=== PATIENT | female | born 1960 | race Two or more races ===

== ENCOUNTER 2018-12-24 22:36 | Inpatient (IN) | payer MEDICAID ==
[~2018-12-24] VITALS: Ht 167.6 cm; Wt 88.9 kg
[~2018-12-24 22:36] MED LIST: ALBU18HF2 INH; BISA10SU8 RC; BUDE10.2 INH; DILT240C96 PO; FURO-150 PO; LISI-604 PO; METO25TA6 PO; NITR0.4T51 SL; PANT-47 PO; POTA10TA15 PO; RIVA20TA PO
[2018-12-24 23:27] LABS: BASOPHILS # (AUTO) 0.1 X10'3 (0-0.2); BASOPHILS % (AUTO) 0.6 % (0-1); EOSINOPHILS # (AUTO) 1.4 X10'3 (0-0.9); EOSINOPHILS % (AUTO) 7.9 % (0-6); HEMATOCRIT 41.4 % (35.0-45.0); HEMOGLOBIN 13.2 g/dl (12.0-16.0); LYMPHOCYTES # (AUTO) 1.4 X10'3 (1.1-4.8); MEAN CORPUSCULAR HEMOGLOBIN 26.6 PG (27.0-31.0); MEAN CORPUSCULAR HGB CONC 31.9 g/dL (33.0-36.5); MEAN CORPUSCULAR VOLUME 83.5 FL (78-98); MEAN PLATELET VOLUME 8.4 FL (7.4-10.4); MONOCYTES # (AUTO) 1.5 X10'3 (0-0.9); MONOCYTES % (AUTO) 8.8 % (2-12); NEUTROPHILS % (AUTO) 74.7 % (42-75); PLATELET COUNT 460 X10'3 (140-440); RED BLOOD COUNT 4.96 X10'6 (4.20-5.60); WHITE BLOOD COUNT 17.5 X10'3 (4.5-11.0)
[2018-12-24] MEDS ORDERED: CefTRIAXone 2gm/D5W 50ml 50 ML IV ONE (23:30)
[2018-12-24] MEDS ORDERED: normal saline 1000ML IV soln IV ONE (23:30)
[2018-12-24] MEDS ORDERED: iohexol 350 MG/ML 50ML vial IV ONE (23:35)
[2018-12-24] MEDS ORDERED: iohexol 350MG/ML 100ml bottle IV ONE (23:35)
[2018-12-24 23:37] LABS: ALANINE AMINOTRANSFERASE 40 U/L (12-78); ALBUMIN 3.3 G/DL (3.4-5.0); ALBUMIN/GLOBULIN RATIO 0.8 (1.1-1.5); ALKALINE PHOSPHATASE 207 IU/L (46-116); ANION GAP 12 (8-16); ASPARTATE AMINO TRANSFERASE 27 U/L (10-37); BILIRUBIN,TOTAL 0.9 MG/DL (0.1-1.0); BLOOD UREA NITROGEN 31 MG/DL (7-18); BUN/CREATININE RATIO 23.3 (6.6-38.0); CALCIUM 9.9 MG/DL (8.5-10.1); CHLORIDE 106 MMOL/L (99-107); CREATININE 1.33 MG/DL (0.40-0.90); GLUCOSE 100 MG/DL (70-104); POTASSIUM 4.7 MMOL/L (3.5-5.1); SODIUM 140 MMOL/L (135-145); TOTAL CARBON DIOXIDE 22.2 MMOL/L (24-32); TOTAL PROTEIN 7.3 G/DL (6.4-8.2); eGFR 41 ML/MIN
[2018-12-24 23:43] LABS: INR 1.2 INR; PARTIAL THROMBOPLASTIN TIME 28 SECONDS (22-32)
[2018-12-24 23:46] LABS: TOTAL CELLS COUNTED 100
[2018-12-24 23:49] LABS: ANISOCYTOSIS 2+; BURR CELLS 1+; ELLIPTOCYTES 1+; PLATELET ESTIMATE INCREASED; POLYCHROMASIA FEW; SCHISTOCYTES FEW; TARGET CELLS FEW
[2018-12-24 23:50] LABS: LARGE PLATELETS MODERATE
[2018-12-25] VITALS (10 sets, daily range): BP systolic 102–136; BP diastolic 70–92
[2018-12-25] MEDS ORDERED: morphine 4 MG/ML inj SYRINge IV ONE ×2 (00:55→02:45)
[2018-12-25] MEDS ORDERED: diltiazem 5mg/ml 5ml inj. IV ONE ×2 (03:15→04:55)
--- NOTE | 2018-12-25 03:35 | NUR ---
Attempted to complete med rec, patient named medications currently taking but did not know dosages.
[2018-12-25] MEDS ORDERED: magnesium 4gm in 100ml NS 100 ML IV PRN (03:50)
[2018-12-25] MEDS ORDERED: potassium Cl 40MEQ/NS 500ml 500 ML IV PRN ×4 (03:50→13:50)
[2018-12-25] MEDS ORDERED: magnesium hydroxide 30ml (MOM) UD suspension PO PRN (03:50)
[2018-12-25] MEDS ORDERED: acetaminophen 325mg tablet PO PRN ×4 (03:50→13:50)
[2018-12-25] MEDS ORDERED: mag hydrox/Alum hydrox/simeth 30ml oral suspension PO PRN (03:50)
[2018-12-25] MEDS ORDERED: magnesium 2GM in 50ml NS 50 ML IV PRN (03:50)
[2018-12-25] MEDS ORDERED: magnesium Cl slow-release 64mg tablet PO PRN (03:50)
[2018-12-25] MEDS ORDERED: potassium Cl 20 mEq SR tablet PO PRN ×4 (03:50→13:50)
[2018-12-25] MEDS ORDERED: ondansetron/PF 4mg/2ml inj IV PRN ×2 (03:50→13:50)
[2018-12-25] MEDS ORDERED: fentaNYL/PF 50MCG/1 ML 2ML syringe IV ONE (04:10)
[2018-12-25] MEDS ORDERED: LORazepam 2 mg/ml vial IV ONE ×2 (04:30→04:55)
[2018-12-25] MEDS: diltiazem-D5W 125mg/125ml 125 ML IV SCH ×2 (04:39→11:35)
[2018-12-25 05:20] LABS: ABG BASE EXCESS -7.7 mmol/L (-2.0-3.0); ABG HCO3 19.5 mmol/L (22.0-26.0); ABG OXYGEN SATURATION 92.8 % (95-98); ABG PCO2 (T) 45.9 mmHg (32.0-45.0); ABG PH (T) 7.245 (7.350-7.450); ABG PO2 (T) 77.9 mmHg (83-108); ALLEN'S TEST Positive; FCOHb 0.9 % (0.5-1.5); FLOW 5 L/min; FMetHb 0.2 % (0.3-1.12); FO2Hb 91.8 % (94-100); RESPIRATORY RATE (OBSERVED) 18 b/min; TOTAL HEMOGLOBIN 13.8 G/dl (12.0-16.0)
--- NOTE | 2018-12-25 05:31 | NUR ---
Cardizem increased to 10/hr
--- NOTE | 2018-12-25 05:43 | NUR ---
Cardizem increased to 15ml/hr
[2018-12-25] MEDS ORDERED: midazolam 100mg in NS 100ml 100 ML IV PRN ×2 (05:50→13:47)
[2018-12-25] MEDS ORDERED: MIDAZolam 5mg/ml 2ml vial IV ONE (05:50)
[2018-12-25 05:56] LABS: CLARITY,URINE CLOUDY (Clear); COLOR,URINE YELLOW (Yellow); GLUCOSE, URINE NEGATIVE (Neg); KETONES,URINE NEGATIVE (Neg); LEUKOCYTE ESTERASE ,URINE NEGATIVE (Neg); NITRITES, URINE NEGATIVE (Neg); OCCULT BLOOD,URINE TRACE-INTACT (Neg); PH,URINE 5.5 (4.8-8.0); PROTEIN,URINE 30 mg/dl (Neg)
[2018-12-25 05:57] LABS: UA COLLECTION TYPE FOLEY CATH
[2018-12-25 06:02] LABS: BACTERIA,URINE FEW /HPF (Neg); MUCUS STRANDS FEW /LPF (Neg); RBC,URINE 0-2 /HPF (0-2); SQUAMOUS EPITHELIAL CELL,UR FEW /LPF (FEW); WBC,URINE 0-4 /HPF (0-4)
[2018-12-25 06:06] LABS: AMORPHOUS URATES 2+
[2018-12-25 06:10] LABS: ABG BASE EXCESS -8.9 mmol/L (-2.0-3.0); ABG HCO3 18.1 mmol/L (22.0-26.0); ABG OXYGEN SATURATION 89.4 % (95-98); ABG PCO2 (T) 42.4 mmHg (32.0-45.0); ABG PH (T) 7.247 (7.350-7.450); ABG PO2 (T) 67.5 mmHg (83-108); ALLEN'S TEST Positive; FCOHb 0.9 % (0.5-1.5); FMetHb 0.2 % (0.3-1.12); FO2Hb 88.4 % (94-100); MINUTE VOLUME 7 L/min; PATIENT TEMPERATURE 36.8; PEEP 5 cm H2O; RESPIRATORY RATE 18 b/min; RESPIRATORY RATE (OBSERVED) 18 b/min; TIDAL VOLUME 400 mL; TOTAL HEMOGLOBIN 13.4 G/dl (12.0-16.0)
[2018-12-25] MEDS ORDERED: ipratropium/albuterol 3ml nebule NEB PRN ×2 (06:20→13:50)
--- NOTE | 2018-12-25 06:23 | NUR ---
Patient is properly sedated on 2mg of versed. No signs of distress. Pupils non reactive pinpoint. bilateral lung sounds, course. Vent settings FIO2 60%, [id number], R 18, PEEP 5. Heart sounds irregular rhythm. s1,s2. Dunbar in place. OG attached to LIS.
[2018-12-25 06:25] LABS: URINE AMPHETAMINE SCREEN POSITIVE (Neg); URINE BARBITUATE SCREEN NEGATIVE (Neg); URINE BENZODIAZEPINES SCREEN NEGATIVE (Neg); URINE CANNABINOID SCREEN NEGATIVE (Neg); URINE COCAINE SCREEN NEGATIVE (Neg); URINE METHADONE SCREEN NEGATIVE (Neg); URINE OPIATE SCREEN POSITIVE (Neg); URINE PHENCYCLIDINE SCREEN NEGATIVE (Neg)
[2018-12-25] MEDS: lactobacillus rhamnosus 10,000 MMU CELLS/CAPSULE PO SCH ×2 (08:00→20:05)
[2018-12-25] MEDS: piperacillin/tazo 3.375gm/50ml 50 ML IV SCH ×3 (08:31→20:04)
[2018-12-25] MEDS: K and/or MAG REPLACEMENT MC SCH (08:39)
[2018-12-25] MEDS ORDERED: 0.9 % SODIUM CHLORIDE 10 ML VIAL ONE (09:00)
[2018-12-25] MEDS ORDERED: rocuronium 10mg/ml inj IV ONE (09:00)
[2018-12-25] MEDS ORDERED: etomidate 2mg/ml inj. ONE ×3 (09:00→13:00)
--- NOTE | 2018-12-25 09:10 | NUR ---
Report received from SHANIQUE Overton in ER.
--- NOTE | 2018-12-25 10:00 | NUR ---
Pt arrived to CICU 2009. 2 RN skin check performed. Pt agitated and difficult to move safely while protecting tubes/lines - given 2mg bolus of versed. Peripheral pulses verified with doppler, drip compatibility checked.
--- NOTE | 2018-12-25 10:45 | NUR ---
Critical care rounds: gave MD report that I received from ER. Discussed all systems. See new orders. Also states okay to cancel the rest of the troponins if the 6hr one at 1130 comes back normal.
[2018-12-25] MEDS: FENTANYL-0.9 % NACL/PF 100 ML IV PRN (11:10)
[2018-12-25] MEDS ORDERED: amiodarone 150mg/dext, iso-os 100 ML IV ONE (12:00)
[2018-12-25] MEDS ORDERED: sod chloride 0.9% 10ml flush syringe IV ONE ×2 (12:00→13:00)
--- NOTE | 2018-12-25 12:05 | NUR ---
Dr Salinas notified that Vtach seen during critical care rounds by entire team has repeated in 2 more episodes. He states to change cardizem drip to amiodarone drip including starting bolus.
[2018-12-25] MEDS: nystatin 15 GM powder TP SCH ×2 (12:54→21:41)
[2018-12-25] MEDS: amiodarone/D5 360MG/200ML BAG 200 ML IV SCH ×2 (12:59→18:36)
[2018-12-25] MEDS: vancomycin inj 1,250 MG in NS 250ml IV soln IV SCH (13:13)
[2018-12-25] MEDS ORDERED: FENTANYL-0.9 % NACL/PF 100 ML IV PRN (13:47)
[2018-12-25] MEDS ORDERED: midazolam 2 mg/2 ml injection IV ONE (13:50)
[2018-12-25] MEDS ORDERED: potassium Cl 40MEQ/250ML bag 250 ML IV PRN (13:50)
[2018-12-25] MEDS ORDERED: fentaNYL/PF 50MCG/1 ML 2ML syringe IV PRN (13:50)
[2018-12-25] MEDS ORDERED: potassium Cl 40MEQ/250ML bag 250 ML IV SCH (13:50)
--- NOTE | 2018-12-25 14:10 | NUR ---
Extended PIV inserted to the right upper arm basilic vein x 1 attempt using ultrasound. García well Addendum: 12/25/18 at 1411 by Erika Hernandez RN Amended: Links added.
[2018-12-25] MEDS: lisinopril 5mg tablet PO SCH (14:15)
[2018-12-25] MEDS: normal saline 1000ml 1,000 ML IV SCH (14:17)
[2018-12-25] MEDS: ipratropium/albuterol 3ml nebule NEB SCH (15:00)
--- NOTE | 2018-12-25 15:48 | NUR ---
Patient is intubated to protect airway. Presented to ED with blackened toes and pain. Not receiving nutrition support at this time. Recommend: 1. If prolonged intubation consider nutrition support with tube feeding using Vital High protein at 70 ml/hr 2. When extubated, recommend to advance diet as medically indicated to heart healthy 3. Wt per rx Addendum: 12/25/18 at [address] Amended: Links added.
[2018-12-25 16:00] LABS: CLARITY,URINE CLOUDY (Clear); COLOR,URINE YELLOW (Yellow); GLUCOSE, URINE NEGATIVE (Neg); KETONES,URINE TRACE mg/dl (Neg); LEUKOCYTE ESTERASE ,URINE NEGATIVE (Neg); NITRITES, URINE NEGATIVE (Neg); OCCULT BLOOD,URINE MODERATE (Neg); PH,URINE 5.5 (4.8-8.0); PROTEIN,URINE TRACE mg/dl (Neg)
[2018-12-25 16:10] LABS: UA COLLECTION TYPE NON-SPECIFIED
[2018-12-25 16:36] LABS: URIC ACID CRYSTALS 4+ /HPF (NEGATIVE)
[2018-12-25 16:43] LABS: FINE GRANULAR CAST 0-3 /LPF (NEGATIVE); HYALINE CASTS 0-3 /LPF (NEGATIVE)
[2018-12-25 16:46] LABS: BACTERIA,URINE 1+ /HPF (Neg); SQUAMOUS EPITHELIAL CELL,UR FEW /LPF (FEW); WBC,URINE 0-4 /HPF (0-4)
[2018-12-25 16:47] LABS: TRANSITIONAL EPI CELLS,URINE FEW /HPF
[2018-12-25 17:15] LABS: UA EOSINOPHILS NO EOS /HPF
--- NOTE | 2018-12-25 18:00 | NUR ---
When IV spreadsheet filled out at end of shift after clearing pumps I noticed bag not initially scanned by the ER nurse that began. Note written to spreadsheet at 1015 stating bag not scanned by ER but I will document total input for volume intake at end of shift. Charge nurse and pharmacist made aware.
--- NOTE | 2018-12-25 18:15 | NUR ---
Dr Salinas at bedside and was informed that hands are appearing more dusky and purple than when first admitted, cool to the touch also. Cap refill present but very slow. Radial pulses present bilaterally. He states to keep checking pulses and attempt to get O2 sat probe to read on finger if possible but otherwise not much more we can do at this time. We also discussed the ET tube being too far down right at the steve, he instructs night nurse to pull back ET tube.
--- NOTE | 2018-12-25 18:26 | NUR ---
Patient in room CICU 2009. I have received report from Nubia Gracia and had the opportunity to ask questions and assume patient care.
--- NOTE | 2018-12-25 18:28 | NUR ---
Problems reprioritized. Patient report given, questions answered & plan of care reviewed with SHANIQUE Ulloa.
[2018-12-25] MEDS ORDERED: docusate sod 100mg capsule PO SCH (20:00)
[2018-12-25] MEDS: heparin, porcine 5000 units/ml vial SQ SCH (20:05)
[2018-12-25] MEDS: famotidine/PF 10 mg/ml inj IV SCH (20:05)
[2018-12-25] MEDS: docusate sodium 100mg/10ml UD cup PO SCH (20:17)
[2018-12-25] MEDS: midazolam 100mg in NS 100ml 100 ML IV PRN (21:42)
[2018-12-25] MEDS ORDERED: CefTRIAXone 2gm/D5W 50ml 50 ML IV SCH (22:00)
--- NOTE | 2018-12-25 22:25 | NUR ---
Patient resting comfortably vital signs stable. Becomes easily agitated with turning and oral care, will continue to monitor
[2018-12-26] VITALS (24 sets, daily range): BP systolic 85–130; BP diastolic 46–88
[2018-12-26] MEDS: amiodarone/D5 360MG/200ML BAG 200 ML IV SCH ×4 (00:08→18:38)
[2018-12-26] MEDS: vancomycin inj 1,250 MG in NS 250ml IV soln IV SCH (01:44)
[2018-12-26] MEDS: piperacillin/tazo 3.375gm/50ml 50 ML IV SCH ×4 (01:45→21:07)
[2018-12-26] MEDS ORDERED: dextrose 50%-water 50ml dispensing syringe IV ONE (03:06)
[2018-12-26] MEDS: normal saline 1000ml 1,000 ML IV SCH ×3 (03:07→22:29)
--- NOTE | 2018-12-26 03:20 | NUR ---
patient resting comfortably, vital signs stable will continue to monitor
[2018-12-26 03:50] LABS: ABG BASE EXCESS -4.5 mmol/L (-2.0-3.0); ABG HCO3 20.4 mmol/L (22.0-26.0); ABG OXYGEN SATURATION 91.8 % (95-98); ABG PCO2 (T) 35.4 mmHg (32.0-45.0); ABG PH (T) 7.375 (7.350-7.450); ABG PO2 (T) 58.1 mmHg (83-108); ALLEN'S TEST Positive; FCOHb 0.3 % (0.5-1.5); FMetHb 0.1 % (0.3-1.12); FO2Hb 91.4 % (94-100); MINUTE VOLUME 7 L/min; PATIENT TEMPERATURE 35.9; PEEP 5 cm H2O; RESPIRATORY RATE 20 b/min; RESPIRATORY RATE (OBSERVED) 20 b/min; TIDAL VOLUME 350 mL; TOTAL HEMOGLOBIN 12.7 G/dl (12.0-16.0)
[2018-12-26 04:36] LABS: BASOPHILS # (AUTO) 0.1 X10'3 (0-0.2); BASOPHILS % (AUTO) 0.6 % (0-1); EOSINOPHILS # (AUTO) 2.1 X10'3 (0-0.9); HEMATOCRIT 37.2 % (35.0-45.0); HEMOGLOBIN 11.7 g/dl (12.0-16.0); LYMPHOCYTES # (AUTO) 1.1 X10'3 (1.1-4.8); LYMPHOCYTES % (AUTO) 9.4 % (21-51); MEAN CORPUSCULAR HEMOGLOBIN 26.8 PG (27.0-31.0); MEAN CORPUSCULAR HGB CONC 31.6 g/dL (33.0-36.5); MEAN CORPUSCULAR VOLUME 84.9 FL (78-98); MEAN PLATELET VOLUME 8.3 FL (7.4-10.4); MONOCYTES # (AUTO) 1.2 X10'3 (0-0.9); MONOCYTES % (AUTO) 10.1 % (2-12); NEUTROPHILS # (AUTO) 7.4 X10'3 (1.8-7.7); NEUTROPHILS % (AUTO) 61.9 % (42-75); PLATELET COUNT 334 X10'3 (140-440); RED BLOOD COUNT 4.38 X10'6 (4.20-5.60); RED CELL DISTRIBUTION WIDTH 19.3 % (11.5-14.5)
[2018-12-26 04:48] LABS: ALANINE AMINOTRANSFERASE 31 U/L (12-78); ALBUMIN 2.2 G/DL (3.4-5.0); ALBUMIN/GLOBULIN RATIO 0.7 (1.1-1.5); ALKALINE PHOSPHATASE 154 IU/L (46-116); ANION GAP 10 (8-16); ASPARTATE AMINO TRANSFERASE 26 U/L (10-37); BILIRUBIN,TOTAL 0.7 MG/DL (0.1-1.0); BLOOD UREA NITROGEN 24 MG/DL (7-18); CALCIUM 8.3 MG/DL (8.5-10.1); CHLORIDE 112 MMOL/L (99-107); CREATININE 1.26 MG/DL (0.40-0.90); GLUCOSE 73 MG/DL (70-104); MAGNESIUM 1.7 MG/DL (1.5-2.4); POTASSIUM 3.8 MMOL/L (3.5-5.1); SODIUM 145 MMOL/L (135-145); TOTAL CARBON DIOXIDE 23.3 MMOL/L (24-32); TOTAL PROTEIN 5.3 G/DL (6.4-8.2); eGFR 43 ML/MIN
[2018-12-26 05:32] LABS: ANISOCYTOSIS 2+; PLATELET ESTIMATE NORMAL
[2018-12-26 05:36] LABS: ELLIPTOCYTES FEW
[2018-12-26 05:54] LABS: BURR CELLS 1+
--- NOTE | 2018-12-26 06:22 | NUR ---
Patient in room CICU 2009. I have received report from SHANIQUE Ulloa and had the opportunity to ask questions and assume patient care.
--- NOTE | 2018-12-26 06:43 | NUR ---
Problems reprioritized. Patient report given, questions answered & plan of care reviewed with Nubia Gracia.
[2018-12-26] MEDS: docusate sodium 100mg/10ml UD cup PO SCH ×2 (08:00→22:29)
[2018-12-26] MEDS: K and/or MAG REPLACEMENT MC SCH (08:00)
[2018-12-26] MEDS: lactobacillus rhamnosus 10,000 MMU CELLS/CAPSULE PO SCH ×2 (08:00→21:08)
[2018-12-26] MEDS: heparin, porcine 5000 units/ml vial SQ SCH (08:00)
[2018-12-26] MEDS: lisinopril 5mg tablet PO SCH (08:00)
[2018-12-26] MEDS: famotidine/PF 10 mg/ml inj IV SCH ×2 (08:00→22:28)
[2018-12-26] MEDS: nystatin 15 GM powder TP SCH ×3 (10:07→21:08)
[2018-12-26] MEDS: mineral oil/petrolatum ophthal oint EACHEYE SCH ×3 (10:10→21:08)
[2018-12-26] MEDS: dexmedetomidine inj. 400 MCG in normal saline 100ml IV soln 100 ML IV PRN ×2 (10:11→18:38)
--- NOTE | 2018-12-26 10:40 | NUR ---
Critical care rounds: discussed patient status, reviewed changes made earlier this morning ordered by Dr Salinas including the change of FiO2 down to 40% despite low pO2, the addition of precedex, rate still in afib around 100-120. Will start tube feeding, bump up K to cardiac protocol of 4.5, IVF increased to 125 instead of 75 to try and improve the urine output which we discussed being low. Also discussed better placement of ET tube now 21 at the teeth.
[2018-12-26] MEDS ORDERED: DILT120C51 PO (10:54)
[2018-12-26] MEDS ORDERED: potassium Cl oral solution 20 MEQ/15 ML PO PRN ×2 (12:45)
[2018-12-26] MEDS: midazolam 100mg in NS 100ml 100 ML IV PRN (13:00)
[2018-12-26] MEDS ORDERED: VANCOMYCIN LEVEL IV ONE (13:30)
--- NOTE | 2018-12-26 13:56 | NUR ---
Tube feeding consult, patient is intubated to protect airway and is sedated. Has OG tube. Presented to ED with blackened toes and pain. Will continue to follow and monitor tube feeding tolerance. Recommend: 1. Continuous tube feeding per OG tube using Vital High protein at 60 ml/hr. Will provide 1440 ml total volume, 1440 cals, 126 g protein, 1204 ml water. 2. Water flush 200 ml Q4H 3. Prealbumin q /, daily wts 4. When extubated, recommend to advance diet as medically indicated to heart healthy Addendum: 12/26/18 at [address] Amended: Links added.
[2018-12-26] MEDS ORDERED: mineral oil/petrolatum ophthal oint EACHEYE SCH (14:00)
[2018-12-26] MEDS: ipratropium/albuterol 3ml nebule NEB SCH ×3 (15:25→22:54)
[2018-12-26] MEDS: FENTANYL-0.9 % NACL/PF 100 ML IV PRN (15:45)
[2018-12-26] MEDS: rivaroxaban 20mg tablet PO SCH (16:30)
[2018-12-26] MEDS ORDERED: non-formulary drug (Albuterol Sulfate (Ventolin Hfa) 2 PUFFS) INH PRN (16:30)
--- NOTE | 2018-12-26 16:44 | NUR ---
called daughter Laila, left message asking to return call back to me or primary RN. I left questions with RN to followup
--- NOTE | 2018-12-26 17:30 | NUR ---
Spoke with Dr Salinas again and told him that urine output still low at around 20-40 an hour, and he states not to give lasix yet, continue IVF at 75/hr
--- NOTE | 2018-12-26 18:32 | NUR ---
Problems reprioritized. Patient report given, questions answered & plan of care reviewed with SHANQIUE corrales.
[2018-12-27] VITALS (26 sets, daily range): BP systolic 68–118; BP diastolic 40–90
[2018-12-27] MEDS: amiodarone/D5 360MG/200ML BAG 200 ML IV SCH ×6 (00:24→20:21)
[2018-12-27] MEDS: vancomycin/NS 1 GM ADD-VANTAGE 250 ML IV SCH ×2 (01:14→13:41)
[2018-12-27] MEDS: dexmedetomidine inj. 400 MCG in normal saline 100ml IV soln 100 ML IV PRN (01:21)
[2018-12-27] MEDS: mineral oil/petrolatum ophthal oint EACHEYE SCH ×4 (01:22→20:12)
--- NOTE | 2018-12-27 02:21 | NUR ---
1999..Assessment as noted, pt agitated and restless, fentanyl bolus given with good effect.
--- NOTE | 2018-12-27 02:21 | NUR ---
1830..Patient in room CICU 2009. I have received report from Mauricio BAY and had the opportunity to ask questions and assume patient care.
--- NOTE | 2018-12-27 02:23 | NUR ---
0000..Resting quietly, Precedex decreased, no other changes noted.
[2018-12-27] MEDS: ipratropium/albuterol 3ml nebule NEB SCH ×6 (02:55→23:28)
[2018-12-27] MEDS: piperacillin/tazo 3.375gm/50ml 50 ML IV SCH ×2 (03:13→16:36)
[2018-12-27 04:15] LABS: ABG BASE EXCESS -5.6 mmol/L (-2.0-3.0); ABG HCO3 19.6 mmol/L (22.0-26.0); ABG OXYGEN SATURATION 88.5 % (95-98); ABG PCO2 (T) 36.5 mmHg (32.0-45.0); ABG PH (T) 7.346 (7.350-7.450); ABG PO2 (T) 55.3 mmHg (83-108); ALLEN'S TEST Positive; FMetHb 0.1 % (0.3-1.12); FO2Hb 88.4 % (94-100); MINUTE VOLUME 8 L/min; PATIENT TEMPERATURE 36.6; PEEP 5 cm H2O; RESPIRATORY RATE 20 b/min; RESPIRATORY RATE (OBSERVED) 20 b/min; TIDAL VOLUME 350 mL; TOTAL HEMOGLOBIN 12.8 G/dl (12.0-16.0)
--- NOTE | 2018-12-27 04:49 | NUR ---
0400..No changes noted.
[2018-12-27 05:23] LABS: BASOPHILS # (AUTO) 0.1 X10'3 (0-0.2); BASOPHILS % (AUTO) 1.1 % (0-1); EOSINOPHILS # (AUTO) 2.1 X10'3 (0-0.9); EOSINOPHILS % (AUTO) 15.9 % (0-6); HEMOGLOBIN 12.5 g/dl (12.0-16.0); LYMPHOCYTES # (AUTO) 0.9 X10'3 (1.1-4.8); MEAN CORPUSCULAR HEMOGLOBIN 26.6 PG (27.0-31.0); MEAN CORPUSCULAR HGB CONC 31.3 g/dL (33.0-36.5); MEAN CORPUSCULAR VOLUME 85.1 FL (78-98); MONOCYTES # (AUTO) 1.1 X10'3 (0-0.9); MONOCYTES % (AUTO) 7.8 % (2-12); NEUTROPHILS # (AUTO) 9.2 X10'3 (1.8-7.7); NEUTROPHILS % (AUTO) 68.2 % (42-75); PLATELET COUNT 346 X10'3 (140-440); RED BLOOD COUNT 4.71 X10'6 (4.20-5.60); RED CELL DISTRIBUTION WIDTH 19.9 % (11.5-14.5); WHITE BLOOD COUNT 13.5 X10'3 (4.5-11.0)
[2018-12-27] MEDS: normal saline 1000ml 1,000 ML IV SCH (05:31)
[2018-12-27] MEDS ORDERED: NORepinephrine 8mg/ 250ml NS 250 ML IV PRN (05:52)
[2018-12-27] MEDS ORDERED: NORepinephrine 8mg/ 250ml NS 250 ML IV ONE (05:54)
[2018-12-27 05:58] LABS: ALANINE AMINOTRANSFERASE 33 U/L (12-78); ALBUMIN/GLOBULIN RATIO 0.6 (1.1-1.5); ALKALINE PHOSPHATASE 149 IU/L (46-116); ANION GAP 9 (8-16); ASPARTATE AMINO TRANSFERASE 20 U/L (10-37); BILIRUBIN,TOTAL 0.4 MG/DL (0.1-1.0); BLOOD UREA NITROGEN 21 MG/DL (7-18); BUN/CREATININE RATIO 14.2 (6.6-38.0); CALCIUM 8.2 MG/DL (8.5-10.1); CHLORIDE 112 MMOL/L (99-107); CREATININE 1.48 MG/DL (0.40-0.90); GLUCOSE 117 MG/DL (70-104); MAGNESIUM 1.8 MG/DL (1.5-2.4); PHOSPHORUS 3.7 MG/DL (2.3-4.5); POTASSIUM 4.2 MMOL/L (3.5-5.1); SODIUM 144 MMOL/L (135-145); TOTAL CARBON DIOXIDE 23.3 MMOL/L (24-32); TOTAL PROTEIN 5.3 G/DL (6.4-8.2); eGFR 36 ML/MIN
--- NOTE | 2018-12-27 06:30 | NUR ---
Dr. Spears at bedside to assess pt after NOC SURGICAL MANAGER called concerning pt's xray and BP. Femoral CVC quad lumen put in with charge entry at the bedside. Pt then placed on R side and xray to be taken in approximately [address] Spears. Will follow up with Dr. Morillo after she receives sign out. Pt's SBP remains labile at this moment on sedation and pain meds. Will continue to monitor.
--- NOTE | 2018-12-27 06:38 | NUR ---
[id number]..Pt hypotensive, sedation off, Kalina OCCASIONAL CAREGIVER notified, orders received and levophed started, pt wakes wild, and is difficult to calm.
--- NOTE | 2018-12-27 06:46 | NUR ---
0630..Problems reprioritized. Patient report given, questions answered & plan of care reviewed with Adelina BAY.
[2018-12-27] MEDS: midazolam 100mg in NS 100ml 100 ML IV PRN ×2 (07:07→23:06)
[2018-12-27] MEDS: lisinopril 5mg tablet PO SCH (08:00)
[2018-12-27] MEDS: K and/or MAG REPLACEMENT MC SCH (08:00)
--- NOTE | 2018-12-27 08:15 | NUR ---
Pt bronched by Dr. Morillo this AM, sputum samples sent but no mucus plug found. Pt sedated for procedure and chest xray obtained afterwards. Will get Echo and renal US to determine if pt needs lasix or other cause for decompensation. RN will readdress giving lasix after tests are completed.
[2018-12-27] MEDS ORDERED: amiodarone 150mg/dext, iso-os 100 ML IV ONE (08:20)
[2018-12-27] MEDS: docusate sodium 100mg/10ml UD cup PO SCH ×2 (09:02→20:12)
[2018-12-27] MEDS: rivaroxaban 20mg tablet PO SCH (09:02)
[2018-12-27] MEDS: nystatin 15 GM powder TP SCH ×3 (09:02→20:12)
[2018-12-27] MEDS: lactobacillus rhamnosus 10,000 MMU CELLS/CAPSULE PO SCH ×2 (09:02→20:13)
[2018-12-27] MEDS: famotidine/PF 10 mg/ml inj IV SCH ×2 (09:02→20:13)
[2018-12-27] MEDS ORDERED: furosemide 40mg/4ml inj IV ONE (10:00)
--- NOTE | 2018-12-27 10:11 | NUR ---
DM consult: Pt with T2DM current A1c 7.0; pt will need DM education s/p extubation once pt is alert and oriented. Will continue to follow. Addendum: 12/27/18 at [address] Amended: Links added.
[2018-12-27] MEDS: FENTANYL-0.9 % NACL/PF 100 ML IV PRN (16:36)
[2018-12-28] VITALS (25 sets, daily range): BP systolic 89–120; BP diastolic 60–87
[2018-12-28] MEDS: FENTANYL-0.9 % NACL/PF 100 ML IV PRN ×2 (00:26→17:44)
[2018-12-28 01:10] LABS: BASOPHILS # (AUTO) 0.1 X10'3 (0-0.2); BASOPHILS % (AUTO) 0.9 % (0-1); EOSINOPHILS % (AUTO) 22.8 % (0-6); HEMATOCRIT 39.7 % (35.0-45.0); HEMOGLOBIN 12.4 g/dl (12.0-16.0); LYMPHOCYTES # (AUTO) 0.9 X10'3 (1.1-4.8); LYMPHOCYTES % (AUTO) 6.6 % (21-51); MEAN CORPUSCULAR HEMOGLOBIN 26.5 PG (27.0-31.0); MEAN CORPUSCULAR HGB CONC 31.2 g/dL (33.0-36.5); MEAN CORPUSCULAR VOLUME 85.1 FL (78-98); MEAN PLATELET VOLUME 7.9 FL (7.4-10.4); MONOCYTES # (AUTO) 1.2 X10'3 (0-0.9); MONOCYTES % (AUTO) 9.2 % (2-12); NEUTROPHILS % (AUTO) 60.5 % (42-75); PLATELET COUNT 392 X10'3 (140-440); RED BLOOD COUNT 4.66 X10'6 (4.20-5.60); RED CELL DISTRIBUTION WIDTH 19.8 % (11.5-14.5); WHITE BLOOD COUNT 13.3 X10'3 (4.5-11.0)
[2018-12-28 01:21] LABS: ALANINE AMINOTRANSFERASE 26 U/L (12-78); ALBUMIN/GLOBULIN RATIO 0.5 (1.1-1.5); ALKALINE PHOSPHATASE 155 IU/L (46-116); ANION GAP 10 (8-16); ASPARTATE AMINO TRANSFERASE 23 U/L (10-37); BILIRUBIN,TOTAL 0.5 MG/DL (0.1-1.0); BLOOD UREA NITROGEN 22 MG/DL (7-18); BUN/CREATININE RATIO 15.2 (6.6-38.0); CALCIUM 8.3 MG/DL (8.5-10.1); CHLORIDE 109 MMOL/L (99-107); CREATININE 1.45 MG/DL (0.40-0.90); GLUCOSE 136 MG/DL (70-104); MAGNESIUM 1.8 MG/DL (1.5-2.4); PHOSPHORUS 3.7 MG/DL (2.3-4.5); POTASSIUM 4.3 MMOL/L (3.5-5.1); SODIUM 142 MMOL/L (135-145); TOTAL CARBON DIOXIDE 23.2 MMOL/L (24-32); TOTAL PROTEIN 5.7 G/DL (6.4-8.2); eGFR 37 ML/MIN
[2018-12-28] MEDS: mineral oil/petrolatum ophthal oint EACHEYE SCH ×4 (01:55→19:25)
[2018-12-28] MEDS: piperacillin/tazo 3.375gm/50ml 50 ML IV SCH ×3 (01:55→16:30)
[2018-12-28] MEDS: vancomycin/NS 1 GM ADD-VANTAGE 250 ML IV SCH ×2 (01:55→14:34)
[2018-12-28] MEDS: amiodarone/D5 360MG/200ML BAG 200 ML IV SCH ×4 (02:42→20:37)
[2018-12-28] MEDS: ipratropium/albuterol 3ml nebule NEB SCH ×6 (03:27→23:44)
[2018-12-28 04:40] LABS: ABG BASE EXCESS -6.1 mmol/L (-2.0-3.0); ABG HCO3 18.9 mmol/L (22.0-26.0); ABG OXYGEN SATURATION 95.2 % (95-98); ABG PCO2 (T) 36.3 mmHg (32.0-45.0); ABG PH (T) 7.336 (7.350-7.450); ABG PO2 (T) 80.8 mmHg (83-108); ALLEN'S TEST Positive; FCOHb 0.3 % (0.5-1.5); FMetHb 0.2 % (0.3-1.12); FO2Hb 94.7 % (94-100); MINUTE VOLUME 8 L/min; PATIENT TEMPERATURE 37.3; PEEP 10 cm H2O; RESPIRATORY RATE 20 b/min; RESPIRATORY RATE (OBSERVED) 20 b/min; TIDAL VOLUME 350 mL
--- NOTE | 2018-12-28 05:15 | NUR ---
1830..Patient in room CICU 2009. I have received report from Day shift RN and had the opportunity to ask questions and assume patient care.
--- NOTE | 2018-12-28 05:17 | NUR ---
1999..Assessment noted. Fentanyl & versed drips for sedation & discomfort. On amiodarone & levophed. BP stable, remains in afib. Knees with mottling noted. Feet dusky pedal/posterior tibial pulses with doppler.
--- NOTE | 2018-12-28 05:27 | NUR ---
0000...Mottling increased, critical care GUEST LAUNDRY ATTENDANT notified. Orders received.
--- NOTE | 2018-12-28 05:38 | NUR ---
0400... No changes noted.
--- NOTE | 2018-12-28 06:28 | NUR ---
9162...Problems reprioritized. Patient report given, questions answered & plan of care reviewed with Mee BAY.
[2018-12-28] MEDS: K and/or MAG REPLACEMENT MC SCH ×2 (08:00→19:00)
[2018-12-28] MEDS: lisinopril 5mg tablet PO SCH (08:00)
[2018-12-28] MEDS ORDERED: furosemide 40mg/4ml inj IV ONE (09:10)
[2018-12-28] MEDS: famotidine/PF 10 mg/ml inj IV SCH ×2 (09:11→19:25)
[2018-12-28] MEDS: docusate sodium 100mg/10ml UD cup PO SCH ×2 (09:11→19:25)
[2018-12-28] MEDS: rivaroxaban 20mg tablet PO SCH (09:11)
[2018-12-28] MEDS: lactobacillus rhamnosus 10,000 MMU CELLS/CAPSULE PO SCH ×2 (09:11→19:25)
[2018-12-28] MEDS: nystatin 15 GM powder TP SCH ×3 (09:13→19:25)
[2018-12-28] MEDS ORDERED: VANCOMYCIN LEVEL IV ONE (13:30)
[2018-12-28] MEDS: acyclovir 5% 15GM ointment TP SCH ×2 (14:00→19:25)
[2018-12-28 15:55] LABS: POTASSIUM 4.3 MMOL/L (3.5-5.1)
[2018-12-28 15:58] LABS: VANCOMYCIN,TROUGH 31.8 UG/ML (6.0-14.0)
--- NOTE | 2018-12-28 18:38 | NUR ---
Patient in room CICU 2009. I have received report from Mee and had the opportunity to ask questions and assume patient care.
[2018-12-28] MEDS ORDERED: potassium Cl 40MEQ/250ML bag 250 ML IV PRN (18:55)
[2018-12-28] MEDS: potassium Cl 40MEQ/250ML bag 250 ML IV PRN (19:56)
[2018-12-28] MEDS: midazolam 100mg in NS 100ml 100 ML IV PRN (20:38)
[2018-12-29] VITALS (24 sets, daily range): BP systolic 66–115; BP diastolic 39–94
--- NOTE | 2018-12-29 00:19 | NUR ---
Patient in room CICU 2009. I have received report from Baljit BAY and had the opportunity to ask questions and assume patient care.
--- NOTE | 2018-12-29 00:24 | NUR ---
Problems reprioritized. Patient report given, questions answered & plan of care reviewed with
[2018-12-29] MEDS: VANCOMYCIN 750MG IV in NS 250 ML IV SCH ×3 (00:31→23:17)
--- NOTE | 2018-12-29 01:25 | NUR ---
Patient in room CICU 2009. I have received report from Meagan BAY and had the opportunity to ask questions and assume patient care. Pt i on vent with fio2 at 35% spo2 at 96%, fentanyl gtt, versed gtt for sedation will titrate per protocol, amiodarone gtt, all medications infusing via central line, see IV flowsheet for more information. See interventions for further information. All monitoring alarms audible. Will continue to monitor.
--- NOTE | 2018-12-29 01:25 | NUR ---
Problems reprioritized. Patient report given, questions answered & plan of care reviewed with aKe BAY.
[2018-12-29] MEDS: mineral oil/petrolatum ophthal oint EACHEYE SCH ×4 (02:42→20:32)
[2018-12-29] MEDS: piperacillin/tazo 3.375gm/50ml 50 ML IV SCH ×2 (02:42→08:54)
[2018-12-29] MEDS: acyclovir 5% 15GM ointment TP SCH ×4 (02:43→20:31)
[2018-12-29] MEDS: amiodarone/D5 360MG/200ML BAG 200 ML IV SCH ×4 (02:58→21:19)
[2018-12-29 03:26] LABS: BASOPHILS # (AUTO) 0.1 X10'3 (0-0.2); EOSINOPHILS # (AUTO) 2.9 X10'3 (0-0.9); EOSINOPHILS % (AUTO) 24.4 % (0-6); HEMATOCRIT 36.3 % (35.0-45.0); HEMOGLOBIN 11.4 g/dl (12.0-16.0); MEAN CORPUSCULAR HEMOGLOBIN 26.6 PG (27.0-31.0); MEAN CORPUSCULAR HGB CONC 31.4 g/dL (33.0-36.5); MEAN CORPUSCULAR VOLUME 84.8 FL (78-98); MONOCYTES # (AUTO) 1.2 X10'3 (0-0.9); MONOCYTES % (AUTO) 9.9 % (2-12); NEUTROPHILS # (AUTO) 6.8 X10'3 (1.8-7.7); NEUTROPHILS % (AUTO) 56.7 % (42-75); PLATELET COUNT 309 X10'3 (140-440); RED BLOOD COUNT 4.28 X10'6 (4.20-5.60); RED CELL DISTRIBUTION WIDTH 19.9 % (11.5-14.5)
[2018-12-29] MEDS: ipratropium/albuterol 3ml nebule NEB SCH ×6 (03:35→23:10)
[2018-12-29 03:43] LABS: ALANINE AMINOTRANSFERASE 26 U/L (12-78); ALBUMIN 1.9 G/DL (3.4-5.0); ALBUMIN/GLOBULIN RATIO 0.6 (1.1-1.5); ALKALINE PHOSPHATASE 143 IU/L (46-116); ANION GAP 7 (8-16); ASPARTATE AMINO TRANSFERASE 23 U/L (10-37); BILIRUBIN,TOTAL 0.4 MG/DL (0.1-1.0); BLOOD UREA NITROGEN 23 MG/DL (7-18); CALCIUM 8.4 MG/DL (8.5-10.1); CHLORIDE 108 MMOL/L (99-107); CREATININE 1.28 MG/DL (0.40-0.90); GLUCOSE 105 MG/DL (70-104); MAGNESIUM 1.6 MG/DL (1.5-2.4); PHOSPHORUS 2.8 MG/DL (2.3-4.5); POTASSIUM 4.2 MMOL/L (3.5-5.1); PREALBUMIN 10.6 MG/DL (19-36); SODIUM 140 MMOL/L (135-145); TOTAL CARBON DIOXIDE 25.5 MMOL/L (24-32); TOTAL PROTEIN 5.3 G/DL (6.4-8.2); eGFR 43 ML/MIN
[2018-12-29 04:30] LABS: ABG BASE EXCESS -3.5 mmol/L (-2.0-3.0); ABG HCO3 21.6 mmol/L (22.0-26.0); ABG OXYGEN SATURATION 94.6 % (95-98); ABG PCO2 (T) 39.7 mmHg (32.0-45.0); ABG PH (T) 7.354 (7.350-7.450); ABG PO2 (T) 75.1 mmHg (83-108); ALLEN'S TEST Positive; FCOHb 0.3 % (0.5-1.5); FMetHb 0.3 % (0.3-1.12); MINUTE VOLUME 8 L/min; PATIENT TEMPERATURE 37.2; PEEP 10 cm H2O; RESPIRATORY RATE 20 b/min; RESPIRATORY RATE (OBSERVED) 20 b/min; TIDAL VOLUME 350 mL; TOTAL HEMOGLOBIN 12.2 G/dl (12.0-16.0)
[2018-12-29] MEDS: FENTANYL-0.9 % NACL/PF 100 ML IV PRN ×2 (05:05→20:51)
--- NOTE | 2018-12-29 06:00 | NUR ---
No change in condition.
--- NOTE | 2018-12-29 06:24 | NUR ---
Problems reprioritized. Patient report given, questions answered & plan of care reviewed with Mee BAY.
[2018-12-29] MEDS: potassium Cl 40MEQ/250ML bag 250 ML IV PRN (07:55)
[2018-12-29] MEDS: lisinopril 5mg tablet PO SCH (08:00)
[2018-12-29] MEDS: K and/or MAG REPLACEMENT MC SCH (08:00)
[2018-12-29] MEDS: lactobacillus rhamnosus 10,000 MMU CELLS/CAPSULE PO SCH ×2 (08:54→20:31)
[2018-12-29] MEDS: docusate sodium 100mg/10ml UD cup PO SCH ×2 (08:54→20:31)
[2018-12-29] MEDS: rivaroxaban 20mg tablet PO SCH (08:54)
[2018-12-29] MEDS: famotidine/PF 10 mg/ml inj IV SCH ×2 (08:54→20:31)
[2018-12-29] MEDS: nystatin 15 GM powder TP SCH ×3 (08:55→20:30)
[2018-12-29] MEDS: furosemide 40mg/4ml inj IV SCH ×2 (14:09→20:32)
[2018-12-29] MEDS ORDERED: furosemide 40mg/4ml inj IV SCH (20:00)
[2018-12-29] MEDS: midazolam 100mg in NS 100ml 100 ML IV PRN (20:50)
[2018-12-30] VITALS (23 sets, daily range): BP systolic 76–104; BP diastolic 49–80
[2018-12-30] MEDS: mineral oil/petrolatum ophthal oint EACHEYE SCH ×4 (02:15→20:25)
[2018-12-30] MEDS: acyclovir 5% 15GM ointment TP SCH ×4 (02:15→20:26)
[2018-12-30 03:06] LABS: BASOPHILS # (AUTO) 0.1 X10'3 (0-0.2); BASOPHILS % (AUTO) 0.7 % (0-1); EOSINOPHILS # (AUTO) 3.6 X10'3 (0-0.9); EOSINOPHILS % (AUTO) 31.1 % (0-6); HEMATOCRIT 35.8 % (35.0-45.0); HEMOGLOBIN 11.5 g/dl (12.0-16.0); LYMPHOCYTES # (AUTO) 0.9 X10'3 (1.1-4.8); LYMPHOCYTES % (AUTO) 7.8 % (21-51); MEAN CORPUSCULAR HEMOGLOBIN 27.1 PG (27.0-31.0); MEAN CORPUSCULAR HGB CONC 32.3 g/dL (33.0-36.5); MEAN CORPUSCULAR VOLUME 83.9 FL (78-98); MEAN PLATELET VOLUME 8.2 FL (7.4-10.4); MONOCYTES # (AUTO) 1.2 X10'3 (0-0.9); MONOCYTES % (AUTO) 10.6 % (2-12); NEUTROPHILS # (AUTO) 5.8 X10'3 (1.8-7.7); NEUTROPHILS % (AUTO) 49.8 % (42-75); PLATELET COUNT 311 X10'3 (140-440); RED BLOOD COUNT 4.27 X10'6 (4.20-5.60); WHITE BLOOD COUNT 11.7 X10'3 (4.5-11.0)
[2018-12-30] MEDS: amiodarone/D5 360MG/200ML BAG 200 ML IV SCH ×4 (03:14→21:57)
[2018-12-30 03:18] LABS: ANION GAP 5 (8-16); BLOOD UREA NITROGEN 25 MG/DL (7-18); BUN/CREATININE RATIO 21.4 (6.6-38.0); CHLORIDE 105 MMOL/L (99-107); CREATININE 1.17 MG/DL (0.40-0.90); GLUCOSE 113 MG/DL (70-104); POTASSIUM 3.9 MMOL/L (3.5-5.1); SODIUM 140 MMOL/L (135-145); TOTAL CARBON DIOXIDE 29.7 MMOL/L (24-32)
[2018-12-30 03:19] LABS: ALANINE AMINOTRANSFERASE 25 U/L (12-78); ALBUMIN/GLOBULIN RATIO 0.5 (1.1-1.5); ALKALINE PHOSPHATASE 152 IU/L (46-116); ASPARTATE AMINO TRANSFERASE 21 U/L (10-37); BILIRUBIN,TOTAL 0.5 MG/DL (0.1-1.0); CALCIUM 8.5 MG/DL (8.5-10.1); MAGNESIUM 1.4 MG/DL (1.5-2.4); PHOSPHORUS 3.4 MG/DL (2.3-4.5); TOTAL PROTEIN 5.8 G/DL (6.4-8.2); eGFR 47 ML/MIN
[2018-12-30] MEDS: ipratropium/albuterol 3ml nebule NEB SCH ×6 (03:32→23:18)
[2018-12-30 03:41] LABS: ACANTHOCYTES FEW; ANISOCYTOSIS 2+; PLATELET ESTIMATE NORMAL; TOTAL CELLS COUNTED 100
[2018-12-30 04:05] LABS: ABG HCO3 25.6 mmol/L (22.0-26.0); ABG OXYGEN SATURATION 94.7 % (95-98); ABG PCO2 (T) 39.9 mmHg (32.0-45.0); ABG PH (T) 7.423 (7.350-7.450); ABG PO2 (T) 69.9 mmHg (83-108); ALLEN'S TEST Positive; FCOHb 0.3 % (0.5-1.5); FMetHb 0.1 % (0.3-1.12); FO2Hb 94.3 % (94-100); MINUTE VOLUME 7 L/min; PATIENT TEMPERATURE 36.8; PEEP 10 cm H2O; RESPIRATORY RATE 20 b/min; RESPIRATORY RATE (OBSERVED) 20 b/min; TIDAL VOLUME 350 mL; TOTAL HEMOGLOBIN 12.6 G/dl (12.0-16.0)
[2018-12-30] MEDS: potassium Cl 40MEQ/250ML bag 250 ML IV PRN ×2 (04:11→17:07)
--- NOTE | 2018-12-30 04:21 | NUR ---
No change in pt condition. Potassium replacing per orders to keep K above 4.5, K 3.9 this AM. Will continue to monitor.
[2018-12-30] MEDS: FENTANYL-0.9 % NACL/PF 100 ML IV PRN ×2 (05:54→17:34)
--- NOTE | 2018-12-30 06:26 | NUR ---
Problems reprioritized. Patient report given, questions answered & plan of care reviewed with Dalila BAY. Addendum: 12/30/18 at 0638 by Kae Fowler RN Report given to Mee BAY
--- NOTE | 2018-12-30 06:30 | NUR ---
Patient in room CICU 2009. I have received report from operation shift supervisor rn and had the opportunity to ask questions and assume patient care.
[2018-12-30] MEDS: K and/or MAG REPLACEMENT MC SCH (08:00)
[2018-12-30] MEDS: lisinopril 5mg tablet PO SCH (08:00)
[2018-12-30] MEDS: famotidine/PF 10 mg/ml inj IV SCH ×2 (08:11→20:26)
[2018-12-30] MEDS: docusate sodium 100mg/10ml UD cup PO SCH ×2 (08:11→20:00)
[2018-12-30] MEDS: nystatin 15 GM powder TP SCH ×3 (08:11→20:25)
[2018-12-30] MEDS: furosemide 40mg/4ml inj IV SCH ×2 (08:11→20:26)
[2018-12-30] MEDS: rivaroxaban 20mg tablet PO SCH (08:11)
[2018-12-30] MEDS: lactobacillus rhamnosus 10,000 MMU CELLS/CAPSULE PO SCH ×2 (08:12→20:26)
[2018-12-30] MEDS ORDERED: VANCOMYCIN LEVEL IV ONE (10:30)
--- NOTE | 2018-12-30 11:17 | NUR ---
Reassessment: Patient continues on intubation with sedation, tube feedings at goal rate of 60 ml/hr with vital high protein and well tolerated. GRV are WNL. LBM six days ago on 12/24, pt is receiving colace BID. Will continue to follow. Recommend: 1. Continuous tube feeding per OG tube using Vital High protein at 60 ml/hr. Will provide 1440 ml total volume, 1440 cals, 126 g protein, 1204 ml water. 2. Water flush 200 ml Q4H 3. Prealbumin q /, daily wts 4. When extubated, recommend to advance diet as medically indicated to heart healthy CHO controlled 5. DM ed prior to d/c Addendum: 12/30/18 at [address] Amended: Links added.
[2018-12-30] MEDS: VANCOMYCIN 750MG IV in NS 250 ML IV SCH (11:20)
[2018-12-30] MEDS: midazolam 100mg in NS 100ml 100 ML IV PRN (11:20)
[2018-12-30] MEDS: dexmedetomidine inj. 400 MCG in normal saline 100ml IV soln 100 ML IV PRN (14:23)
--- NOTE | 2018-12-30 17:05 | NUR ---
sats to 90% on fio2 40, peep 5, suctioned for moderated amount, desat to 82 % lung ascultated and decreased air entry noted to left side appears to be same as this morning, 10 beat run of v tach noted, potassium replacement in place, magnesium replacement in place, ETT suctioned again for low sats, for scant to minimal returns, patient desats to 82 % post suctioning, ABG and CRX ordered, Dr Salinas at bedside at 1745, updated on abg results and CXR. Pt is currently on 100% fio2 with sats of 92-94%.
[2018-12-30] MEDS: magnesium Cl slow-release 64mg tablet PO SCH (17:07)
[2018-12-30 17:55] LABS: ABG BASE EXCESS 2.2 mmol/L (-2.0-3.0); ABG HCO3 26.9 mmol/L (22.0-26.0); ABG OXYGEN SATURATION 96.2 % (95-98); ABG PH (T) 7.423 (7.350-7.450); ABG PO2 (T) 84.7 mmHg (83-108); ALLEN'S TEST Positive; FCOHb 0.3 % (0.5-1.5); FMetHb 0.1 % (0.3-1.12); FO2Hb 95.8 % (94-100); PATIENT TEMPERATURE 36.9; TOTAL HEMOGLOBIN 12.6 G/dl (12.0-16.0)
--- NOTE | 2018-12-30 18:34 | NUR ---
Problems reprioritized. Patient report given, questions answered & plan of care reviewed with night rn[].
--- NOTE | 2018-12-30 18:35 | NUR ---
Patient in room CICU 2009. I have received report from Mee BAY and had the opportunity to ask questions and assume patient care. Patient laying in bed, intubated and sedated on .5ml/hr versed and 25mcg/hr fentanyl, 7.8ml/hr of precedex. Patient very easily arousable and agitated with tactile stimulus, not following commands. Oxygen saturating at 91% on 100% FIO2 and 10 PEEP. HR in low 70s in atrial flutter. Will continue to monitor patient.
--- NOTE | 2018-12-30 19:20 | NUR ---
Patient becoming extremely restless and agitated when her up, even with multiple versed boluses. Oxygen saturation reading in 70s when turned to side for linen change. Patient placed back on back to recover. RT placed own pleth on patient's finger, reading at 98% compared to monitor's reading 91%. Changed current pleth from ear to finger, saturation reading 99%. FIO2 turned down to 90%, saturation still reading 99%. Will continue to monitor patient and to wean FIO2 per MD orders.
[2018-12-31] VITALS (24 sets, daily range): BP systolic 81–130; BP diastolic 53–88
[2018-12-31] MEDS: dexmedetomidine inj. 400 MCG in normal saline 100ml IV soln 100 ML IV PRN ×2 (00:52→12:39)
[2018-12-31] MEDS: acyclovir 5% 15GM ointment TP SCH ×4 (02:14→19:39)
[2018-12-31] MEDS: mineral oil/petrolatum ophthal oint EACHEYE SCH ×4 (02:14→19:38)
[2018-12-31 03:04] LABS: BASOPHILS # (AUTO) 0.1 X10'3 (0-0.2); BASOPHILS % (AUTO) 0.5 % (0-1); EOSINOPHILS # (AUTO) 3.7 X10'3 (0-0.9); EOSINOPHILS % (AUTO) 25.6 % (0-6); HEMATOCRIT 37.6 % (35.0-45.0); HEMOGLOBIN 11.9 g/dl (12.0-16.0); LYMPHOCYTES % (AUTO) 7.2 % (21-51); MEAN CORPUSCULAR HEMOGLOBIN 26.8 PG (27.0-31.0); MEAN CORPUSCULAR HGB CONC 31.6 g/dL (33.0-36.5); MEAN CORPUSCULAR VOLUME 84.9 FL (78-98); MEAN PLATELET VOLUME 8.2 FL (7.4-10.4); MONOCYTES # (AUTO) 1.3 X10'3 (0-0.9); MONOCYTES % (AUTO) 9.4 % (2-12); NEUTROPHILS # (AUTO) 8.2 X10'3 (1.8-7.7); NEUTROPHILS % (AUTO) 57.3 % (42-75); PLATELET COUNT 315 X10'3 (140-440); RED BLOOD COUNT 4.43 X10'6 (4.20-5.60); RED CELL DISTRIBUTION WIDTH 20.1 % (11.5-14.5); WHITE BLOOD COUNT 14.3 X10'3 (4.5-11.0)
[2018-12-31] MEDS: ipratropium/albuterol 3ml nebule NEB SCH ×6 (03:06→23:37)
[2018-12-31 03:14] LABS: ALANINE AMINOTRANSFERASE 23 U/L (12-78); ALBUMIN 2.1 G/DL (3.4-5.0); ALBUMIN/GLOBULIN RATIO 0.5 (1.1-1.5); ALKALINE PHOSPHATASE 169 IU/L (46-116); ANION GAP 6 (8-16); ASPARTATE AMINO TRANSFERASE 21 U/L (10-37); BILIRUBIN,TOTAL 0.4 MG/DL (0.1-1.0); BLOOD UREA NITROGEN 32 MG/DL (7-18); BUN/CREATININE RATIO 26.2 (6.6-38.0); CALCIUM 9.2 MG/DL (8.5-10.1); CHLORIDE 104 MMOL/L (99-107); CREATININE 1.22 MG/DL (0.40-0.90); GLUCOSE 139 MG/DL (70-104); PHOSPHORUS 3.9 MG/DL (2.3-4.5); POTASSIUM 4.5 MMOL/L (3.5-5.1); SODIUM 140 MMOL/L (135-145); TOTAL CARBON DIOXIDE 30.4 MMOL/L (24-32); eGFR 45 ML/MIN
[2018-12-31] MEDS: amiodarone/D5 360MG/200ML BAG 200 ML IV SCH ×4 (03:30→17:32)
[2018-12-31 03:52] LABS: MAGNESIUM 1.5 MG/DL (1.5-2.4)
[2018-12-31 03:56] LABS: ABG BASE EXCESS 1.9 mmol/L (-2.0-3.0); ABG HCO3 24.9 mmol/L (22.0-26.0); ABG OXYGEN SATURATION 93.3 % (95-98); ABG PCO2 (T) 34.1 mmHg (32.0-45.0); ABG PH (T) 7.481 (7.350-7.450); ABG PO2 (T) 65.6 mmHg (83-108); ALLEN'S TEST Positive; FCOHb 0.3 % (0.5-1.5); FMetHb 0.3 % (0.3-1.12); FO2Hb 92.7 % (94-100); MINUTE VOLUME 7 L/min; PATIENT TEMPERATURE 37.3; PEEP 10 cm H2O; RESPIRATORY RATE 20 b/min; RESPIRATORY RATE (OBSERVED) 20 b/min; TIDAL VOLUME 350 mL; TOTAL HEMOGLOBIN 13.1 G/dl (12.0-16.0)
[2018-12-31 04:01] LABS: ANISOCYTOSIS 3+; PLATELET ESTIMATE NORMAL
[2018-12-31 04:02] LABS: ACANTHOCYTES FEW; ELLIPTOCYTES FEW; POLYCHROMASIA FEW
--- NOTE | 2018-12-31 05:54 | NUR ---
0000: patient continues to rest when left unstimulated, wakes up extremely anxious when turned or suctioned orally/ET suctioning. Versed increased, responds well to versed boluses. Will continue to monitor patient.
--- NOTE | 2018-12-31 06:28 | NUR ---
Problems reprioritized. Patient report given, questions answered & plan of care reviewed with Baljit BAY.
[2018-12-31] MEDS: docusate sodium 100mg/10ml UD cup PO SCH ×2 (08:00→20:00)
[2018-12-31] MEDS: lisinopril 5mg tablet PO SCH (08:00)
[2018-12-31] MEDS: K and/or MAG REPLACEMENT MC SCH (08:00)
[2018-12-31] MEDS: rivaroxaban 20mg tablet PO SCH (08:32)
[2018-12-31] MEDS: magnesium Cl slow-release 64mg tablet PO SCH ×2 (08:32→19:38)
[2018-12-31] MEDS: lactobacillus rhamnosus 10,000 MMU CELLS/CAPSULE PO SCH ×2 (08:32→19:37)
[2018-12-31] MEDS: furosemide 40mg/4ml inj IV SCH ×2 (08:32→19:37)
[2018-12-31] MEDS: famotidine/PF 10 mg/ml inj IV SCH ×2 (08:32→19:37)
[2018-12-31] MEDS: nystatin 15 GM powder TP SCH ×3 (08:38→19:39)
[2018-12-31] MEDS: vancomycin inj 500 MG in normal saline 100ml IV soln 100 ML IV SCH ×2 (10:54→22:41)
--- NOTE | 2018-12-31 11:17 | NUR ---
1000- Critical care rounds- If levophed no longer needed, dc right groin CVL. RT to attempt decreasing PEEP, decrease sedation and work for weaning parameters.
--- NOTE | 2018-12-31 12:56 | NUR ---
1215- pt highly agitated, trying to sit up in bed, peak pressuring on vent, fighting getting cleaned up (large loose stool x 2, liquid). 1300- Patient making eye contact with me, asked her if she can hear me, nodded appropriately yes. Explained she is in hospital and that she is safe, calmed down a little, will continue to monitor.
[2018-12-31] MEDS: midazolam 100mg in NS 100ml 100 ML IV PRN (16:34)
--- NOTE | 2018-12-31 17:16 | NUR ---
1600- failed weaning parameters, communicated to Dr Salinas, RT also attempted pt on spontaneous, patient respirations 40 with TV of 200, placed back on vc. Remains very agitated left versed at 1, increased precedex to 0.3.
--- NOTE | 2018-12-31 18:20 | NUR ---
Problems reprioritized. Patient report given, questions answered & plan of care reviewed with Hector.
--- NOTE | 2018-12-31 18:26 | NUR ---
Patient in room CICU 2009. I have received report from Baljit BAY and had the opportunity to ask questions and assume patient care. Patient in bed, intubated and sedated on 1ml/hr Versed, 25mcg/hr fentanyl, .3mcg/min precedex. BP 92/61 without pressor support, breathing at 12 breaths/min on A/C VC mode, saturating at 98% on 45% FIO2. Will continue to monitor patient.
[2019-01-01] VITALS (22 sets, daily range): BP systolic 74–105; BP diastolic 49–75
--- NOTE | 2019-01-01 | NUR ---
Patient becoming extremely agitated and restless during bed bath, trying to sit up and flailing legs around. Multiple versed and fentanyl boluses given, effective only for very short periods of time. Precedex off at this time due to low heart rate in 50s and occasional dips into 40s. Patient not following commands or opening eyes during period of agitation. Sedation increased until patient calms down. Will continue to standby and to monitor patient until calm again.
[2019-01-01] MEDS: FENTANYL-0.9 % NACL/PF 100 ML IV PRN ×2 (00:15→21:27)
[2019-01-01] MEDS: midazolam 100mg in NS 100ml 100 ML IV PRN ×3 (00:16→21:26)
--- NOTE | 2019-01-01 01:17 | NUR ---
Patient now calm again, sedation turned back down. Precedex still off at this time, HR in low 60s/upper 50s in atrial flutter. Will continue to monitor patient.
[2019-01-01] MEDS: acyclovir 5% 15GM ointment TP SCH ×4 (02:54→20:00)
[2019-01-01] MEDS: mineral oil/petrolatum ophthal oint EACHEYE SCH ×4 (02:54→21:24)
[2019-01-01 02:56] LABS: ABG BASE EXCESS 4.6 mmol/L (-2.0-3.0); ABG HCO3 29.8 mmol/L (22.0-26.0); ABG OXYGEN SATURATION 92.3 % (95-98); ABG PCO2 (T) 45.6 mmHg (32.0-45.0); ABG PH (T) 7.431 (7.350-7.450); ABG PO2 (T) 64.6 mmHg (83-108); ALLEN'S TEST Positive; FCOHb 0.3 % (0.5-1.5); MINUTE VOLUME 8 L/min; PATIENT TEMPERATURE 36.4; PEEP 5 cm H2O; RESPIRATORY RATE 16 b/min; RESPIRATORY RATE (OBSERVED) 20 b/min; TIDAL VOLUME 350 mL; TOTAL HEMOGLOBIN 12.7 G/dl (12.0-16.0)
[2019-01-01] MEDS: ipratropium/albuterol 3ml nebule NEB SCH ×6 (02:58→23:20)
--- NOTE | 2019-01-01 03:18 | NUR ---
Patient woke up restless with breathing treatment. Called patient's name and asked if she could hear me, patient opened eyes briefly and nodded head yes, followed instructions to calm down. Asked patient if she was in pain, nodded head no. Informed patient that she needs to stay calm like she is now and needs to be able to follow commands to obtain good weaning parameters. Patient nodded head in understanding, went back to sleep. Patient currently on 1ml/hr versed and 40mcg/hr fentanyl, precedex off. Will continue to monitor patient.
[2019-01-01] MEDS: amiodarone/D5 360MG/200ML BAG 200 ML IV SCH ×4 (03:46→21:58)
[2019-01-01 06:03] LABS: BASOPHILS # (AUTO) 0.1 X10'3 (0-0.2); BASOPHILS % (AUTO) 0.7 % (0-1); EOSINOPHILS # (AUTO) 3.2 X10'3 (0-0.9); EOSINOPHILS % (AUTO) 27.6 % (0-6); HEMATOCRIT 36.1 % (35.0-45.0); HEMOGLOBIN 11.5 g/dl (12.0-16.0); LYMPHOCYTES # (AUTO) 1.4 X10'3 (1.1-4.8); LYMPHOCYTES % (AUTO) 11.9 % (21-51); MEAN CORPUSCULAR HEMOGLOBIN 26.8 PG (27.0-31.0); MEAN CORPUSCULAR HGB CONC 31.9 g/dL (33.0-36.5); MEAN CORPUSCULAR VOLUME 83.9 FL (78-98); MEAN PLATELET VOLUME 8.1 FL (7.4-10.4); MONOCYTES # (AUTO) 1.3 X10'3 (0-0.9); NEUTROPHILS # (AUTO) 5.7 X10'3 (1.8-7.7); NEUTROPHILS % (AUTO) 48.8 % (42-75); PLATELET COUNT 288 X10'3 (140-440); RED CELL DISTRIBUTION WIDTH 19.8 % (11.5-14.5); WHITE BLOOD COUNT 11.6 X10'3 (4.5-11.0)
--- NOTE | 2019-01-01 06:15 | NUR ---
Patient in room CICU 2009. I have received report from tracer clerk and had the opportunity to ask questions and assume patient care.
--- NOTE | 2019-01-01 06:27 | NUR ---
Problems reprioritized. Patient report given, questions answered & plan of care reviewed with Alesha BAY.
[2019-01-01 06:29] LABS: ALANINE AMINOTRANSFERASE 24 U/L (12-78); ALBUMIN 1.9 G/DL (3.4-5.0); ALBUMIN/GLOBULIN RATIO 0.5 (1.1-1.5); ALKALINE PHOSPHATASE 162 IU/L (46-116); ANION GAP 6 (8-16); ASPARTATE AMINO TRANSFERASE 18 U/L (10-37); BILIRUBIN,TOTAL 0.3 MG/DL (0.1-1.0); BLOOD UREA NITROGEN 36 MG/DL (7-18); BUN/CREATININE RATIO 34.3 (6.6-38.0); CALCIUM 8.8 MG/DL (8.5-10.1); CHLORIDE 104 MMOL/L (99-107); CREATININE 1.05 MG/DL (0.40-0.90); GLUCOSE 117 MG/DL (70-104); PHOSPHORUS 4.5 MG/DL (2.3-4.5); POTASSIUM 4.1 MMOL/L (3.5-5.1); SODIUM 140 MMOL/L (135-145); TOTAL CARBON DIOXIDE 29.8 MMOL/L (24-32); TOTAL PROTEIN 5.8 G/DL (6.4-8.2); eGFR 54 ML/MIN
[2019-01-01] MEDS: lactobacillus rhamnosus 10,000 MMU CELLS/CAPSULE PO SCH ×2 (07:46→21:24)
[2019-01-01] MEDS: docusate sodium 100mg/10ml UD cup PO SCH ×2 (07:46→21:23)
[2019-01-01] MEDS: furosemide 40mg/4ml inj IV SCH ×3 (07:46→21:24)
[2019-01-01] MEDS: nystatin 15 GM powder TP SCH ×3 (07:47→21:25)
[2019-01-01] MEDS: rivaroxaban 20mg tablet PO SCH (07:47)
[2019-01-01] MEDS: magnesium Cl slow-release 64mg tablet PO SCH ×2 (07:53→20:00)
[2019-01-01] MEDS: lisinopril 5mg tablet PO SCH (07:54)
[2019-01-01] MEDS: famotidine/PF 10 mg/ml inj IV SCH ×2 (08:04→21:23)
[2019-01-01] MEDS: potassium Cl 40MEQ/250ML bag 250 ML IV PRN (10:57)
[2019-01-01] MEDS: dexmedetomidine inj. 400 MCG in normal saline 100ml IV soln 100 ML IV PRN (12:10)
[2019-01-01] MEDS: vancomycin inj 500 MG in normal saline 100ml IV soln 100 ML IV SCH ×2 (12:11→22:42)
--- NOTE | 2019-01-01 12:23 | NUR ---
Reassessment: Patient continues on intubation with sedation, tube feedings at goal rate of 60 ml/hr with vital high protein and well tolerated. GRV are WNL. LBM small liquid stool this morning, pt is receiving colace BID. Will continue to follow. Recommend: 1. Continuous tube feeding per OG tube using Vital High protein at 60 ml/hr. Will provide 1440 ml total volume, 1440 cals, 126 g protein, 1204 ml water. 2. Water flush 200 ml Q4H 3. Prealbumin q /, daily wts 4. When extubated, recommend to advance diet as medically indicated to heart healthy CHO controlled 5. DM ed prior to d/c Addendum: 01/01/19 at [address] Amended: Links added.
[2019-01-01] MEDS: normal saline 1000ml 1,000 ML IV SCH (17:30)
--- NOTE | 2019-01-01 18:06 | NUR ---
Problems reprioritized. Patient report given, questions answered & plan of care reviewed with oncoming shift.
--- NOTE | 2019-01-01 18:38 | NUR ---
1830..Patient in room CICU 2009. I have received report from Mayte BAY and had the opportunity to ask questions and assume patient care.
[2019-01-01] MEDS ORDERED: VANCOMYCIN LEVEL IV ONE (22:30)
[2019-01-02] VITALS (23 sets, daily range): BP systolic 78–103; BP diastolic 54–70
--- NOTE | 2019-01-02 00:44 | NUR ---
1999..Assessment as noted, fentanyl and versed increased due to extreme agitation, with good effect.
--- NOTE | 2019-01-02 00:47 | NUR ---
0000..No changes noted, resting quietly.
[2019-01-02] MEDS: dexmedetomidine inj. 400 MCG in normal saline 100ml IV soln 100 ML IV PRN ×3 (01:19→21:27)
[2019-01-02] MEDS: mineral oil/petrolatum ophthal oint EACHEYE SCH ×4 (02:00→20:24)
[2019-01-02] MEDS: furosemide 40mg/4ml inj IV SCH ×4 (02:55→22:58)
[2019-01-02] MEDS: acyclovir 5% 15GM ointment TP SCH ×4 (02:56→20:26)
[2019-01-02 03:03] LABS: BASOPHILS # (AUTO) 0.1 X10'3 (0-0.2); BASOPHILS % (AUTO) 0.8 % (0-1); EOSINOPHILS % (AUTO) 23.3 % (0-6); HEMATOCRIT 37.1 % (35.0-45.0); LYMPHOCYTES # (AUTO) 1.7 X10'3 (1.1-4.8); LYMPHOCYTES % (AUTO) 13.3 % (21-51); MEAN CORPUSCULAR HEMOGLOBIN 26.9 PG (27.0-31.0); MEAN CORPUSCULAR HGB CONC 32.4 g/dL (33.0-36.5); MEAN CORPUSCULAR VOLUME 82.9 FL (78-98); MEAN PLATELET VOLUME 8.6 FL (7.4-10.4); MONOCYTES # (AUTO) 1.3 X10'3 (0-0.9); MONOCYTES % (AUTO) 10.2 % (2-12); NEUTROPHILS # (AUTO) 6.7 X10'3 (1.8-7.7); NEUTROPHILS % (AUTO) 52.4 % (42-75); PLATELET COUNT 314 X10'3 (140-440); RED BLOOD COUNT 4.47 X10'6 (4.20-5.60); RED CELL DISTRIBUTION WIDTH 19.7 % (11.5-14.5); WHITE BLOOD COUNT 12.7 X10'3 (4.5-11.0)
[2019-01-02 03:32] LABS: ANISOCYTOSIS 2+; PLATELET ESTIMATE NORMAL
[2019-01-02] MEDS: ipratropium/albuterol 3ml nebule NEB SCH ×6 (03:33→23:34)
--- NOTE | 2019-01-02 04:37 | NUR ---
0400..No changes noted.
[2019-01-02] MEDS: amiodarone/D5 360MG/200ML BAG 200 ML IV SCH ×4 (05:01→22:14)
[2019-01-02 05:02] LABS: ALANINE AMINOTRANSFERASE 27 U/L (12-78); ALBUMIN/GLOBULIN RATIO 0.5 (1.1-1.5); ALKALINE PHOSPHATASE 197 IU/L (46-116); ANION GAP 7 (8-16); ASPARTATE AMINO TRANSFERASE 20 U/L (10-37); BILIRUBIN,TOTAL 0.4 MG/DL (0.1-1.0); BLOOD UREA NITROGEN 45 MG/DL (7-18); BUN/CREATININE RATIO 37.2 (6.6-38.0); CALCIUM 8.8 MG/DL (8.5-10.1); CHLORIDE 102 MMOL/L (99-107); CREATININE 1.21 MG/DL (0.40-0.90); GLUCOSE 147 MG/DL (70-104); PHOSPHORUS 4.4 MG/DL (2.3-4.5); POTASSIUM 4.3 MMOL/L (3.5-5.1); SODIUM 138 MMOL/L (135-145); TOTAL CARBON DIOXIDE 29.4 MMOL/L (24-32); eGFR 46 ML/MIN
[2019-01-02 05:10] LABS: ABG BASE EXCESS 5.1 mmol/L (-2.0-3.0); ABG HCO3 29.9 mmol/L (22.0-26.0); ABG OXYGEN SATURATION 90.6 % (95-98); ABG PCO2 (T) 45.5 mmHg (32.0-45.0); ABG PH (T) 7.438 (7.350-7.450); ABG PO2 (T) 62.3 mmHg (83-108); ALLEN'S TEST Positive; FCOHb 0.3 % (0.5-1.5); FMetHb 0.1 % (0.3-1.12); FO2Hb 90.2 % (94-100); MINUTE VOLUME 8 L/min; PATIENT TEMPERATURE 37.3; PEEP 5 cm H2O; RESPIRATORY RATE 16 b/min; RESPIRATORY RATE (OBSERVED) 21 b/min; TIDAL VOLUME 350 mL; TOTAL HEMOGLOBIN 13.1 G/dl (12.0-16.0)
[2019-01-02] MEDS ORDERED: potassium Cl 40MEQ/NS 500ml 500 ML IV PRN (05:10)
--- NOTE | 2019-01-02 06:12 | NUR ---
0610..Problems reprioritized. Patient report given, questions answered & plan of care reviewed with Mayte BAY.
--- NOTE | 2019-01-02 06:15 | NUR ---
Patient in room CICU 2009. I have received report from operation shift supervisor and had the opportunity to ask questions and assume patient care.
[2019-01-02] MEDS: magnesium Cl slow-release 64mg tablet PO SCH ×2 (08:00→20:00)
[2019-01-02] MEDS: lisinopril 5mg tablet PO SCH (08:00)
[2019-01-02] MEDS: famotidine/PF 10 mg/ml inj IV SCH ×2 (08:00→20:24)
[2019-01-02] MEDS: docusate sodium 100mg/10ml UD cup PO SCH ×2 (09:10→20:23)
[2019-01-02] MEDS: lactobacillus rhamnosus 10,000 MMU CELLS/CAPSULE PO SCH ×2 (09:10→20:25)
[2019-01-02] MEDS: nystatin 15 GM powder TP SCH ×3 (09:10→20:24)
[2019-01-02] MEDS: rivaroxaban 20mg tablet PO SCH (09:10)
[2019-01-02] MEDS: potassium Cl 40MEQ/NS 500ml 500 ML IV PRN (11:51)
[2019-01-02] MEDS: vancomycin inj 500 MG in normal saline 100ml IV soln 100 ML IV SCH ×2 (11:58→23:31)
[2019-01-02] MEDS: FENTANYL-0.9 % NACL/PF 100 ML IV PRN (16:55)
--- NOTE | 2019-01-02 18:07 | NUR ---
Problems reprioritized. Patient report given, questions answered & plan of care reviewed with oncoming shift.
[2019-01-03] VITALS (24 sets, daily range): BP systolic 83–118; BP diastolic 38–80
[2019-01-03] MEDS: mineral oil/petrolatum ophthal oint EACHEYE SCH ×4 (02:04→20:17)
[2019-01-03] MEDS: acyclovir 5% 15GM ointment TP SCH ×4 (02:04→20:17)
[2019-01-03] MEDS: potassium Cl 40MEQ/NS 500ml 500 ML IV PRN ×2 (02:22→13:38)
[2019-01-03] MEDS: ipratropium/albuterol 3ml nebule NEB SCH ×6 (03:35→23:19)
[2019-01-03] MEDS: midazolam 100mg in NS 100ml 100 ML IV PRN ×2 (04:27→20:17)
[2019-01-03 04:36] LABS: ABG BASE EXCESS 4.2 mmol/L (-2.0-3.0); ABG HCO3 29.7 mmol/L (22.0-26.0); ABG OXYGEN SATURATION 91.1 % (95-98); ABG PCO2 (T) 48.4 mmHg (32.0-45.0); ABG PH (T) 7.406 (7.350-7.450); ABG PO2 (T) 63.8 mmHg (83-108); ALLEN'S TEST Positive; FCOHb 0.1 % (0.5-1.5); FMetHb 0.1 % (0.3-1.12); FO2Hb 90.9 % (94-100); MINUTE VOLUME 8 L/min; PATIENT TEMPERATURE 37.2; PEEP 5 cm H2O; RESPIRATORY RATE 16 b/min; RESPIRATORY RATE (OBSERVED) 21 b/min; TIDAL VOLUME 350 mL; TOTAL HEMOGLOBIN 13.4 G/dl (12.0-16.0)
[2019-01-03] MEDS: furosemide 40mg/4ml inj IV SCH ×4 (04:45→20:16)
--- NOTE | 2019-01-03 05:04 | NUR ---
Called to pt's bedside as two RN's were repositioning when the ET Tube started slipping out of the ramirez. It appears the cuff became deflated and the tube was slipping out of the ramirez. Pt's tube was originally 21 at the teeth/nares, but appeared to be at about 14cm. I deflated the cuff the rest of the way and readvanced to 21cm, reinflated the cuff, and resecured the tube in the ramirez. Pt with equal bilateral breath sounds, saturations are stable and she is getting good volumes on the ventilator. Waiting on CXR to reconfirm tube placement
--- NOTE | 2019-01-03 05:27 | NUR ---
1830...Patient in room CICU 2009. I have received report from Marcello Rodriguez RN and had the opportunity to ask questions and assume patient care.
--- NOTE | 2019-01-03 05:28 | NUR ---
1999...Assessment noted. Fentanyl/versed bolus's given as needed with good effect.
--- NOTE | 2019-01-03 05:29 | NUR ---
0000...No changes noted.
--- NOTE | 2019-01-03 05:30 | NUR ---
0400...No changes noted.
--- NOTE | 2019-01-03 06:15 | NUR ---
Problems reprioritized. Patient report given, questions answered & plan of care reviewed with Mayte BAY.
[2019-01-03] MEDS: docusate sodium 100mg/10ml UD cup PO SCH ×2 (07:44→20:00)
[2019-01-03] MEDS: lactobacillus rhamnosus 10,000 MMU CELLS/CAPSULE PO SCH ×2 (07:44→20:16)
[2019-01-03] MEDS: rivaroxaban 20mg tablet PO SCH (07:44)
[2019-01-03] MEDS: nystatin 15 GM powder TP SCH ×3 (07:45→20:17)
[2019-01-03] MEDS: lisinopril 5mg tablet PO SCH (07:46)
[2019-01-03] MEDS: magnesium Cl slow-release 64mg tablet PO SCH ×2 (07:46→20:16)
[2019-01-03 08:55] LABS: BASOPHILS # (AUTO) 0.1 X10'3 (0-0.2); BASOPHILS % (AUTO) 0.4 % (0-1); EOSINOPHILS # (AUTO) 2.4 X10'3 (0-0.9); EOSINOPHILS % (AUTO) 17.2 % (0-6); HEMATOCRIT 39.1 % (35.0-45.0); HEMOGLOBIN 12.5 g/dl (12.0-16.0); LYMPHOCYTES # (AUTO) 1.3 X10'3 (1.1-4.8); LYMPHOCYTES % (AUTO) 9.8 % (21-51); MEAN CORPUSCULAR HEMOGLOBIN 26.7 PG (27.0-31.0); MEAN CORPUSCULAR VOLUME 83.4 FL (78-98); MEAN PLATELET VOLUME 8.1 FL (7.4-10.4); MONOCYTES # (AUTO) 1.6 X10'3 (0-0.9); MONOCYTES % (AUTO) 11.8 % (2-12); NEUTROPHILS # (AUTO) 8.3 X10'3 (1.8-7.7); NEUTROPHILS % (AUTO) 60.8 % (42-75); PLATELET COUNT 310 X10'3 (140-440); RED BLOOD COUNT 4.68 X10'6 (4.20-5.60); RED CELL DISTRIBUTION WIDTH 19.3 % (11.5-14.5); WHITE BLOOD COUNT 13.7 X10'3 (4.5-11.0)
[2019-01-03 09:10] LABS: ALANINE AMINOTRANSFERASE 26 U/L (12-78); ALBUMIN 2.2 G/DL (3.4-5.0); ALBUMIN/GLOBULIN RATIO 0.5 (1.1-1.5); ALKALINE PHOSPHATASE 210 IU/L (46-116); ANION GAP 9 (8-16); ASPARTATE AMINO TRANSFERASE 17 U/L (10-37); BILIRUBIN,TOTAL 0.5 MG/DL (0.1-1.0); BLOOD UREA NITROGEN 55 MG/DL (7-18); BUN/CREATININE RATIO 46.2 (6.6-38.0); CALCIUM 8.9 MG/DL (8.5-10.1); CHLORIDE 101 MMOL/L (99-107); CREATININE 1.19 MG/DL (0.40-0.90); GLUCOSE 115 MG/DL (70-104); PHOSPHORUS 4.2 MG/DL (2.3-4.5); POTASSIUM 3.8 MMOL/L (3.5-5.1); SODIUM 141 MMOL/L (135-145); TOTAL CARBON DIOXIDE 30.9 MMOL/L (24-32); TOTAL PROTEIN 6.4 G/DL (6.4-8.2); eGFR 46 ML/MIN
[2019-01-03] MEDS: FENTANYL-0.9 % NACL/PF 100 ML IV PRN (09:56)
[2019-01-03] MEDS ORDERED: amiodarone 200mg tablet PO ONE (10:33)
[2019-01-03] MEDS: famotidine/PF 10 mg/ml inj IV SCH ×2 (10:59→20:16)
[2019-01-03] MEDS: spironolactone 50 MG tablet PO SCH ×2 (13:37→20:16)
[2019-01-03] MEDS: vancomycin inj 500 MG in normal saline 100ml IV soln 100 ML IV SCH ×2 (13:38→22:29)
[2019-01-03] MEDS: dexmedetomidine inj. 400 MCG in normal saline 100ml IV soln 100 ML IV PRN ×2 (13:45→22:29)
--- NOTE | 2019-01-03 15:00 | NUR ---
OG coughed out, replaced with 12F OG tube without complication.
[2019-01-03] MEDS: normal saline 1000ml 1,000 ML IV SCH (16:20)
[2019-01-03] MEDS ORDERED: amiodarone 150mg/dext, iso-os 100 ML IV ONE (17:27)
--- NOTE | 2019-01-03 18:07 | NUR ---
Problems reprioritized. Patient report given, questions answered & plan of care reviewed with oncoming shift.
[2019-01-03] MEDS: amiodarone 200mg tablet PO SCH (20:16)
[2019-01-04] VITALS (20 sets, daily range): BP systolic 82–131; BP diastolic 48–68
[2019-01-04] MEDS: acyclovir 5% 15GM ointment TP SCH ×4 (01:26→19:37)
[2019-01-04] MEDS: mineral oil/petrolatum ophthal oint EACHEYE SCH ×4 (01:26→19:38)
[2019-01-04] MEDS: furosemide 40mg/4ml inj IV SCH ×4 (02:00→19:35)
[2019-01-04 02:46] LABS: ABG BASE EXCESS 6.9 mmol/L (-2.0-3.0); ABG HCO3 31.2 mmol/L (22.0-26.0); ABG OXYGEN SATURATION 86.1 % (95-98); ABG PCO2 (T) 43.7 mmHg (32.0-45.0); ABG PH (T) 7.473 (7.350-7.450); ABG PO2 (T) 50.8 mmHg (83-108); ALLEN'S TEST Positive; FCOHb 0.3 % (0.5-1.5); FMetHb 0.2 % (0.3-1.12); FO2Hb 85.7 % (94-100); MINUTE VOLUME 8 L/min; PATIENT TEMPERATURE 37.4; PEEP 5 cm H2O; RESPIRATORY RATE (OBSERVED) 29 b/min; TOTAL HEMOGLOBIN 12.8 G/dl (12.0-16.0)
[2019-01-04] MEDS: ipratropium/albuterol 3ml nebule NEB SCH ×6 (03:04→23:00)
[2019-01-04 05:37] LABS: BASOPHILS # (AUTO) 0.1 X10'3 (0-0.2); BASOPHILS % (AUTO) 0.5 % (0-1); EOSINOPHILS # (AUTO) 1.9 X10'3 (0-0.9); EOSINOPHILS % (AUTO) 10.7 % (0-6); HEMATOCRIT 37.7 % (35.0-45.0); LYMPHOCYTES # (AUTO) 1.2 X10'3 (1.1-4.8); LYMPHOCYTES % (AUTO) 6.5 % (21-51); MEAN CORPUSCULAR HEMOGLOBIN 26.2 PG (27.0-31.0); MEAN CORPUSCULAR HGB CONC 31.9 g/dL (33.0-36.5); MEAN CORPUSCULAR VOLUME 82.3 FL (78-98); MEAN PLATELET VOLUME 8.6 FL (7.4-10.4); MONOCYTES # (AUTO) 2.2 X10'3 (0-0.9); MONOCYTES % (AUTO) 11.9 % (2-12); NEUTROPHILS # (AUTO) 12.8 X10'3 (1.8-7.7); NEUTROPHILS % (AUTO) 70.4 % (42-75); PLATELET COUNT 318 X10'3 (140-440); RED BLOOD COUNT 4.58 X10'6 (4.20-5.60); RED CELL DISTRIBUTION WIDTH 19.3 % (11.5-14.5); WHITE BLOOD COUNT 18.2 X10'3 (4.5-11.0)
[2019-01-04 05:42] LABS: ALANINE AMINOTRANSFERASE 25 U/L (12-78); ALBUMIN 2.2 G/DL (3.4-5.0); ALBUMIN/GLOBULIN RATIO 0.5 (1.1-1.5); ALKALINE PHOSPHATASE 199 IU/L (46-116); ANION GAP 7 (8-16); ASPARTATE AMINO TRANSFERASE 16 U/L (10-37); BILIRUBIN,TOTAL 0.7 MG/DL (0.1-1.0); BLOOD UREA NITROGEN 54 MG/DL (7-18); BUN/CREATININE RATIO 44.6 (6.6-38.0); CALCIUM 9.2 MG/DL (8.5-10.1); CHLORIDE 101 MMOL/L (99-107); CREATININE 1.21 MG/DL (0.40-0.90); GLUCOSE 121 MG/DL (70-104); PHOSPHORUS 3.3 MG/DL (2.3-4.5); SODIUM 142 MMOL/L (135-145); TOTAL PROTEIN 6.3 G/DL (6.4-8.2); eGFR 46 ML/MIN
[2019-01-04] MEDS: dexmedetomidine inj. 400 MCG in normal saline 100ml IV soln 100 ML IV PRN ×3 (06:54→23:31)
[2019-01-04 07:52] LABS: ANISOCYTOSIS 2+; ELLIPTOCYTES FEW; PLATELET ESTIMATE NORMAL
[2019-01-04 07:53] LABS: POLYCHROMASIA FEW; SCHISTOCYTES FEW
[2019-01-04] MEDS: docusate sodium 100mg/10ml UD cup PO SCH ×2 (08:00→19:35)
[2019-01-04 08:01] LABS: ABG BASE EXCESS 9.8 mmol/L (-2.0-3.0); ABG HCO3 34.7 mmol/L (22.0-26.0); ABG OXYGEN SATURATION 90.3 % (95-98); ABG PCO2 (T) 47.8 mmHg (32.0-45.0); ABG PH (T) 7.479 (7.350-7.450); ABG PO2 (T) 58.1 mmHg (83-108); ALLEN'S TEST Positive; FCOHb 0.1 % (0.5-1.5); FMetHb 0.2 % (0.3-1.12); PEEP 5 cm H2O; RESPIRATORY RATE 16 b/min; TIDAL VOLUME 500 mL; TOTAL HEMOGLOBIN 13.3 G/dl (12.0-16.0)
[2019-01-04] MEDS: spironolactone 50 MG tablet PO SCH ×3 (08:24→21:00)
[2019-01-04] MEDS: rivaroxaban 20mg tablet PO SCH (08:24)
[2019-01-04] MEDS: famotidine/PF 10 mg/ml inj IV SCH ×2 (08:24→19:35)
[2019-01-04] MEDS: lisinopril 5mg tablet PO SCH (08:24)
[2019-01-04] MEDS: lactobacillus rhamnosus 10,000 MMU CELLS/CAPSULE PO SCH ×2 (08:24→19:35)
[2019-01-04] MEDS: nystatin 15 GM powder TP SCH ×3 (08:25→19:36)
[2019-01-04] MEDS: amiodarone 200mg tablet PO SCH ×2 (08:57→19:36)
[2019-01-04 09:19] LABS: MAGNESIUM 1.7 MG/DL (1.5-2.4)
[2019-01-04] MEDS: FENTANYL-0.9 % NACL/PF 100 ML IV PRN ×2 (11:22→14:55)
--- NOTE | 2019-01-04 11:23 | NUR ---
reassessment: Pt tolerating TF at goal. Rectal tube in place per EMR w/ last stool output doc 200ml 01/01. Gastric Residuals 35ml WNL. Will continue to monitor. Recommend: 1. Continuous tube feeding per OG tube using Vital High protein at 60 ml/hr. Will provide 1440 ml total volume, 1440 cals, 126 g protein, 1204 ml water. 2. Water flush 200 ml Q4H 3. Prealbumin q /, daily wts 4. When extubated, recommend to advance diet as medically indicated to heart healthy, CHO controlled 5. DM ed prior to d/c Addendum: 01/04/19 at [address] Amended: Links added.
[2019-01-04] MEDS: vancomycin inj 500 MG in normal saline 100ml IV soln 100 ML IV SCH ×2 (11:37→23:31)
[2019-01-04] MEDS: midazolam 100mg in NS 100ml 100 ML IV PRN (14:55)
--- NOTE | 2019-01-04 18:30 | NUR ---
Patient in room CICU 2009. I have received report from SHANIQUE Conner and had the opportunity to ask questions and assume patient care. Patient is intubated/sedated, I will continue to monitor.
[2019-01-04] MEDS: magnesium oxide 400mg tablet PO SCH (19:36)
[2019-01-05] VITALS (24 sets, daily range): BP systolic 81–125; BP diastolic 49–78
[2019-01-05] MEDS: furosemide 40mg/4ml inj IV SCH ×4 (02:00→19:41)
[2019-01-05] MEDS: acyclovir 5% 15GM ointment TP SCH ×4 (02:14→19:42)
[2019-01-05] MEDS: dexmedetomidine inj. 400 MCG in normal saline 100ml IV soln 100 ML IV PRN ×4 (02:14→23:07)
[2019-01-05] MEDS: mineral oil/petrolatum ophthal oint EACHEYE SCH ×4 (02:14→19:42)
[2019-01-05 03:10] LABS: ABG BASE EXCESS 10.4 mmol/L (-2.0-3.0); ABG HCO3 32.8 mmol/L (22.0-26.0); ABG OXYGEN SATURATION 86.4 % (95-98); ABG PCO2 (T) 35.7 mmHg (32.0-45.0); ABG PH (T) 7.581 (7.350-7.450); ABG PO2 (T) 47.9 mmHg (83-108); ALLEN'S TEST Positive; FCOHb 0.3 % (0.5-1.5); FMetHb 0.1 % (0.3-1.12); FO2Hb 86.1 % (94-100); MINUTE VOLUME 9 L/min; PATIENT TEMPERATURE 36.8; PEEP 5 cm H2O; RESPIRATORY RATE 16 b/min; RESPIRATORY RATE (OBSERVED) 16 b/min; TIDAL VOLUME 500 mL
[2019-01-05] MEDS: ipratropium/albuterol 3ml nebule NEB SCH ×6 (03:26→23:02)
[2019-01-05 05:28] LABS: BASOPHILS # (AUTO) 0.1 X10'3 (0-0.2); BASOPHILS % (AUTO) 0.7 % (0-1); EOSINOPHILS # (AUTO) 1.9 X10'3 (0-0.9); HEMATOCRIT 39.1 % (35.0-45.0); HEMOGLOBIN 12.5 g/dl (12.0-16.0); LYMPHOCYTES # (AUTO) 1.6 X10'3 (1.1-4.8); LYMPHOCYTES % (AUTO) 9.9 % (21-51); MEAN CORPUSCULAR HEMOGLOBIN 26.8 PG (27.0-31.0); MEAN CORPUSCULAR HGB CONC 32.1 g/dL (33.0-36.5); MEAN CORPUSCULAR VOLUME 83.5 FL (78-98); MEAN PLATELET VOLUME 8.6 FL (7.4-10.4); MONOCYTES # (AUTO) 1.6 X10'3 (0-0.9); MONOCYTES % (AUTO) 9.7 % (2-12); NEUTROPHILS # (AUTO) 10.9 X10'3 (1.8-7.7); NEUTROPHILS % (AUTO) 67.7 % (42-75); PLATELET COUNT 369 X10'3 (140-440); RED BLOOD COUNT 4.68 X10'6 (4.20-5.60); RED CELL DISTRIBUTION WIDTH 18.9 % (11.5-14.5); WHITE BLOOD COUNT 16.1 X10'3 (4.5-11.0)
[2019-01-05 05:36] LABS: ALANINE AMINOTRANSFERASE 24 U/L (12-78); ALBUMIN 2.4 G/DL (3.4-5.0); ALBUMIN/GLOBULIN RATIO 0.6 (1.1-1.5); ALKALINE PHOSPHATASE 217 IU/L (46-116); ANION GAP 7 (8-16); ASPARTATE AMINO TRANSFERASE 16 U/L (10-37); BILIRUBIN,TOTAL 0.8 MG/DL (0.1-1.0); BLOOD UREA NITROGEN 46 MG/DL (7-18); BUN/CREATININE RATIO 35.1 (6.6-38.0); CALCIUM 9.4 MG/DL (8.5-10.1); CHLORIDE 100 MMOL/L (99-107); CREATININE 1.31 MG/DL (0.40-0.90); GLUCOSE 139 MG/DL (70-104); PHOSPHORUS 3.3 MG/DL (2.3-4.5); POTASSIUM 3.6 MMOL/L (3.5-5.1); SODIUM 142 MMOL/L (135-145); TOTAL CARBON DIOXIDE 34.9 MMOL/L (24-32); TOTAL PROTEIN 6.6 G/DL (6.4-8.2); eGFR 42 ML/MIN
[2019-01-05] MEDS: midazolam 100mg in NS 100ml 100 ML IV PRN ×2 (06:17→23:07)
--- NOTE | 2019-01-05 06:30 | NUR ---
Patient in room CICU 2009. I have received report from SHANIQUE Salamanca and had the opportunity to ask questions and assume patient care.
[2019-01-05] MEDS: docusate sodium 100mg/10ml UD cup PO SCH ×2 (06:52→20:00)
[2019-01-05 06:58] LABS: PLATELET ESTIMATE NORMAL
[2019-01-05 06:59] LABS: ANISOCYTOSIS 2+; HYPOCHROMASIA 1+; MICROCYTOSIS 1+
[2019-01-05] MEDS: spironolactone 50 MG tablet PO SCH ×3 (07:24→19:55)
[2019-01-05] MEDS: amiodarone 200mg tablet PO SCH ×2 (07:24→19:40)
[2019-01-05] MEDS: famotidine/PF 10 mg/ml inj IV SCH ×2 (07:24→19:41)
[2019-01-05] MEDS: magnesium oxide 400mg tablet PO SCH ×2 (07:25→19:41)
[2019-01-05] MEDS: lisinopril 5mg tablet PO SCH (07:25)
[2019-01-05] MEDS: lactobacillus rhamnosus 10,000 MMU CELLS/CAPSULE PO SCH ×2 (07:25→19:41)
[2019-01-05] MEDS: nystatin 15 GM powder TP SCH ×3 (07:25→19:55)
[2019-01-05] MEDS: rivaroxaban 20mg tablet PO SCH (07:44)
[2019-01-05] MEDS: FENTANYL-0.9 % NACL/PF 100 ML IV PRN (08:10)
--- NOTE | 2019-01-05 10:43 | NUR ---
md villa completed rounds he wants to attempt to extubate today
[2019-01-05] MEDS: vancomycin inj 500 MG in normal saline 100ml IV soln 100 ML IV SCH ×2 (11:25→23:11)
--- NOTE | 2019-01-05 13:34 | NUR ---
pt failed weaning patarameters started back on sedation
[2019-01-05] MEDS: normal saline 1000ml 1,000 ML IV SCH (17:30)
--- NOTE | 2019-01-05 18:06 | NUR ---
Problems reprioritized. Patient report given, questions answered & plan of care reviewed with SHANIQUE Young.
--- NOTE | 2019-01-05 18:15 | NUR ---
Patient in room CICU 2009. I have received report from Justice BAY and had the opportunity to ask questions and assume patient care. Patient intubated, extremely restless/agitated and trying to sit up in bed. Not following commands to stop. Versed bolus given, unable to keep giving boluses due to low BP with current MAP at 59. Will continue monitor patient closely.
--- NOTE | 2019-01-05 19:15 | NUR ---
Patient extremely restless/agitated during bed bath. Keeps scratching her legs, nods "yes" when asked if she is itchy. Notified Rod Peralta, new order for benadryl received PRN itching.
[2019-01-05] MEDS ORDERED: diphenhydrAMINE 50 mg/ml inj IV PRN (19:20)
[2019-01-06] VITALS (24 sets, daily range): BP systolic 82–114; BP diastolic 49–88
--- NOTE | 2019-01-06 | NUR ---
Patient has been resting comfortably in bed with no changes in condition noted. Will continue to monitor patient closely.
[2019-01-06] MEDS: acyclovir 5% 15GM ointment TP SCH ×4 (02:19→20:23)
[2019-01-06] MEDS: mineral oil/petrolatum ophthal oint EACHEYE SCH ×4 (02:19→20:16)
[2019-01-06] MEDS: furosemide 40mg/4ml inj IV SCH ×4 (02:19→20:17)
[2019-01-06 03:11] LABS: ABG BASE EXCESS 10.2 mmol/L (-2.0-3.0); ABG HCO3 34.9 mmol/L (22.0-26.0); ABG OXYGEN SATURATION 88.1 % (95-98); ABG PCO2 (T) 47.3 mmHg (32.0-45.0); ABG PH (T) 7.486 (7.350-7.450); ABG PO2 (T) 54.2 mmHg (83-108); ALLEN'S TEST Positive; FCOHb 0.4 % (0.5-1.5); FMetHb 0.1 % (0.3-1.12); FO2Hb 87.7 % (94-100); MINUTE VOLUME 7 L/min; PEEP 5 cm H2O; RESPIRATORY RATE 16 b/min; RESPIRATORY RATE (OBSERVED) 19 b/min; TIDAL VOLUME 350 mL; TOTAL HEMOGLOBIN 12.6 G/dl (12.0-16.0)
[2019-01-06 04:17] LABS: BASOPHILS # (AUTO) 0.1 X10'3 (0-0.2); BASOPHILS % (AUTO) 0.7 % (0-1); EOSINOPHILS # (AUTO) 2.9 X10'3 (0-0.9); EOSINOPHILS % (AUTO) 23.1 % (0-6); HEMATOCRIT 37.8 % (35.0-45.0); HEMOGLOBIN 12.2 g/dl (12.0-16.0); LYMPHOCYTES # (AUTO) 1.4 X10'3 (1.1-4.8); MEAN CORPUSCULAR HEMOGLOBIN 26.8 PG (27.0-31.0); MEAN CORPUSCULAR HGB CONC 32.2 g/dL (33.0-36.5); MEAN CORPUSCULAR VOLUME 83.2 FL (78-98); MEAN PLATELET VOLUME 8.2 FL (7.4-10.4); MONOCYTES # (AUTO) 1.7 X10'3 (0-0.9); MONOCYTES % (AUTO) 13.3 % (2-12); NEUTROPHILS # (AUTO) 6.6 X10'3 (1.8-7.7); NEUTROPHILS % (AUTO) 51.9 % (42-75); PLATELET COUNT 378 X10'3 (140-440); RED BLOOD COUNT 4.54 X10'6 (4.20-5.60); RED CELL DISTRIBUTION WIDTH 19.2 % (11.5-14.5); WHITE BLOOD COUNT 12.7 X10'3 (4.5-11.0)
[2019-01-06] MEDS: ipratropium/albuterol 3ml nebule NEB SCH ×6 (04:17→23:01)
[2019-01-06 04:26] LABS: ALANINE AMINOTRANSFERASE 19 U/L (12-78); ALBUMIN 2.2 G/DL (3.4-5.0); ALBUMIN/GLOBULIN RATIO 0.5 (1.1-1.5); ALKALINE PHOSPHATASE 200 IU/L (46-116); ANION GAP 4 (8-16); ASPARTATE AMINO TRANSFERASE 15 U/L (10-37); BILIRUBIN,TOTAL 0.6 MG/DL (0.1-1.0); BLOOD UREA NITROGEN 46 MG/DL (7-18); BUN/CREATININE RATIO 38.7 (6.6-38.0); CALCIUM 9.5 MG/DL (8.5-10.1); CHLORIDE 101 MMOL/L (99-107); CREATININE 1.19 MG/DL (0.40-0.90); GLUCOSE 137 MG/DL (70-104); PHOSPHORUS 4.2 MG/DL (2.3-4.5); POTASSIUM 3.7 MMOL/L (3.5-5.1); SODIUM 141 MMOL/L (135-145); TOTAL CARBON DIOXIDE 35.6 MMOL/L (24-32); TOTAL PROTEIN 6.4 G/DL (6.4-8.2); eGFR 46 ML/MIN
--- NOTE | 2019-01-06 04:33 | NUR ---
Patient woke up extremely restless and anxious, nodding head "yes" and "no" appropriately but not following commands to stop writhing and trying to sit up. Versed bolus given to calm patient. Will continue to monitor patient closely.
[2019-01-06 04:50] LABS: MAGNESIUM 1.9 MG/DL (1.5-2.4)
--- NOTE | 2019-01-06 06:30 | NUR ---
Patient in room CICU 2009. I have received report from SHANIQUE Young and had the opportunity to ask questions and assume patient care.
--- NOTE | 2019-01-06 06:30 | NUR ---
Problems reprioritized. Patient report given, questions answered & plan of care reviewed with Ilana BAY.
[2019-01-06 06:34] LABS: PLATELET ESTIMATE NORMAL
[2019-01-06 06:35] LABS: ANISOCYTOSIS 2+
[2019-01-06 06:36] LABS: LARGE PLATELETS FEW
[2019-01-06] MEDS: nystatin 15 GM powder TP SCH ×3 (07:54→20:16)
[2019-01-06] MEDS: rivaroxaban 20mg tablet PO SCH (07:55)
[2019-01-06] MEDS: dexmedetomidine inj. 400 MCG in normal saline 100ml IV soln 100 ML IV PRN ×3 (07:55→23:34)
[2019-01-06] MEDS: lactobacillus rhamnosus 10,000 MMU CELLS/CAPSULE PO SCH ×2 (07:55→20:18)
[2019-01-06] MEDS: docusate sodium 100mg/10ml UD cup PO SCH ×2 (07:56→20:17)
[2019-01-06] MEDS: magnesium oxide 400mg tablet PO SCH ×2 (07:56→20:18)
[2019-01-06] MEDS: amiodarone 200mg tablet PO SCH ×2 (07:56→20:18)
[2019-01-06] MEDS: famotidine/PF 10 mg/ml inj IV SCH ×2 (07:57→20:17)
[2019-01-06] MEDS: spironolactone 50 MG tablet PO SCH ×3 (08:00→20:18)
[2019-01-06] MEDS: lisinopril 5mg tablet PO SCH (08:00)
[2019-01-06] MEDS: midazolam 100mg in NS 100ml 100 ML IV PRN (11:46)
[2019-01-06] MEDS: vancomycin inj 500 MG in normal saline 100ml IV soln 100 ML IV SCH ×2 (12:04→23:33)
[2019-01-06] MEDS: FENTANYL-0.9 % NACL/PF 100 ML IV PRN (14:48)
--- NOTE | 2019-01-06 15:00 | NUR ---
Wound cleanse spray applied to Pts bilateral wounds on toes. [place] was then dried with clean 4x4's. Betadine was then applied to Pt's bilateral wounds on toes and left to dry to open air.
--- NOTE | 2019-01-06 18:30 | NUR ---
Problems reprioritized. Patient report given, questions answered & plan of care reviewed with SHANIQUE Caban.
[2019-01-07] VITALS (24 sets, daily range): BP systolic 85–113; BP diastolic 48–74
[2019-01-07] MEDS: furosemide 40mg/4ml inj IV SCH ×2 (02:33→08:00)
[2019-01-07] MEDS: acyclovir 5% 15GM ointment TP SCH ×2 (02:33→08:00)
[2019-01-07] MEDS: mineral oil/petrolatum ophthal oint EACHEYE SCH ×4 (02:33→20:14)
[2019-01-07] MEDS: ipratropium/albuterol 3ml nebule NEB SCH ×6 (03:29→23:12)
[2019-01-07] MEDS: midazolam 100mg in NS 100ml 100 ML IV PRN (03:38)
[2019-01-07 04:16] LABS: BASOPHILS # (AUTO) 0.1 X10'3 (0-0.2); BASOPHILS % (AUTO) 0.6 % (0-1); EOSINOPHILS # (AUTO) 2.5 X10'3 (0-0.9); EOSINOPHILS % (AUTO) 19.2 % (0-6); HEMATOCRIT 38.1 % (35.0-45.0); HEMOGLOBIN 12.3 g/dl (12.0-16.0); LYMPHOCYTES # (AUTO) 1.6 X10'3 (1.1-4.8); LYMPHOCYTES % (AUTO) 12.2 % (21-51); MEAN CORPUSCULAR HEMOGLOBIN 26.7 PG (27.0-31.0); MEAN CORPUSCULAR HGB CONC 32.4 g/dL (33.0-36.5); MEAN CORPUSCULAR VOLUME 82.5 FL (78-98); MEAN PLATELET VOLUME 8.1 FL (7.4-10.4); MONOCYTES % (AUTO) 15.3 % (2-12); NEUTROPHILS % (AUTO) 52.7 % (42-75); PLATELET COUNT 413 X10'3 (140-440); RED BLOOD COUNT 4.62 X10'6 (4.20-5.60); RED CELL DISTRIBUTION WIDTH 19.6 % (11.5-14.5); WHITE BLOOD COUNT 13.2 X10'3 (4.5-11.0)
[2019-01-07 04:24] LABS: ALANINE AMINOTRANSFERASE 21 U/L (12-78); ALBUMIN 2.3 G/DL (3.4-5.0); ALBUMIN/GLOBULIN RATIO 0.5 (1.1-1.5); ALKALINE PHOSPHATASE 209 IU/L (46-116); ANION GAP 6 (8-16); ASPARTATE AMINO TRANSFERASE 16 U/L (10-37); BILIRUBIN,TOTAL 0.7 MG/DL (0.1-1.0); BLOOD UREA NITROGEN 53 MG/DL (7-18); BUN/CREATININE RATIO 35.8 (6.6-38.0); CALCIUM 9.8 MG/DL (8.5-10.1); CHLORIDE 100 MMOL/L (99-107); CREATININE 1.48 MG/DL (0.40-0.90); GLUCOSE 115 MG/DL (70-104); POTASSIUM 4.1 MMOL/L (3.5-5.1); SODIUM 142 MMOL/L (135-145); TOTAL CARBON DIOXIDE 36.4 MMOL/L (24-32); TOTAL PROTEIN 6.8 G/DL (6.4-8.2); eGFR 36 ML/MIN
[2019-01-07 04:25] LABS: ABG BASE EXCESS 11.4 mmol/L (-2.0-3.0); ABG HCO3 34.9 mmol/L (22.0-26.0); ABG OXYGEN SATURATION 88.1 % (95-98); ABG PCO2 (T) 41.5 mmHg (32.0-45.0); ABG PH (T) 7.544 (7.350-7.450); ABG PO2 (T) 52.9 mmHg (83-108); ALLEN'S TEST Positive; FCOHb 0.5 % (0.5-1.5); FMetHb 0.3 % (0.3-1.12); FO2Hb 87.4 % (94-100); MINUTE VOLUME 6 L/min; PATIENT TEMPERATURE 37.2; PEEP 5 cm H2O; RESPIRATORY RATE 16 b/min; RESPIRATORY RATE (OBSERVED) 16 b/min; TIDAL VOLUME 350 mL
[2019-01-07] MEDS: FENTANYL-0.9 % NACL/PF 100 ML IV PRN (05:31)
[2019-01-07 06:18] LABS: ANISOCYTOSIS 2+; PLATELET ESTIMATE NORMAL
[2019-01-07] MEDS: lisinopril 5mg tablet PO SCH (08:00)
[2019-01-07] MEDS: docusate sodium 100mg/10ml UD cup PO SCH ×2 (08:00→20:00)
[2019-01-07] MEDS: spironolactone 50 MG tablet PO SCH ×3 (08:00→20:14)
[2019-01-07] MEDS: nystatin 15 GM powder TP SCH ×3 (09:02→20:05)
[2019-01-07] MEDS: rivaroxaban 20mg tablet PO SCH (09:06)
[2019-01-07] MEDS: amiodarone 200mg tablet PO SCH ×2 (09:06→20:05)
[2019-01-07] MEDS: magnesium oxide 400mg tablet PO SCH ×2 (09:06→20:05)
[2019-01-07] MEDS: lactobacillus rhamnosus 10,000 MMU CELLS/CAPSULE PO SCH ×2 (09:06→20:05)
[2019-01-07] MEDS: famotidine/PF 10 mg/ml inj IV SCH ×2 (09:06→20:05)
[2019-01-07] MEDS: dexmedetomidine inj. 400 MCG in normal saline 100ml IV soln 100 ML IV PRN ×3 (09:19→23:15)
--- NOTE | 2019-01-07 10:48 | NUR ---
Reassessment: Pt remains intubated and sedated, tolerating TF at goal rate with low gastric residuals of 12-40 mL. Noted that patient's weight is down 4.2 kg since admit, likely fluid related as pt with -8.8 L fluid balance from 01/04 to this morning (01/07) per I&O. Pt receiving Lasix however will be d/c'ed per family support specialist at critical care rounds. To check for C.diff if diarrhea continues per RN at rounds. Will continue to follow. Recommend: 1. Continuous tube feeding per OG tube using Vital High protein at 60 ml/hr. Will provide 1440 ml total volume, 1440 cals, 126 g protein, 1204 ml water. 2. Water flush 200 ml Q4H 3. Prealbumin q /, daily wts 4. When extubated, recommend to advance diet as medically indicated to heart healthy, CHO controlled 5. DM ed prior to d/c Addendum: 01/07/19 at [address] Amended: Links added.
[2019-01-07] MEDS: vancomycin inj 500 MG in normal saline 100ml IV soln 100 ML IV SCH (11:56)
[2019-01-07] MEDS ORDERED: DOCOSANOL 2 GM CREAM..G. TP SCH (13:18)
[2019-01-07] MEDS: normal saline 1000ml 1,000 ML IV SCH (17:30)
--- NOTE | 2019-01-07 18:05 | NUR ---
Unable to wean patient off of the ventilator this morning. Able to follow simple commands, but became agitated and restless requiring fent/versed to be restarted. Weaning parameters marginal and MD will reassess tomorrow. Patient's blood pressure labile this AM, but through the afternoon, became low but stable, Dr. Salinas aware. Lasix discontinued.
--- NOTE | 2019-01-07 18:29 | NUR ---
Patient in room CICU 2009. I have received report from Eliseo BAY, and had the opportunity to ask questions and assume patient care.
--- NOTE | 2019-01-07 18:54 | NUR ---
Problems reprioritized. Patient report given, questions answered & plan of care reviewed with Jose Martin BAY.
--- NOTE | 2019-01-07 19:30 | NUR ---
PT intubated and sedated, tolerating settings and sedation well, O2 sat > 94%. VSS. TF is running to OG. Dunbar draining to gravity. Bed is locked and low. Bilat soft wrist restraints in place and secure. Will continue to monitor.
--- NOTE | 2019-01-07 19:45 | NUR ---
Patient in room CICU 2009. I have received report from Eliseo BAY, and had the opportunity to ask questions and assume patient care.
[2019-01-07] MEDS ORDERED: VANCOMYCIN LEVEL IV ONE (22:30)
--- NOTE | 2019-01-07 23:55 | NUR ---
Pharmacist notified of critical Vanco Trough. Instructed to hold 2300 dose and they would evaluated the next dose.
[2019-01-08] VITALS (24 sets, daily range): BP systolic 82–115; BP diastolic 52–86
--- NOTE | 2019-01-08 01:00 | NUR ---
PT awake and agitated despite increasing sedation and giving bolus. Bilat soft wrist restraints in place and secure. Will continue to monitor.
[2019-01-08] MEDS: mineral oil/petrolatum ophthal oint EACHEYE SCH ×4 (02:00→19:58)
[2019-01-08] MEDS: ipratropium/albuterol 3ml nebule NEB SCH ×6 (03:11→23:06)
[2019-01-08 03:26] LABS: ABG BASE EXCESS 7.3 mmol/L (-2.0-3.0); ABG HCO3 31.8 mmol/L (22.0-26.0); ABG OXYGEN SATURATION 92.4 % (95-98); ABG PCO2 (T) 45.2 mmHg (32.0-45.0); ABG PH (T) 7.466 (7.350-7.450); ABG PO2 (T) 66.6 mmHg (83-108); ALLEN'S TEST Positive; FCOHb 0.5 % (0.5-1.5); FO2Hb 91.9 % (94-100); PATIENT TEMPERATURE 37.3; PEEP 5 cm H2O; RESPIRATORY RATE 16 b/min; RESPIRATORY RATE (OBSERVED) 22 b/min; TIDAL VOLUME 350 mL; TOTAL HEMOGLOBIN 12.7 G/dl (12.0-16.0)
--- NOTE | 2019-01-08 04:00 | NUR ---
PT resting with no s/s of distress noted at this time. VSS. Bed is locked and low. Bilat soft wrist restraints remain in place and secure. Will continue to monitor.
[2019-01-08 05:45] LABS: BASOPHILS # (AUTO) 0.1 X10'3 (0-0.2); BASOPHILS % (AUTO) 0.7 % (0-1); EOSINOPHILS # (AUTO) 2.6 X10'3 (0-0.9); EOSINOPHILS % (AUTO) 15.6 % (0-6); HEMATOCRIT 36.4 % (35.0-45.0); HEMOGLOBIN 11.9 g/dl (12.0-16.0); LYMPHOCYTES # (AUTO) 1.5 X10'3 (1.1-4.8); LYMPHOCYTES % (AUTO) 9.3 % (21-51); MEAN CORPUSCULAR HGB CONC 32.7 g/dL (33.0-36.5); MEAN CORPUSCULAR VOLUME 82.6 FL (78-98); MEAN PLATELET VOLUME 8.4 FL (7.4-10.4); MONOCYTES % (AUTO) 12.1 % (2-12); NEUTROPHILS # (AUTO) 10.3 X10'3 (1.8-7.7); NEUTROPHILS % (AUTO) 62.3 % (42-75); PLATELET COUNT 418 X10'3 (140-440); RED BLOOD COUNT 4.41 X10'6 (4.20-5.60); RED CELL DISTRIBUTION WIDTH 19.2 % (11.5-14.5); WHITE BLOOD COUNT 16.5 X10'3 (4.5-11.0)
[2019-01-08] MEDS: dexmedetomidine inj. 400 MCG in normal saline 100ml IV soln 100 ML IV PRN ×3 (05:46→19:57)
[2019-01-08 05:48] LABS: ALANINE AMINOTRANSFERASE 23 U/L (12-78); ALBUMIN 2.4 G/DL (3.4-5.0); ALBUMIN/GLOBULIN RATIO 0.5 (1.1-1.5); ALKALINE PHOSPHATASE 219 IU/L (46-116); ANION GAP 8 (8-16); ASPARTATE AMINO TRANSFERASE 17 U/L (10-37); BILIRUBIN,TOTAL 0.8 MG/DL (0.1-1.0); BLOOD UREA NITROGEN 51 MG/DL (7-18); BUN/CREATININE RATIO 34.5 (6.6-38.0); CALCIUM 9.5 MG/DL (8.5-10.1); CHLORIDE 101 MMOL/L (99-107); CREATININE 1.48 MG/DL (0.40-0.90); GLUCOSE 140 MG/DL (70-104); PHOSPHORUS 4.1 MG/DL (2.3-4.5); POTASSIUM 3.9 MMOL/L (3.5-5.1); SODIUM 143 MMOL/L (135-145); TOTAL CARBON DIOXIDE 33.7 MMOL/L (24-32); eGFR 36 ML/MIN
[2019-01-08] MEDS: midazolam 100mg in NS 100ml 100 ML IV PRN ×2 (06:09→22:44)
--- NOTE | 2019-01-08 06:40 | NUR ---
Problems reprioritized. Patient report given, questions answered & plan of care reviewed with Tamika BAY.
--- NOTE | 2019-01-08 06:45 | NUR ---
Patient in room CICU 2009. I have received report from SHANIQUE Philippe and had the opportunity to ask questions and assume patient care.
[2019-01-08 07:25] LABS: MAGNESIUM 2.3 MG/DL (1.5-2.4)
[2019-01-08] MEDS: docusate sodium 100mg/10ml UD cup PO SCH ×2 (07:52→19:57)
[2019-01-08] MEDS: lisinopril 5mg tablet PO SCH (07:53)
[2019-01-08] MEDS: DOCOSANOL 2 GM CREAM..G. TP SCH ×3 (08:00→19:58)
[2019-01-08] MEDS: rivaroxaban 20mg tablet PO SCH (08:28)
[2019-01-08] MEDS: nystatin 15 GM powder TP SCH ×3 (08:28→19:58)
[2019-01-08] MEDS: spironolactone 50 MG tablet PO SCH ×3 (08:28→21:00)
[2019-01-08] MEDS: magnesium oxide 400mg tablet PO SCH ×2 (08:28→19:59)
[2019-01-08] MEDS: famotidine/PF 10 mg/ml inj IV SCH ×2 (08:28→19:58)
[2019-01-08] MEDS: lactobacillus rhamnosus 10,000 MMU CELLS/CAPSULE PO SCH ×2 (08:29→19:58)
[2019-01-08] MEDS: amiodarone 200mg tablet PO SCH ×2 (08:29→19:58)
[2019-01-08] MEDS: FENTANYL-0.9 % NACL/PF 100 ML IV PRN ×2 (08:36→22:44)
[2019-01-08] MEDS: vancomycin inj 500 MG in normal saline 100ml IV soln 100 ML IV SCH (14:57)
--- NOTE | 2019-01-08 18:29 | NUR ---
Problems reprioritized. Patient report given, questions answered & plan of care reviewed with SHANIQUE Ulloa .
--- NOTE | 2019-01-08 18:54 | NUR ---
Patient in room CICU 2009. I have received report from Tamika BAY and had the opportunity to ask questions and assume patient care. patient resting in bed on ventilator, setting a/c vc, fio2 40% peep 5 sating 93%, precedex at .5, versed at 4 and fentanyl at 75 vital signs stable will continue to monitor
[2019-01-09] VITALS (23 sets, daily range): BP systolic 74–117; BP diastolic 44–86
[2019-01-09] MEDS: DOCOSANOL 2 GM CREAM..G. TP SCH ×4 (02:10→21:38)
[2019-01-09] MEDS: mineral oil/petrolatum ophthal oint EACHEYE SCH ×4 (02:10→21:39)
[2019-01-09] MEDS: ipratropium/albuterol 3ml nebule NEB SCH ×6 (03:54→22:58)
[2019-01-09] MEDS: dexmedetomidine inj. 400 MCG in normal saline 100ml IV soln 100 ML IV PRN (04:27)
[2019-01-09 04:41] LABS: ABG BASE EXCESS 5.9 mmol/L (-2.0-3.0); ABG OXYGEN SATURATION 88.3 % (95-98); ABG PH (T) 7.513 (7.350-7.450); ABG PO2 (T) 53.2 mmHg (83-108); ALLEN'S TEST Positive; FCOHb 0.2 % (0.5-1.5); FMetHb 0.3 % (0.3-1.12); FO2Hb 87.9 % (94-100); MINUTE VOLUME 11 L/min; PATIENT TEMPERATURE 37.2; PEEP 5 cm H2O; RESPIRATORY RATE 16 b/min; RESPIRATORY RATE (OBSERVED) 28 b/min; TIDAL VOLUME 350 mL; TOTAL HEMOGLOBIN 12.3 G/dl (12.0-16.0)
[2019-01-09 04:44] LABS: BASOPHILS # (AUTO) 0.1 X10'3 (0-0.2); BASOPHILS % (AUTO) 0.9 % (0-1); EOSINOPHILS # (AUTO) 2.5 X10'3 (0-0.9); EOSINOPHILS % (AUTO) 18.3 % (0-6); HEMATOCRIT 36.5 % (35.0-45.0); HEMOGLOBIN 11.6 g/dl (12.0-16.0); LYMPHOCYTES # (AUTO) 1.7 X10'3 (1.1-4.8); LYMPHOCYTES % (AUTO) 12.8 % (21-51); MEAN CORPUSCULAR HEMOGLOBIN 26.6 PG (27.0-31.0); MEAN CORPUSCULAR HGB CONC 31.9 g/dL (33.0-36.5); MEAN CORPUSCULAR VOLUME 83.4 FL (78-98); MEAN PLATELET VOLUME 8.4 FL (7.4-10.4); MONOCYTES # (AUTO) 1.8 X10'3 (0-0.9); MONOCYTES % (AUTO) 13.5 % (2-12); NEUTROPHILS # (AUTO) 7.4 X10'3 (1.8-7.7); NEUTROPHILS % (AUTO) 54.5 % (42-75); PLATELET COUNT 415 X10'3 (140-440); RED BLOOD COUNT 4.38 X10'6 (4.20-5.60); RED CELL DISTRIBUTION WIDTH 19.4 % (11.5-14.5); WHITE BLOOD COUNT 13.6 X10'3 (4.5-11.0)
[2019-01-09 06:12] LABS: ANISOCYTOSIS 2+; ELLIPTOCYTES FEW; PLATELET ESTIMATE NORMAL; POLYCHROMASIA FEW
--- NOTE | 2019-01-09 06:14 | NUR ---
Problems reprioritized. Patient report given, questions answered & plan of care reviewed with Natalie Rn.
[2019-01-09] MEDS: docusate sodium 100mg/10ml UD cup PO SCH ×2 (08:13→21:39)
[2019-01-09] MEDS: nystatin 15 GM powder TP SCH ×3 (08:13→21:40)
[2019-01-09] MEDS: magnesium oxide 400mg tablet PO SCH ×2 (08:13→21:39)
[2019-01-09] MEDS: rivaroxaban 20mg tablet PO SCH (08:14)
[2019-01-09] MEDS: lisinopril 5mg tablet PO SCH (08:14)
[2019-01-09] MEDS: famotidine/PF 10 mg/ml inj IV SCH ×2 (08:14→21:39)
[2019-01-09] MEDS: spironolactone 50 MG tablet PO SCH ×3 (08:14→21:39)
[2019-01-09] MEDS: amiodarone 200mg tablet PO SCH ×2 (08:14→21:39)
[2019-01-09] MEDS: lactobacillus rhamnosus 10,000 MMU CELLS/CAPSULE PO SCH ×2 (08:14→21:39)
[2019-01-09] MEDS ORDERED: racepinephrine 11.25mg/0.5ml nebule NEB PRN (09:55)
[2019-01-09] MEDS ORDERED: ipratropium/albuterol 3ml nebule NEB PRN (09:55)
[2019-01-09] MEDS ORDERED: propofol 1000mg/100ml bottle 100 ML IV ONE (10:27)
[2019-01-09] MEDS ORDERED: dexmedetomidine inj. 400 MCG in normal saline 100ml IV soln 100 ML IV PRN (10:30)
--- NOTE | 2019-01-09 10:55 | NUR ---
Pt was extubated but failed quickly. MD at bedside for reintubation.
[2019-01-09] MEDS: normal saline 1000ml 1,000 ML IV SCH (13:40)
[2019-01-09] MEDS: vancomycin inj 500 MG in normal saline 100ml IV soln 100 ML IV SCH (13:48)
[2019-01-09] MEDS ORDERED: ipratropium/albuterol 3ml nebule NEB SCH (15:00)
[2019-01-09] MEDS ORDERED: normal saline 1000ml 1,000 ML IV ONE ×2 (15:30→16:05)
[2019-01-09] MEDS: NORepinephrine 8mg/ 250ml NS 250 ML IV SCH (16:05)
--- NOTE | 2019-01-09 17:04 | NUR ---
Reassessment: Pt failed extubation this morning and required reintubation per MD notes. Septic shock resolved and pt off pressors per MD notes. Pt continues to tolerate TF at goal with low residuals of 5-45 mL. LBM 01/09. Will continue to follow. Recommend: 1. Continuous tube feeding per OG tube using Vital High protein at 60 ml/hr. Will provide 1440 ml total volume, 1440 cals, 126 g protein, 1204 ml water. 2. Water flush 200 ml Q4H 3. Prealbumin q /, daily wts 4. When extubated, recommend to advance diet as medically indicated to heart healthy, CHO controlled 5. DM ed prior to d/c Addendum: 01/09/19 at [address] Amended: Links added.
--- NOTE | 2019-01-09 18:30 | NUR ---
Patient in room CICU 2009. I have received report from Natalie BAY and had the opportunity to ask questions and assume patient care.
[2019-01-09] MEDS: FENTANYL-0.9 % NACL/PF 100 ML IV PRN ×2 (19:05→23:53)
--- NOTE | 2019-01-09 19:51 | NUR ---
patient sating at 87-88% and tachypneic, the RT turned the fio2 up to 60%, vital signs stable will continue to monitor
--- NOTE | 2019-01-09 20:45 | NUR ---
patient very restless pulling at restraints and shaking her head, will increase the propofol and bolus with fentanyl, vital signs stable will continue to monitor
[2019-01-09] MEDS: propofol 1000mg/100ml bottle 100 ML IV PRN (21:58)
--- NOTE | 2019-01-09 23:20 | NUR ---
patient is still very restless pulling at restraints and shaking her head, will increase the propofol and bolus with fentanyl, vital signs stable will continue to monitor
[2019-01-10] VITALS (25 sets, daily range): BP systolic 86–131; BP diastolic 48–79
--- NOTE | 2019-01-10 01:30 | NUR ---
call FIELD ARTILLERY TARGETING TECHNICIAN Gonzalo to discuss the inability to sedate the patient, she is at 35mcg/hr of propofol, with several fentanyl boluses, asked if we could re start the precdex, she agreed to re start the precedex and see if it will help with her sedation
--- NOTE | 2019-01-10 01:30 | NUR ---
applied leg braces as the patient is very restless pulling at restraints and kicking her legs over the side, vital signs stable will continue to monitor
[2019-01-10] MEDS: dexmedetomidine inj. 400 MCG in normal saline 100ml IV soln 100 ML IV PRN ×2 (01:48→15:12)
[2019-01-10] MEDS: DOCOSANOL 2 GM CREAM..G. TP SCH ×4 (01:48→20:07)
[2019-01-10] MEDS: mineral oil/petrolatum ophthal oint EACHEYE SCH ×4 (01:48→20:07)
[2019-01-10] MEDS: ipratropium/albuterol 3ml nebule NEB SCH ×6 (03:12→23:17)
[2019-01-10] MEDS: propofol 1000mg/100ml bottle 100 ML IV PRN ×3 (03:20→21:30)
[2019-01-10 04:16] LABS: BASOPHILS # (AUTO) 0.1 X10'3 (0-0.2); BASOPHILS % (AUTO) 0.9 % (0-1); EOSINOPHILS # (AUTO) 1.3 X10'3 (0-0.9); EOSINOPHILS % (AUTO) 9.3 % (0-6); HEMATOCRIT 33.6 % (35.0-45.0); HEMOGLOBIN 10.6 g/dl (12.0-16.0); LYMPHOCYTES # (AUTO) 1.9 X10'3 (1.1-4.8); LYMPHOCYTES % (AUTO) 13.9 % (21-51); MEAN CORPUSCULAR HEMOGLOBIN 26.1 PG (27.0-31.0); MEAN CORPUSCULAR HGB CONC 31.6 g/dL (33.0-36.5); MEAN CORPUSCULAR VOLUME 82.6 FL (78-98); MEAN PLATELET VOLUME 8.5 FL (7.4-10.4); MONOCYTES # (AUTO) 1.6 X10'3 (0-0.9); MONOCYTES % (AUTO) 12.1 % (2-12); NEUTROPHILS # (AUTO) 8.5 X10'3 (1.8-7.7); NEUTROPHILS % (AUTO) 63.8 % (42-75); PLATELET COUNT 453 X10'3 (140-440); RED BLOOD COUNT 4.07 X10'6 (4.20-5.60); RED CELL DISTRIBUTION WIDTH 18.8 % (11.5-14.5); WHITE BLOOD COUNT 13.4 X10'3 (4.5-11.0)
--- NOTE | 2019-01-10 05:00 | NUR ---
ABG showed po2 of 67.2, rt turned up fio2 vital signs stable
[2019-01-10 05:06] LABS: ABG BASE EXCESS 1.6 mmol/L (-2.0-3.0); ABG HCO3 23.4 mmol/L (22.0-26.0); ABG OXYGEN SATURATION 93.7 % (95-98); ABG PCO2 (T) 28.2 mmHg (32.0-45.0); ABG PH (T) 7.536 (7.350-7.450); ABG PO2 (T) 67.2 mmHg (83-108); ALLEN'S TEST Positive; FMetHb 0.3 % (0.3-1.12); FO2Hb 93.4 % (94-100); PATIENT TEMPERATURE 36.8; PEEP 5 cm H2O; RESPIRATORY RATE 12 b/min; TIDAL VOLUME 350 mL; TOTAL HEMOGLOBIN 12.2 G/dl (12.0-16.0)
[2019-01-10] MEDS: FENTANYL-0.9 % NACL/PF 100 ML IV PRN ×2 (05:24→09:55)
[2019-01-10 06:40] LABS: ALANINE AMINOTRANSFERASE 23 U/L (12-78); ALBUMIN 2.3 G/DL (3.4-5.0); ALBUMIN/GLOBULIN RATIO 0.5 (1.1-1.5); ALKALINE PHOSPHATASE 232 IU/L (46-116); ANION GAP 11 (8-16); ASPARTATE AMINO TRANSFERASE 19 U/L (10-37); BILIRUBIN,TOTAL 0.7 MG/DL (0.1-1.0); BLOOD UREA NITROGEN 48 MG/DL (7-18); BUN/CREATININE RATIO 35.6 (6.6-38.0); CALCIUM 9.5 MG/DL (8.5-10.1); CHLORIDE 106 MMOL/L (99-107); CREATININE 1.35 MG/DL (0.40-0.90); GLUCOSE 99 MG/DL (70-104); MAGNESIUM 2.2 MG/DL (1.5-2.4); SODIUM 142 MMOL/L (135-145); TOTAL CARBON DIOXIDE 25.4 MMOL/L (24-32); TOTAL PROTEIN 6.6 G/DL (6.4-8.2); eGFR 40 ML/MIN
[2019-01-10] MEDS: docusate sodium 100mg/10ml UD cup PO SCH ×2 (08:00→20:06)
[2019-01-10] MEDS: lisinopril 5mg tablet PO SCH (08:00)
[2019-01-10] MEDS: spironolactone 50 MG tablet PO SCH (08:04)
[2019-01-10] MEDS: magnesium oxide 400mg tablet PO SCH ×2 (08:04→20:07)
[2019-01-10] MEDS: rivaroxaban 20mg tablet PO SCH (08:04)
[2019-01-10] MEDS: famotidine/PF 10 mg/ml inj IV SCH ×2 (08:04→20:06)
[2019-01-10] MEDS: amiodarone 200mg tablet PO SCH ×2 (08:04→20:06)
[2019-01-10] MEDS: lactobacillus rhamnosus 10,000 MMU CELLS/CAPSULE PO SCH ×2 (08:04→20:06)
[2019-01-10] MEDS: nystatin 15 GM powder TP SCH ×3 (08:05→20:07)
--- NOTE | 2019-01-10 11:00 | NUR ---
Dr. Patel rounding on patient and changed PEEP from 5 to 8 with orders titrate FiO2 down as tolerated. Likely not going to extubate today. She was able to come off of sedation this AM and follow commands and comprehend; however, she became agitated/restless.
[2019-01-10] MEDS: vancomycin inj 500 MG in normal saline 100ml IV soln 100 ML IV SCH (11:28)
[2019-01-11] VITALS (23 sets, daily range): BP systolic 55–121; BP diastolic 47–86
[2019-01-11] MEDS: DOCOSANOL 2 GM CREAM..G. TP SCH ×4 (01:47→20:56)
[2019-01-11] MEDS: mineral oil/petrolatum ophthal oint EACHEYE SCH ×4 (01:47→20:54)
[2019-01-11] MEDS: ipratropium/albuterol 3ml nebule NEB SCH ×6 (02:38→23:06)
[2019-01-11] MEDS: dexmedetomidine inj. 400 MCG in normal saline 100ml IV soln 100 ML IV PRN (02:39)
[2019-01-11 03:33] LABS: BASOPHILS # (AUTO) 0.1 X10'3 (0-0.2); BASOPHILS % (AUTO) 0.9 % (0-1); EOSINOPHILS # (AUTO) 1.8 X10'3 (0-0.9); EOSINOPHILS % (AUTO) 14.5 % (0-6); HEMATOCRIT 35.3 % (35.0-45.0); HEMOGLOBIN 11.3 g/dl (12.0-16.0); LYMPHOCYTES # (AUTO) 1.2 X10'3 (1.1-4.8); MEAN CORPUSCULAR HEMOGLOBIN 26.4 PG (27.0-31.0); MEAN CORPUSCULAR HGB CONC 31.9 g/dL (33.0-36.5); MEAN CORPUSCULAR VOLUME 82.8 FL (78-98); MEAN PLATELET VOLUME 8.5 FL (7.4-10.4); MONOCYTES # (AUTO) 1.6 X10'3 (0-0.9); MONOCYTES % (AUTO) 13.2 % (2-12); NEUTROPHILS # (AUTO) 7.5 X10'3 (1.8-7.7); NEUTROPHILS % (AUTO) 61.4 % (42-75); PLATELET COUNT 465 X10'3 (140-440); RED BLOOD COUNT 4.27 X10'6 (4.20-5.60); WHITE BLOOD COUNT 12.2 X10'3 (4.5-11.0)
[2019-01-11 03:44] LABS: ALANINE AMINOTRANSFERASE 19 U/L (12-78); ALBUMIN 2.2 G/DL (3.4-5.0); ALBUMIN/GLOBULIN RATIO 0.5 (1.1-1.5); ALKALINE PHOSPHATASE 244 IU/L (46-116); ANION GAP 6 (8-16); ASPARTATE AMINO TRANSFERASE 13 U/L (10-37); BILIRUBIN,TOTAL 0.4 MG/DL (0.1-1.0); BLOOD UREA NITROGEN 43 MG/DL (7-18); BUN/CREATININE RATIO 36.8 (6.6-38.0); CALCIUM 9.5 MG/DL (8.5-10.1); CHLORIDE 108 MMOL/L (99-107); CREATININE 1.17 MG/DL (0.40-0.90); GLUCOSE 133 MG/DL (70-104); MAGNESIUM 2.3 MG/DL (1.5-2.4); PHOSPHORUS 4.4 MG/DL (2.3-4.5); POTASSIUM 4.4 MMOL/L (3.5-5.1); SODIUM 143 MMOL/L (135-145); TOTAL CARBON DIOXIDE 28.8 MMOL/L (24-32); TOTAL PROTEIN 6.5 G/DL (6.4-8.2); eGFR 47 ML/MIN
[2019-01-11] MEDS: propofol 1000mg/100ml bottle 100 ML IV PRN ×4 (03:45→20:53)
[2019-01-11 04:10] LABS: ABG BASE EXCESS 2.4 mmol/L (-2.0-3.0); ABG HCO3 27.7 mmol/L (22.0-26.0); ABG PCO2 (T) 44.9 mmHg (32.0-45.0); ABG PH (T) 7.407 (7.350-7.450); ABG PO2 (T) 65.5 mmHg (83-108); ALLEN'S TEST Positive; FMetHb 0.3 % (0.3-1.12); FO2Hb 91.7 % (94-100); PATIENT TEMPERATURE 36.6; PEEP 8 cm H2O; RESPIRATORY RATE 12 b/min; TIDAL VOLUME 350 mL; TOTAL HEMOGLOBIN 12.5 G/dl (12.0-16.0)
--- NOTE | 2019-01-11 04:30 | NUR ---
Patient's PO2 on AM ABG 65.5; increased FiO2 to 50% from 45%. Patient did well this evening on Sedation and Pain medications with less agitation. Some difficulty weaning the Levophed, able to decrease from 2mcg to 1mcg.
--- NOTE | 2019-01-11 06:23 | NUR ---
Problems reprioritized. Patient report given, questions answered & plan of care reviewed with Natalie RN.
[2019-01-11] MEDS: docusate sodium 100mg/10ml UD cup PO SCH ×2 (07:19→20:52)
[2019-01-11] MEDS: nystatin 15 GM powder TP SCH ×3 (07:20→20:54)
[2019-01-11] MEDS: magnesium oxide 400mg tablet PO SCH ×2 (08:00→20:52)
[2019-01-11] MEDS: famotidine/PF 10 mg/ml inj IV SCH ×2 (08:00→20:52)
[2019-01-11] MEDS: lisinopril 5mg tablet PO SCH (08:00)
[2019-01-11] MEDS: rivaroxaban 20mg tablet PO SCH (08:00)
[2019-01-11] MEDS: lactobacillus rhamnosus 10,000 MMU CELLS/CAPSULE PO SCH ×2 (08:00→20:53)
[2019-01-11] MEDS: amiodarone 200mg tablet PO SCH ×2 (08:00→20:53)
[2019-01-11] MEDS: FENTANYL-0.9 % NACL/PF 100 ML IV PRN ×2 (10:06→20:54)
[2019-01-11] MEDS ORDERED: VANCOMYCIN LEVEL IV ONE (10:30)
[2019-01-11] MEDS: vancomycin inj 500 MG in normal saline 100ml IV soln 100 ML IV SCH (11:09)
[2019-01-11] MEDS: normal saline 1000ml 1,000 ML IV SCH (18:45)
[2019-01-11] MEDS: NORepinephrine 8mg/ 250ml NS 250 ML IV SCH (18:45)
[2019-01-12] VITALS (23 sets, daily range): BP systolic 90–130; BP diastolic 50–81
--- NOTE | 2019-01-12 00:19 | NUR ---
Patient in room [facility] 2009. I have received report from SHANIQUE Estrada and had the opportunity to ask questions and assume patient care. Addendum: 01/12/19 at 0020 by Agnieszka Fulton RN Report was [facility] 01/11 330, not time noted above
[2019-01-12] MEDS: mineral oil/petrolatum ophthal oint EACHEYE SCH ×4 (01:29→20:00)
[2019-01-12] MEDS: propofol 1000mg/100ml bottle 100 ML IV PRN ×6 (01:29→20:22)
[2019-01-12] MEDS: DOCOSANOL 2 GM CREAM..G. TP SCH ×4 (01:30→20:28)
[2019-01-12 02:42] LABS: BASOPHILS # (AUTO) 0.1 X10'3 (0-0.2); BASOPHILS % (AUTO) 0.9 % (0-1); EOSINOPHILS # (AUTO) 1.7 X10'3 (0-0.9); EOSINOPHILS % (AUTO) 14.9 % (0-6); HEMATOCRIT 34.8 % (35.0-45.0); HEMOGLOBIN 10.9 g/dl (12.0-16.0); LYMPHOCYTES # (AUTO) 1.3 X10'3 (1.1-4.8); LYMPHOCYTES % (AUTO) 11.4 % (21-51); MEAN CORPUSCULAR HEMOGLOBIN 26.3 PG (27.0-31.0); MEAN CORPUSCULAR HGB CONC 31.3 g/dL (33.0-36.5); MEAN CORPUSCULAR VOLUME 84.1 FL (78-98); MEAN PLATELET VOLUME 8.5 FL (7.4-10.4); MONOCYTES # (AUTO) 1.4 X10'3 (0-0.9); MONOCYTES % (AUTO) 12.3 % (2-12); NEUTROPHILS # (AUTO) 7.1 X10'3 (1.8-7.7); NEUTROPHILS % (AUTO) 60.5 % (42-75); PLATELET COUNT 451 X10'3 (140-440); RED BLOOD COUNT 4.14 X10'6 (4.20-5.60); RED CELL DISTRIBUTION WIDTH 18.8 % (11.5-14.5); WHITE BLOOD COUNT 11.7 X10'3 (4.5-11.0)
[2019-01-12] MEDS: ipratropium/albuterol 3ml nebule NEB SCH ×6 (02:53→23:02)
[2019-01-12 02:59] LABS: ALANINE AMINOTRANSFERASE 21 U/L (12-78); ALBUMIN 2.2 G/DL (3.4-5.0); ALBUMIN/GLOBULIN RATIO 0.5 (1.1-1.5); ALKALINE PHOSPHATASE 247 IU/L (46-116); ANION GAP 7 (8-16); ASPARTATE AMINO TRANSFERASE 14 U/L (10-37); BILIRUBIN,TOTAL 0.4 MG/DL (0.1-1.0); BLOOD UREA NITROGEN 45 MG/DL (7-18); BUN/CREATININE RATIO 40.5 (6.6-38.0); CALCIUM 9.1 MG/DL (8.5-10.1); CHLORIDE 107 MMOL/L (99-107); CREATININE 1.11 MG/DL (0.40-0.90); GLUCOSE 109 MG/DL (70-104); MAGNESIUM 2.3 MG/DL (1.5-2.4); POTASSIUM 4.9 MMOL/L (3.5-5.1); SODIUM 142 MMOL/L (135-145); TOTAL CARBON DIOXIDE 28.4 MMOL/L (24-32); TOTAL PROTEIN 6.4 G/DL (6.4-8.2); eGFR 50 ML/MIN
[2019-01-12 04:11] LABS: ACANTHOCYTES FEW; ANISOCYTOSIS 2+; ELLIPTOCYTES FEW; PLATELET ESTIMATE NORMAL; POLYCHROMASIA FEW
[2019-01-12 04:31] LABS: ABG BASE EXCESS -0.6 mmol/L (-2.0-3.0); ABG HCO3 25.6 mmol/L (22.0-26.0); ABG OXYGEN SATURATION 93.8 % (95-98); ABG PCO2 (T) 47.2 mmHg (32.0-45.0); ABG PH (T) 7.348 (7.350-7.450); ABG PO2 (T) 69.6 mmHg (83-108); ALLEN'S TEST Positive; FCOHb 0.1 % (0.5-1.5); FMetHb 0.3 % (0.3-1.12); FO2Hb 93.4 % (94-100); PATIENT TEMPERATURE 36.2; PEEP 8 cm H2O; RESPIRATORY RATE 12 b/min; TIDAL VOLUME 350 mL; TOTAL HEMOGLOBIN 12.1 G/dl (12.0-16.0)
[2019-01-12] MEDS: FENTANYL-0.9 % NACL/PF 100 ML IV PRN ×2 (05:34→18:14)
--- NOTE | 2019-01-12 06:19 | NUR ---
Problems reprioritized. Patient report given, questions answered & plan of care reviewed with SHANIQUE Cerda.
--- NOTE | 2019-01-12 06:37 | NUR ---
Patient in room CICU 2009. I have received report from SHANIQUE Aaron and had the opportunity to ask questions and assume patient care.
[2019-01-12] MEDS: docusate sodium 100mg/10ml UD cup PO SCH ×2 (07:51→20:22)
[2019-01-12] MEDS: nystatin 15 GM powder TP SCH ×3 (07:51→20:29)
[2019-01-12] MEDS: famotidine/PF 10 mg/ml inj IV SCH ×2 (07:51→20:23)
[2019-01-12] MEDS: rivaroxaban 20mg tablet PO SCH (07:52)
[2019-01-12] MEDS: magnesium oxide 400mg tablet PO SCH ×2 (07:52→20:22)
[2019-01-12] MEDS: lactobacillus rhamnosus 10,000 MMU CELLS/CAPSULE PO SCH ×2 (07:52→20:22)
[2019-01-12] MEDS: amiodarone 200mg tablet PO SCH ×2 (07:52→20:23)
[2019-01-12] MEDS: lisinopril 5mg tablet PO SCH (07:52)
[2019-01-12] MEDS: VANCOMYCIN 750MG IV in NS 250 ML IV SCH (10:58)
--- NOTE | 2019-01-12 12:14 | NUR ---
Per Dr. Salinas, wean FiO2 to keep O2 sats 88-90%
--- NOTE | 2019-01-12 18:21 | NUR ---
Problems reprioritized. Patient report given, questions answered & plan of care reviewed with SHANIQUE Aaron.
--- NOTE | 2019-01-12 21:52 | NUR ---
Problems reprioritized. Patient report given, questions answered & plan of care reviewed with SHANIQUE Whitley.
[2019-01-12] MEDS: NORepinephrine 8mg/ 250ml NS 250 ML IV SCH (23:31)
[2019-01-13] VITALS (24 sets, daily range): BP systolic 87–142; BP diastolic 55–93
[2019-01-13] MEDS: propofol 1000mg/100ml bottle 100 ML IV PRN ×7 (00:02→22:24)
[2019-01-13] MEDS: mineral oil/petrolatum ophthal oint EACHEYE SCH ×4 (02:45→20:27)
[2019-01-13] MEDS: DOCOSANOL 2 GM CREAM..G. TP SCH ×4 (02:46→20:29)
[2019-01-13 02:54] LABS: BASOPHILS # (AUTO) 0.1 X10'3 (0-0.2); BASOPHILS % (AUTO) 0.9 % (0-1); EOSINOPHILS # (AUTO) 1.7 X10'3 (0-0.9); EOSINOPHILS % (AUTO) 13.5 % (0-6); HEMATOCRIT 33.6 % (35.0-45.0); HEMOGLOBIN 10.7 g/dl (12.0-16.0); LYMPHOCYTES # (AUTO) 1.2 X10'3 (1.1-4.8); LYMPHOCYTES % (AUTO) 9.5 % (21-51); MEAN CORPUSCULAR HEMOGLOBIN 26.5 PG (27.0-31.0); MEAN CORPUSCULAR HGB CONC 31.9 g/dL (33.0-36.5); MEAN CORPUSCULAR VOLUME 82.9 FL (78-98); MEAN PLATELET VOLUME 8.5 FL (7.4-10.4); MONOCYTES # (AUTO) 1.5 X10'3 (0-0.9); MONOCYTES % (AUTO) 12.1 % (2-12); PLATELET COUNT 452 X10'3 (140-440); RED BLOOD COUNT 4.05 X10'6 (4.20-5.60); RED CELL DISTRIBUTION WIDTH 18.7 % (11.5-14.5); WHITE BLOOD COUNT 12.6 X10'3 (4.5-11.0)
[2019-01-13 03:04] LABS: ALANINE AMINOTRANSFERASE 23 U/L (12-78); ALBUMIN 2.2 G/DL (3.4-5.0); ALBUMIN/GLOBULIN RATIO 0.5 (1.1-1.5); ALKALINE PHOSPHATASE 277 IU/L (46-116); ANION GAP 7 (8-16); ASPARTATE AMINO TRANSFERASE 12 U/L (10-37); BILIRUBIN,TOTAL 0.4 MG/DL (0.1-1.0); BLOOD UREA NITROGEN 48 MG/DL (7-18); CALCIUM 9.1 MG/DL (8.5-10.1); CHLORIDE 106 MMOL/L (99-107); CREATININE 1.17 MG/DL (0.40-0.90); GLUCOSE 108 MG/DL (70-104); MAGNESIUM 2.1 MG/DL (1.5-2.4); PHOSPHORUS 3.7 MG/DL (2.3-4.5); SODIUM 140 MMOL/L (135-145); TOTAL CARBON DIOXIDE 27.2 MMOL/L (24-32); TOTAL PROTEIN 6.5 G/DL (6.4-8.2); eGFR 47 ML/MIN
[2019-01-13 03:31] LABS: ABG BASE EXCESS -0.6 mmol/L (-2.0-3.0); ABG HCO3 25.1 mmol/L (22.0-26.0); ABG OXYGEN SATURATION 88.3 % (95-98); ABG PO2 (T) 54.2 mmHg (83-108); ALLEN'S TEST Positive; FCOHb 0.4 % (0.5-1.5); FMetHb 0.3 % (0.3-1.12); FO2Hb 87.7 % (94-100); MINUTE VOLUME 11 L/min; PATIENT TEMPERATURE 36.3; PEEP 5 cm H2O; RESPIRATORY RATE 12 b/min; RESPIRATORY RATE (OBSERVED) 29 b/min; TIDAL VOLUME 350 mL; TOTAL HEMOGLOBIN 12.2 G/dl (12.0-16.0)
[2019-01-13] MEDS: ipratropium/albuterol 3ml nebule NEB SCH ×6 (03:31→23:33)
[2019-01-13 03:37] LABS: ACANTHOCYTES FEW; ANISOCYTOSIS 2+; ELLIPTOCYTES FEW; PLATELET ESTIMATE INCREASED
[2019-01-13 03:38] LABS: POLYCHROMASIA FEW
[2019-01-13] MEDS: FENTANYL-0.9 % NACL/PF 100 ML IV PRN ×3 (05:35→22:25)
--- NOTE | 2019-01-13 06:51 | NUR ---
Patient in room CICU 2009. I have received report from SHANIQUE Whitley and had the opportunity to ask questions and assume patient care.
[2019-01-13] MEDS: lisinopril 5mg tablet PO SCH (08:00)
[2019-01-13] MEDS: docusate sodium 100mg/10ml UD cup PO SCH (08:29)
[2019-01-13] MEDS: rivaroxaban 20mg tablet PO SCH (08:29)
[2019-01-13] MEDS: famotidine/PF 10 mg/ml inj IV SCH ×2 (08:29→20:28)
[2019-01-13] MEDS: magnesium oxide 400mg tablet PO SCH (08:30)
[2019-01-13] MEDS: amiodarone 200mg tablet PO SCH (08:30)
[2019-01-13] MEDS: lactobacillus rhamnosus 10,000 MMU CELLS/CAPSULE PO SCH (08:30)
[2019-01-13] MEDS: nystatin 15 GM powder TP SCH ×3 (08:30→21:16)
[2019-01-13] MEDS: VANCOMYCIN 750MG IV in NS 250 ML IV SCH (11:20)
--- NOTE | 2019-01-13 12:21 | NUR ---
Reassessment: Pt remains intubated and sedated; family to discuss whether or not they would approve a tracheostomy and PEG if pt fails extubation per MD notes. Pt continues with TF at goal via OG tube and tolerating with low residuals of 10-50 mL. Pt receiving Propofol not providing a significant amount of calories at this time. Wt fluctuates but is stable with last RD assessment. LBM 01/13 with rectal tube however now documented stool output amount. Will continue to follow. Recommend: 1. Continuous tube feeding per OG tube using Vital High protein at 60 ml/hr. Will provide 1440 ml total volume, 1440 cals, 126 g protein, 1204 ml water. 2. Water flush 200 ml Q4H 3. Prealbumin q /, daily wts 4. When extubated, recommend to advance diet as medically indicated to heart healthy, CHO controlled 5. DM ed prior to d/c Addendum: 01/13/19 at [address] Amended: Links added.
[2019-01-13] MEDS: normal saline 1000ml 1,000 ML IV SCH (17:30)
[2019-01-13] MEDS ORDERED: acetaminophen 325mg/10.15ml oral unit dose solution OGT PRN ×2 (17:37)
[2019-01-13] MEDS ORDERED: potassium Cl oral solution 20 MEQ/15 ML OGT PRN ×2 (17:43)
--- NOTE | 2019-01-13 18:15 | NUR ---
Problems reprioritized. Patient report given, questions answered & plan of care reviewed with SHANIQUE Whitley.
[2019-01-13] MEDS: docusate sodium 100mg/10ml UD cup OGT SCH (20:00)
[2019-01-13] MEDS: magnesium oxide 400mg tablet OGT SCH (20:27)
[2019-01-13] MEDS: lactobacillus rhamnosus 10,000 MMU CELLS/CAPSULE OGT SCH (20:27)
[2019-01-13] MEDS: amiodarone 200mg tablet OGT SCH (20:28)
[2019-01-14] VITALS (24 sets, daily range): BP systolic 90–135; BP diastolic 49–93
[2019-01-14 02:43] LABS: BASOPHILS # (AUTO) 0.1 X10'3 (0-0.2); BASOPHILS % (AUTO) 1.1 % (0-1); EOSINOPHILS # (AUTO) 1.3 X10'3 (0-0.9); EOSINOPHILS % (AUTO) 12.3 % (0-6); HEMATOCRIT 32.9 % (35.0-45.0); HEMOGLOBIN 10.6 g/dl (12.0-16.0); LYMPHOCYTES % (AUTO) 9.6 % (21-51); MEAN CORPUSCULAR HEMOGLOBIN 26.5 PG (27.0-31.0); MEAN CORPUSCULAR HGB CONC 32.2 g/dL (33.0-36.5); MEAN CORPUSCULAR VOLUME 82.5 FL (78-98); MEAN PLATELET VOLUME 8.6 FL (7.4-10.4); MONOCYTES # (AUTO) 1.3 X10'3 (0-0.9); MONOCYTES % (AUTO) 12.9 % (2-12); NEUTROPHILS # (AUTO) 6.6 X10'3 (1.8-7.7); NEUTROPHILS % (AUTO) 64.1 % (42-75); PLATELET COUNT 433 X10'3 (140-440); RED BLOOD COUNT 3.98 X10'6 (4.20-5.60); RED CELL DISTRIBUTION WIDTH 18.7 % (11.5-14.5); WHITE BLOOD COUNT 10.3 X10'3 (4.5-11.0)
[2019-01-14] MEDS: DOCOSANOL 2 GM CREAM..G. TP SCH ×4 (02:46→20:31)
[2019-01-14] MEDS: mineral oil/petrolatum ophthal oint EACHEYE SCH ×4 (02:46→20:30)
[2019-01-14] MEDS: propofol 1000mg/100ml bottle 100 ML IV PRN ×5 (02:51→22:46)
[2019-01-14 03:05] LABS: ALANINE AMINOTRANSFERASE 21 U/L (12-78); ALBUMIN 2.2 G/DL (3.4-5.0); ALBUMIN/GLOBULIN RATIO 0.5 (1.1-1.5); ALKALINE PHOSPHATASE 277 IU/L (46-116); ANION GAP 6 (8-16); ASPARTATE AMINO TRANSFERASE 15 U/L (10-37); BILIRUBIN,TOTAL 0.3 MG/DL (0.1-1.0); BLOOD UREA NITROGEN 44 MG/DL (7-18); BUN/CREATININE RATIO 43.1 (6.6-38.0); CALCIUM 9.1 MG/DL (8.5-10.1); CHLORIDE 107 MMOL/L (99-107); CREATININE 1.02 MG/DL (0.40-0.90); GLUCOSE 85 MG/DL (70-104); POTASSIUM 4.7 MMOL/L (3.5-5.1); SODIUM 140 MMOL/L (135-145); TOTAL CARBON DIOXIDE 26.7 MMOL/L (24-32); TOTAL PROTEIN 6.4 G/DL (6.4-8.2); eGFR 55 ML/MIN
[2019-01-14 03:55] LABS: ABG BASE EXCESS -0.8 mmol/L (-2.0-3.0); ABG HCO3 23.8 mmol/L (22.0-26.0); ABG OXYGEN SATURATION 89.4 % (95-98); ABG PCO2 (T) 37.1 mmHg (32.0-45.0); ABG PH (T) 7.419 (7.350-7.450); ABG PO2 (T) 52.5 mmHg (83-108); ALLEN'S TEST Positive; FCOHb 0.2 % (0.5-1.5); FMetHb 0.3 % (0.3-1.12); MINUTE VOLUME 10 L/min; PATIENT TEMPERATURE 35.7; PEEP 5 cm H2O; RESPIRATORY RATE 12 b/min; RESPIRATORY RATE (OBSERVED) 26 b/min; TIDAL VOLUME 350 mL; TOTAL HEMOGLOBIN 11.6 G/dl (12.0-16.0)
[2019-01-14] MEDS: ipratropium/albuterol 3ml nebule NEB SCH ×6 (03:56→23:34)
[2019-01-14 04:09] LABS: PLATELET ESTIMATE NORMAL
[2019-01-14 04:10] LABS: ACANTHOCYTES FEW; ANISOCYTOSIS 2+; ELLIPTOCYTES FEW; POLYCHROMASIA FEW
--- NOTE | 2019-01-14 06:35 | NUR ---
Patient in room CICU 2009. I have received report from Gutierrez and had the opportunity to ask questions and assume patient care.
[2019-01-14] MEDS: FENTANYL-0.9 % NACL/PF 100 ML IV PRN ×3 (07:08→23:11)
[2019-01-14] MEDS: famotidine/PF 10 mg/ml inj IV SCH ×2 (07:08→20:30)
[2019-01-14] MEDS: rivaroxaban 20mg tablet OGT SCH (07:09)
[2019-01-14] MEDS: magnesium oxide 400mg tablet OGT SCH ×2 (07:09→20:29)
[2019-01-14] MEDS: amiodarone 200mg tablet OGT SCH ×2 (07:09→20:30)
[2019-01-14] MEDS: lisinopril 5mg tablet OGT SCH (07:09)
[2019-01-14] MEDS: lactobacillus rhamnosus 10,000 MMU CELLS/CAPSULE OGT SCH ×2 (07:09→20:30)
[2019-01-14] MEDS: nystatin 15 GM powder TP SCH ×3 (07:10→20:32)
[2019-01-14] MEDS: docusate sodium 100mg/10ml UD cup OGT SCH ×2 (08:00→20:00)
[2019-01-14] MEDS: VANCOMYCIN 750MG IV in NS 250 ML IV SCH (10:51)
--- NOTE | 2019-01-14 18:19 | NUR ---
Problems reprioritized. Patient report given, questions answered & plan of care reviewed with kev.
[2019-01-15] VITALS (24 sets, daily range): BP systolic 86–136; BP diastolic 45–96
[2019-01-15] MEDS: DOCOSANOL 2 GM CREAM..G. TP SCH ×4 (02:21→20:00)
[2019-01-15] MEDS: mineral oil/petrolatum ophthal oint EACHEYE SCH ×4 (02:21→21:06)
[2019-01-15] MEDS: propofol 1000mg/100ml bottle 100 ML IV PRN ×5 (03:00→23:45)
[2019-01-15] MEDS: ipratropium/albuterol 3ml nebule NEB SCH ×6 (03:36→23:10)
[2019-01-15 03:41] LABS: BASOPHILS # (AUTO) 0.1 X10'3 (0-0.2); BASOPHILS % (AUTO) 1.2 % (0-1); EOSINOPHILS # (AUTO) 1.3 X10'3 (0-0.9); HEMATOCRIT 32.1 % (35.0-45.0); HEMOGLOBIN 10.3 g/dl (12.0-16.0); LYMPHOCYTES % (AUTO) 9.3 % (21-51); MEAN CORPUSCULAR HEMOGLOBIN 26.5 PG (27.0-31.0); MEAN CORPUSCULAR HGB CONC 32.2 g/dL (33.0-36.5); MEAN CORPUSCULAR VOLUME 82.5 FL (78-98); MEAN PLATELET VOLUME 8.7 FL (7.4-10.4); MONOCYTES # (AUTO) 1.2 X10'3 (0-0.9); MONOCYTES % (AUTO) 11.4 % (2-12); NEUTROPHILS % (AUTO) 66.1 % (42-75); PLATELET COUNT 431 X10'3 (140-440); RED BLOOD COUNT 3.89 X10'6 (4.20-5.60); RED CELL DISTRIBUTION WIDTH 19.3 % (11.5-14.5); WHITE BLOOD COUNT 10.6 X10'3 (4.5-11.0)
[2019-01-15 03:49] LABS: ALANINE AMINOTRANSFERASE 23 U/L (12-78); ALBUMIN/GLOBULIN RATIO 0.5 (1.1-1.5); ALKALINE PHOSPHATASE 287 IU/L (46-116); ANION GAP 9 (8-16); ASPARTATE AMINO TRANSFERASE 18 U/L (10-37); BILIRUBIN,TOTAL 0.4 MG/DL (0.1-1.0); BLOOD UREA NITROGEN 41 MG/DL (7-18); BUN/CREATININE RATIO 41.8 (6.6-38.0); CALCIUM 9.2 MG/DL (8.5-10.1); CHLORIDE 107 MMOL/L (99-107); CREATININE 0.98 MG/DL (0.40-0.90); GLUCOSE 93 MG/DL (70-104); MAGNESIUM 1.9 MG/DL (1.5-2.4); PHOSPHORUS 3.4 MG/DL (2.3-4.5); POTASSIUM 4.4 MMOL/L (3.5-5.1); SODIUM 141 MMOL/L (135-145); TOTAL CARBON DIOXIDE 24.8 MMOL/L (24-32); TOTAL PROTEIN 6.2 G/DL (6.4-8.2); eGFR 58 ML/MIN
[2019-01-15 04:20] LABS: ABG BASE EXCESS -1.3 mmol/L (-2.0-3.0); ABG HCO3 21.5 mmol/L (22.0-26.0); ABG OXYGEN SATURATION 92.1 % (95-98); ABG PCO2 (T) 27.6 mmHg (32.0-45.0); ABG PH (T) 7.502 (7.350-7.450); ABG PO2 (T) 54.6 mmHg (83-108); ALLEN'S TEST Positive; FCOHb 0.1 % (0.5-1.5); FMetHb 0.3 % (0.3-1.12); FO2Hb 91.7 % (94-100); MINUTE VOLUME 12 L/min; PATIENT TEMPERATURE 35.1; PEEP 5 cm H2O; RESPIRATORY RATE 12 b/min; RESPIRATORY RATE (OBSERVED) 30 b/min; TIDAL VOLUME 350 mL; TOTAL HEMOGLOBIN 11.7 G/dl (12.0-16.0)
--- NOTE | 2019-01-15 06:15 | NUR ---
Patient in room CICU 2009. I have received report from RUG TOUCH UP PAINTER and had the opportunity to ask questions and assume patient care.
[2019-01-15] MEDS: lisinopril 5mg tablet OGT SCH (08:00)
[2019-01-15] MEDS: rivaroxaban 20mg tablet OGT SCH (08:14)
[2019-01-15] MEDS: docusate sodium 100mg/10ml UD cup OGT SCH ×2 (08:14→21:10)
[2019-01-15] MEDS: amiodarone 200mg tablet OGT SCH ×2 (08:14→21:10)
[2019-01-15] MEDS: nystatin 15 GM powder TP SCH ×3 (08:15→21:11)
[2019-01-15] MEDS: lactobacillus rhamnosus 10,000 MMU CELLS/CAPSULE OGT SCH ×2 (08:15→21:10)
[2019-01-15] MEDS: magnesium oxide 400mg tablet OGT SCH ×2 (08:15→21:10)
[2019-01-15] MEDS: famotidine/PF 10 mg/ml inj IV SCH ×2 (08:15→21:07)
[2019-01-15] MEDS: normal saline 1000ml 1,000 ML IV SCH (08:30)
[2019-01-15] MEDS: NORepinephrine 8mg/ 250ml NS 250 ML IV SCH (08:31)
[2019-01-15] MEDS ORDERED: furosemide 40mg/4ml inj IV ONE (10:28)
[2019-01-15] MEDS ORDERED: VANCOMYCIN LEVEL IV NR (10:30)
[2019-01-15] MEDS: vancomycin/NS 1 GM ADD-VANTAGE 250 ML IV SCH (12:36)
[2019-01-15] MEDS: piperacillin/tazo 3.375gm/50ml 50 ML IV SCH ×3 (14:33→23:45)
[2019-01-15] MEDS: FENTANYL-0.9 % NACL/PF 100 ML IV PRN (17:20)
--- NOTE | 2019-01-15 18:08 | NUR ---
Problems reprioritized. Patient report given, questions answered & plan of care reviewed with ONCOMING SHIFT.
--- NOTE | 2019-01-15 18:30 | NUR ---
Patient in room CICU 2009. I have received report from Marimar BAY and had the opportunity to ask questions and assume patient care.
[2019-01-15] MEDS: furosemide 40mg/4ml inj IV SCH (21:06)
[2019-01-16] VITALS (24 sets, daily range): BP systolic 94–134; BP diastolic 48–85
[2019-01-16] MEDS: mineral oil/petrolatum ophthal oint EACHEYE SCH ×4 (02:49→21:53)
[2019-01-16] MEDS: DOCOSANOL 2 GM CREAM..G. TP SCH ×4 (02:49→20:00)
[2019-01-16 02:51] LABS: ABG BASE EXCESS -0.2 mmol/L (-2.0-3.0); ABG HCO3 24.6 mmol/L (22.0-26.0); ABG OXYGEN SATURATION 91.5 % (95-98); ABG PCO2 (T) 40.3 mmHg (32.0-45.0); ABG PH (T) 7.402 (7.350-7.450); ABG PO2 (T) 64.7 mmHg (83-108); ALLEN'S TEST Positive; FCOHb 0.2 % (0.5-1.5); FMetHb 0.3 % (0.3-1.12); MINUTE VOLUME 7 L/min; PATIENT TEMPERATURE 36.8; PEEP 5 cm H2O; RESPIRATORY RATE 12 b/min; RESPIRATORY RATE (OBSERVED) 19 b/min; TIDAL VOLUME 350 mL; TOTAL HEMOGLOBIN 11.5 G/dl (12.0-16.0)
[2019-01-16] MEDS: ipratropium/albuterol 3ml nebule NEB SCH ×6 (02:58→23:54)
[2019-01-16 03:36] LABS: BASOPHILS # (AUTO) 0.1 X10'3 (0-0.2); BASOPHILS % (AUTO) 1.1 % (0-1); EOSINOPHILS # (AUTO) 1.6 X10'3 (0-0.9); HEMATOCRIT 32.1 % (35.0-45.0); HEMOGLOBIN 10.3 g/dl (12.0-16.0); LYMPHOCYTES # (AUTO) 0.8 X10'3 (1.1-4.8); LYMPHOCYTES % (AUTO) 5.9 % (21-51); MEAN CORPUSCULAR HEMOGLOBIN 26.4 PG (27.0-31.0); MEAN CORPUSCULAR HGB CONC 32.1 g/dL (33.0-36.5); MEAN PLATELET VOLUME 8.5 FL (7.4-10.4); MONOCYTES # (AUTO) 1.4 X10'3 (0-0.9); MONOCYTES % (AUTO) 10.7 % (2-12); NEUTROPHILS # (AUTO) 9.1 X10'3 (1.8-7.7); NEUTROPHILS % (AUTO) 70.3 % (42-75); PLATELET COUNT 446 X10'3 (140-440); RED BLOOD COUNT 3.92 X10'6 (4.20-5.60); RED CELL DISTRIBUTION WIDTH 18.5 % (11.5-14.5)
[2019-01-16 03:44] LABS: ALANINE AMINOTRANSFERASE 42 U/L (12-78); ALBUMIN 2.1 G/DL (3.4-5.0); ALBUMIN/GLOBULIN RATIO 0.5 (1.1-1.5); ALKALINE PHOSPHATASE 328 IU/L (46-116); ANION GAP 8 (8-16); ASPARTATE AMINO TRANSFERASE 32 U/L (10-37); BILIRUBIN,TOTAL 0.5 MG/DL (0.1-1.0); BLOOD UREA NITROGEN 42 MG/DL (7-18); BUN/CREATININE RATIO 36.2 (6.6-38.0); CHLORIDE 105 MMOL/L (99-107); CREATININE 1.16 MG/DL (0.40-0.90); GLUCOSE 109 MG/DL (70-104); MAGNESIUM 1.8 MG/DL (1.5-2.4); PHOSPHORUS 5.1 MG/DL (2.3-4.5); POTASSIUM 3.9 MMOL/L (3.5-5.1); SODIUM 141 MMOL/L (135-145); TOTAL CARBON DIOXIDE 28.1 MMOL/L (24-32); TOTAL PROTEIN 6.3 G/DL (6.4-8.2); eGFR 48 ML/MIN
[2019-01-16] MEDS: propofol 1000mg/100ml bottle 100 ML IV PRN ×4 (04:27→20:05)
--- NOTE | 2019-01-16 06:15 | NUR ---
Patient in room CICU 2009. I have received report from maintenance mechanic 2nd shift and had the opportunity to ask questions and assume patient care.
--- NOTE | 2019-01-16 06:28 | NUR ---
Problems reprioritized. Patient report given, questions answered & plan of care reviewed with Marimar BAY.
[2019-01-16] MEDS: furosemide 40mg/4ml inj IV SCH ×2 (07:47→21:53)
[2019-01-16] MEDS: famotidine/PF 10 mg/ml inj IV SCH ×2 (07:47→21:54)
[2019-01-16] MEDS: nystatin 15 GM powder TP SCH ×3 (07:47→21:55)
[2019-01-16] MEDS: magnesium oxide 400mg tablet OGT SCH ×2 (07:47→21:54)
[2019-01-16] MEDS: docusate sodium 100mg/10ml UD cup OGT SCH ×2 (07:47→20:00)
[2019-01-16] MEDS: lactobacillus rhamnosus 10,000 MMU CELLS/CAPSULE OGT SCH ×2 (07:48→21:54)
[2019-01-16] MEDS: rivaroxaban 20mg tablet OGT SCH (07:48)
[2019-01-16] MEDS: amiodarone 200mg tablet OGT SCH ×2 (07:48→21:54)
[2019-01-16] MEDS: piperacillin/tazo 3.375gm/50ml 50 ML IV SCH ×2 (07:48→15:55)
[2019-01-16] MEDS: lisinopril 5mg tablet OGT SCH (07:49)
[2019-01-16] MEDS: vancomycin/NS 1 GM ADD-VANTAGE 250 ML IV SCH (14:07)
--- NOTE | 2019-01-16 14:47 | NUR ---
Reassessment: Pt remains intubated and sedated; extubation difficulty d/t copious secretions per MD note and will not be extubated until secretions improve. Pt continues with TF at goal via OG tube and tolerating with low residuals of 10-50 mL. Pt receiving Propofol not providing a significant amount of calories at this time. Wt fluctuates but is stable with last RD assessment. LBM 01/15. Will continue to follow. Recommend: 1. Continuous tube feeding per OG tube using Vital High protein at 60 ml/hr. Will provide 1440 ml total volume, 1440 cals, 126 g protein, 1204 ml water. 2. Water flush 200 ml Q4H 3. Prealbumin q /, daily wts 4. When extubated, recommend to advance diet as medically indicated to heart healthy, CHO controlled 5. DM ed prior to d/c Addendum: 01/16/19 at [address] Amended: Links added.
[2019-01-16] MEDS: normal saline 1000ml 1,000 ML IV SCH (16:11)
[2019-01-16] MEDS: FENTANYL-0.9 % NACL/PF 100 ML IV PRN (17:50)
--- NOTE | 2019-01-16 18:05 | NUR ---
Problems reprioritized. Patient report given, questions answered & plan of care reviewed with oncoming shift.
--- NOTE | 2019-01-16 18:20 | NUR ---
Patient in room CICU 2009. I have received report and had the opportunity to ask questions and assume patient care.
--- NOTE | 2019-01-16 22:32 | NUR ---
pt having soft formed stool. rectal tube discontinued
[2019-01-17] VITALS (25 sets, daily range): BP systolic 96–127; BP diastolic 59–80
[2019-01-17] MEDS: piperacillin/tazo 3.375gm/50ml 50 ML IV SCH ×2 (00:46→08:15)
[2019-01-17] MEDS: mineral oil/petrolatum ophthal oint EACHEYE SCH ×4 (01:25→19:23)
[2019-01-17] MEDS: DOCOSANOL 2 GM CREAM..G. TP SCH ×4 (01:25→19:23)
[2019-01-17 02:18] LABS: BASOPHILS # (AUTO) 0.1 X10'3 (0-0.2); BASOPHILS % (AUTO) 0.6 % (0-1); EOSINOPHILS # (AUTO) 1.8 X10'3 (0-0.9); EOSINOPHILS % (AUTO) 11.9 % (0-6); HEMOGLOBIN 11.1 g/dl (12.0-16.0); LYMPHOCYTES # (AUTO) 0.7 X10'3 (1.1-4.8); LYMPHOCYTES % (AUTO) 4.7 % (21-51); MEAN CORPUSCULAR HEMOGLOBIN 26.6 PG (27.0-31.0); MEAN CORPUSCULAR HGB CONC 32.6 g/dL (33.0-36.5); MEAN CORPUSCULAR VOLUME 81.8 FL (78-98); MEAN PLATELET VOLUME 8.2 FL (7.4-10.4); MONOCYTES # (AUTO) 1.7 X10'3 (0-0.9); MONOCYTES % (AUTO) 10.8 % (2-12); NEUTROPHILS # (AUTO) 11.1 X10'3 (1.8-7.7); PLATELET COUNT 495 X10'3 (140-440); RED BLOOD COUNT 4.15 X10'6 (4.20-5.60); RED CELL DISTRIBUTION WIDTH 18.7 % (11.5-14.5); WHITE BLOOD COUNT 15.5 X10'3 (4.5-11.0)
--- NOTE | 2019-01-17 02:28 | NUR ---
neurology consult scheduled between 8-11 am
[2019-01-17 02:29] LABS: ALANINE AMINOTRANSFERASE 59 U/L (12-78); ALBUMIN 2.4 G/DL (3.4-5.0); ALBUMIN/GLOBULIN RATIO 0.5 (1.1-1.5); ALKALINE PHOSPHATASE 332 IU/L (46-116); ANION GAP 10 (8-16); ASPARTATE AMINO TRANSFERASE 49 U/L (10-37); BILIRUBIN,TOTAL 0.6 MG/DL (0.1-1.0); BLOOD UREA NITROGEN 39 MG/DL (7-18); BUN/CREATININE RATIO 35.5 (6.6-38.0); CALCIUM 9.3 MG/DL (8.5-10.1); CHLORIDE 103 MMOL/L (99-107); GLUCOSE 97 MG/DL (70-104); MAGNESIUM 1.8 MG/DL (1.5-2.4); PHOSPHORUS 4.9 MG/DL (2.3-4.5); POTASSIUM 3.8 MMOL/L (3.5-5.1); SODIUM 143 MMOL/L (135-145); TOTAL CARBON DIOXIDE 29.7 MMOL/L (24-32); TOTAL PROTEIN 7.1 G/DL (6.4-8.2); eGFR 51 ML/MIN
[2019-01-17] MEDS: ipratropium/albuterol 3ml nebule NEB SCH ×6 (03:33→22:59)
[2019-01-17 04:40] LABS: ABG BASE EXCESS 3.6 mmol/L (-2.0-3.0); ABG HCO3 28.8 mmol/L (22.0-26.0); ABG OXYGEN SATURATION 91.5 % (95-98); ABG PH (T) 7.414 (7.350-7.450); ABG PO2 (T) 61.2 mmHg (83-108); ALLEN'S TEST Positive; FCOHb 0.2 % (0.5-1.5); FMetHb 0.3 % (0.3-1.12); MINUTE VOLUME 7 L/min; PATIENT TEMPERATURE 36.9; PEEP 5 cm H2O; RESPIRATORY RATE 12 b/min; RESPIRATORY RATE (OBSERVED) 18 b/min; TIDAL VOLUME 350 mL; TOTAL HEMOGLOBIN 11.8 G/dl (12.0-16.0)
[2019-01-17] MEDS: propofol 1000mg/100ml bottle 100 ML IV PRN ×2 (06:00→16:33)
--- NOTE | 2019-01-17 06:15 | NUR ---
Patient in room CICU 2009. I have received report from welder 2nd shift and had the opportunity to ask questions and assume patient care.
[2019-01-17] MEDS: docusate sodium 100mg/10ml UD cup OGT SCH ×2 (08:00→19:23)
[2019-01-17] MEDS: lisinopril 5mg tablet OGT SCH (08:00)
[2019-01-17] MEDS: furosemide 40mg/4ml inj IV SCH ×2 (08:15→19:22)
[2019-01-17] MEDS: famotidine/PF 10 mg/ml inj IV SCH ×2 (08:15→19:23)
[2019-01-17] MEDS: amiodarone 200mg tablet OGT SCH ×2 (08:16→19:23)
[2019-01-17] MEDS: lactobacillus rhamnosus 10,000 MMU CELLS/CAPSULE OGT SCH ×2 (08:16→19:23)
[2019-01-17] MEDS: magnesium oxide 400mg tablet OGT SCH ×2 (08:16→19:23)
[2019-01-17] MEDS: rivaroxaban 20mg tablet OGT SCH (08:16)
[2019-01-17] MEDS: nystatin 15 GM powder TP SCH ×3 (08:23→19:33)
[2019-01-17] MEDS: cefepime 2g/NS 100ml ADVANTAGE 100 ML IV SCH ×2 (11:44→19:22)
[2019-01-17] MEDS: vancomycin/NS 1 GM ADD-VANTAGE 250 ML IV SCH (12:38)
[2019-01-17] MEDS: NORepinephrine 8mg/ 250ml NS 250 ML IV SCH (16:05)
[2019-01-17] MEDS: normal saline 1000ml 1,000 ML IV SCH (16:30)
--- NOTE | 2019-01-17 18:06 | NUR ---
Problems reprioritized. Patient report given, questions answered & plan of care reviewed with oncoming shift.
--- NOTE | 2019-01-17 18:15 | NUR ---
Patient in room CICU 2009. I have received report and had the opportunity to ask questions and assume patient care.
[2019-01-18] VITALS (23 sets, daily range): BP systolic 99–130; BP diastolic 51–81
[2019-01-18] MEDS: DOCOSANOL 2 GM CREAM..G. TP SCH ×4 (02:10→20:00)
[2019-01-18] MEDS: mineral oil/petrolatum ophthal oint EACHEYE SCH ×4 (02:10→20:58)
[2019-01-18] MEDS: FENTANYL-0.9 % NACL/PF 100 ML IV PRN ×2 (02:11→14:41)
[2019-01-18] MEDS: propofol 1000mg/100ml bottle 100 ML IV PRN ×4 (02:11→21:13)
[2019-01-18] MEDS: ipratropium/albuterol 3ml nebule NEB SCH ×6 (03:54→23:09)
[2019-01-18 03:56] LABS: ABG HCO3 29.3 mmol/L (22.0-26.0); ABG OXYGEN SATURATION 92.6 % (95-98); ABG PCO2 (T) 46.7 mmHg (32.0-45.0); ABG PH (T) 7.414 (7.350-7.450); ALLEN'S TEST Positive; FCOHb 0.5 % (0.5-1.5); FMetHb 0.3 % (0.3-1.12); FO2Hb 91.9 % (94-100); MINUTE VOLUME 6 L/min; PATIENT TEMPERATURE 36.7; PEEP 5 cm H2O; RESPIRATORY RATE 12 b/min; RESPIRATORY RATE (OBSERVED) 14 b/min; TIDAL VOLUME 350 mL; TOTAL HEMOGLOBIN 12.1 G/dl (12.0-16.0)
[2019-01-18 05:30] LABS: BASOPHILS # (AUTO) 0.1 X10'3 (0-0.2); BASOPHILS % (AUTO) 0.9 % (0-1); EOSINOPHILS # (AUTO) 2.1 X10'3 (0-0.9); EOSINOPHILS % (AUTO) 16.8 % (0-6); HEMATOCRIT 36.1 % (35.0-45.0); HEMOGLOBIN 11.4 g/dl (12.0-16.0); LYMPHOCYTES # (AUTO) 0.9 X10'3 (1.1-4.8); LYMPHOCYTES % (AUTO) 7.5 % (21-51); MEAN CORPUSCULAR HEMOGLOBIN 26.3 PG (27.0-31.0); MEAN CORPUSCULAR HGB CONC 31.6 g/dL (33.0-36.5); MEAN CORPUSCULAR VOLUME 83.2 FL (78-98); MEAN PLATELET VOLUME 8.2 FL (7.4-10.4); MONOCYTES # (AUTO) 2.5 X10'3 (0-0.9); MONOCYTES % (AUTO) 19.7 % (2-12); NEUTROPHILS # (AUTO) 6.9 X10'3 (1.8-7.7); NEUTROPHILS % (AUTO) 55.1 % (42-75); PLATELET COUNT 507 X10'3 (140-440); RED BLOOD COUNT 4.33 X10'6 (4.20-5.60); RED CELL DISTRIBUTION WIDTH 18.8 % (11.5-14.5); WHITE BLOOD COUNT 12.6 X10'3 (4.5-11.0)
[2019-01-18 05:31] LABS: ALANINE AMINOTRANSFERASE 69 U/L (12-78); ALBUMIN 2.4 G/DL (3.4-5.0); ALBUMIN/GLOBULIN RATIO 0.5 (1.1-1.5); ALKALINE PHOSPHATASE 314 IU/L (46-116); ANION GAP 5 (8-16); ASPARTATE AMINO TRANSFERASE 42 U/L (10-37); BILIRUBIN,TOTAL 0.4 MG/DL (0.1-1.0); BLOOD UREA NITROGEN 42 MG/DL (7-18); BUN/CREATININE RATIO 40.4 (6.6-38.0); CALCIUM 9.6 MG/DL (8.5-10.1); CHLORIDE 103 MMOL/L (99-107); CREATININE 1.04 MG/DL (0.40-0.90); GLUCOSE 108 MG/DL (70-104); POTASSIUM 3.7 MMOL/L (3.5-5.1); SODIUM 140 MMOL/L (135-145); TOTAL CARBON DIOXIDE 31.8 MMOL/L (24-32); TOTAL PROTEIN 7.2 G/DL (6.4-8.2); eGFR 54 ML/MIN
[2019-01-18 07:04] LABS: PLATELET ESTIMATE INCREASED
[2019-01-18 07:05] LABS: ANISOCYTOSIS 2+; ELLIPTOCYTES 1+; MICROCYTOSIS 1+; POIKILOCYTOSIS FEW
[2019-01-18 07:25] LABS: PHOSPHORUS 4.2 MG/DL (2.3-4.5)
[2019-01-18] MEDS: nystatin 15 GM powder TP SCH ×3 (07:30→21:02)
[2019-01-18] MEDS: lactobacillus rhamnosus 10,000 MMU CELLS/CAPSULE OGT SCH ×2 (07:31→20:59)
[2019-01-18] MEDS: rivaroxaban 20mg tablet OGT SCH (07:31)
[2019-01-18] MEDS: magnesium oxide 400mg tablet OGT SCH ×2 (07:31→20:59)
[2019-01-18] MEDS: famotidine/PF 10 mg/ml inj IV SCH ×2 (07:31→21:00)
[2019-01-18] MEDS: amiodarone 200mg tablet OGT SCH ×2 (07:31→20:59)
[2019-01-18] MEDS: furosemide 40mg/4ml inj IV SCH ×2 (07:31→21:00)
[2019-01-18] MEDS: lisinopril 5mg tablet OGT SCH ×3 (07:31→08:00)
[2019-01-18] MEDS: docusate sodium 100mg/10ml UD cup OGT SCH ×2 (07:33→21:00)
[2019-01-18] MEDS: cefepime 2g/NS 100ml ADVANTAGE 100 ML IV SCH ×2 (08:00→20:58)
[2019-01-18] MEDS ORDERED: VANCOMYCIN LEVEL IV ONE (11:30)
[2019-01-18] MEDS: vancomycin/NS 1 GM ADD-VANTAGE 250 ML IV SCH (14:41)
--- NOTE | 2019-01-18 15:40 | NUR ---
Patient in room CICU 2009. I have received report from SHANIQUE Hi and had the opportunity to ask questions and assume patient care.
--- NOTE | 2019-01-18 15:42 | NUR ---
pt is intubated and sedated, arousable to voice, restless. PICC line dressing changed under sterile technique, pt tolerated well with no discomfort. tubing changed per protocol. insertion site c/d/i. no redness noted.
--- NOTE | 2019-01-18 18:24 | NUR ---
Patient in room CICU 2009. I have received report from SHANIQUE Preciado and had the opportunity to ask questions and assume patient care. ETT in place, patient on the ventilator FiO2 35% PEEP 5. Patient is sedated with Propofol and had Fentanyl for pain. Patient is restless moving arms and legs, pulling on arm restraints. Patient does not follow commands or move her head in response to voice. Patient does spontaneously open her eyes. Patient with left upper arm PICC and Right upper arm extended IV. Dunbar catheter in place.
--- NOTE | 2019-01-18 18:24 | NUR ---
Problems reprioritized. Patient report given, questions answered & plan of care reviewed with SHANIQUE Waters.
--- NOTE | 2019-01-18 19:30 | NUR ---
Patient with multiple liquid stools. Rajendra Peralta NP gave verbal order to place Rectal tube.
[2019-01-19] VITALS (24 sets, daily range): BP systolic 84–126; BP diastolic 51–76
[2019-01-19] MEDS: mineral oil/petrolatum ophthal oint EACHEYE SCH ×4 (01:45→19:33)
[2019-01-19] MEDS: propofol 1000mg/100ml bottle 100 ML IV PRN ×5 (01:46→19:54)
[2019-01-19] MEDS: DOCOSANOL 2 GM CREAM..G. TP SCH ×4 (01:46→19:34)
[2019-01-19] MEDS: ipratropium/albuterol 3ml nebule NEB SCH ×6 (03:29→23:15)
[2019-01-19 03:30] LABS: ABG BASE EXCESS 5.1 mmol/L (-2.0-3.0); ABG HCO3 31.1 mmol/L (22.0-26.0); ABG OXYGEN SATURATION 94.4 % (95-98); ABG PH (T) 7.394 (7.350-7.450); ABG PO2 (T) 71.4 mmHg (83-108); ALLEN'S TEST Positive; FCOHb 0.4 % (0.5-1.5); FMetHb 0.3 % (0.3-1.12); FO2Hb 93.7 % (94-100); MINUTE VOLUME 7 L/min; PATIENT TEMPERATURE 36.8; PEEP 5 cm H2O; RESPIRATORY RATE 12 b/min; RESPIRATORY RATE (OBSERVED) 14 b/min; TIDAL VOLUME 400 mL
[2019-01-19 05:40] LABS: BASOPHILS # (AUTO) 0.1 X10'3 (0-0.2); EOSINOPHILS % (AUTO) 13.5 % (0-6); LYMPHOCYTES # (AUTO) 1.2 X10'3 (1.1-4.8); RED CELL DISTRIBUTION WIDTH 18.9 % (11.5-14.5)
[2019-01-19 05:42] LABS: EOSINOPHILS # (AUTO) 1.6 X10'3 (0-0.9); HEMATOCRIT 36.4 % (35.0-45.0); HEMOGLOBIN 11.8 g/dl (12.0-16.0); LYMPHOCYTES % (AUTO) 9.8 % (21-51); MEAN CORPUSCULAR HEMOGLOBIN 26.8 PG (27.0-31.0); MEAN CORPUSCULAR HGB CONC 32.4 g/dL (33.0-36.5); MEAN CORPUSCULAR VOLUME 82.8 FL (78-98); MEAN PLATELET VOLUME 8.3 FL (7.4-10.4); MONOCYTES # (AUTO) 3.1 X10'3 (0-0.9); MONOCYTES % (AUTO) 26.1 % (2-12); NEUTROPHILS # (AUTO) 5.9 X10'3 (1.8-7.7); NEUTROPHILS % (AUTO) 49.6 % (42-75); PLATELET COUNT 480 X10'3 (140-440); WHITE BLOOD COUNT 11.9 X10'3 (4.5-11.0)
[2019-01-19 05:56] LABS: ALANINE AMINOTRANSFERASE 67 U/L (12-78); ALBUMIN 2.3 G/DL (3.4-5.0); ALBUMIN/GLOBULIN RATIO 0.5 (1.1-1.5); ALKALINE PHOSPHATASE 290 IU/L (46-116); ANION GAP 7 (8-16); ASPARTATE AMINO TRANSFERASE 37 U/L (10-37); BILIRUBIN,TOTAL 0.3 MG/DL (0.1-1.0); BLOOD UREA NITROGEN 45 MG/DL (7-18); BUN/CREATININE RATIO 47.9 (6.6-38.0); CALCIUM 9.3 MG/DL (8.5-10.1); CHLORIDE 103 MMOL/L (99-107); CREATININE 0.94 MG/DL (0.40-0.90); GLUCOSE 100 MG/DL (70-104); PHOSPHORUS 3.6 MG/DL (2.3-4.5); POTASSIUM 3.7 MMOL/L (3.5-5.1); SODIUM 139 MMOL/L (135-145); TOTAL CARBON DIOXIDE 28.8 MMOL/L (24-32); eGFR 61 ML/MIN
--- NOTE | 2019-01-19 06:29 | NUR ---
Problems reprioritized. Patient report given, questions answered & plan of care reviewed with SHANIQUE Lundberg.
--- NOTE | 2019-01-19 06:42 | NUR ---
Patient in room CICU 2009. I have received report from SHANIQUE Waters and had the opportunity to ask questions and assume patient care.
[2019-01-19] MEDS: docusate sodium 100mg/10ml UD cup OGT SCH ×2 (06:46→19:33)
[2019-01-19] MEDS: lisinopril 5mg tablet OGT SCH (07:13)
[2019-01-19] MEDS: magnesium oxide 400mg tablet OGT SCH ×2 (07:13→19:34)
[2019-01-19] MEDS: nystatin 15 GM powder TP SCH ×3 (07:13→22:15)
[2019-01-19] MEDS: rivaroxaban 20mg tablet OGT SCH (07:13)
[2019-01-19] MEDS: lactobacillus rhamnosus 10,000 MMU CELLS/CAPSULE OGT SCH ×2 (07:14→19:34)
[2019-01-19] MEDS: amiodarone 200mg tablet OGT SCH ×2 (07:14→19:34)
[2019-01-19] MEDS: furosemide 40mg/4ml inj IV SCH ×2 (07:14→19:33)
[2019-01-19] MEDS: cefepime 2g/NS 100ml ADVANTAGE 100 ML IV SCH ×2 (07:14→19:32)
[2019-01-19] MEDS: famotidine/PF 10 mg/ml inj IV SCH ×2 (07:14→19:33)
[2019-01-19 07:24] LABS: TOTAL CELLS COUNTED 100
[2019-01-19 07:25] LABS: ANISOCYTOSIS 2+; PLATELET ESTIMATE INCREASED
--- NOTE | 2019-01-19 09:54 | NUR ---
Reassessment: Pt remains intubated and sedated; extubation difficulty d/t copious secretions per MD note and will not be extubated until secretions improve. Pt continues with TF at goal via OG tube and tolerating with low residuals of 10-60 mL. Pt receiving Propofol not providing a significant amount of calories at this time. Wt fluctuates on bedscale. LBM 01/19. Will continue to follow. Recommend: 1. Continuous tube feeding per OG tube using Vital High protein at 60 ml/hr. Will provide 1440 ml total volume, 1440 cals, 126 g protein, 1204 ml water. 2. Water flush 200 ml Q4H 3. Prealbumin q /, daily wts 4. When extubated, recommend to advance diet as medically indicated to heart healthy, CHO controlled 5. DM ed prior to d/c Addendum: 01/19/19 at [address] Amended: Links added.
[2019-01-19] MEDS: vancomycin/NS 1 GM ADD-VANTAGE 250 ML IV SCH (12:58)
[2019-01-19] MEDS: FENTANYL-0.9 % NACL/PF 100 ML IV PRN (13:14)
[2019-01-19] MEDS: normal saline 1000ml 1,000 ML IV SCH (16:33)
--- NOTE | 2019-01-19 18:13 | NUR ---
Problems reprioritized. Patient report given, questions answered & plan of care reviewed with SHANIQUE Waters.
--- NOTE | 2019-01-19 22:00 | NUR ---
Patient with increased anxiety with sedation vacation, increased respiratory rate, bucking the tube. Sedation restarted.
[2019-01-20] VITALS (24 sets, daily range): BP systolic 84–130; BP diastolic 46–77
[2019-01-20] MEDS: propofol 1000mg/100ml bottle 100 ML IV PRN ×6 (00:23→21:30)
[2019-01-20] MEDS: mineral oil/petrolatum ophthal oint EACHEYE SCH ×4 (02:26→20:37)
[2019-01-20] MEDS: DOCOSANOL 2 GM CREAM..G. TP SCH ×4 (02:26→20:38)
[2019-01-20 03:25] LABS: ABG BASE EXCESS 2.2 mmol/L (-2.0-3.0); ABG HCO3 27.5 mmol/L (22.0-26.0); ABG OXYGEN SATURATION 94.5 % (95-98); ABG PCO2 (T) 45.5 mmHg (32.0-45.0); ABG PH (T) 7.399 (7.350-7.450); ABG PO2 (T) 72.4 mmHg (83-108); ALLEN'S TEST Positive; FCOHb 0.2 % (0.5-1.5); FMetHb 0.3 % (0.3-1.12); MINUTE VOLUME 6 L/min; PATIENT TEMPERATURE 36.9; PEEP 5 cm H2O; RESPIRATORY RATE 12 b/min; RESPIRATORY RATE (OBSERVED) 16 b/min; TIDAL VOLUME 350 mL
[2019-01-20] MEDS: ipratropium/albuterol 3ml nebule NEB SCH ×6 (03:26→23:05)
--- NOTE | 2019-01-20 06:22 | NUR ---
Problems reprioritized. Patient report given, questions answered & plan of care reviewed with SHANIQUE Lundberg.
[2019-01-20 06:39] LABS: ALANINE AMINOTRANSFERASE 64 U/L (12-78); ALBUMIN 2.2 G/DL (3.4-5.0); ALBUMIN/GLOBULIN RATIO 0.5 (1.1-1.5); ALKALINE PHOSPHATASE 282 IU/L (46-116); ANION GAP 7 (8-16); ASPARTATE AMINO TRANSFERASE 43 U/L (10-37); BILIRUBIN,TOTAL 0.4 MG/DL (0.1-1.0); BLOOD UREA NITROGEN 47 MG/DL (7-18); BUN/CREATININE RATIO 48.5 (6.6-38.0); CALCIUM 9.1 MG/DL (8.5-10.1); CHLORIDE 102 MMOL/L (99-107); CREATININE 0.97 MG/DL (0.40-0.90); GLUCOSE 99 MG/DL (70-104); MAGNESIUM 2.1 MG/DL (1.5-2.4); PHOSPHORUS 4.1 MG/DL (2.3-4.5); POTASSIUM 4.3 MMOL/L (3.5-5.1); SODIUM 138 MMOL/L (135-145); TOTAL CARBON DIOXIDE 28.7 MMOL/L (24-32); TOTAL PROTEIN 6.8 G/DL (6.4-8.2); eGFR 59 ML/MIN
--- NOTE | 2019-01-20 06:56 | NUR ---
Patient in room CICU 2009. I have received report from SHANIQUE Waters and had the opportunity to ask questions and assume patient care.
[2019-01-20 07:29] LABS: BASOPHILS # (AUTO) 0.1 X10'3 (0-0.2); BASOPHILS % (AUTO) 1.1 % (0-1); EOSINOPHILS # (AUTO) 1.2 X10'3 (0-0.9); HEMATOCRIT 35.3 % (35.0-45.0); HEMOGLOBIN 11.2 g/dl (12.0-16.0); LYMPHOCYTES # (AUTO) 1.2 X10'3 (1.1-4.8); LYMPHOCYTES % (AUTO) 10.7 % (21-51); MEAN CORPUSCULAR HEMOGLOBIN 26.3 PG (27.0-31.0); MEAN CORPUSCULAR HGB CONC 31.8 g/dL (33.0-36.5); MEAN CORPUSCULAR VOLUME 82.5 FL (78-98); MONOCYTES # (AUTO) 2.1 X10'3 (0-0.9); MONOCYTES % (AUTO) 19.3 % (2-12); NEUTROPHILS # (AUTO) 6.4 X10'3 (1.8-7.7); NEUTROPHILS % (AUTO) 57.9 % (42-75); PLATELET COUNT 502 X10'3 (140-440); RED BLOOD COUNT 4.27 X10'6 (4.20-5.60); RED CELL DISTRIBUTION WIDTH 18.3 % (11.5-14.5); WHITE BLOOD COUNT 11.1 X10'3 (4.5-11.0)
[2019-01-20] MEDS: rivaroxaban 20mg tablet OGT SCH (07:47)
[2019-01-20] MEDS: amiodarone 200mg tablet OGT SCH ×2 (07:47→20:37)
[2019-01-20] MEDS: nystatin 15 GM powder TP SCH ×3 (07:47→20:38)
[2019-01-20] MEDS: famotidine/PF 10 mg/ml inj IV SCH ×2 (07:47→20:37)
[2019-01-20] MEDS: docusate sodium 100mg/10ml UD cup OGT SCH ×2 (07:47→20:00)
[2019-01-20] MEDS: magnesium oxide 400mg tablet OGT SCH ×2 (07:47→20:37)
[2019-01-20] MEDS: furosemide 40mg/4ml inj IV SCH ×2 (07:47→20:37)
[2019-01-20] MEDS: cefepime 2g/NS 100ml ADVANTAGE 100 ML IV SCH ×2 (07:47→20:36)
[2019-01-20] MEDS: lactobacillus rhamnosus 10,000 MMU CELLS/CAPSULE OGT SCH ×2 (07:48→20:38)
[2019-01-20] MEDS: lisinopril 5mg tablet OGT SCH (07:48)
[2019-01-20] MEDS: scopolamine 1.5mg patch.TD72 TD SCH (13:49)
[2019-01-20] MEDS: FENTANYL-0.9 % NACL/PF 100 ML IV PRN (13:51)
--- NOTE | 2019-01-20 18:30 | NUR ---
Patient in room CICU 2009. I have received report from SHANIQUE Lundberg and had the opportunity to ask questions and assume patient care. Patient is intubated and sedated, restless at times. Patient is on Spontaneous setting on the ventilator with FiO2 40 %. Patient has Fentanyl for pain control and Propofol for continued sedation infusing per MD order. Dunbar catheter in place. Soft upper limb restraints in place. Will continue to monitor.
--- NOTE | 2019-01-20 19:49 | NUR ---
Placement/ Position of PICC LINE The PICC line has moved per the x-ray report. Rod Peralta NP viewed x-ray and ordered the PICC line to be repositioned or replaced tomorrow. Per Rod Peralta NP the PICC line is okay to use tonight. All ports flush, no ports draw.
[2019-01-21] VITALS (23 sets, daily range): BP systolic 91–128; BP diastolic 49–95
[2019-01-21] MEDS: DOCOSANOL 2 GM CREAM..G. TP SCH ×4 (01:30→19:47)
[2019-01-21] MEDS: propofol 1000mg/100ml bottle 100 ML IV PRN ×5 (01:30→20:45)
[2019-01-21] MEDS: mineral oil/petrolatum ophthal oint EACHEYE SCH ×4 (01:30→19:45)
[2019-01-21 03:11] LABS: ABG BASE EXCESS 3.6 mmol/L (-2.0-3.0); ABG OXYGEN SATURATION 95.1 % (95-98); ABG PCO2 (T) 47.2 mmHg (32.0-45.0); ABG PH (T) 7.406 (7.350-7.450); ABG PO2 (T) 79.8 mmHg (83-108); ALLEN'S TEST Positive; FCOHb 0.2 % (0.5-1.5); FMetHb 0.3 % (0.3-1.12); FO2Hb 94.6 % (94-100); MINUTE VOLUME 6 L/min; PEEP 5 cm H2O; RESPIRATORY RATE (OBSERVED) 14 b/min; TOTAL HEMOGLOBIN 11.8 G/dl (12.0-16.0)
[2019-01-21] MEDS: ipratropium/albuterol 3ml nebule NEB SCH ×6 (03:24→22:59)
[2019-01-21 05:01] LABS: BASOPHILS # (AUTO) 0.1 X10'3 (0-0.2); BASOPHILS % (AUTO) 1.1 % (0-1); EOSINOPHILS # (AUTO) 0.9 X10'3 (0-0.9); EOSINOPHILS % (AUTO) 9.4 % (0-6); HEMATOCRIT 34.6 % (35.0-45.0); HEMOGLOBIN 11.5 g/dl (12.0-16.0); LYMPHOCYTES # (AUTO) 1.3 X10'3 (1.1-4.8); LYMPHOCYTES % (AUTO) 13.1 % (21-51); MEAN CORPUSCULAR HEMOGLOBIN 26.9 PG (27.0-31.0); MEAN CORPUSCULAR HGB CONC 33.2 g/dL (33.0-36.5); MEAN CORPUSCULAR VOLUME 81.1 FL (78-98); MEAN PLATELET VOLUME 7.9 FL (7.4-10.4); MONOCYTES # (AUTO) 1.5 X10'3 (0-0.9); MONOCYTES % (AUTO) 15.4 % (2-12); NEUTROPHILS # (AUTO) 6.1 X10'3 (1.8-7.7); PLATELET COUNT 495 X10'3 (140-440); RED BLOOD COUNT 4.27 X10'6 (4.20-5.60); RED CELL DISTRIBUTION WIDTH 18.3 % (11.5-14.5)
[2019-01-21 05:13] LABS: ALANINE AMINOTRANSFERASE 62 U/L (12-78); ALBUMIN 2.3 G/DL (3.4-5.0); ALBUMIN/GLOBULIN RATIO 0.5 (1.1-1.5); ALKALINE PHOSPHATASE 299 IU/L (46-116); ANION GAP 7 (8-16); ASPARTATE AMINO TRANSFERASE 35 U/L (10-37); BILIRUBIN,TOTAL 0.3 MG/DL (0.1-1.0); BLOOD UREA NITROGEN 50 MG/DL (7-18); BUN/CREATININE RATIO 55.6 (6.6-38.0); CALCIUM 9.3 MG/DL (8.5-10.1); CHLORIDE 101 MMOL/L (99-107); GLUCOSE 108 MG/DL (70-104); PHOSPHORUS 4.1 MG/DL (2.3-4.5); POTASSIUM 3.8 MMOL/L (3.5-5.1); SODIUM 138 MMOL/L (135-145); TOTAL CARBON DIOXIDE 30.4 MMOL/L (24-32); TOTAL PROTEIN 7.1 G/DL (6.4-8.2); eGFR 64 ML/MIN
[2019-01-21] MEDS: furosemide 40mg/4ml inj IV SCH ×2 (07:24→16:06)
[2019-01-21] MEDS: famotidine/PF 10 mg/ml inj IV SCH ×2 (07:24→19:46)
[2019-01-21] MEDS: cefepime 2g/NS 100ml ADVANTAGE 100 ML IV SCH ×2 (07:24→19:46)
[2019-01-21] MEDS: lactobacillus rhamnosus 10,000 MMU CELLS/CAPSULE OGT SCH ×2 (07:26→19:46)
[2019-01-21] MEDS: magnesium oxide 400mg tablet OGT SCH ×2 (07:26→19:46)
[2019-01-21] MEDS: amiodarone 200mg tablet OGT SCH ×2 (07:26→19:46)
[2019-01-21] MEDS: nystatin 15 GM powder TP SCH ×3 (07:27→20:37)
[2019-01-21] MEDS: rivaroxaban 20mg tablet OGT SCH (07:27)
[2019-01-21] MEDS: docusate sodium 100mg/10ml UD cup OGT SCH ×2 (07:47→19:47)
[2019-01-21] MEDS: lisinopril 5mg tablet OGT SCH (07:48)
--- NOTE | 2019-01-21 10:36 | NUR ---
Addressed positioning of PICC line with Dr. Marie during rounds. Per Dr. Marie, he's okay with the current position and would not like to risk pulling it back further. Will continue to monitor.
[2019-01-21] MEDS: normal saline 1000ml 1,000 ML IV SCH (17:30)
--- NOTE | 2019-01-21 18:37 | NUR ---
Patient in room CICU 2009. I have received report from Eliseo BAY, and had the opportunity to ask questions and assume patient care.
--- NOTE | 2019-01-21 18:41 | NUR ---
Problems reprioritized. Patient report given, questions answered & plan of care reviewed with Jose Martin BAY.
--- NOTE | 2019-01-21 19:45 | NUR ---
PT resting with non s/s of distress noted at this time. VSS. PT is intubated and mechanically vented. Tolerating settings well. Rectal tube in place. Dunbar in place and draining to gravity. TF is running at goal rate of 60ml/hr. Bed is locked and low. Bilat soft wrist restraints in place and secure. Will continue to monitor.
[2019-01-21] MEDS: FENTANYL-0.9 % NACL/PF 100 ML IV PRN (19:46)
[2019-01-22] VITALS (24 sets, daily range): BP systolic 91–145; BP diastolic 53–92
[2019-01-22] MEDS: propofol 1000mg/100ml bottle 100 ML IV PRN ×4 (00:28→23:11)
[2019-01-22] MEDS: furosemide 40mg/4ml inj IV SCH ×3 (00:29→16:28)
[2019-01-22] MEDS: mineral oil/petrolatum ophthal oint EACHEYE SCH ×4 (02:25→20:38)
[2019-01-22] MEDS: DOCOSANOL 2 GM CREAM..G. TP SCH ×4 (02:25→20:39)
[2019-01-22 02:56] LABS: ABG BASE EXCESS 4.4 mmol/L (-2.0-3.0); ABG HCO3 30.2 mmol/L (22.0-26.0); ABG OXYGEN SATURATION 93.7 % (95-98); ABG PCO2 (T) 49.9 mmHg (32.0-45.0); ABG PO2 (T) 69.6 mmHg (83-108); ALLEN'S TEST Positive; FCOHb 0.2 % (0.5-1.5); FO2Hb 93.5 % (94-100); MINUTE VOLUME 6 L/min; PATIENT TEMPERATURE 37.1; PEEP 5 cm H2O; RESPIRATORY RATE 12 b/min; RESPIRATORY RATE (OBSERVED) 16 b/min; TIDAL VOLUME 350 mL; TOTAL HEMOGLOBIN 12.5 G/dl (12.0-16.0)
[2019-01-22] MEDS: ipratropium/albuterol 3ml nebule NEB SCH ×6 (02:58→22:50)
[2019-01-22 04:32] LABS: BASOPHILS # (AUTO) 0.1 X10'3 (0-0.2); BASOPHILS % (AUTO) 1.2 % (0-1); EOSINOPHILS % (AUTO) 8.7 % (0-6); HEMATOCRIT 36.6 % (35.0-45.0); LYMPHOCYTES # (AUTO) 1.5 X10'3 (1.1-4.8); LYMPHOCYTES % (AUTO) 12.6 % (21-51); MEAN CORPUSCULAR HEMOGLOBIN 26.6 PG (27.0-31.0); MEAN CORPUSCULAR HGB CONC 32.9 g/dL (33.0-36.5); MONOCYTES # (AUTO) 1.7 X10'3 (0-0.9); MONOCYTES % (AUTO) 14.4 % (2-12); NEUTROPHILS # (AUTO) 7.3 X10'3 (1.8-7.7); NEUTROPHILS % (AUTO) 63.1 % (42-75); PLATELET COUNT 498 X10'3 (140-440); RED BLOOD COUNT 4.51 X10'6 (4.20-5.60); RED CELL DISTRIBUTION WIDTH 17.9 % (11.5-14.5); WHITE BLOOD COUNT 11.5 X10'3 (4.5-11.0)
[2019-01-22 04:51] LABS: ALANINE AMINOTRANSFERASE 63 U/L (12-78); ALBUMIN 2.5 G/DL (3.4-5.0); ALBUMIN/GLOBULIN RATIO 0.5 (1.1-1.5); ALKALINE PHOSPHATASE 327 IU/L (46-116); ANION GAP 8 (8-16); ASPARTATE AMINO TRANSFERASE 30 U/L (10-37); BILIRUBIN,TOTAL 0.4 MG/DL (0.1-1.0); BLOOD UREA NITROGEN 58 MG/DL (7-18); BUN/CREATININE RATIO 58.6 (6.6-38.0); CALCIUM 10.3 MG/DL (8.5-10.1); CHLORIDE 100 MMOL/L (99-107); CREATININE 0.99 MG/DL (0.40-0.90); GLUCOSE 104 MG/DL (70-104); SODIUM 138 MMOL/L (135-145); TOTAL CARBON DIOXIDE 29.9 MMOL/L (24-32); TOTAL PROTEIN 7.7 G/DL (6.4-8.2); eGFR 57 ML/MIN
--- NOTE | 2019-01-22 06:30 | NUR ---
Patient in room CICU 2009. I have received report from SHANIQUE Philippe and had the opportunity to ask questions and assume patient care.
--- NOTE | 2019-01-22 06:50 | NUR ---
Problems reprioritized. Patient report given, questions answered & plan of care reviewed with Nubia BAY.
[2019-01-22] MEDS: lisinopril 5mg tablet OGT SCH (08:00)
[2019-01-22] MEDS: docusate sodium 100mg/10ml UD cup OGT SCH ×2 (08:00→20:00)
[2019-01-22] MEDS: famotidine/PF 10 mg/ml inj IV SCH ×2 (08:01→20:38)
[2019-01-22] MEDS: lactobacillus rhamnosus 10,000 MMU CELLS/CAPSULE OGT SCH ×2 (08:01→20:38)
[2019-01-22] MEDS: magnesium oxide 400mg tablet OGT SCH ×2 (08:01→20:38)
[2019-01-22] MEDS: rivaroxaban 20mg tablet OGT SCH (08:01)
[2019-01-22] MEDS: amiodarone 200mg tablet OGT SCH ×2 (08:01→20:38)
[2019-01-22] MEDS: cefepime 2g/NS 100ml ADVANTAGE 100 ML IV SCH ×2 (08:01→20:41)
[2019-01-22] MEDS: nystatin 15 GM powder TP SCH ×3 (08:02→20:39)
--- NOTE | 2019-01-22 11:10 | NUR ---
Critical care rounds: pt update given to team and MD, discussed the issues with being on CPAP for many hours yesterday and last night resulting eventually in having to go back to a set rate on the ventilator due to decreasing tidal volumes and minute volumes. Also talked about pt not really following commands very well, very wiggly, moves around in bed very often. MD states not ready for extubation, and wants to have a family meeting tomorrow. No new orders at this time.
--- NOTE | 2019-01-22 12:16 | NUR ---
Reassessment: Pt remains intubated and sedated; extubation difficulty d/t copious secretions per MD note and will not be extubated until secretions improve. Current MD note states that weaning is in progress. Pt continues with TF at goal via OG tube and tolerating with low residuals of 10-70 mL. Pt receiving Propofol not providing a significant amount of calories at this time. Wt fluctuates on bedscale. Small liquid stools since 01/21, moderately sized prior. Pt has rectal tube. Liquid stools possibly r/t antibiotics. Patient's weight was up and down on bedscale with fluids however pt no longer edematous and bedscale reads a loss of 31 lbs, will increase tube feeding to provide additional calories to meet adjusted body weight, d/w MD and RN. Will continue to follow. Recommend: 1. Continuous tube feeding per OG tube using Vital High protein. Recommend increase rate, d/w MD and RN, to 85 ml/hr to provide 2040 ml total volume, 91587 cals, 179 g protein, 1705 ml water. 2. Water flush 200 ml Q4H 3. Prealbumin q /, daily wts 4. When extubated, recommend to advance diet as medically indicated to heart healthy, CHO controlled 5. DM ed prior to d/c Addendum: 01/22/19 at [address] Amended: Links added.
[2019-01-22 13:19] LABS: MAGNESIUM 2.1 MG/DL (1.5-2.4); PHOSPHORUS 4.4 MG/DL (2.3-4.5)
[2019-01-22] MEDS: FENTANYL-0.9 % NACL/PF 100 ML IV PRN (16:46)
--- NOTE | 2019-01-22 18:26 | NUR ---
Patient in room CICU 2009. I have received report from SHANIQUE Philippe and had the opportunity to ask questions and assume patient care.
--- NOTE | 2019-01-22 18:29 | NUR ---
Patient in room CICU 2009. I have received report from Nubia BAY, and had the opportunity to ask questions and assume patient care.
--- NOTE | 2019-01-22 19:45 | NUR ---
PT resting with non s/s of distress noted at this time. VSS. PT is intubated and mechanically vented. Tolerating settings well. Rectal tube in place. Dunbar in place and draining to gravity. TF is running at goal rate of 85ml/hr. Bed is locked and low. Bilat soft wrist restraints in place and secure. Will continue to monitor.
[2019-01-23] VITALS (22 sets, daily range): BP systolic 90–132; BP diastolic 53–82
[2019-01-23] MEDS: furosemide 40mg/4ml inj IV SCH ×3 (00:25→16:33)
[2019-01-23] MEDS: DOCOSANOL 2 GM CREAM..G. TP SCH ×4 (02:39→20:03)
[2019-01-23] MEDS: mineral oil/petrolatum ophthal oint EACHEYE SCH ×4 (02:39→20:02)
[2019-01-23] MEDS: propofol 1000mg/100ml bottle 100 ML IV PRN ×4 (02:51→23:18)
[2019-01-23] MEDS: ipratropium/albuterol 3ml nebule NEB SCH ×6 (03:24→23:21)
[2019-01-23 05:00] LABS: ABG BASE EXCESS 5.7 mmol/L (-2.0-3.0); ABG HCO3 32.2 mmol/L (22.0-26.0); ABG OXYGEN SATURATION 95.4 % (95-98); ABG PCO2 (T) 55.6 mmHg (32.0-45.0); ABG PH (T) 7.381 (7.350-7.450); ABG PO2 (T) 83.9 mmHg (83-108); ALLEN'S TEST Positive; FCOHb 0.5 % (0.5-1.5); FMetHb 0.3 % (0.3-1.12); FO2Hb 94.6 % (94-100); MINUTE VOLUME 6 L/min; PATIENT TEMPERATURE 37.1; PEEP 5 cm H2O; RESPIRATORY RATE (OBSERVED) 14 b/min; TOTAL HEMOGLOBIN 12.5 G/dl (12.0-16.0)
--- NOTE | 2019-01-23 06:30 | NUR ---
assumed care of pt, sbar and report received
--- NOTE | 2019-01-23 07:00 | NUR ---
Problems reprioritized. Patient report given, questions answered & plan of care reviewed with Dina BAY.
[2019-01-23] MEDS: docusate sodium 100mg/10ml UD cup OGT SCH ×2 (08:00→20:00)
[2019-01-23] MEDS: cefepime 2g/NS 100ml ADVANTAGE 100 ML IV SCH ×2 (08:30→20:02)
[2019-01-23] MEDS: famotidine/PF 10 mg/ml inj IV SCH ×2 (08:30→20:02)
[2019-01-23] MEDS: rivaroxaban 20mg tablet OGT SCH (08:30)
[2019-01-23] MEDS: amiodarone 200mg tablet OGT SCH ×2 (08:30→20:02)
[2019-01-23] MEDS: magnesium oxide 400mg tablet OGT SCH ×2 (08:30→20:02)
[2019-01-23] MEDS: lactobacillus rhamnosus 10,000 MMU CELLS/CAPSULE OGT SCH ×2 (08:30→20:02)
[2019-01-23] MEDS: lisinopril 5mg tablet OGT SCH (08:31)
[2019-01-23] MEDS: nystatin 15 GM powder TP SCH ×3 (08:31→20:03)
--- NOTE | 2019-01-23 09:25 | NUR ---
rt at bedside attempting to wean pt from vent. sedation is currently on hold
--- NOTE | 2019-01-23 09:37 | NUR ---
pt failed weaning, sedation turned back on
[2019-01-23 10:21] LABS: BASOPHILS # (AUTO) 0.2 X10'3 (0-0.2); BASOPHILS % (AUTO) 1.3 % (0-1); EOSINOPHILS # (AUTO) 0.9 X10'3 (0-0.9); EOSINOPHILS % (AUTO) 7.3 % (0-6); HEMATOCRIT 38.2 % (35.0-45.0); HEMOGLOBIN 12.2 g/dl (12.0-16.0); LYMPHOCYTES # (AUTO) 1.2 X10'3 (1.1-4.8); MEAN CORPUSCULAR HEMOGLOBIN 26.1 PG (27.0-31.0); MEAN CORPUSCULAR HGB CONC 31.9 g/dL (33.0-36.5); MEAN PLATELET VOLUME 8.2 FL (7.4-10.4); MONOCYTES # (AUTO) 2.2 X10'3 (0-0.9); MONOCYTES % (AUTO) 17.3 % (2-12); NEUTROPHILS # (AUTO) 8.4 X10'3 (1.8-7.7); NEUTROPHILS % (AUTO) 65.1 % (42-75); PLATELET COUNT 487 X10'3 (140-440); RED BLOOD COUNT 4.65 X10'6 (4.20-5.60); RED CELL DISTRIBUTION WIDTH 18.1 % (11.5-14.5); WHITE BLOOD COUNT 12.9 X10'3 (4.5-11.0)
[2019-01-23 10:29] LABS: ALANINE AMINOTRANSFERASE 68 U/L (12-78); ALBUMIN 2.6 G/DL (3.4-5.0); ALBUMIN/GLOBULIN RATIO 0.5 (1.1-1.5); ALKALINE PHOSPHATASE 339 IU/L (46-116); ANION GAP 7 (8-16); ASPARTATE AMINO TRANSFERASE 38 U/L (10-37); BILIRUBIN,TOTAL 0.4 MG/DL (0.1-1.0); BLOOD UREA NITROGEN 72 MG/DL (7-18); CALCIUM 10.2 MG/DL (8.5-10.1); CHLORIDE 99 MMOL/L (99-107); GLUCOSE 134 MG/DL (70-104); SODIUM 138 MMOL/L (135-145); TOTAL CARBON DIOXIDE 31.9 MMOL/L (24-32); TOTAL PROTEIN 7.7 G/DL (6.4-8.2); eGFR 57 ML/MIN
[2019-01-23] MEDS: scopolamine 1.5mg patch.TD72 TD SCH (12:10)
--- NOTE | 2019-01-23 13:24 | NUR ---
Reassessment: Pt remains intubated and sedated. TF has been increased to new goal rate of 85 mL/hr and pt tolerating with low residuals 0-50 mL. LBM 01/23. Will continue to follow. Reassessment: Pt remains intubated and sedated; extubation difficulty d/t copious secretions per MD note and will not be extubated until secretions improve. Current MD note states that weaning is in progress. Pt continues with TF at goal via OG tube and tolerating with low residuals of 10-70 mL. Pt receiving Propofol not providing a significant amount of calories at this time. Wt fluctuates on bedscale. Small liquid stools since 01/21, moderately sized prior. Pt has rectal tube. Liquid stools possibly r/t antibiotics. Patient's weight was up and down on bedscale with fluids however pt no longer edematous and bedscale reads a loss of 31 lbs, will increase tube feeding to provide additional calories to meet adjusted body weight, d/w MD and RN. Will continue to follow. Recommend: 1. Continuous tube feeding per OG tube using Vital High protein. Recommend increase rate, d/w MD and RN, to 85 ml/hr to provide 2040 ml total volume, 01636 cals, 179 g protein, 1705 ml water. 2. Water flush 200 ml Q4H 3. Prealbumin q /, daily wts 4. When extubated, recommend to advance diet as medically indicated to heart healthy, CHO controlled 5. DM ed prior to d/c Addendum: 01/23/19 at [address] Amended: Links added.
[2019-01-23] MEDS ORDERED: HYDROmorphone 1 mg/ml syringe IV PRN (14:05)
[2019-01-23] MEDS ORDERED: LORazepam 2 mg/ml vial IV ONE (14:05)
[2019-01-23] MEDS: FENTANYL-0.9 % NACL/PF 100 ML IV PRN (16:33)
--- NOTE | 2019-01-23 18:21 | NUR ---
Patient in room CICU 2009. I have received report from Drea BAY, and had the opportunity to ask questions and assume patient care.
[2019-01-23] MEDS: normal saline 1000ml 1,000 ML IV SCH (20:02)
[2019-01-24] VITALS (24 sets, daily range): BP systolic 84–118; BP diastolic 47–77
--- NOTE | 2019-01-24 01:00 | NUR ---
PT resting with no s/s of distress noted at this time. 0000 dose of lasix held d/t low BP. Bed is locked and low. Bilat soft wrist restraints remain in place and secure. Will continue to monitor.
[2019-01-24] MEDS: mineral oil/petrolatum ophthal oint EACHEYE SCH ×4 (02:00→20:43)
[2019-01-24] MEDS: DOCOSANOL 2 GM CREAM..G. TP SCH ×4 (02:00→20:44)
[2019-01-24] MEDS: ipratropium/albuterol 3ml nebule NEB SCH ×6 (03:04→22:44)
[2019-01-24 03:40] LABS: ABG BASE EXCESS 2.3 mmol/L (-2.0-3.0); ABG HCO3 27.6 mmol/L (22.0-26.0); ABG OXYGEN SATURATION 94.7 % (95-98); ABG PCO2 (T) 45.6 mmHg (32.0-45.0); ALLEN'S TEST Positive; FCOHb 0.4 % (0.5-1.5); FMetHb 0.3 % (0.3-1.12); MINUTE VOLUME 6 L/min; PATIENT TEMPERATURE 37.1; PEEP 5 cm H2O; RESPIRATORY RATE 16 b/min; RESPIRATORY RATE (OBSERVED) 16 b/min; TIDAL VOLUME 350 mL; TOTAL HEMOGLOBIN 12.6 G/dl (12.0-16.0)
[2019-01-24 06:12] LABS: BASOPHILS # (AUTO) 0.1 X10'3 (0-0.2); EOSINOPHILS # (AUTO) 0.7 X10'3 (0-0.9); EOSINOPHILS % (AUTO) 6.6 % (0-6); HEMATOCRIT 37.4 % (35.0-45.0); HEMOGLOBIN 12.5 g/dl (12.0-16.0); LYMPHOCYTES # (AUTO) 1.4 X10'3 (1.1-4.8); LYMPHOCYTES % (AUTO) 13.2 % (21-51); MEAN CORPUSCULAR HGB CONC 33.4 g/dL (33.0-36.5); MEAN CORPUSCULAR VOLUME 80.7 FL (78-98); MEAN PLATELET VOLUME 8.4 FL (7.4-10.4); MONOCYTES # (AUTO) 1.8 X10'3 (0-0.9); MONOCYTES % (AUTO) 16.1 % (2-12); NEUTROPHILS # (AUTO) 6.8 X10'3 (1.8-7.7); NEUTROPHILS % (AUTO) 63.1 % (42-75); PLATELET COUNT 504 X10'3 (140-440); RED BLOOD COUNT 4.63 X10'6 (4.20-5.60); RED CELL DISTRIBUTION WIDTH 17.9 % (11.5-14.5); WHITE BLOOD COUNT 10.8 X10'3 (4.5-11.0)
[2019-01-24] MEDS: propofol 1000mg/100ml bottle 100 ML IV PRN ×3 (06:30→19:38)
[2019-01-24 07:00] LABS: ALANINE AMINOTRANSFERASE 72 U/L (12-78); ALBUMIN 2.6 G/DL (3.4-5.0); ALBUMIN/GLOBULIN RATIO 0.5 (1.1-1.5); ALKALINE PHOSPHATASE 336 IU/L (46-116); ANION GAP 9 (8-16); ASPARTATE AMINO TRANSFERASE 38 U/L (10-37); BILIRUBIN,TOTAL 0.4 MG/DL (0.1-1.0); BLOOD UREA NITROGEN 94 MG/DL (7-18); BUN/CREATININE RATIO 84.7 (6.6-38.0); CALCIUM 9.7 MG/DL (8.5-10.1); CHLORIDE 97 MMOL/L (99-107); CREATININE 1.11 MG/DL (0.40-0.90); GLUCOSE 120 MG/DL (70-104); MAGNESIUM 2.1 MG/DL (1.5-2.4); PHOSPHORUS 4.5 MG/DL (2.3-4.5); POTASSIUM 4.4 MMOL/L (3.5-5.1); SODIUM 136 MMOL/L (135-145); TOTAL CARBON DIOXIDE 30.3 MMOL/L (24-32); TOTAL PROTEIN 7.7 G/DL (6.4-8.2); eGFR 50 ML/MIN
--- NOTE | 2019-01-24 07:00 | NUR ---
Problems reprioritized. Patient report given, questions answered & plan of care reviewed with Antonette BAY.
--- NOTE | 2019-01-24 07:02 | NUR ---
Patient in room [facility] 2009. I have received report from SHANIQUE Philippe and had the opportunity to ask questions and assume patient care. Addendum: 01/24/19 at 0702 by Antonette Lemon RN Amended: Links added.
[2019-01-24] MEDS: docusate sodium 100mg/10ml UD cup OGT SCH ×2 (08:00→20:00)
[2019-01-24] MEDS: furosemide 40mg/4ml inj IV SCH ×3 (08:00→16:00)
[2019-01-24] MEDS: lisinopril 5mg tablet OGT SCH (08:58)
[2019-01-24] MEDS: rivaroxaban 20mg tablet OGT SCH (08:58)
[2019-01-24] MEDS: magnesium oxide 400mg tablet OGT SCH ×2 (08:58→20:44)
[2019-01-24] MEDS: amiodarone 200mg tablet OGT SCH ×2 (08:58→20:43)
[2019-01-24] MEDS: lactobacillus rhamnosus 10,000 MMU CELLS/CAPSULE OGT SCH ×2 (08:58→20:44)
[2019-01-24] MEDS: nystatin 15 GM powder TP SCH ×3 (09:09→20:44)
[2019-01-24] MEDS: famotidine/PF 10 mg/ml inj IV SCH ×2 (09:09→20:43)
[2019-01-24] MEDS: cefepime 2g/NS 100ml ADVANTAGE 100 ML IV SCH ×2 (09:09→20:43)
[2019-01-24] MEDS: FENTANYL-0.9 % NACL/PF 100 ML IV PRN (15:48)
--- NOTE | 2019-01-24 18:30 | NUR ---
Patient in room CICU 2009. I have received report from Antonette BAY and had the opportunity to ask questions and assume patient care.
[2019-01-25] VITALS (25 sets, daily range): BP systolic 88–127; BP diastolic 43–88
[2019-01-25] MEDS: propofol 1000mg/100ml bottle 100 ML IV PRN ×6 (00:11→19:44)
[2019-01-25] MEDS: furosemide 40mg/4ml inj IV SCH ×3 (00:12→16:24)
[2019-01-25] MEDS: scopolamine 1.5mg patch.TD72 TD SCH (00:18)
[2019-01-25] MEDS: mineral oil/petrolatum ophthal oint EACHEYE SCH ×4 (02:14→20:40)
[2019-01-25] MEDS: DOCOSANOL 2 GM CREAM..G. TP SCH ×4 (02:15→20:40)
[2019-01-25] MEDS: ipratropium/albuterol 3ml nebule NEB SCH ×6 (03:20→23:18)
[2019-01-25 03:51] LABS: ABG BASE EXCESS 2.4 mmol/L (-2.0-3.0); ABG HCO3 28.4 mmol/L (22.0-26.0); ABG OXYGEN SATURATION 94.7 % (95-98); ABG PCO2 (T) 48.8 mmHg (32.0-45.0); ABG PO2 (T) 73.1 mmHg (83-108); ALLEN'S TEST Positive; FCOHb 0.1 % (0.5-1.5); FMetHb 0.3 % (0.3-1.12); FO2Hb 94.3 % (94-100); MINUTE VOLUME 7 L/min; PATIENT TEMPERATURE 36.3; PEEP 5 cm H2O; RESPIRATORY RATE 16 b/min; RESPIRATORY RATE (OBSERVED) 16 b/min; TIDAL VOLUME 350 mL; TOTAL HEMOGLOBIN 11.8 G/dl (12.0-16.0)
--- NOTE | 2019-01-25 06:16 | NUR ---
Problems reprioritized. Patient report given, questions answered & plan of care reviewed with Tamika BAY.
--- NOTE | 2019-01-25 06:18 | NUR ---
Patient in room CICU 2009. I have received report from SHANIQUE Vargas and had the opportunity to ask questions and assume patient care.
[2019-01-25 06:33] LABS: ALANINE AMINOTRANSFERASE 68 U/L (12-78); ALBUMIN 2.4 G/DL (3.4-5.0); ALBUMIN/GLOBULIN RATIO 0.5 (1.1-1.5); ALKALINE PHOSPHATASE 297 IU/L (46-116); ANION GAP 8 (8-16); ASPARTATE AMINO TRANSFERASE 37 U/L (10-37); BILIRUBIN,TOTAL 0.3 MG/DL (0.1-1.0); CALCIUM 9.9 MG/DL (8.5-10.1); CHLORIDE 99 MMOL/L (99-107); GLUCOSE 118 MG/DL (70-104); POTASSIUM 4.1 MMOL/L (3.5-5.1); SODIUM 137 MMOL/L (135-145); TOTAL CARBON DIOXIDE 30.1 MMOL/L (24-32); TOTAL PROTEIN 7.1 G/DL (6.4-8.2)
[2019-01-25 06:36] LABS: BASOPHILS # (AUTO) 0.1 X10'3 (0-0.2); BASOPHILS % (AUTO) 1.3 % (0-1); EOSINOPHILS # (AUTO) 0.7 X10'3 (0-0.9); EOSINOPHILS % (AUTO) 6.2 % (0-6); HEMATOCRIT 34.9 % (35.0-45.0); HEMOGLOBIN 11.3 g/dl (12.0-16.0); LYMPHOCYTES # (AUTO) 1.4 X10'3 (1.1-4.8); LYMPHOCYTES % (AUTO) 12.7 % (21-51); MEAN CORPUSCULAR HEMOGLOBIN 26.1 PG (27.0-31.0); MEAN CORPUSCULAR HGB CONC 32.5 g/dL (33.0-36.5); MEAN CORPUSCULAR VOLUME 80.4 FL (78-98); MEAN PLATELET VOLUME 8.4 FL (7.4-10.4); MONOCYTES # (AUTO) 1.8 X10'3 (0-0.9); MONOCYTES % (AUTO) 16.2 % (2-12); NEUTROPHILS # (AUTO) 7.1 X10'3 (1.8-7.7); NEUTROPHILS % (AUTO) 63.6 % (42-75); PLATELET COUNT 464 X10'3 (140-440); RED BLOOD COUNT 4.34 X10'6 (4.20-5.60); RED CELL DISTRIBUTION WIDTH 17.8 % (11.5-14.5); WHITE BLOOD COUNT 11.2 X10'3 (4.5-11.0)
[2019-01-25 06:50] LABS: BLOOD UREA NITROGEN 95 MG/DL (7-18); BUN/CREATININE RATIO 97.9 (6.6-38.0); CREATININE 0.97 MG/DL (0.40-0.90); eGFR 59 ML/MIN
[2019-01-25] MEDS: docusate sodium 100mg/10ml UD cup OGT SCH ×2 (08:00→20:00)
[2019-01-25] MEDS ORDERED: rocuronium 10mg/ml inj IV ONE (09:00)
[2019-01-25] MEDS: rivaroxaban 20mg tablet OGT SCH (09:06)
[2019-01-25] MEDS: lactobacillus rhamnosus 10,000 MMU CELLS/CAPSULE OGT SCH ×2 (09:06→20:40)
[2019-01-25] MEDS: magnesium oxide 400mg tablet OGT SCH ×2 (09:06→20:40)
[2019-01-25] MEDS: famotidine/PF 10 mg/ml inj IV SCH ×2 (09:06→20:40)
[2019-01-25] MEDS: cefepime 2g/NS 100ml ADVANTAGE 100 ML IV SCH ×2 (09:06→20:41)
[2019-01-25] MEDS: amiodarone 200mg tablet OGT SCH ×2 (09:06→20:40)
[2019-01-25] MEDS: nystatin 15 GM powder TP SCH ×3 (09:07→20:40)
[2019-01-25] MEDS: lisinopril 5mg tablet OGT SCH (13:16)
[2019-01-25] MEDS: FENTANYL-0.9 % NACL/PF 100 ML IV PRN (16:24)
[2019-01-25] MEDS: normal saline 1000ml 1,000 ML IV SCH (17:30)
--- NOTE | 2019-01-25 18:05 | NUR ---
Problems reprioritized. Patient report given, questions answered & plan of care reviewed with Oncoming RN.
--- NOTE | 2019-01-25 18:06 | NUR ---
Patient in room CICU 2009. I have received report from SHANIQUE Lundberg and had the opportunity to ask questions and assume patient care. Patient is intubated and sedated, I will continue to monitor.
[2019-01-26] VITALS (23 sets, daily range): BP systolic 90–133; BP diastolic 44–82
[2019-01-26] MEDS: propofol 1000mg/100ml bottle 100 ML IV PRN ×6 (00:01→20:56)
[2019-01-26] MEDS: mineral oil/petrolatum ophthal oint EACHEYE SCH ×4 (02:15→19:28)
[2019-01-26] MEDS: DOCOSANOL 2 GM CREAM..G. TP SCH ×4 (02:15→19:29)
[2019-01-26] MEDS: ipratropium/albuterol 3ml nebule NEB SCH ×6 (02:48→23:12)
[2019-01-26 03:21] LABS: ABG BASE EXCESS 1.8 mmol/L (-2.0-3.0); ABG HCO3 27.1 mmol/L (22.0-26.0); ABG OXYGEN SATURATION 95.5 % (95-98); ABG PCO2 (T) 44.1 mmHg (32.0-45.0); ABG PH (T) 7.403 (7.350-7.450); ABG PO2 (T) 74.3 mmHg (83-108); ALLEN'S TEST Positive; FCOHb 0.1 % (0.5-1.5); FMetHb 0.3 % (0.3-1.12); FO2Hb 95.1 % (94-100); MINUTE VOLUME 6 L/min; PATIENT TEMPERATURE 36.3; PEEP 5 cm H2O; RESPIRATORY RATE 16 b/min; RESPIRATORY RATE (OBSERVED) 17 b/min; TIDAL VOLUME 350 mL; TOTAL HEMOGLOBIN 11.9 G/dl (12.0-16.0)
[2019-01-26] MEDS: docusate sodium 100mg/10ml UD cup OGT SCH ×2 (06:50→20:00)
[2019-01-26 07:05] LABS: BASOPHILS # (AUTO) 0.3 X10'3 (0-0.2); EOSINOPHILS # (AUTO) 0.7 X10'3 (0-0.9); EOSINOPHILS % (AUTO) 5.6 % (0-6); LYMPHOCYTES # (AUTO) 1.5 X10'3 (1.1-4.8); LYMPHOCYTES % (AUTO) 12.8 % (21-51); MEAN CORPUSCULAR HGB CONC 32.2 g/dL (33.0-36.5); MEAN CORPUSCULAR VOLUME 80.7 FL (78-98); MEAN PLATELET VOLUME 8.3 FL (7.4-10.4); MONOCYTES # (AUTO) 1.9 X10'3 (0-0.9); MONOCYTES % (AUTO) 16.1 % (2-12); NEUTROPHILS # (AUTO) 7.2 X10'3 (1.8-7.7); NEUTROPHILS % (AUTO) 62.5 % (42-75); PLATELET COUNT 458 X10'3 (140-440); RED BLOOD COUNT 4.22 X10'6 (4.20-5.60); RED CELL DISTRIBUTION WIDTH 18.2 % (11.5-14.5); WHITE BLOOD COUNT 11.6 X10'3 (4.5-11.0)
[2019-01-26] MEDS: lactobacillus rhamnosus 10,000 MMU CELLS/CAPSULE OGT SCH ×2 (07:11→20:05)
[2019-01-26] MEDS: magnesium oxide 400mg tablet OGT SCH ×2 (07:11→20:05)
[2019-01-26] MEDS: lisinopril 5mg tablet OGT SCH (07:11)
[2019-01-26] MEDS: rivaroxaban 20mg tablet OGT SCH (07:11)
[2019-01-26] MEDS: amiodarone 200mg tablet OGT SCH ×2 (07:11→20:06)
[2019-01-26] MEDS: famotidine/PF 10 mg/ml inj IV SCH ×2 (07:12→20:05)
[2019-01-26] MEDS: nystatin 15 GM powder TP SCH ×3 (07:12→20:08)
[2019-01-26] MEDS: furosemide 40mg/4ml inj IV SCH ×3 (07:12→15:10)
[2019-01-26] MEDS: cefepime 2g/NS 100ml ADVANTAGE 100 ML IV SCH ×2 (07:12→20:06)
[2019-01-26 07:21] LABS: ALANINE AMINOTRANSFERASE 76 U/L (12-78); ALBUMIN 2.4 G/DL (3.4-5.0); ALBUMIN/GLOBULIN RATIO 0.5 (1.1-1.5); ALKALINE PHOSPHATASE 294 IU/L (46-116); ANION GAP 10 (8-16); ASPARTATE AMINO TRANSFERASE 35 U/L (10-37); BILIRUBIN,TOTAL 0.4 MG/DL (0.1-1.0); BLOOD UREA NITROGEN 100 MG/DL (7-18); BUN/CREATININE RATIO 96.2 (6.6-38.0); CALCIUM 10.3 MG/DL (8.5-10.1); CHLORIDE 100 MMOL/L (99-107); CREATININE 1.04 MG/DL (0.40-0.90); GLUCOSE 124 MG/DL (70-104); POTASSIUM 4.2 MMOL/L (3.5-5.1); SODIUM 139 MMOL/L (135-145); TOTAL CARBON DIOXIDE 29.5 MMOL/L (24-32); TOTAL PROTEIN 7.2 G/DL (6.4-8.2); eGFR 54 ML/MIN
--- NOTE | 2019-01-26 09:00 | NUR ---
sedation vacation Sedation turned off for aprox 45 mins patient had no cuff leak when weaning was performed. Patient placed on steroids and placed back on sedation.
--- NOTE | 2019-01-26 11:52 | NUR ---
reassessment: Pt tolerating TF at goal. LBM 01/24; no rectal tube output documentation since 01/21. New PALB pending w/ AM labs. Will continue to monitor. Recommend: 1. Continuous tube feeding per OG tube using Vital High protein. Recommend increase rate, d/w and RN, to 85 ml/hr to provide 2040 ml total volume, 46658 cals, 179 g protein, 1705 ml water. 2. Water flush 200 ml Q4H 3. Prealbumin q /, daily wts 4. When extubated, recommend to advance diet as medically indicated to heart healthy, CHO controlled 5. DM ed prior to d/c as appropriate Addendum: 01/26/19 at [address] Amended: Links added.
[2019-01-26] MEDS: dexamethasone 4mg/ml inj IV SCH ×2 (13:15→20:07)
--- NOTE | 2019-01-26 14:04 | NUR ---
Rectal Tube Rectal tube was dislodged from patient found out on turn. Would have restarted but stool was to formed at this time to reinsert tube.
--- NOTE | 2019-01-26 18:10 | NUR ---
Patient in room CICU 2009. I have received report from SHANIQUE Aguero and had the opportunity to ask questions and assume patient care. Per world geography teacher mtg to day and the plan is for trach and peg, no orders yet. I will continue to monitor.
[2019-01-26] MEDS: FENTANYL-0.9 % NACL/PF 100 ML IV PRN (19:02)
[2019-01-27] VITALS (24 sets, daily range): BP systolic 99–133; BP diastolic 51–88
--- NOTE | 2019-01-27 00:14 | NUR ---
Did not admin Lasix as Dr. Marie noted that he was stopping it.
[2019-01-27] MEDS: propofol 1000mg/100ml bottle 100 ML IV PRN ×6 (01:11→23:54)
[2019-01-27] MEDS: dexamethasone 4mg/ml inj IV SCH ×4 (02:23→20:24)
[2019-01-27] MEDS: mineral oil/petrolatum ophthal oint EACHEYE SCH ×4 (02:23→20:24)
[2019-01-27] MEDS: DOCOSANOL 2 GM CREAM..G. TP SCH ×4 (02:23→20:25)
[2019-01-27] MEDS: ipratropium/albuterol 3ml nebule NEB SCH ×5 (03:02→20:46)
[2019-01-27 03:35] LABS: ABG BASE EXCESS 0.9 mmol/L (-2.0-3.0); ABG HCO3 26.3 mmol/L (22.0-26.0); ABG OXYGEN SATURATION 91.8 % (95-98); ABG PCO2 (T) 45.2 mmHg (32.0-45.0); ABG PH (T) 7.383 (7.350-7.450); ABG PO2 (T) 64.2 mmHg (83-108); ALLEN'S TEST Positive; FCOHb 0.4 % (0.5-1.5); FMetHb 0.3 % (0.3-1.12); FO2Hb 91.2 % (94-100); MINUTE VOLUME 5 L/min; PEEP 5 cm H2O; RESPIRATORY RATE 0 b/min; TIDAL VOLUME 423 mL; TOTAL HEMOGLOBIN 12.3 G/dl (12.0-16.0)
[2019-01-27 05:47] LABS: BASOPHILS # (AUTO) 0.1 X10'3 (0-0.2); BASOPHILS % (AUTO) 0.9 % (0-1); EOSINOPHILS % (AUTO) 0 % (0-6); HEMATOCRIT 35.9 % (35.0-45.0); HEMOGLOBIN 11.5 g/dl (12.0-16.0); LYMPHOCYTES # (AUTO) 0.6 X10'3 (1.1-4.8); LYMPHOCYTES % (AUTO) 5.3 % (21-51); MEAN CORPUSCULAR HEMOGLOBIN 26.1 PG (27.0-31.0); MEAN CORPUSCULAR HGB CONC 32.1 g/dL (33.0-36.5); MEAN CORPUSCULAR VOLUME 81.5 FL (78-98); MEAN PLATELET VOLUME 8.6 FL (7.4-10.4); MONOCYTES # (AUTO) 0.4 X10'3 (0-0.9); MONOCYTES % (AUTO) 3.3 % (2-12); NEUTROPHILS # (AUTO) 10.2 X10'3 (1.8-7.7); NEUTROPHILS % (AUTO) 90.5 % (42-75); PLATELET COUNT 457 X10'3 (140-440); WHITE BLOOD COUNT 11.3 X10'3 (4.5-11.0)
[2019-01-27 06:01] LABS: ALANINE AMINOTRANSFERASE 74 U/L (12-78); ALBUMIN 2.5 G/DL (3.4-5.0); ALBUMIN/GLOBULIN RATIO 0.5 (1.1-1.5); ALKALINE PHOSPHATASE 319 IU/L (46-116); ANION GAP 8 (8-16); ASPARTATE AMINO TRANSFERASE 31 U/L (10-37); BILIRUBIN,TOTAL 0.3 MG/DL (0.1-1.0); BLOOD UREA NITROGEN 99 MG/DL (7-18); BUN/CREATININE RATIO 105.3 (6.6-38.0); CALCIUM 10.2 MG/DL (8.5-10.1); CHLORIDE 101 MMOL/L (99-107); CREATININE 0.94 MG/DL (0.40-0.90); GLUCOSE 215 MG/DL (70-104); POTASSIUM 4.6 MMOL/L (3.5-5.1); SODIUM 136 MMOL/L (135-145); TOTAL CARBON DIOXIDE 27.5 MMOL/L (24-32); TOTAL PROTEIN 7.6 G/DL (6.4-8.2); eGFR 61 ML/MIN
--- NOTE | 2019-01-27 06:17 | NUR ---
Problems reprioritized. Patient report given, questions answered & plan of care reviewed with SHANIQUE Aguero.
[2019-01-27] MEDS: lisinopril 5mg tablet OGT SCH (07:11)
[2019-01-27] MEDS: amiodarone 200mg tablet OGT SCH ×2 (07:11→20:24)
[2019-01-27] MEDS: rivaroxaban 20mg tablet OGT SCH (07:11)
[2019-01-27] MEDS: famotidine/PF 10 mg/ml inj IV SCH ×2 (07:11→20:24)
[2019-01-27] MEDS: cefepime 2g/NS 100ml ADVANTAGE 100 ML IV SCH ×2 (07:11→20:23)
[2019-01-27] MEDS: lactobacillus rhamnosus 10,000 MMU CELLS/CAPSULE OGT SCH ×2 (07:11→20:24)
[2019-01-27] MEDS: magnesium oxide 400mg tablet OGT SCH ×2 (07:11→20:24)
[2019-01-27] MEDS: nystatin 15 GM powder TP SCH ×3 (07:14→20:25)
[2019-01-27] MEDS: furosemide 40mg/4ml inj IV SCH ×2 (07:21)
[2019-01-27] MEDS: docusate sodium 100mg/10ml UD cup OGT SCH ×2 (07:21→20:00)
[2019-01-27] MEDS ORDERED: dextrose 50%-water 50ml dispensing syringe IV PRN ×2 (08:30)
[2019-01-27] MEDS: insulin regular, human vial - multi-dose SQ SCH (14:32)
--- NOTE | 2019-01-27 15:50 | NUR ---
pt. kept on cpap per dr. archuleta Addendum: 01/27/19 at 1550 by Keenan Treviño RT Amended: Links added.
--- NOTE | 2019-01-27 18:10 | NUR ---
Patient in room CICU 2009. I have received report from SHANIQUE Aguero and had the opportunity to ask questions and assume patient care. The plan is to Trach and Peg this week, then to LTAC. I will continue to monitor.
[2019-01-27] MEDS: normal saline 1000ml 1,000 ML IV SCH (19:16)
[2019-01-27] MEDS: insulin glargine (Lantus) pen - multi-dose SQ SCH (21:00)
[2019-01-27] MEDS: scopolamine 1.5mg patch.TD72 TD SCH (23:58)
[2019-01-28] VITALS (23 sets, daily range): BP systolic 121–147; BP diastolic 69–92
[2019-01-28] MEDS: ipratropium/albuterol 3ml nebule NEB SCH ×4 (02:41→20:25)
[2019-01-28] MEDS: dexamethasone 4mg/ml inj IV SCH ×4 (02:49→20:29)
[2019-01-28] MEDS: mineral oil/petrolatum ophthal oint EACHEYE SCH ×4 (02:49→20:50)
[2019-01-28] MEDS: DOCOSANOL 2 GM CREAM..G. TP SCH ×4 (02:49→20:31)
[2019-01-28 03:10] LABS: ABG BASE EXCESS -0.6 mmol/L (-2.0-3.0); ABG OXYGEN SATURATION 93.1 % (95-98); ABG PCO2 (T) 43.8 mmHg (32.0-45.0); ABG PH (T) 7.372 (7.350-7.450); ABG PO2 (T) 69.2 mmHg (83-108); ALLEN'S TEST Positive; FCOHb 0.3 % (0.5-1.5); FMetHb 0.3 % (0.3-1.12); FO2Hb 92.5 % (94-100); MINUTE VOLUME 6 L/min; PATIENT TEMPERATURE 36.6; PEEP 5 cm H2O; RESPIRATORY RATE 0 b/min; RESPIRATORY RATE (OBSERVED) 14 b/min; TIDAL VOLUME 404 mL; TOTAL HEMOGLOBIN 12.4 G/dl (12.0-16.0)
[2019-01-28] MEDS: propofol 1000mg/100ml bottle 100 ML IV PRN ×4 (03:12→21:36)
--- NOTE | 2019-01-28 06:15 | NUR ---
Problems reprioritized. Patient report given, questions answered & plan of care reviewed with SHANIQUE Caban.
--- NOTE | 2019-01-28 06:30 | NUR ---
Patient in room CICU 2009. I have received report from shift boss rn and had the opportunity to ask questions and assume patient care.
[2019-01-28 06:33] LABS: ALANINE AMINOTRANSFERASE 72 U/L (12-78); ALBUMIN 2.7 G/DL (3.4-5.0); ALBUMIN/GLOBULIN RATIO 0.5 (1.1-1.5); ALKALINE PHOSPHATASE 333 IU/L (46-116); ANION GAP 9 (8-16); ASPARTATE AMINO TRANSFERASE 27 U/L (10-37); BILIRUBIN,TOTAL 0.3 MG/DL (0.1-1.0); BLOOD UREA NITROGEN 91 MG/DL (7-18); BUN/CREATININE RATIO 108.3 (6.6-38.0); CALCIUM 10.3 MG/DL (8.5-10.1); CHLORIDE 101 MMOL/L (99-107); CREATININE 0.84 MG/DL (0.40-0.90); GLUCOSE 191 MG/DL (70-104); POTASSIUM 5.3 MMOL/L (3.5-5.1); SODIUM 135 MMOL/L (135-145); TOTAL CARBON DIOXIDE 25.5 MMOL/L (24-32); TOTAL PROTEIN 8.2 G/DL (6.4-8.2); eGFR 69 ML/MIN
[2019-01-28] MEDS: cefepime 2g/NS 100ml ADVANTAGE 100 ML IV SCH ×2 (07:40→20:30)
[2019-01-28] MEDS: docusate sodium 100mg/10ml UD cup OGT SCH ×2 (07:41→20:28)
[2019-01-28] MEDS: lactobacillus rhamnosus 10,000 MMU CELLS/CAPSULE OGT SCH ×2 (07:41→20:47)
[2019-01-28] MEDS: amiodarone 200mg tablet OGT SCH ×2 (07:41→20:47)
[2019-01-28] MEDS: famotidine/PF 10 mg/ml inj IV SCH ×2 (07:41→20:28)
[2019-01-28] MEDS: nystatin 15 GM powder TP SCH ×3 (07:43→20:50)
[2019-01-28 07:49] LABS: BASOPHILS # (AUTO) 0.1 X10'3 (0-0.2); BASOPHILS % (AUTO) 0.6 % (0-1); EOSINOPHILS % (AUTO) 0 % (0-6); HEMATOCRIT 36.2 % (35.0-45.0); HEMOGLOBIN 11.7 g/dl (12.0-16.0); LYMPHOCYTES # (AUTO) 0.9 X10'3 (1.1-4.8); LYMPHOCYTES % (AUTO) 5.9 % (21-51); MEAN CORPUSCULAR HEMOGLOBIN 26.3 PG (27.0-31.0); MEAN CORPUSCULAR HGB CONC 32.3 g/dL (33.0-36.5); MEAN CORPUSCULAR VOLUME 81.3 FL (78-98); MEAN PLATELET VOLUME 8.8 FL (7.4-10.4); MONOCYTES # (AUTO) 0.8 X10'3 (0-0.9); MONOCYTES % (AUTO) 5.1 % (2-12); NEUTROPHILS # (AUTO) 13.6 X10'3 (1.8-7.7); NEUTROPHILS % (AUTO) 88.4 % (42-75); PLATELET COUNT 493 X10'3 (140-440); RED BLOOD COUNT 4.46 X10'6 (4.20-5.60); RED CELL DISTRIBUTION WIDTH 18.1 % (11.5-14.5); WHITE BLOOD COUNT 15.4 X10'3 (4.5-11.0)
[2019-01-28] MEDS: insulin regular, human vial - multi-dose SQ SCH ×3 (09:25→21:49)
[2019-01-28] MEDS: lisinopril 5mg tablet OGT SCH (09:26)
[2019-01-28] MEDS: rivaroxaban 20mg tablet OGT SCH (09:26)
[2019-01-28 09:33] LABS: MAGNESIUM 2.6 MG/DL (1.5-2.4); PHOSPHORUS 3.6 MG/DL (2.3-4.5)
--- NOTE | 2019-01-28 13:18 | NUR ---
reassessment: Pt tolerating TF at goal. Daily small liquid stools. Possible trach and PEG placed tomorrow. Will continue to follow. Recommend: 1. Continuous tube feeding per OG tube using Vital High protein. Recommend increase rate, d/w MD and RN, to 85 ml/hr to provide 2040 ml total volume, 12268 cals, 179 g protein, 1705 ml water. 2. Water flush 200 ml Q4H 3. Prealbumin q /, daily wts Addendum: 01/28/19 at [address] Amended: Links added.
--- NOTE | 2019-01-28 15:00 | NUR ---
status unchanged, does not follow commands, eyes open spontenaously, physical therapy worked with patient today, tolerated well,
[2019-01-28] MEDS: FENTANYL-0.9 % NACL/PF 100 ML IV PRN (16:51)
[2019-01-28] MEDS: insulin glargine (Lantus) pen - multi-dose SQ SCH (21:50)
[2019-01-29] VITALS (24 sets, daily range): BP systolic 114–148; BP diastolic 58–93
[2019-01-29] MEDS: mineral oil/petrolatum ophthal oint EACHEYE SCH ×4 (02:02→20:34)
[2019-01-29] MEDS: DOCOSANOL 2 GM CREAM..G. TP SCH ×4 (02:03→20:35)
[2019-01-29] MEDS: dexamethasone 4mg/ml inj IV SCH ×4 (02:21→20:45)
[2019-01-29] MEDS: propofol 1000mg/100ml bottle 100 ML IV PRN ×5 (02:21→22:12)
[2019-01-29] MEDS: insulin regular, human vial - multi-dose SQ SCH ×4 (02:50→21:53)
[2019-01-29] MEDS: ipratropium/albuterol 3ml nebule NEB SCH ×4 (03:00→20:21)
[2019-01-29 03:01] LABS: ABG HCO3 23.2 mmol/L (22.0-26.0); ABG OXYGEN SATURATION 96.1 % (95-98); ABG PCO2 (T) 35.9 mmHg (32.0-45.0); ABG PH (T) 7.425 (7.350-7.450); ABG PO2 (T) 76.1 mmHg (83-108); ALLEN'S TEST Positive; FCOHb 0.1 % (0.5-1.5); FMetHb 0.3 % (0.3-1.12); FO2Hb 95.7 % (94-100); MINUTE VOLUME 7 L/min; PATIENT TEMPERATURE 36.2; PEEP 5 cm H2O; RESPIRATORY RATE (OBSERVED) 14 b/min; TIDAL VOLUME 407 mL; TOTAL HEMOGLOBIN 12.2 G/dl (12.0-16.0)
[2019-01-29 03:31] LABS: BASOPHILS % (AUTO) 0.3 % (0-1); EOSINOPHILS % (AUTO) 0 % (0-6); HEMATOCRIT 34.9 % (35.0-45.0); HEMOGLOBIN 11.3 g/dl (12.0-16.0); LYMPHOCYTES # (AUTO) 1.1 X10'3 (1.1-4.8); MEAN CORPUSCULAR HEMOGLOBIN 25.9 PG (27.0-31.0); MEAN CORPUSCULAR HGB CONC 32.3 g/dL (33.0-36.5); MEAN CORPUSCULAR VOLUME 80.3 FL (78-98); MEAN PLATELET VOLUME 8.8 FL (7.4-10.4); MONOCYTES # (AUTO) 1.2 X10'3 (0-0.9); MONOCYTES % (AUTO) 6.6 % (2-12); NEUTROPHILS # (AUTO) 15.5 X10'3 (1.8-7.7); NEUTROPHILS % (AUTO) 87.1 % (42-75); PLATELET COUNT 470 X10'3 (140-440); RED BLOOD COUNT 4.35 X10'6 (4.20-5.60); RED CELL DISTRIBUTION WIDTH 17.7 % (11.5-14.5); WHITE BLOOD COUNT 17.8 X10'3 (4.5-11.0)
[2019-01-29 03:40] LABS: ALANINE AMINOTRANSFERASE 65 U/L (12-78); ALBUMIN 2.5 G/DL (3.4-5.0); ALBUMIN/GLOBULIN RATIO 0.5 (1.1-1.5); ALKALINE PHOSPHATASE 285 IU/L (46-116); ANION GAP 9 (8-16); ASPARTATE AMINO TRANSFERASE 23 U/L (10-37); BILIRUBIN,TOTAL 0.3 MG/DL (0.1-1.0); BLOOD UREA NITROGEN 83 MG/DL (7-18); BUN/CREATININE RATIO 97.6 (6.6-38.0); CALCIUM 9.6 MG/DL (8.5-10.1); CHLORIDE 103 MMOL/L (99-107); CREATININE 0.85 MG/DL (0.40-0.90); GLUCOSE 157 MG/DL (70-104); POTASSIUM 5.1 MMOL/L (3.5-5.1); PREALBUMIN 46.1 MG/DL (19-36); SODIUM 138 MMOL/L (135-145); TOTAL CARBON DIOXIDE 26.1 MMOL/L (24-32); TOTAL PROTEIN 7.3 G/DL (6.4-8.2); eGFR 68 ML/MIN
[2019-01-29 06:20] LABS: ANISOCYTOSIS 1+; PLATELET ESTIMATE INCREASED
--- NOTE | 2019-01-29 06:25 | NUR ---
Problems reprioritized. Patient report given, questions answered & plan of care reviewed with Day shift RN.
[2019-01-29 06:38] LABS: BURR CELLS FEW; ELLIPTOCYTES FEW; SCHISTOCYTES FEW
[2019-01-29] MEDS: docusate sodium 100mg/10ml UD cup OGT SCH ×2 (08:00→20:25)
[2019-01-29] MEDS: nystatin 15 GM powder TP SCH ×3 (08:00→21:56)
[2019-01-29] MEDS: cefepime 2g/NS 100ml ADVANTAGE 100 ML IV SCH ×2 (08:18→20:26)
[2019-01-29] MEDS: famotidine/PF 10 mg/ml inj IV SCH ×2 (08:19→20:21)
[2019-01-29] MEDS: lisinopril 5mg tablet OGT SCH (08:20)
[2019-01-29] MEDS: rivaroxaban 20mg tablet OGT SCH (08:20)
[2019-01-29] MEDS: lactobacillus rhamnosus 10,000 MMU CELLS/CAPSULE OGT SCH ×2 (08:20→20:30)
[2019-01-29] MEDS: amiodarone 200mg tablet OGT SCH ×2 (08:20→20:27)
--- NOTE | 2019-01-29 11:49 | NUR ---
Extended PIV inserted to the right upper arm basilic vein x 3 attempt using ultrasound after removal of existing Extended PIV with cath intact. García well with constant movement to all extremities. Addendum: 01/29/19 at 1155 by Erika Hernandez RN Amended: Links added.
[2019-01-29] MEDS: normal saline 1000ml 1,000 ML IV SCH (17:30)
--- NOTE | 2019-01-29 18:30 | NUR ---
Patient in room CICU 2009. I have received report from Magno BAY and had the opportunity to ask questions and assume patient care. Patient remains orally intubated, spontaneous mode FIO2 is 35% PS 10, +5 peep. Saturation is 98% ETT secure with ETT ramirez. Remains on IV sedation propofol & fentanyl drips. OGT taped securely to ETT. Rhythm remains aflutter HR 64- 68/min. BP 122/58 Tube feedings @85ml/hr. HOB remains elevated 30 degrees. No distress. Patient scheduled for tracheostomy 01/31/19. Addendum: 01/30/19 at 0419 by Ani Sheriff RN Vent mode is CPAP/PS
[2019-01-29] MEDS: insulin glargine (Lantus) pen - multi-dose SQ SCH (21:00)
[2019-01-30] VITALS (24 sets, daily range): BP systolic 118–157; BP diastolic 62–91
--- NOTE | 2019-01-30 | NUR ---
Tube feedings now off. Pt NPO for tracheostomy placement in AM.
[2019-01-30] MEDS: FENTANYL-0.9 % NACL/PF 100 ML IV PRN ×2 (00:14→05:00)
[2019-01-30] MEDS: mineral oil/petrolatum ophthal oint EACHEYE SCH ×4 (01:47→21:00)
[2019-01-30] MEDS: dexamethasone 4mg/ml inj IV SCH ×2 (01:55→07:18)
[2019-01-30] MEDS: DOCOSANOL 2 GM CREAM..G. TP SCH ×4 (02:00→20:00)
[2019-01-30 02:51] LABS: ABG BASE EXCESS -1.5 mmol/L (-2.0-3.0); ABG OXYGEN SATURATION 96.9 % (95-98); ABG PCO2 (T) 37.7 mmHg (32.0-45.0); ABG PH (T) 7.402 (7.350-7.450); ABG PO2 (T) 87.2 mmHg (83-108); ALLEN'S TEST Positive; FCOHb 0.5 % (0.5-1.5); FMetHb 0.3 % (0.3-1.12); FO2Hb 96.1 % (94-100); MINUTE VOLUME 8 L/min; PATIENT TEMPERATURE 36.9; PEEP 5 cm H2O; RESPIRATORY RATE (OBSERVED) 17 b/min; TOTAL HEMOGLOBIN 12.5 G/dl (12.0-16.0)
[2019-01-30] MEDS: ipratropium/albuterol 3ml nebule NEB SCH ×4 (02:51→21:06)
[2019-01-30 04:12] LABS: BASOPHILS % (AUTO) 0.3 % (0-1); EOSINOPHILS % (AUTO) 0 % (0-6); HEMATOCRIT 39.2 % (35.0-45.0); HEMOGLOBIN 12.6 g/dl (12.0-16.0); LYMPHOCYTES # (AUTO) 1.4 X10'3 (1.1-4.8); LYMPHOCYTES % (AUTO) 8.9 % (21-51); MEAN CORPUSCULAR HEMOGLOBIN 26.3 PG (27.0-31.0); MEAN CORPUSCULAR HGB CONC 32.2 g/dL (33.0-36.5); MEAN CORPUSCULAR VOLUME 81.8 FL (78-98); MEAN PLATELET VOLUME 8.5 FL (7.4-10.4); MONOCYTES # (AUTO) 1.3 X10'3 (0-0.9); MONOCYTES % (AUTO) 8.4 % (2-12); NEUTROPHILS # (AUTO) 12.5 X10'3 (1.8-7.7); NEUTROPHILS % (AUTO) 82.4 % (42-75); PLATELET COUNT 448 X10'3 (140-440); RED BLOOD COUNT 4.79 X10'6 (4.20-5.60); RED CELL DISTRIBUTION WIDTH 17.7 % (11.5-14.5); WHITE BLOOD COUNT 15.2 X10'3 (4.5-11.0)
[2019-01-30 04:31] LABS: ALANINE AMINOTRANSFERASE 77 U/L (12-78); ALBUMIN 2.7 G/DL (3.4-5.0); ALBUMIN/GLOBULIN RATIO 0.5 (1.1-1.5); ALKALINE PHOSPHATASE 291 IU/L (46-116); ANION GAP 7 (8-16); ASPARTATE AMINO TRANSFERASE 27 U/L (10-37); BILIRUBIN,TOTAL 0.5 MG/DL (0.1-1.0); BLOOD UREA NITROGEN 71 MG/DL (7-18); BUN/CREATININE RATIO 80.7 (6.6-38.0); CALCIUM 10.1 MG/DL (8.5-10.1); CHLORIDE 104 MMOL/L (99-107); CREATININE 0.88 MG/DL (0.40-0.90); GLUCOSE 131 MG/DL (70-104); POTASSIUM 5.4 MMOL/L (3.5-5.1); SODIUM 136 MMOL/L (135-145); TOTAL CARBON DIOXIDE 25.1 MMOL/L (24-32); TOTAL PROTEIN 7.7 G/DL (6.4-8.2); eGFR 66 ML/MIN
[2019-01-30 04:33] LABS: INR 1.1 INR; PARTIAL THROMBOPLASTIN TIME 25 SECONDS (22-32)
[2019-01-30 04:56] LABS: ACANTHOCYTES FEW; ANISOCYTOSIS 1+; ELLIPTOCYTES FEW; PLATELET ESTIMATE INCREASED; SCHISTOCYTES FEW
[2019-01-30 04:59] LABS: BURR CELLS FEW
--- NOTE | 2019-01-30 06:30 | NUR ---
Problems reprioritized. Patient report given, questions answered & plan of care reviewed with day shift RN.
--- NOTE | 2019-01-30 06:36 | NUR ---
Patient in room CICU 2009. I have received report from SHANIQUE Law and had the opportunity to ask questions and assume patient care.
[2019-01-30] MEDS: nystatin 15 GM powder TP SCH ×3 (07:17→21:01)
[2019-01-30] MEDS: famotidine/PF 10 mg/ml inj IV SCH ×2 (07:18→20:59)
[2019-01-30] MEDS: lisinopril 5mg tablet OGT SCH (07:18)
[2019-01-30] MEDS: cefepime 2g/NS 100ml ADVANTAGE 100 ML IV SCH (07:18)
[2019-01-30] MEDS: amiodarone 200mg tablet OGT SCH ×2 (07:19→20:59)
[2019-01-30] MEDS: lactobacillus rhamnosus 10,000 MMU CELLS/CAPSULE OGT SCH ×2 (07:19→20:59)
[2019-01-30] MEDS: docusate sodium 100mg/10ml UD cup OGT SCH ×2 (07:19→20:59)
[2019-01-30] MEDS: rivaroxaban 20mg tablet OGT SCH (07:19)
[2019-01-30] MEDS: insulin regular, human vial - multi-dose SQ SCH (07:29)
[2019-01-30] MEDS: propofol 1000mg/100ml bottle 100 ML IV PRN ×4 (09:10→21:23)
[2019-01-30] MEDS ORDERED: rocuronium 10mg/ml inj IV ONE (11:35)
--- NOTE | 2019-01-30 11:35 | NUR ---
reassessment: Tube feeding off today for trach placement, pending PEG placement on Saturday and pending to [facility] in the afternoon. Was tolerating TF at goal. Weight trending back up after what appeared to be a 31 lbs weight loss, weight measured with bedscale. Will continue to follow. Recommend: 1. Continuous tube feeding per OG tube using Vital High protein at 85 ml/hr to provide 2040 ml total volume, 34668 cals, 179 g protein, 1705 ml water. When PEG is placed, continue tube feedings with Vital High Protein at 85 ml/hr. 2. Water flush 200 ml Q4H 3. Prealbumin q /, daily wts Addendum: 01/30/19 at [address] Amended: Links added.
--- NOTE | 2019-01-30 17:10 | NUR ---
Pt trached today by Dr. Patel without complications. On rate control on ventilator and comfortable. Site slightly oozy, secretions bloody. Placed corpak, verified placement by imaging account manager, Laurie. Pt continues to be anxious, propofol maintained at 45mcg
--- NOTE | 2019-01-30 18:08 | NUR ---
Problems reprioritized. Patient report given, questions answered & plan of care reviewed with SHANIQUE Law.
--- NOTE | 2019-01-30 18:15 | NUR ---
Report received from day shift RN. opportunity allowed to ask questions & address concerns. Pt received with new tracheostomy #8.0 cuffed. Currently to ventilator ACVC mode BUR 16 TV 350 + 5 PEEP FIO2@ is 35% patient does breathe above the vent at 17/min. Trach site without bleeding. Sedated on IV fentanyl & propofol. Trach is secured with trach ties/velcro. No distress. Corepack tube placement is positive and tube feedings have been strted. Vital HP @ 20 ml at this time.
[2019-01-30] MEDS: insulin glargine (Lantus) pen - multi-dose SQ SCH (21:00)
[2019-01-31] VITALS (24 sets, daily range): BP systolic 88–159; BP diastolic 48–95
--- NOTE | 2019-01-31 | NUR ---
No changes. Remains in Aflutter/a fib. Tolerating tube feeds and water flushes. No distress.
[2019-01-31] MEDS: propofol 1000mg/100ml bottle 100 ML IV PRN ×2 (01:20→19:11)
[2019-01-31] MEDS: scopolamine 1.5mg patch.TD72 TD SCH (01:21)
[2019-01-31] MEDS: ipratropium/albuterol 3ml nebule NEB SCH ×4 (02:32→20:35)
[2019-01-31] MEDS: mineral oil/petrolatum ophthal oint EACHEYE SCH ×4 (02:35→19:17)
[2019-01-31] MEDS: DOCOSANOL 2 GM CREAM..G. TP SCH ×4 (02:36→19:17)
[2019-01-31 02:50] LABS: ABG BASE EXCESS -4.1 mmol/L (-2.0-3.0); ABG HCO3 20.5 mmol/L (22.0-26.0); ABG OXYGEN SATURATION 96.9 % (95-98); ABG PCO2 (T) 36.1 mmHg (32.0-45.0); ABG PH (T) 7.373 (7.350-7.450); ABG PO2 (T) 87.6 mmHg (83-108); ALLEN'S TEST Positive; FCOHb 0.6 % (0.5-1.5); FMetHb 0.3 % (0.3-1.12); MINUTE VOLUME 14 L/min; PEEP 5 cm H2O; RESPIRATORY RATE 16 b/min; RESPIRATORY RATE (OBSERVED) 25 b/min; TIDAL VOLUME 350 mL; TOTAL HEMOGLOBIN 12.7 G/dl (12.0-16.0)
[2019-01-31] MEDS: FENTANYL-0.9 % NACL/PF 100 ML IV PRN ×2 (03:49→15:23)
[2019-01-31 04:01] LABS: ALANINE AMINOTRANSFERASE 71 U/L (12-78); ALBUMIN 2.7 G/DL (3.4-5.0); ALBUMIN/GLOBULIN RATIO 0.6 (1.1-1.5); ALKALINE PHOSPHATASE 269 IU/L (46-116); ANION GAP 11 (8-16); ASPARTATE AMINO TRANSFERASE 25 U/L (10-37); BILIRUBIN,TOTAL 0.4 MG/DL (0.1-1.0); BLOOD UREA NITROGEN 60 MG/DL (7-18); CALCIUM 9.4 MG/DL (8.5-10.1); CHLORIDE 103 MMOL/L (99-107); CREATININE 0.87 MG/DL (0.40-0.90); GLUCOSE 98 MG/DL (70-104); SODIUM 136 MMOL/L (135-145); TOTAL CARBON DIOXIDE 21.6 MMOL/L (24-32); TOTAL PROTEIN 7.5 G/DL (6.4-8.2); eGFR 67 ML/MIN
[2019-01-31 04:02] LABS: BASOPHILS # (AUTO) 0.1 X10'3 (0-0.2); BASOPHILS % (AUTO) 0.5 % (0-1); EOSINOPHILS # (AUTO) 0.1 X10'3 (0-0.9); EOSINOPHILS % (AUTO) 0.4 % (0-6); HEMATOCRIT 37.1 % (35.0-45.0); HEMOGLOBIN 11.8 g/dl (12.0-16.0); LYMPHOCYTES # (AUTO) 3.2 X10'3 (1.1-4.8); LYMPHOCYTES % (AUTO) 19.4 % (21-51); MEAN CORPUSCULAR HGB CONC 31.9 g/dL (33.0-36.5); MEAN CORPUSCULAR VOLUME 81.6 FL (78-98); MEAN PLATELET VOLUME 8.3 FL (7.4-10.4); MONOCYTES # (AUTO) 2.6 X10'3 (0-0.9); MONOCYTES % (AUTO) 16.1 % (2-12); NEUTROPHILS # (AUTO) 10.5 X10'3 (1.8-7.7); NEUTROPHILS % (AUTO) 63.6 % (42-75); PLATELET COUNT 458 X10'3 (140-440); RED BLOOD COUNT 4.55 X10'6 (4.20-5.60); RED CELL DISTRIBUTION WIDTH 18.2 % (11.5-14.5); WHITE BLOOD COUNT 16.4 X10'3 (4.5-11.0)
[2019-01-31 04:04] LABS: POTASSIUM 4.7 MMOL/L (3.5-5.1)
--- NOTE | 2019-01-31 06:20 | NUR ---
Problems reprioritized. Patient report given, questions answered & plan of care reviewed with Magno BAY.
[2019-01-31] MEDS: rivaroxaban 20mg tablet OGT SCH (06:55)
[2019-01-31] MEDS: nystatin 15 GM powder TP SCH ×3 (08:00→22:07)
[2019-01-31] MEDS: lisinopril 5mg tablet OGT SCH (08:54)
[2019-01-31] MEDS: amiodarone 200mg tablet OGT SCH ×2 (08:54→19:15)
[2019-01-31] MEDS: lactobacillus rhamnosus 10,000 MMU CELLS/CAPSULE OGT SCH ×2 (08:54→19:15)
[2019-01-31] MEDS: famotidine/PF 10 mg/ml inj IV SCH ×2 (08:54→19:16)
[2019-01-31] MEDS: docusate sodium 100mg/10ml UD cup OGT SCH ×2 (08:54→19:16)
--- NOTE | 2019-01-31 10:15 | NUR ---
Tube feed increased to 60 per orders
[2019-01-31] MEDS: carVEDilol 3.125mg tablet PO SCH ×2 (10:33→19:15)
[2019-01-31] MEDS: normal saline 1000ml 1,000 ML IV SCH (17:30)
--- NOTE | 2019-01-31 18:25 | NUR ---
Patient in room CICU 2009. I have received report from Magno RN and Art RN and had the opportunity to ask questions and assume patient care. pt on CPAP (spontaneous) via trach, see interventions for further information. Propofol gtt and fentanyl gtt for sedation and pain control, see IV flowsheet for further information. Will continue to monitor.
[2019-01-31] MEDS: insulin glargine (Lantus) pen - multi-dose SQ SCH (21:00)
[2019-02-01] VITALS (24 sets, daily range): BP systolic 84–155; BP diastolic 40–91
[2019-02-01] MEDS: mineral oil/petrolatum ophthal oint EACHEYE SCH ×4 (02:47→21:11)
[2019-02-01] MEDS: FENTANYL-0.9 % NACL/PF 100 ML IV PRN (02:47)
[2019-02-01] MEDS: DOCOSANOL 2 GM CREAM..G. TP SCH ×4 (02:47→20:00)
[2019-02-01] MEDS: ipratropium/albuterol 3ml nebule NEB SCH ×4 (03:15→20:39)
[2019-02-01 03:22] LABS: BASOPHILS # (AUTO) 0.1 X10'3 (0-0.2); BASOPHILS % (AUTO) 0.4 % (0-1); EOSINOPHILS # (AUTO) 0.6 X10'3 (0-0.9); EOSINOPHILS % (AUTO) 3.4 % (0-6); HEMATOCRIT 35.9 % (35.0-45.0); HEMOGLOBIN 11.3 g/dl (12.0-16.0); LYMPHOCYTES # (AUTO) 2.9 X10'3 (1.1-4.8); LYMPHOCYTES % (AUTO) 16.7 % (21-51); MEAN CORPUSCULAR HEMOGLOBIN 25.7 PG (27.0-31.0); MEAN CORPUSCULAR HGB CONC 31.5 g/dL (33.0-36.5); MEAN CORPUSCULAR VOLUME 81.6 FL (78-98); MEAN PLATELET VOLUME 8.2 FL (7.4-10.4); MONOCYTES # (AUTO) 2.8 X10'3 (0-0.9); MONOCYTES % (AUTO) 16.1 % (2-12); NEUTROPHILS # (AUTO) 11.2 X10'3 (1.8-7.7); NEUTROPHILS % (AUTO) 63.4 % (42-75); PLATELET COUNT 433 X10'3 (140-440); RED CELL DISTRIBUTION WIDTH 18.2 % (11.5-14.5); WHITE BLOOD COUNT 17.6 X10'3 (4.5-11.0)
[2019-02-01 03:33] LABS: ALBUMIN 2.6 G/DL (3.4-5.0); ANION GAP 7 (8-16); BILIRUBIN,TOTAL 0.8 MG/DL (0.1-1.0); BLOOD UREA NITROGEN 53 MG/DL (7-18); BUN/CREATININE RATIO 64.6 (6.6-38.0); CALCIUM 9.2 MG/DL (8.5-10.1); CHLORIDE 106 MMOL/L (99-107); CREATININE 0.82 MG/DL (0.40-0.90); GLUCOSE 109 MG/DL (70-104); POTASSIUM 4.6 MMOL/L (3.5-5.1); SODIUM 138 MMOL/L (135-145); TOTAL CARBON DIOXIDE 24.6 MMOL/L (24-32); TOTAL PROTEIN 7.1 G/DL (6.4-8.2); eGFR 71 ML/MIN
[2019-02-01 03:34] LABS: ALANINE AMINOTRANSFERASE 61 U/L (12-78); ALBUMIN/GLOBULIN RATIO 0.6 (1.1-1.5); ALKALINE PHOSPHATASE 255 IU/L (46-116); ASPARTATE AMINO TRANSFERASE 20 U/L (10-37)
[2019-02-01 03:36] LABS: ABG BASE EXCESS -4.3 mmol/L (-2.0-3.0); ABG HCO3 21.1 mmol/L (22.0-26.0); ABG OXYGEN SATURATION 96.2 % (95-98); ABG PH (T) 7.341 (7.350-7.450); ABG PO2 (T) 85.1 mmHg (83-108); ALLEN'S TEST Positive; FCOHb 0.5 % (0.5-1.5); FMetHb 0.3 % (0.3-1.12); FO2Hb 95.4 % (94-100); MINUTE VOLUME 8 L/min; PEEP 5 cm H2O; RESPIRATORY RATE (OBSERVED) 13 b/min; TOTAL HEMOGLOBIN 11.7 G/dl (12.0-16.0)
--- NOTE | 2019-02-01 06:30 | NUR ---
Problems reprioritized. Patient report given, questions answered & plan of care reviewed with Nubia BAY.
[2019-02-01] MEDS: propofol 1000mg/100ml bottle 100 ML IV PRN (06:58)
[2019-02-01] MEDS: famotidine/PF 10 mg/ml inj IV SCH ×2 (07:40→21:12)
[2019-02-01] MEDS: amiodarone 200mg tablet OGT SCH ×2 (07:40→21:12)
[2019-02-01] MEDS: lisinopril 5mg tablet OGT SCH (07:40)
[2019-02-01] MEDS: carVEDilol 3.125mg tablet PO SCH ×2 (07:40→21:11)
[2019-02-01] MEDS: docusate sodium 100mg/10ml UD cup OGT SCH ×2 (07:40→21:12)
[2019-02-01] MEDS: lactobacillus rhamnosus 10,000 MMU CELLS/CAPSULE OGT SCH ×2 (07:40→21:11)
[2019-02-01] MEDS: nystatin 15 GM powder TP SCH ×3 (07:46→21:11)
[2019-02-01] MEDS: rivaroxaban 20mg tablet OGT SCH (07:51)
--- NOTE | 2019-02-01 08:20 | NUR ---
Dr Morillo at bedside requesting update. She was given detailed information about patient's status. She did give orders for lasix and precedex in order to try and keep the sedation meds off. She thinks an EEG tomorrow would be helpful to continue to assess neuro status, and she confirms holding xarelto for peg tube procedure tomorrow.
[2019-02-01] MEDS: furosemide 20 MG/2 ML vial IV SCH (09:54)
[2019-02-01] MEDS: dexmedetomidin/NS 400mcg/100ml 100 ML IV SCH ×2 (10:08→19:30)
--- NOTE | 2019-02-01 18:25 | NUR ---
Problems reprioritized. Patient report given, questions answered & plan of care reviewed with SHANIQUE Pal.
[2019-02-01] MEDS ORDERED: diatr meglu/diatrizoate 30ml oral sol.-(3 dose) bottle PO PRN (20:00)
[2019-02-01] MEDS: insulin glargine (Lantus) pen - multi-dose SQ SCH (21:00)
[2019-02-02] VITALS (26 sets, daily range): BP systolic 99–168; BP diastolic 59–90
--- NOTE | 2019-02-02 | NUR ---
Tube feeding on hold for PEG placement in AM
[2019-02-02] MEDS: FENTANYL-0.9 % NACL/PF 100 ML IV PRN ×2 (01:32→20:40)
[2019-02-02] MEDS: mineral oil/petrolatum ophthal oint EACHEYE SCH ×4 (01:33→20:25)
[2019-02-02] MEDS: DOCOSANOL 2 GM CREAM..G. TP SCH ×4 (01:33→20:25)
[2019-02-02 01:59] LABS: BASOPHILS # (AUTO) 0.1 X10'3 (0-0.2); BASOPHILS % (AUTO) 0.6 % (0-1); EOSINOPHILS # (AUTO) 0.7 X10'3 (0-0.9); EOSINOPHILS % (AUTO) 4.7 % (0-6); HEMATOCRIT 34.2 % (35.0-45.0); HEMOGLOBIN 11.1 g/dl (12.0-16.0); LYMPHOCYTES # (AUTO) 1.7 X10'3 (1.1-4.8); LYMPHOCYTES % (AUTO) 11.3 % (21-51); MEAN CORPUSCULAR HEMOGLOBIN 26.6 PG (27.0-31.0); MEAN CORPUSCULAR HGB CONC 32.4 g/dL (33.0-36.5); MEAN CORPUSCULAR VOLUME 82.2 FL (78-98); MEAN PLATELET VOLUME 8.1 FL (7.4-10.4); MONOCYTES # (AUTO) 2.2 X10'3 (0-0.9); MONOCYTES % (AUTO) 14.5 % (2-12); NEUTROPHILS # (AUTO) 10.2 X10'3 (1.8-7.7); NEUTROPHILS % (AUTO) 68.9 % (42-75); PLATELET COUNT 405 X10'3 (140-440); RED BLOOD COUNT 4.16 X10'6 (4.20-5.60); RED CELL DISTRIBUTION WIDTH 18.1 % (11.5-14.5); WHITE BLOOD COUNT 14.8 X10'3 (4.5-11.0)
[2019-02-02 02:18] LABS: ALANINE AMINOTRANSFERASE 54 U/L (12-78); ALBUMIN 2.5 G/DL (3.4-5.0); ALBUMIN/GLOBULIN RATIO 0.6 (1.1-1.5); ALKALINE PHOSPHATASE 239 IU/L (46-116); ANION GAP 5 (8-16); ASPARTATE AMINO TRANSFERASE 17 U/L (10-37); BILIRUBIN,TOTAL 0.7 MG/DL (0.1-1.0); BLOOD UREA NITROGEN 50 MG/DL (7-18); BUN/CREATININE RATIO 68.5 (6.6-38.0); CHLORIDE 106 MMOL/L (99-107); CREATININE 0.73 MG/DL (0.40-0.90); GLUCOSE 111 MG/DL (70-104); POTASSIUM 4.6 MMOL/L (3.5-5.1); SODIUM 137 MMOL/L (135-145); TOTAL CARBON DIOXIDE 25.6 MMOL/L (24-32); TOTAL PROTEIN 6.6 G/DL (6.4-8.2); eGFR 82 ML/MIN
[2019-02-02] MEDS: ipratropium/albuterol 3ml nebule NEB SCH ×4 (03:08→20:24)
[2019-02-02 03:26] LABS: ABG HCO3 22.1 mmol/L (22.0-26.0); ABG PCO2 (T) 39.4 mmHg (32.0-45.0); ABG PH (T) 7.366 (7.350-7.450); ALLEN'S TEST Positive; FCOHb 0.7 % (0.5-1.5); FMetHb 0.3 % (0.3-1.12); MINUTE VOLUME 8 L/min; PEEP 5 cm H2O; RESPIRATORY RATE (OBSERVED) 15 b/min; TOTAL HEMOGLOBIN 12.1 G/dl (12.0-16.0)
[2019-02-02] MEDS: dexmedetomidin/NS 400mcg/100ml 100 ML IV SCH ×3 (04:50→18:59)
--- NOTE | 2019-02-02 05:00 | NUR ---
Pt smiling and shaking head when asked, though not consistently.
--- NOTE | 2019-02-02 06:31 | NUR ---
Problems reprioritized. Patient report given, questions answered & plan of care reviewed with Laci BAY.
[2019-02-02] MEDS: lisinopril 5mg tablet OGT SCH (08:00)
[2019-02-02] MEDS: docusate sodium 100mg/10ml UD cup OGT SCH ×2 (08:00→20:21)
[2019-02-02] MEDS: carVEDilol 3.125mg tablet PO SCH ×2 (08:00→20:20)
[2019-02-02] MEDS: lactobacillus rhamnosus 10,000 MMU CELLS/CAPSULE OGT SCH ×2 (08:00→20:21)
[2019-02-02] MEDS: rivaroxaban 20mg tablet OGT SCH (08:00)
[2019-02-02] MEDS: furosemide 20 MG/2 ML vial IV SCH (08:22)
[2019-02-02] MEDS: famotidine/PF 10 mg/ml inj IV SCH ×2 (08:22→20:21)
[2019-02-02] MEDS: nystatin 15 GM powder TP SCH ×3 (08:23→21:58)
[2019-02-02] MEDS ORDERED: fentaNYL/PF 50MCG/1 ML 2ML syringe ONE (08:58)
[2019-02-02] MEDS ORDERED: LIDOcaine Viscous 15ml cup ONE (08:58)
[2019-02-02] MEDS ORDERED: MIDAZolam 5mg/5ml vial ONE (08:58)
--- NOTE | 2019-02-02 09:00 | NUR ---
GI to place peg GI at bedside to try to place PEG unable to place. Spoke with Dr. Marie who stated that IR would try again tomorrow and we would go from there.
[2019-02-02] MEDS ORDERED: LIDOcaine 1% (10mg/ml) 2ml vial ONE (09:01)
[2019-02-02] MEDS ORDERED: cefazolin/dext.iso 2gm/100 ML IV ONE (09:30)
[2019-02-02] MEDS: amiodarone 200mg tablet OGT SCH ×2 (10:42→20:20)
--- NOTE | 2019-02-02 11:18 | NUR ---
reassessment: Patient intubated and sedated. Trach placed last week. Now pending PEG placement tomorrow then transfer to [facility] afterwards. Was tolerating TF at goal. Weight trending back up, however still fluctuates up and down. Patient receiving lasix. Discussed patients water flushes at rounds, can decrease to 100 ml/hr while receiving lasix, sodium is 137. Will continue to follow. Recommend: 1. Continuous tube feeding per OG tube using Vital High protein at 85 ml/hr to provide 2040 ml total volume, 36543 cals, 179 g protein, 1705 ml water. When PEG is placed, continue tube feedings with Vital High Protein at 85 ml/hr. 2. Water flush 100 ml Q4H, d/w and RN 3. Prealbumin q /, daily wts Addendum: 02/02/19 at [address] Amended: Links added.
--- NOTE | 2019-02-02 11:30 | NUR ---
Dunbar per infection control Dunbar needs to be replaced. Spoke with Dr. Marie who agreed Dunbar D/C and reinserted with a new temp Dunbar. Patient handled procedure well.
[2019-02-02] MEDS: levoFLOXACIN-Levaquin 500mg/D5 100 ML IV SCH (11:52)
--- NOTE | 2019-02-02 12:14 | NUR ---
Spoke to Haresh in IR Spoke with Haresh in IR who stated he will reorder gastrograph and place patient on schedule for tomorrow to place PEG.
--- NOTE | 2019-02-02 16:11 | NUR ---
tube feed Restarted tube feed at goal of 85 patient will be NPO at midnight tonight for procedure in the AM.
--- NOTE | 2019-02-02 18:25 | NUR ---
Patient in room CICU 2009. I have received report from Laci BAY and had the opportunity to ask questions and assume patient care. pt on vent via trach, fio2 at 35%, pt restless, precedex gtt and fentanyl gtt, see IV flowsheet for more information. See Interventions for further information. Will continue to monitor.
[2019-02-02] MEDS: normal saline 1000ml 1,000 ML IV SCH (18:59)
--- NOTE | 2019-02-02 19:00 | NUR ---
Propofol gtt started, pt very agitated and thrashing in bed.
[2019-02-02] MEDS: propofol 1000mg/100ml bottle 100 ML IV PRN ×2 (20:20→23:45)
[2019-02-02] MEDS: insulin glargine (Lantus) pen - multi-dose SQ SCH (21:00)
[2019-02-02] MEDS ORDERED: diatr meglu/diatrizoate 30ml oral sol.-(3 dose) bottle PO ONE (23:45)
[2019-02-03] VITALS (34 sets, daily range): BP systolic 91–144; BP diastolic 31–91
[2019-02-03] MEDS: scopolamine 1.5mg patch.TD72 TD SCH (00:14)
[2019-02-03] MEDS: mineral oil/petrolatum ophthal oint EACHEYE SCH ×4 (02:17→19:56)
[2019-02-03] MEDS: dexmedetomidin/NS 400mcg/100ml 100 ML IV SCH ×3 (02:17→19:58)
[2019-02-03] MEDS: DOCOSANOL 2 GM CREAM..G. TP SCH ×4 (02:19→19:55)
[2019-02-03 02:54] LABS: BASOPHILS # (AUTO) 0.1 X10'3 (0-0.2); BASOPHILS % (AUTO) 0.5 % (0-1); EOSINOPHILS # (AUTO) 0.7 X10'3 (0-0.9); HEMATOCRIT 34.9 % (35.0-45.0); HEMOGLOBIN 11.1 g/dl (12.0-16.0); LYMPHOCYTES # (AUTO) 1.4 X10'3 (1.1-4.8); LYMPHOCYTES % (AUTO) 8.5 % (21-51); MEAN CORPUSCULAR HEMOGLOBIN 26.2 PG (27.0-31.0); MEAN CORPUSCULAR HGB CONC 31.7 g/dL (33.0-36.5); MEAN CORPUSCULAR VOLUME 82.6 FL (78-98); MEAN PLATELET VOLUME 8.3 FL (7.4-10.4); MONOCYTES # (AUTO) 1.7 X10'3 (0-0.9); MONOCYTES % (AUTO) 10.1 % (2-12); NEUTROPHILS # (AUTO) 12.9 X10'3 (1.8-7.7); NEUTROPHILS % (AUTO) 76.9 % (42-75); PLATELET COUNT 402 X10'3 (140-440); RED BLOOD COUNT 4.23 X10'6 (4.20-5.60); RED CELL DISTRIBUTION WIDTH 18.3 % (11.5-14.5); WHITE BLOOD COUNT 16.8 X10'3 (4.5-11.0)
[2019-02-03] MEDS: ipratropium/albuterol 3ml nebule NEB SCH ×4 (03:00→22:49)
[2019-02-03 03:07] LABS: ALANINE AMINOTRANSFERASE 48 U/L (12-78); ALBUMIN 2.4 G/DL (3.4-5.0); ALBUMIN/GLOBULIN RATIO 0.6 (1.1-1.5); ALKALINE PHOSPHATASE 227 IU/L (46-116); ANION GAP 7 (8-16); ASPARTATE AMINO TRANSFERASE 14 U/L (10-37); BILIRUBIN,TOTAL 0.5 MG/DL (0.1-1.0); BLOOD UREA NITROGEN 38 MG/DL (7-18); BUN/CREATININE RATIO 55.9 (6.6-38.0); CALCIUM 9.4 MG/DL (8.5-10.1); CHLORIDE 108 MMOL/L (99-107); CREATININE 0.68 MG/DL (0.40-0.90); GLUCOSE 120 MG/DL (70-104); POTASSIUM 4.4 MMOL/L (3.5-5.1); SODIUM 140 MMOL/L (135-145); TOTAL CARBON DIOXIDE 24.8 MMOL/L (24-32); TOTAL PROTEIN 6.7 G/DL (6.4-8.2); eGFR 89 ML/MIN
[2019-02-03 03:20] LABS: ABG BASE EXCESS -1.1 mmol/L (-2.0-3.0); ABG HCO3 23.8 mmol/L (22.0-26.0); ABG OXYGEN SATURATION 96.1 % (95-98); ABG PH (T) 7.375 (7.350-7.450); ABG PO2 (T) 84.9 mmHg (83-108); ALLEN'S TEST Positive; FCOHb 0.8 % (0.5-1.5); FMetHb 0.3 % (0.3-1.12); MINUTE VOLUME 6 L/min; PATIENT TEMPERATURE 37.7; PEEP 5 cm H2O; RESPIRATORY RATE (OBSERVED) 14 b/min; TOTAL HEMOGLOBIN 12.3 G/dl (12.0-16.0)
--- NOTE | 2019-02-03 06:25 | NUR ---
Problems reprioritized. Patient report given, questions answered & plan of care reviewed with Laci BAY.
[2019-02-03] MEDS: levoFLOXACIN-Levaquin 500mg/D5 100 ML IV SCH (07:13)
[2019-02-03] MEDS: nystatin 15 GM powder TP SCH ×3 (07:13→19:56)
[2019-02-03] MEDS: carVEDilol 3.125mg tablet PO SCH ×2 (08:00→19:55)
[2019-02-03] MEDS: docusate sodium 100mg/10ml UD cup OGT SCH ×2 (08:00→19:54)
[2019-02-03] MEDS: rivaroxaban 20mg tablet OGT SCH (08:00)
[2019-02-03] MEDS: lisinopril 5mg tablet OGT SCH (08:29)
[2019-02-03] MEDS: famotidine/PF 10 mg/ml inj IV SCH ×2 (08:29→19:54)
[2019-02-03] MEDS: furosemide 20 MG/2 ML vial IV SCH (08:29)
[2019-02-03] MEDS: amiodarone 200mg tablet OGT SCH ×2 (08:29→19:55)
[2019-02-03] MEDS: lactobacillus rhamnosus 10,000 MMU CELLS/CAPSULE OGT SCH ×2 (10:07→19:55)
[2019-02-03] MEDS ORDERED: zinc oxide ointment 30gm tube TP PRN (14:45)
--- NOTE | 2019-02-03 14:53 | NUR ---
TF Consult: Pt s/p PEG to receive same continuous nutrition support via PEG no change in recs. Continue current TF order. Will continue to monitor. Addendum: 02/03/19 at [address] Amended: Links added.
[2019-02-03] MEDS ORDERED: LIDOcaine 1%/PF 5ML 10 MG/ML VIAL ONE (15:13)
[2019-02-03] MEDS ORDERED: iohexol 300 MG/1 ML 50ml polymer ONE (15:14)
[2019-02-03] MEDS ORDERED: glucagon, human recombinant 1mg kit ONE (15:32)
--- NOTE | 2019-02-03 15:40 | NUR ---
Patient to IR Patient to IR for PEG placement care to Beth BAY.
[2019-02-03] MEDS ORDERED: LIDOcaine 1%/PF 5ML 10 MG/ML VIAL SQ ONE (16:10)
[2019-02-03] MEDS ORDERED: glucagon, human recombinant 1mg kit IV ONE (16:10)
--- NOTE | 2019-02-03 16:30 | NUR ---
Back from IR Back from IR PEG in place site has dressing over CDI. Patient very agitated on arrival.
[2019-02-03] MEDS: propofol 1000mg/100ml bottle 100 ML IV PRN (16:58)
[2019-02-03] MEDS: FENTANYL-0.9 % NACL/PF 100 ML IV PRN ×2 (16:59→23:54)
--- NOTE | 2019-02-03 18:30 | NUR ---
Patient in room CICU 2009. I have received report from Samia Aguero and had the opportunity to ask questions and assume patient care. Patient restless in bed with eyes open, moving legs about, pt on ventilator fio2 @ 30% peep of 5, propofol, fentanyl and precedex running, vital signs stable will continue to monitor
[2019-02-03] MEDS: insulin glargine (Lantus) pen - multi-dose SQ SCH (21:00)
[2019-02-04] VITALS (15 sets, daily range): BP systolic 87–158; BP diastolic 45–104
[2019-02-04] MEDS: ipratropium/albuterol 3ml nebule NEB SCH ×2 (02:51→09:40)
[2019-02-04] MEDS: mineral oil/petrolatum ophthal oint EACHEYE SCH ×2 (02:59→08:00)
[2019-02-04] MEDS: DOCOSANOL 2 GM CREAM..G. TP SCH ×2 (02:59→08:00)
[2019-02-04 03:11] LABS: ABG BASE EXCESS -1.6 mmol/L (-2.0-3.0); ABG HCO3 24.2 mmol/L (22.0-26.0); ABG OXYGEN SATURATION 95.5 % (95-98); ABG PCO2 (T) 46.6 mmHg (32.0-45.0); ABG PH (T) 7.336 (7.350-7.450); ABG PO2 (T) 82.6 mmHg (83-108); ALLEN'S TEST Positive; FCOHb 0.4 % (0.5-1.5); FMetHb 0.3 % (0.3-1.12); FO2Hb 94.8 % (94-100); MINUTE VOLUME 5 L/min; PATIENT TEMPERATURE 37.7; PEEP 5 cm H2O; RESPIRATORY RATE (OBSERVED) 11 b/min; TOTAL HEMOGLOBIN 11.9 G/dl (12.0-16.0)
[2019-02-04] MEDS: propofol 1000mg/100ml bottle 100 ML IV PRN ×2 (04:10→10:33)
[2019-02-04] MEDS: FENTANYL-0.9 % NACL/PF 100 ML IV PRN ×2 (05:32→10:35)
[2019-02-04 06:27] LABS: BASOPHILS # (AUTO) 0.1 X10'3 (0-0.2); BASOPHILS % (AUTO) 0.8 % (0-1); EOSINOPHILS # (AUTO) 0.7 X10'3 (0-0.9); EOSINOPHILS % (AUTO) 4.4 % (0-6); HEMATOCRIT 33.6 % (35.0-45.0); LYMPHOCYTES # (AUTO) 1.6 X10'3 (1.1-4.8); LYMPHOCYTES % (AUTO) 9.9 % (21-51); MEAN CORPUSCULAR HEMOGLOBIN 26.8 PG (27.0-31.0); MEAN CORPUSCULAR HGB CONC 32.8 g/dL (33.0-36.5); MEAN CORPUSCULAR VOLUME 81.6 FL (78-98); MONOCYTES # (AUTO) 2.2 X10'3 (0-0.9); MONOCYTES % (AUTO) 13.4 % (2-12); NEUTROPHILS # (AUTO) 11.7 X10'3 (1.8-7.7); NEUTROPHILS % (AUTO) 71.5 % (42-75); PLATELET COUNT 365 X10'3 (140-440); RED BLOOD COUNT 4.12 X10'6 (4.20-5.60); WHITE BLOOD COUNT 16.4 X10'3 (4.5-11.0)
[2019-02-04 07:06] LABS: ALBUMIN 2.5 G/DL (3.4-5.0); ALKALINE PHOSPHATASE 218 IU/L (46-116); ANION GAP 7 (8-16); BLOOD UREA NITROGEN 36 MG/DL (7-18); CALCIUM 9.4 MG/DL (8.5-10.1); CHLORIDE 107 MMOL/L (99-107); CREATININE 0.72 MG/DL (0.40-0.90); GLUCOSE 101 MG/DL (70-104); MAGNESIUM 1.7 MG/DL (1.5-2.4); POTASSIUM 4.3 MMOL/L (3.5-5.1); SODIUM 139 MMOL/L (135-145); TOTAL CARBON DIOXIDE 24.6 MMOL/L (24-32); eGFR 83 ML/MIN
[2019-02-04 07:29] LABS: ANISOCYTOSIS 1+; PLATELET ESTIMATE NORMAL; TOTAL CELLS COUNTED 100
[2019-02-04 07:30] LABS: ELLIPTOCYTES 1+
[2019-02-04] MEDS: amiodarone 200mg tablet OGT SCH (10:32)
[2019-02-04] MEDS: famotidine/PF 10 mg/ml inj IV SCH (10:32)
[2019-02-04] MEDS: docusate sodium 100mg/10ml UD cup OGT SCH (10:32)
[2019-02-04] MEDS: furosemide 20 MG/2 ML vial IV SCH (10:32)
[2019-02-04] MEDS: rivaroxaban 20mg tablet OGT SCH (10:32)
[2019-02-04] MEDS: lisinopril 5mg tablet OGT SCH (10:32)
[2019-02-04] MEDS: lactobacillus rhamnosus 10,000 MMU CELLS/CAPSULE OGT SCH (10:32)
[2019-02-04] MEDS: levoFLOXACIN-Levaquin 500mg/D5 100 ML IV SCH (10:33)
[2019-02-04] MEDS: carVEDilol 3.125mg tablet PO SCH (10:33)
[2019-02-04] MEDS: nystatin 15 GM powder TP SCH (10:34)
--- NOTE | 2019-02-04 12:34 | NUR ---
consent received from daughter Chantel and paperwork signed by two RNS
[2019-02-04] MEDS: dexmedetomidin/NS 400mcg/100ml 100 ML IV SCH (13:55)
[2019-02-04] MEDS ORDERED: LORazepam 2 mg/ml vial IM ONE (14:55)
--- NOTE | 2019-02-04 15:02 | NUR ---
PATIENT IS LEAVING TO [facility] VIA AMBULANCE
--- NOTE | 2019-02-04 16:27 | NUR ---
Patient transferred to [facility] and received by oncoming nurse Leonel, telephone and bedside report given. I was along for the transport and patient's VSS en route.
== END 2019-02-04 15:16 | DRG 4 ==
LOC: ER 22:37 → ED HOLD 12-25 03:50 → EDBEDREQ 12-25 06:03 → EDBEDREQSVC 12-25 06:03 → ED HOLD 12-25 06:03 → CICU 2S 12-25 09:45
PROVIDERS: ADMIT Hospitalist; ATTEND Internal Medicine Critical Care Medicine
PROC: 5A1955Z Respiratory Ventilation, Greater than 96 Consecutive Hours (ICD-10-PCS; principal; 2018-12-25)
PROC: 0BH17EZ Insertion of Endotracheal Airway into Trachea, Via Natural or Artificial Opening (ICD-10-PCS; 2018-12-25)
PROC: B42G1ZZ Computerized Tomography (CT Scan) of Left Lower Extremity Arteries using Low Osmolar Contrast (ICD-10-PCS; 2018-12-25)
PROC: 0D9670Z Drainage of Stomach with Drainage Device, Via Natural or Artificial Opening (ICD-10-PCS; 2018-12-25)
PROC: 0BCL8ZZ Extirpation of Matter from Left Lung, Via Natural or Artificial Opening Endoscopic (ICD-10-PCS; 2018-12-27)
PROC: 0B9H8ZX Drainage of Lung Lingula, Via Natural or Artificial Opening Endoscopic, Diagnostic (ICD-10-PCS; 2018-12-27)
PROC: 02HV33Z Insertion of Infusion Device into Superior Vena Cava, Percutaneous Approach (ICD-10-PCS; 2019-01-09)
PROC: 4A02X4A Measurement of Cardiac Electrical Activity, Guidance, External Approach (ICD-10-PCS; 2019-01-09)
PROC: B548ZZA Ultrasonography of Superior Vena Cava, Guidance (ICD-10-PCS; 2019-01-09)
PROC: 0B113F4 Bypass Trachea to Cutaneous with Tracheostomy Device, Percutaneous Approach (ICD-10-PCS; 2019-01-30)
PROC: 4A10X4Z Monitoring of Central Nervous Electrical Activity, External Approach (ICD-10-PCS; 2019-02-02)
PROC: 0DJ08ZZ Inspection of Upper Intestinal Tract, Via Natural or Artificial Opening Endoscopic (ICD-10-PCS; 2019-02-02)
PROC: 0DH63UZ Insertion of Feeding Device into Stomach, Percutaneous Approach (ICD-10-PCS; 2019-02-03)
DX: A41.9 Sepsis, unspecified organism (principal); R65.21 Severe sepsis with septic shock; J15.212 Pneumonia due to Methicillin resistant Staphylococcus aureus; G93.41 Metabolic encephalopathy; J96.20 Acute and chronic respiratory failure, unspecified whether with hypoxia or hypercapnia; E11.22 Type 2 diabetes mellitus with diabetic chronic kidney disease; I13.0 Hypertensive heart and chronic kidney disease with heart failure and stage 1 through stage 4 chronic kidney disease, or unspecified chronic kidney disease; N17.9 Acute kidney failure, unspecified; I48.0 Paroxysmal atrial fibrillation; I48.92 Unspecified atrial flutter; N18.3 Chronic kidney disease, stage 3 (moderate); I50.22 Chronic systolic (congestive) heart failure; L03.115 Cellulitis of right lower limb; J44.0 Chronic obstructive pulmonary disease with (acute) lower respiratory infection; T17.990A Other foreign object in respiratory tract, part unspecified in causing asphyxiation, initial encounter; F12.90 Cannabis use, unspecified, uncomplicated; X58.XXXA Exposure to other specified factors, initial encounter; I25.10 Atherosclerotic heart disease of native coronary artery without angina pectoris; G89.29 Other chronic pain; M54.9 Dorsalgia, unspecified; J98.11 Atelectasis; L03.116 Cellulitis of left lower limb; Z79.01 Long term (current) use of anticoagulants; Z82.5 Family history of asthma and other chronic lower respiratory diseases; Z83.3 Family history of diabetes mellitus; Z87.11 Personal history of peptic ulcer disease; Z98.51 Tubal ligation status; Z79.899 Other long term (current) drug therapy; Z81.1 Family history of alcohol abuse and dependence; Y93.89 Activity, other specified; Y92.89 Other specified places as the place of occurrence of the external cause; Y99.8 Other external cause status
CPT/HCPCS: 31500; 31645; 36415; 36569; 36600; 49440; 70544; 70551; 71045; 73620; 73706; 74018; 76775; 76937; 80048; 80053; 80202; 80305; 80320; 81001; 82570; 82803; 82948; 83036; 83605; 83735; 84075; 84100; 84132; 84134; 84145; 84300; 84439; 84443; 84484; 85018; 85025; 85610; 85730; 87040; 87070; 87077; 87186; 87207; 93005; 93306; 93922; 93925; 94002; 94003; 94640; 94760; 95816; 96365; 96367; 96375; 96376; 97110; 97162; 97530; 97535; 99152; 99291; B4088; G0378; J0282; J0690; J0692; J0696; J1100; J1170; J1200; J1610; J1644; J1815; J1940; J1956; J2001; J2060; J2250; J2270; J2543; J2704; J3010; J3370; J3480; J3490; J7030; Q9963; Q9967

== ENCOUNTER 2020-01-07 08:12 | Emergency (ER) | payer MEDICAID ==
[~2020-01-07] VITALS: Ht 165.1 cm; Wt 102.0 kg
[~2020-01-07 08:12] MED LIST changes: -BISA10SU8 RC; -BUDE10.2 INH; +DILT120C51 PO; -DILT240C96 PO; -METO25TA6 PO; -NITR0.4T51 SL; -PANT-47 PO
[2020-01-07] MEDS ORDERED: normal saline 1000ML IV soln IVB ONE (08:20)
[2020-01-07] MEDS ORDERED: ondansetron/PF 4mg/2ml inj IV ONE (08:20)
[2020-01-07 08:39] LABS: BASOPHILS # (AUTO) 0.1 X10'3 (0-0.2); BASOPHILS % (AUTO) 0.5 % (0-1); EOSINOPHILS % (AUTO) 0.1 % (0-6); HEMATOCRIT 42.9 % (35.0-45.0); HEMOGLOBIN 13.9 g/dl (12.0-16.0); LYMPHOCYTES # (AUTO) 1.2 X10'3 (1.1-4.8); LYMPHOCYTES % (AUTO) 8.2 % (21-51); MEAN CORPUSCULAR HEMOGLOBIN 25.8 PG (27.0-31.0); MEAN CORPUSCULAR HGB CONC 32.4 g/dL (33.0-36.5); MEAN CORPUSCULAR VOLUME 79.5 FL (78-98); MEAN PLATELET VOLUME 8.2 FL (7.4-10.4); MONOCYTES # (AUTO) 0.8 X10'3 (0-0.9); MONOCYTES % (AUTO) 5.6 % (2-12); NEUTROPHILS # (AUTO) 12.3 X10'3 (1.8-7.7); NEUTROPHILS % (AUTO) 85.6 % (42-75); PLATELET COUNT 537 X10'3 (140-440); RED BLOOD COUNT 5.39 X10'6 (4.20-5.60); WHITE BLOOD COUNT 14.4 X10'3 (4.5-11.0)
[2020-01-07 08:49] LABS: PARTIAL THROMBOPLASTIN TIME 33 SECONDS (22-32)
[2020-01-07 08:51] LABS: ALANINE AMINOTRANSFERASE 17 U/L (12-78); ALBUMIN 3.4 G/DL (3.4-5.0); ALBUMIN/GLOBULIN RATIO 0.7 (1.1-1.5); ALKALINE PHOSPHATASE 191 IU/L (46-116); ANION GAP 9 (8-16); ASPARTATE AMINO TRANSFERASE 18 U/L (10-37); BILIRUBIN,TOTAL 0.7 MG/DL (0.1-1.0); BLOOD UREA NITROGEN 17 MG/DL (7-18); BUN/CREATININE RATIO 17.3 (6.6-38.0); CALCIUM 9.4 MG/DL (8.5-10.1); CHLORIDE 98 MMOL/L (99-107); CREATININE 0.98 MG/DL (0.40-0.90); ETHANOL < 0.010 GM/DL (0.0-0.010); GLUCOSE 158 MG/DL (70-104); LIPASE 105 U/L (73-393); MAGNESIUM 1.8 MG/DL (1.5-2.4); POTASSIUM 4.3 MMOL/L (3.5-5.1); SODIUM 135 MMOL/L (135-145); TOTAL CARBON DIOXIDE 28.3 MMOL/L (24-32); TOTAL PROTEIN 8.4 G/DL (6.4-8.2); eGFR 58 ML/MIN
[2020-01-07] MEDS: morphine 2 MG/ML inj. syringe IV PRN ×3 (09:07→14:00)
[2020-01-07] MEDS ORDERED: diphenhydrAMINE 50 mg/ml inj IV ONE (10:15)
[2020-01-07] MEDS ORDERED: diphenhydrAMINE 50 mg/ml inj IM ONE (10:20)
[2020-01-07 12:07] LABS: CLARITY,URINE SLIGHTLY CLOUDY (Clear); COLOR,URINE STRAW (Yellow); GLUCOSE, URINE NEGATIVE (Neg); KETONES,URINE NEGATIVE (Neg); LEUKOCYTE ESTERASE ,URINE NEGATIVE (Neg); NITRITES, URINE NEGATIVE (Neg); OCCULT BLOOD,URINE SMALL (Neg); PROTEIN,URINE 100 mg/dl (Neg); UROBILINOGEN,URINE 0.2 E.U/dL (0.2-1.0)
[2020-01-07 12:14] LABS: UA COLLECTION TYPE VOIDED
[2020-01-07 12:20] LABS: SQUAMOUS EPITHELIAL CELL,UR MANY /LPF (FEW)
[2020-01-07 12:21] LABS: BACTERIA,URINE 1+ /HPF (Neg); RBC,URINE 0-2 /HPF (0-2); WBC,URINE 0-4 /HPF (0-4)
[2020-01-07 13:20] LABS: URINE AMPHETAMINE SCREEN NEGATIVE (Neg); URINE BARBITUATE SCREEN NEGATIVE (Neg); URINE BENZODIAZEPINES SCREEN NEGATIVE (Neg); URINE CANNABINOID SCREEN POSITIVE (Neg); URINE COCAINE SCREEN NEGATIVE (Neg); URINE METHADONE SCREEN NEGATIVE (Neg); URINE OPIATE SCREEN POSITIVE (Neg); URINE PHENCYCLIDINE SCREEN NEGATIVE (Neg)
[2020-01-07] MEDS ORDERED: dicyclomine 10 MG capsule PO ONE (13:50)
[2020-01-07] MEDS ORDERED: ONDA4TAB6 PO (13:50)
[2020-01-07 14:06] VITALS: BP 160/87
--- NOTE | 2020-01-07 14:10 | NUR ---
VARNEY [phone] ESTHER [phone] HENRI
== END 2020-01-07 14:08 | disposition home or self-care (01) ==
LOC: ER 08:13
DX: R10.84 Generalized abdominal pain (principal); R11.2 Nausea with vomiting, unspecified; I48.91 Unspecified atrial fibrillation; I25.10 Atherosclerotic heart disease of native coronary artery without angina pectoris; I50.9 Heart failure, unspecified; I11.0 Hypertensive heart disease with heart failure; J44.9 Chronic obstructive pulmonary disease, unspecified; E11.9 Type 2 diabetes mellitus without complications; G89.29 Other chronic pain; F12.90 Cannabis use, unspecified, uncomplicated; Z98.51 Tubal ligation status; Z79.899 Other long term (current) drug therapy
CPT/HCPCS: 36415; 74018; 80053; 80305; 80320; 81001; 83690; 83735; 84484; 85025; 85610; 85730; 93005; 96361; 96374; 96375; 96376; 99285; J2270; J2405; J7030

== ENCOUNTER 2020-03-17 23:45 | Inpatient (IN) | payer MEDICAID ==
[~2020-03-17] VITALS: Ht 167.6 cm; Wt 110.0 kg
[~2020-03-17 23:45] MED LIST changes: +ONDA4TAB6 PO
[2020-03-18 01:01] LABS: EOSINOPHILS # (AUTO) 1.3 X10'3 (0-0.9); LYMPHOCYTES # (AUTO) 1.6 X10'3 (1.1-4.8); LYMPHOCYTES % (AUTO) 8.1 % (21-51); MEAN PLATELET VOLUME 8.9 FL (7.4-10.4); MONOCYTES # (AUTO) 1.4 X10'3 (0-0.9); RED CELL DISTRIBUTION WIDTH 19.1 % (11.5-14.5)
[2020-03-18] MEDS ORDERED: diltiazem-D5W 125mg/125ml 125 ML IV ONE (01:01)
[2020-03-18] MEDS ORDERED: diltiazem 5mg/ml 5ml inj. IV ONE (01:05)
[2020-03-18 01:06] LABS: BASOPHILS # (AUTO) 0.1 X10'3 (0-0.2); BASOPHILS % (AUTO) 0.5 % (0-1); EOSINOPHILS % (AUTO) 6.5 % (0-6); HEMATOCRIT 49.9 % (35.0-45.0); HEMOGLOBIN 16.1 g/dl (12.0-16.0); MEAN CORPUSCULAR HEMOGLOBIN 26.9 PG (27.0-31.0); MEAN CORPUSCULAR HGB CONC 32.2 g/dL (33.0-36.5); MEAN CORPUSCULAR VOLUME 83.5 FL (78-98); MONOCYTES % (AUTO) 7.1 % (2-12); NEUTROPHILS # (AUTO) 15.8 X10'3 (1.8-7.7); NEUTROPHILS % (AUTO) 77.8 % (42-75); PLATELET COUNT 429 X10'3 (140-440); RED BLOOD COUNT 5.98 X10'6 (4.20-5.60); WHITE BLOOD COUNT 20.3 X10'3 (4.5-11.0)
[2020-03-18] MEDS ORDERED: diltiazem-NS 100mg/100ml 100 ML IV ONE (01:06)
[2020-03-18 01:25] LABS: ALANINE AMINOTRANSFERASE 25 U/L (12-78); ALBUMIN 4.2 G/DL (3.4-5.0); ALBUMIN/GLOBULIN RATIO 0.9 (1.1-1.5); ALKALINE PHOSPHATASE 291 IU/L (46-116); ANION GAP 13 (8-16); ASPARTATE AMINO TRANSFERASE 21 U/L (10-37); BILIRUBIN,TOTAL 0.5 MG/DL (0.1-1.0); BLOOD UREA NITROGEN 32 MG/DL (7-18); BUN/CREATININE RATIO 15.1 (6.6-38.0); CALCIUM 10.1 MG/DL (8.5-10.1); CHLORIDE 104 MMOL/L (99-107); CREATININE 2.12 MG/DL (0.40-0.90); GLUCOSE 140 MG/DL (70-104); POTASSIUM 4.8 MMOL/L (3.5-5.1); SODIUM 140 MMOL/L (135-145); TOTAL CARBON DIOXIDE 23.3 MMOL/L (24-32); eGFR 24 ML/MIN
[2020-03-18 01:26] LABS: LIPASE 142 U/L (73-393); MAGNESIUM 1.9 MG/DL (1.5-2.4); TROPONIN I 0.12 NG/ML (0.0-0.05)
[2020-03-18] MEDS ORDERED: morphine 4 MG/ML inj SYRINge IV ONE (02:00)
[2020-03-18 02:13] LABS: CLARITY,URINE CLOUDY (Clear); COLOR,URINE YELLOW (Yellow); GLUCOSE, URINE NEGATIVE (Neg); KETONES,URINE NEGATIVE (Neg); LEUKOCYTE ESTERASE ,URINE NEGATIVE (Neg); NITRITES, URINE NEGATIVE (Neg); OCCULT BLOOD,URINE NEGATIVE (Neg); PROTEIN,URINE >=300 mg/dl (Neg); UA COLLECTION TYPE FOLEY CATH
[2020-03-18 02:23] LABS: BACTERIA,URINE NONE SEEN /HPF (Neg); RBC,URINE NONE SEEN /HPF (0-2); SQUAMOUS EPITHELIAL CELL,UR MODERATE /LPF (FEW); WBC,URINE 0-4 /HPF (0-4)
[2020-03-18] MEDS ORDERED: normal saline 1000ML IV soln IVB ONE (02:35)
--- NOTE | 2020-03-18 03:48 | NUR ---
dr english made aware pts pain is 10/10. She was also made aware pt didn't have much output from catheter. she was given 2liters of ns and she's only had 30cc. catheter was readjusted.
[2020-03-18] MEDS ORDERED: mag hydrox/Alum hydrox/simeth 30ml oral suspension PO PRN (04:20)
[2020-03-18] MEDS ORDERED: albuterol 2.5 MG/3 ML nebule NEB PRN ×2 (04:20)
[2020-03-18] MEDS ORDERED: ondansetron/PF 4mg/2ml inj IV PRN (04:20)
[2020-03-18] MEDS ORDERED: potassium CL 10mEq/100ml bag 100 ML IV PRN ×2 (04:20)
[2020-03-18] MEDS ORDERED: magnesium 4gm in 100ml NS 100 ML IV PRN (04:20)
[2020-03-18] MEDS ORDERED: magnesium 2GM in 50ml NS 50 ML IV PRN (04:20)
[2020-03-18] MEDS ORDERED: potassium Cl 20 mEq SR tablet PO PRN ×2 (04:20)
[2020-03-18] MEDS ORDERED: HYDROmorphone inj. 0.5 MG/0.5 ML DISP.SYRIN IV PRN ×2 (04:20→17:15)
[2020-03-18] MEDS ORDERED: acetaminophen 325mg tablet PO PRN (04:20)
[2020-03-18] MEDS ORDERED: HYDROmorphone 1 mg/ml syringe IV PRN ×2 (04:20→17:15)
[2020-03-18] MEDS ORDERED: magnesium Cl slow-release 64mg tablet PO PRN (04:20)
--- NOTE | 2020-03-18 04:21 | NUR ---
dr. gamboa made aware, pt is trying to get out of bed d/t her pain. pt is uncomfortable. pt is diaphoretic. per dr. english she will place orders for pt.
--- NOTE | 2020-03-18 05:14 | NUR ---
pt resting comfortably. trop came back at 0.[address] Dutton.
--- NOTE | 2020-03-18 05:25 | NUR ---
received report from Digna BAY ER, awaiting arrival to the unit.
[2020-03-18 05:45] VITALS: BP 128/81
--- NOTE | 2020-03-18 06:40 | NUR ---
Patient in room PCU 3026. I have received report from [facility] SHANIQUE and had the opportunity to ask questions and assume patient care. BEDSIDE REPORT COMPLETED. PT SITTING UP ON SIDE OF BED. NO DISTRESS. Addendum: 03/18/20 at 0815 by Sera Enriquez RN Amended: Links added.
--- NOTE | 2020-03-18 06:46 | NUR ---
Problems reprioritized. Patient report given, questions answered & plan of care reviewed with Diana charge account authorizer.
[2020-03-18] MEDS: K and/or MAG REPLACEMENT MC SCH ×2 (08:00→19:38)
--- NOTE | 2020-03-18 08:16 | NUR ---
Problems reprioritized. Patient report given, questions answered & plan of care reviewed with LAMONT BAY. Addendum: 03/18/20 at 0816 by Sera Enriquez RN Amended: Links added.
--- NOTE | 2020-03-18 08:20 | NUR ---
Patient in room PCU 3026. I have received report from Sera BAY and had the opportunity to ask questions and assume patient care.
[2020-03-18] MEDS: CefTRIAXone/D5W-Rocephin 1gm 50 ML IV SCH (09:19)
[2020-03-18] MEDS ORDERED: diltiazem-NS 100mg/100ml 100 ML IV SCH (10:00)
[2020-03-18 12:40] LABS: BASOPHILS # (AUTO) 0.1 X10'3 (0-0.2); BASOPHILS % (AUTO) 0.9 % (0-1); EOSINOPHILS # (AUTO) 1.3 X10'3 (0-0.9); HEMATOCRIT 45.5 % (35.0-45.0); HEMOGLOBIN 14.6 g/dl (12.0-16.0); LYMPHOCYTES # (AUTO) 1.9 X10'3 (1.1-4.8); LYMPHOCYTES % (AUTO) 13.1 % (21-51); MEAN CORPUSCULAR HEMOGLOBIN 26.5 PG (27.0-31.0); MEAN CORPUSCULAR HGB CONC 32.1 g/dL (33.0-36.5); MEAN CORPUSCULAR VOLUME 82.4 FL (78-98); MEAN PLATELET VOLUME 8.4 FL (7.4-10.4); MONOCYTES # (AUTO) 1.6 X10'3 (0-0.9); NEUTROPHILS # (AUTO) 9.7 X10'3 (1.8-7.7); PLATELET COUNT 418 X10'3 (140-440); RED BLOOD COUNT 5.53 X10'6 (4.20-5.60); RED CELL DISTRIBUTION WIDTH 19.1 % (11.5-14.5); WHITE BLOOD COUNT 14.8 X10'3 (4.5-11.0)
[2020-03-18 13:24] LABS: TOTAL CELLS COUNTED 100
[2020-03-18 13:25] LABS: PLATELET ESTIMATE NORMAL
[2020-03-18 13:27] LABS: TOXIC VACUOLATION FEW
[2020-03-18 13:28] LABS: ANISOCYTOSIS 2+
[2020-03-18] MEDS ORDERED: CARV6.253 PO (14:21)
[2020-03-18] MEDS ORDERED: OMEP40CA13 PO (14:21)
[2020-03-18] MEDS ORDERED: AMIO200T61 PO (14:21)
[2020-03-18] MEDS ORDERED: TRAZ-251 PO (14:21)
[2020-03-18 15:00] VITALS: BP 136/92
--- NOTE | 2020-03-18 15:10 | NUR ---
DM consult: Pt with A1c 5.9%, DM education not warranted at this time. Will continue to follow. Addendum: 03/18/20 at [address] Amended: Links added.
[2020-03-18] MEDS ORDERED: ALBUTEROL INHALER 1 PUFF/90 MCG INHALER IH PRN (17:15)
--- NOTE | 2020-03-18 17:24 | NUR ---
PAGER ID: [phone] MESSAGE: [id number] ChenGuillaume: FYI On admission pt HR 160 SVT, pt was ambulating to bathroom and would not wait, returned back to bed, administered 2 mg ativan, HR return to 100. Thanks Rachel Addendum: 03/18/20 at 1725 by Rachel Faustin RN Disregard note, wrong patient
[2020-03-18 18:00] VITALS: BP 129/87
--- NOTE | 2020-03-18 18:17 | NUR ---
PAGER ID: [phone] MESSAGE: [id number] Shannan Post: Pt has increased confusion, do you want an ABG? thanks Rachel
[2020-03-18] MEDS ORDERED: diltiazem CD 120mg capsule (once-daily) PO ONE (18:30)
--- NOTE | 2020-03-18 18:32 | NUR ---
received orders for ABG, RT eval and treat, and PO cardizem to give now to stop Cardizem Gtts per dr fernandes
--- NOTE | 2020-03-18 18:33 | NUR ---
Problems reprioritized. Patient report given, questions answered & plan of care reviewed with Anni BAY.
[2020-03-18 19:03] VITALS: BP 143/69
[2020-03-18] MEDS: carvedilol 6.25mg tablet PO SCH (19:32)
[2020-03-18] MEDS: lactobacillus rhamnosus 10,000 MMU CELLS/CAPSULE PO SCH (19:32)
[2020-03-18 19:33] VITALS: BP 157/91
--- NOTE | 2020-03-18 20:02 | NUR ---
Cardizem drip stopped per MD's order ( 1 hour after pt took Cardizem PO). . Pt is stable. BP = 105/74; Hr = 80, no apparent distress; will continue to monitor pt
[2020-03-18] MEDS ORDERED: traZODone 50mg tablet PO SCH (21:00)
[2020-03-19] MEDS ORDERED: non-formulary drug (Ondansetron Hcl (Zofran) 1 TAB) PO SCH
[2020-03-19 02:00] VITALS: BP 120/77
[2020-03-19 06:00] VITALS: BP 119/78
[2020-03-19 06:30] LABS: BASOPHILS # (AUTO) 0.2 X10'3 (0-0.2); BASOPHILS % (AUTO) 1.9 % (0-1); EOSINOPHILS # (AUTO) 1.5 X10'3 (0-0.9); EOSINOPHILS % (AUTO) 13.9 % (0-6); HEMATOCRIT 41.6 % (35.0-45.0); HEMOGLOBIN 13.4 g/dl (12.0-16.0); LYMPHOCYTES # (AUTO) 1.9 X10'3 (1.1-4.8); LYMPHOCYTES % (AUTO) 17.8 % (21-51); MEAN CORPUSCULAR HEMOGLOBIN 27.1 PG (27.0-31.0); MEAN CORPUSCULAR HGB CONC 32.3 g/dL (33.0-36.5); MEAN CORPUSCULAR VOLUME 83.9 FL (78-98); MEAN PLATELET VOLUME 8.6 FL (7.4-10.4); MONOCYTES # (AUTO) 1.1 X10'3 (0-0.9); MONOCYTES % (AUTO) 10.9 % (2-12); NEUTROPHILS # (AUTO) 5.8 X10'3 (1.8-7.7); NEUTROPHILS % (AUTO) 55.5 % (42-75); PLATELET COUNT 315 X10'3 (140-440); RED BLOOD COUNT 4.96 X10'6 (4.20-5.60); RED CELL DISTRIBUTION WIDTH 19.3 % (11.5-14.5); WHITE BLOOD COUNT 10.5 X10'3 (4.5-11.0)
[2020-03-19 06:31] LABS: ALBUMIN 3.2 G/DL (3.4-5.0); ANION GAP 11 (8-16); BLOOD UREA NITROGEN 30 MG/DL (7-18); BUN/CREATININE RATIO 20.4 (6.6-38.0); CHLORIDE 112 MMOL/L (99-107); CREATININE 1.47 MG/DL (0.40-0.90); GLUCOSE 94 MG/DL (70-104); POTASSIUM 4.8 MMOL/L (3.5-5.1); SODIUM 145 MMOL/L (135-145); TOTAL CARBON DIOXIDE 22.3 MMOL/L (24-32); eGFR 36 ML/MIN
--- NOTE | 2020-03-19 06:38 | NUR ---
Problems reprioritized. Patient report given, questions answered & plan of care reviewed with SHANIQUE Mcduffie.
--- NOTE | 2020-03-19 06:40 | NUR ---
Patient in room PCU 3018. I have received report from Emili BAY and had the opportunity to ask questions and assume patient care.
[2020-03-19] MEDS: K and/or MAG REPLACEMENT MC SCH (07:13)
[2020-03-19 07:45] LABS: ABG BASE EXCESS -4.9 mmol/L (-2.0-2.0); ABG HCO3 20.7 mmol/L (22.0-26.0); ABG OXYGEN SATURATION 87.8 % (94-97); ABG PCO2 (T) 40.5 mmHg (32.0-45.0); ABG PO2 (T) 55.2 mmHg (75.0-100.0); ALLEN'S TEST POSITIVE; FCOHb 0.6 % (0.0-3.9); FMetHb 0.2 % (0.0-1.5); FO2Hb 87.1 % (94-97); TOTAL HEMOGLOBIN 13.4 G/dl (12.0-16.0)
[2020-03-19] MEDS ORDERED: lisinopril 5mg tablet PO SCH (08:00)
[2020-03-19] MEDS ORDERED: diltiazem CD 120mg capsule (once-daily) PO SCH (08:00)
[2020-03-19] MEDS ORDERED: rivaroxaban 20mg tablet PO SCH (08:00)
[2020-03-19] MEDS ORDERED: potassium chloride 10mEq ER tablet PO SCH (08:00)
[2020-03-19] MEDS ORDERED: amiodarone 200mg tablet PO SCH (08:00)
[2020-03-19] MEDS ORDERED: pantoprazole 40mg Tablet.DR PO SCH (08:00)
[2020-03-19] MEDS ORDERED: furosemide 20MG tablet PO SCH (08:00)
[2020-03-19] MEDS: CefTRIAXone/D5W-Rocephin 1gm 50 ML IV SCH (08:35)
[2020-03-19] MEDS: carvedilol 6.25mg tablet PO SCH (08:38)
[2020-03-19] MEDS: lactobacillus rhamnosus 10,000 MMU CELLS/CAPSULE PO SCH (08:39)
[2020-03-19] MEDS ORDERED: LEVO500T89 PO (09:17)
[2020-03-19 11:13] VITALS: BP 104/84
[2020-03-19] MEDS ORDERED: ondansetron 4mg rapidly disintigrating tab PO PRN (12:50)
--- NOTE | 2020-03-19 13:29 | NUR ---
Pt. transportation needs arise at time of discharge. [employer] transportation is called for service. Pharmacy is called with prescription for oral antibiotics. Delays
--- NOTE | 2020-03-19 13:40 | NUR ---
AM PM transportantion is arranged for discharge transportation. home address [address] [address]
== END 2020-03-19 14:02 | disposition home or self-care (01) | DRG 720 ==
LOC: ER 23:45 → ED HOLD 03-18 04:20 → PCU 3S 03-18 06:13
PROVIDERS: ADMIT Internal Medicine; ATTEND Internal Medicine
DX: A41.9 Sepsis, unspecified organism (principal); G93.41 Metabolic encephalopathy; N17.9 Acute kidney failure, unspecified; E11.22 Type 2 diabetes mellitus with diabetic chronic kidney disease; I13.0 Hypertensive heart and chronic kidney disease with heart failure and stage 1 through stage 4 chronic kidney disease, or unspecified chronic kidney disease; I50.22 Chronic systolic (congestive) heart failure; E86.0 Dehydration; I48.0 Paroxysmal atrial fibrillation; J44.0 Chronic obstructive pulmonary disease with (acute) lower respiratory infection; F17.210 Nicotine dependence, cigarettes, uncomplicated; G89.4 Chronic pain syndrome; I25.10 Atherosclerotic heart disease of native coronary artery without angina pectoris; N18.9 Chronic kidney disease, unspecified; Z87.11 Personal history of peptic ulcer disease; Z98.51 Tubal ligation status; M54.5 Low back pain; D64.9 Anemia, unspecified
CPT/HCPCS: 36415; 36600; 71045; 74176; 76937; 80048; 80053; 81001; 82803; 82948; 83036; 83605; 83690; 83735; 83880; 84145; 84484; 85018; 85025; 85651; 87040; 87081; 93005; 93306; 94760; 97110; 97116; 97161; 97530; 99285; G0378; J0696; J1170; J2270; J2405; J3490; J7030

== ENCOUNTER 2020-05-25 11:43 | Day surgery (SDC) | payer MEDICAID ==
[~2020-05-25 11:43] MED LIST changes: +AMIO200T61 PO; +CARV6.253 PO; -DILT120C51 PO; +DIPH25CA46 PO; +METR-159 PO; +OMEP40CA13 PO; -ONDA4TAB6 PO; +OXYC-150 PO; -POTA10TA15 PO; +TRAZ-251 PO
[2020-05-25] MEDS ORDERED: LIDOcaine 2% 5ml jelly ONE ×4 (13:19→14:10)
== END 2020-05-25 14:47 | disposition home or self-care (01) ==
LOC: WOUND CARE 11:43
PROVIDERS: ATTEND Nurse Practitioner
DX: T81.89XD Other complications of procedures, not elsewhere classified, subsequent encounter (principal); L98.492 Non-pressure chronic ulcer of skin of other sites with fat layer exposed; J44.9 Chronic obstructive pulmonary disease, unspecified; I11.0 Hypertensive heart disease with heart failure; I50.43 Acute on chronic combined systolic (congestive) and diastolic (congestive) heart failure; E11.65 Type 2 diabetes mellitus with hyperglycemia; I25.10 Atherosclerotic heart disease of native coronary artery without angina pectoris; E86.0 Dehydration; E87.5 Hyperkalemia; K44.9 Diaphragmatic hernia without obstruction or gangrene; K57.30 Diverticulosis of large intestine without perforation or abscess without bleeding; E66.01 Morbid (severe) obesity due to excess calories; G89.29 Other chronic pain; I48.91 Unspecified atrial fibrillation; F17.210 Nicotine dependence, cigarettes, uncomplicated; F12.90 Cannabis use, unspecified, uncomplicated; F15.10 Other stimulant abuse, uncomplicated; Z79.01 Long term (current) use of anticoagulants; Z79.899 Other long term (current) drug therapy; Z68.34 Body mass index [BMI] 34.0-34.9, adult; Z98.51 Tubal ligation status
CPT/HCPCS: 97597

== ENCOUNTER 2020-05-27 09:10 | Day surgery (SDC) | payer MEDICAID ==
[2020-05-27] MEDS ORDERED: LIDOcaine 2% 5ml jelly ONE (09:26)
== END 2020-05-27 12:40 | disposition home or self-care (01) ==
LOC: WOUND CARE 09:10
PROVIDERS: ATTEND Nurse Practitioner
DX: T81.89XD Other complications of procedures, not elsewhere classified, subsequent encounter (principal); L98.492 Non-pressure chronic ulcer of skin of other sites with fat layer exposed; J44.9 Chronic obstructive pulmonary disease, unspecified; I11.0 Hypertensive heart disease with heart failure; I50.43 Acute on chronic combined systolic (congestive) and diastolic (congestive) heart failure; E11.65 Type 2 diabetes mellitus with hyperglycemia; I25.10 Atherosclerotic heart disease of native coronary artery without angina pectoris; E86.0 Dehydration; E87.5 Hyperkalemia; K44.9 Diaphragmatic hernia without obstruction or gangrene; K57.30 Diverticulosis of large intestine without perforation or abscess without bleeding; E66.01 Morbid (severe) obesity due to excess calories; G89.29 Other chronic pain; I48.91 Unspecified atrial fibrillation; F17.210 Nicotine dependence, cigarettes, uncomplicated; F12.90 Cannabis use, unspecified, uncomplicated; F15.10 Other stimulant abuse, uncomplicated; Z79.01 Long term (current) use of anticoagulants; Z79.899 Other long term (current) drug therapy; Z68.34 Body mass index [BMI] 34.0-34.9, adult; Z98.51 Tubal ligation status; Y83.8 Other surgical procedures as the cause of abnormal reaction of the patient, or of later complication, without mention of misadventure at the time of the procedure
CPT/HCPCS: 97597

== ENCOUNTER 2020-06-03 11:45 | Day surgery (SDC) | payer MEDICAID ==
[2020-06-03] MEDS ORDERED: LIDOcaine 2% 5ml jelly ONE (12:13)
== END 2020-06-03 13:34 | disposition home or self-care (01) ==
LOC: WOUND CARE 11:45
PROVIDERS: ATTEND Nurse Practitioner
DX: T81.89XD Other complications of procedures, not elsewhere classified, subsequent encounter (principal); L98.492 Non-pressure chronic ulcer of skin of other sites with fat layer exposed; J44.9 Chronic obstructive pulmonary disease, unspecified; I11.0 Hypertensive heart disease with heart failure; I50.43 Acute on chronic combined systolic (congestive) and diastolic (congestive) heart failure; E11.65 Type 2 diabetes mellitus with hyperglycemia; I25.10 Atherosclerotic heart disease of native coronary artery without angina pectoris; E86.0 Dehydration; E87.5 Hyperkalemia; K44.9 Diaphragmatic hernia without obstruction or gangrene; K57.30 Diverticulosis of large intestine without perforation or abscess without bleeding; E66.01 Morbid (severe) obesity due to excess calories; G89.29 Other chronic pain; I48.91 Unspecified atrial fibrillation; F17.210 Nicotine dependence, cigarettes, uncomplicated; F12.90 Cannabis use, unspecified, uncomplicated; F15.10 Other stimulant abuse, uncomplicated; Z79.01 Long term (current) use of anticoagulants; Z79.899 Other long term (current) drug therapy; Z68.34 Body mass index [BMI] 34.0-34.9, adult; Z98.51 Tubal ligation status; Y83.8 Other surgical procedures as the cause of abnormal reaction of the patient, or of later complication, without mention of misadventure at the time of the procedure
CPT/HCPCS: 97597

== ENCOUNTER 2020-06-06 21:29 | Inpatient (IN) | payer MEDICAID ==
[~2020-06-06] VITALS: Ht 165.1 cm; Wt 100.0 kg
[2020-06-06 21:57] LABS: CLARITY,URINE SLIGHTLY CLOUDY (Clear); COLOR,URINE AMBER (Yellow); GLUCOSE, URINE NEGATIVE (Neg); KETONES,URINE NEGATIVE (Neg); LEUKOCYTE ESTERASE ,URINE NEGATIVE (Neg); NITRITES, URINE NEGATIVE (Neg); OCCULT BLOOD,URINE NEGATIVE (Neg); PROTEIN,URINE 30 mg/dl (Neg); URINE HCG NEGATIVE (NEG)
[2020-06-06 22:00] LABS: BASOPHILS # (AUTO) 0.1 X10'3 (0-0.2); BASOPHILS % (AUTO) 1.2 % (0-1); EOSINOPHILS # (AUTO) 0.3 X10'3 (0-0.9); HEMOGLOBIN 13.8 g/dl (12.0-16.0)
[2020-06-06 22:02] LABS: EOSINOPHILS % (AUTO) 2.7 % (0-6); HEMATOCRIT 42.6 % (35.0-45.0); LYMPHOCYTES # (AUTO) 2.3 X10'3 (1.1-4.8); LYMPHOCYTES % (AUTO) 22.4 % (21-51); MEAN CORPUSCULAR HEMOGLOBIN 27.4 PG (27.0-31.0); MEAN CORPUSCULAR HGB CONC 32.3 g/dL (33.0-36.5); MEAN CORPUSCULAR VOLUME 84.8 FL (78-98); MEAN PLATELET VOLUME 7.5 FL (7.4-10.4); MONOCYTES # (AUTO) 1.2 X10'3 (0-0.9); MONOCYTES % (AUTO) 11.8 % (2-12); NEUTROPHILS # (AUTO) 6.3 X10'3 (1.8-7.7); NEUTROPHILS % (AUTO) 61.9 % (42-75); PLATELET COUNT 611 X10'3 (140-440); RED BLOOD COUNT 5.03 X10'6 (4.20-5.60); RED CELL DISTRIBUTION WIDTH 17.9 % (11.5-14.5); WHITE BLOOD COUNT 10.2 X10'3 (4.5-11.0)
[2020-06-06 22:04] LABS: ALANINE AMINOTRANSFERASE 6 U/L (12-78); ALBUMIN 3.5 G/DL (3.4-5.0); ALBUMIN/GLOBULIN RATIO 0.7 (1.1-1.5); ALKALINE PHOSPHATASE 173 IU/L (46-116); ANION GAP 8 (8-16); ASPARTATE AMINO TRANSFERASE 13 U/L (10-37); BILIRUBIN,TOTAL 0.3 MG/DL (0.1-1.0); BLOOD UREA NITROGEN 20 MG/DL (7-18); BUN/CREATININE RATIO 13.7 (6.6-38.0); CALCIUM 9.7 MG/DL (8.5-10.1); CHLORIDE 102 MMOL/L (99-107); CREATININE 1.46 MG/DL (0.40-0.90); GLUCOSE 98 MG/DL (70-104); LIPASE 120 U/L (73-393); POTASSIUM 4.6 MMOL/L (3.5-5.1); SODIUM 139 MMOL/L (135-145); TOTAL CARBON DIOXIDE 28.7 MMOL/L (24-32); TOTAL PROTEIN 8.8 G/DL (6.4-8.2); eGFR 37 ML/MIN
[2020-06-06 22:23] LABS: UA COLLECTION TYPE URINAL
[2020-06-06 22:24] LABS: RBC,URINE NONE SEEN /HPF (0-2); WBC,URINE 0-4 /HPF (0-4)
[2020-06-06 22:25] LABS: BACTERIA,URINE 2+ /HPF (Neg); MUCUS STRANDS MODERATE /LPF (Neg); SQUAMOUS EPITHELIAL CELL,UR MANY /LPF (FEW)
[2020-06-06] MEDS ORDERED: morphine 4 MG/ML inj SYRINge IV ONE (22:35)
[2020-06-06] MEDS: diatr meglu/diatrizoate 30ml oral sol.-(3 dose) bottle PO SCH (23:04)
[2020-06-07] VITALS (21 sets, daily range): BP systolic 85–182; BP diastolic 58–114
[2020-06-07] MEDS ORDERED: iohexol 300mg/ml 100ml inj. ONE (00:09)
[2020-06-07] MEDS ORDERED: piperacillin/tazo 3.375gm/50ml 50 ML IV ONE (02:05)
[2020-06-07] MEDS ORDERED: morphine 4 MG/ML inj SYRINge IV ONE (02:50)
[2020-06-07] MEDS: diatr meglu/diatrizoate 30ml oral sol.-(3 dose) bottle PO SCH ×2 (03:00→06:00)
[2020-06-07] MEDS ORDERED: ondansetron/PF 4mg/2ml inj IV PRN ×2 (03:05→16:35)
[2020-06-07] MEDS ORDERED: albuterol 2.5 MG/3 ML nebule NEB PRN (03:10)
--- NOTE | 2020-06-07 03:41 | NUR ---
Received patient report from Cap [employer] STORAGE SUPERINTENDENT. Patient to follow shortly.
--- NOTE | 2020-06-07 03:50 | NUR ---
Patient arrived to floor via w/c. Alert and oriented x3 and able to ambulate from w/c to bed using FWW. Patient was MRSA swabbed and 2 RN Skin check completed and VS taken.
[2020-06-07] MEDS: normal saline 1000ml 1,000 ML IV SCH ×3 (03:59→20:41)
[2020-06-07] MEDS: morphine 4 MG/ML inj SYRINge IV PRN ×3 (04:11→20:37)
--- NOTE | 2020-06-07 06:15 | NUR ---
Problems reprioritized. Patient report given, questions answered & plan of care reviewed with Shannan BAY and Ubaldo dean for student affairs.
--- NOTE | 2020-06-07 06:36 | NUR ---
Patient in room REANNA 340. I have received report from Chiara BAY and had the opportunity to ask questions and assume patient care.
--- NOTE | 2020-06-07 06:39 | NUR ---
Patient in room REANNA 340. I have received report from Chiara BAY and had the opportunity to ask questions and assume patient care.
[2020-06-07] MEDS ORDERED: piperacillin/tazo 3.375gm/50ml 50 ML IV SCH (08:00)
[2020-06-07] MEDS: amiodarone 200mg tablet PO SCH (08:24)
[2020-06-07] MEDS: carvedilol 6.25mg tablet PO SCH ×2 (08:24→20:42)
[2020-06-07] MEDS: lisinopril 5mg tablet PO SCH (08:28)
[2020-06-07] MEDS: nystatin 15 GM powder TP SCH ×3 (08:29→20:43)
[2020-06-07] MEDS: piperacillin/tazo 3.375gm/50ml 50 ML IV SCH ×2 (10:29→20:41)
--- NOTE | 2020-06-07 12:00 | NUR ---
Student documentation: I have reviewed and agree with all interventions, assessments performed and documented by Ubaldo, nursing instructor.
--- NOTE | 2020-06-07 12:22 | NUR ---
Problems reprioritized. Patient report given, questions answered & plan of care reviewed with Shannan BAY.
--- NOTE | 2020-06-07 13:08 | NUR ---
Student documentation: I have reviewed and agree with all interventions, assessments performed and documented by Ubaldo, vice president of nursing.
--- NOTE | 2020-06-07 13:22 | NUR ---
Dr Jimenes aware patient had Xerelto yesterday 06/[address] Jimenes ok to still take to surgery. No need to order IC green for this procedure.
[2020-06-07] MEDS: morphine 2 MG/ML inj. syringe IV PRN (13:41)
[2020-06-07 14:11] LABS: PARTIAL THROMBOPLASTIN TIME 31 SECONDS (22-32)
[2020-06-07] MEDS ORDERED: ondansetron 4mg rapidly disintigrating tab PO PRN (14:25)
--- NOTE | 2020-06-07 14:53 | NUR ---
Called Barbie in Recovery and gave report all questions answered.
[2020-06-07] MEDS ORDERED: BUPIVAcaine/PF 2.5 mg/ml (0.25%) 30ml vial ONE (15:05)
[2020-06-07] MEDS ORDERED: fentaNYL /PF 50mcg/ml 5ml ampule ONE (15:41)
[2020-06-07] MEDS ORDERED: rocuronium 10mg/ml inj IV ONE (15:41)
[2020-06-07] MEDS ORDERED: propofol inj 20 ML IV ONE (15:41)
[2020-06-07] MEDS ORDERED: dexamethasone sod phosphate 4mg/ml inj. ONE (15:58)
[2020-06-07] MEDS ORDERED: ePHEDrine 50MG/ML INJ. ONE (16:04)
[2020-06-07] MEDS ORDERED: ceFOXitin 2GM-NS 50mL ADDVANT. 50 ML IV ONE (16:09)
[2020-06-07] MEDS ORDERED: ringers solution, lacted 1,000 ML IV SCH (16:32)
[2020-06-07] MEDS ORDERED: morphine 2 MG/ML inj. syringe IV PRN (16:35)
[2020-06-07] MEDS ORDERED: proCHLORperazine 10 MG/2 ml inj IV PRN (16:35)
[2020-06-07] MEDS ORDERED: meperidine/PF 25mg/ml syringe IV PRN ×2 (16:35)
[2020-06-07] MEDS ORDERED: morphine 4 MG/ML inj SYRINge IV PRN (16:35)
--- NOTE | 2020-06-07 16:39 | NUR ---
reviewed student nurse charting
[2020-06-07] MEDS ORDERED: ondansetron/PF 4mg/2ml inj ONE (17:19)
[2020-06-07] MEDS ORDERED: glycopyrrolate 0.2mg/ml inj ONE (17:22)
[2020-06-07] MEDS ORDERED: neostigmine methylsulfate 1 MG/ML 10ml vial ONE (17:22)
--- NOTE | 2020-06-07 17:54 | NUR ---
Received from OR via , accompanied by Anesthesiologist DR KOHLER and report given by Anesthesiolgist. AWAKENS TO VOICE. VITALS STABLE. DRESSINGS DI C/O ABD SURG PAIN. WILL MEDICATE. ABD SOFT.
[2020-06-07] MEDS: meperidine/PF 25mg/ml syringe IV PRN ×3 (18:15→18:36)
--- NOTE | 2020-06-07 18:29 | NUR ---
Problems reprioritized. Patient report given, questions answered & plan of care reviewed with Chiara BAY patient still in surgery .
--- NOTE | 2020-06-07 18:30 | NUR ---
Patient in room REANNA 340. I have received report from Shannan BAY and had the opportunity to ask questions and assume patient care.
--- NOTE | 2020-06-07 19:00 | NUR ---
Patient arrived back to her room from surgery around 1900. Alert and oriented , in no distress at this time. Post-op VS initiated.
--- NOTE | 2020-06-07 19:09 | NUR ---
Received report from staff scientist Edgar. Patient to arrive shortly..
--- NOTE | 2020-06-07 19:14 | NUR ---
Report called to receiving nurse. Transferred via BED Belongings . Special Issues communicated to receiving nurse. AWAKE AND ORIENTED. VITALS STABLE. DRESSINGS DI. STATES PAIN IMPROVING. TO SURGICAL RM 340B AT THIS TIME.
[2020-06-07] MEDS ORDERED: nicotine 7mg patch - 24hr TD SCH (20:00)
[2020-06-07] MEDS: traZODone 50mg tablet PO SCH (20:43)
[2020-06-08] VITALS: BP 138/74
[2020-06-08] MEDS: morphine 4 MG/ML inj SYRINge IV PRN ×5 (00:54→17:44)
[2020-06-08] MEDS: piperacillin/tazo 3.375gm/50ml 50 ML IV SCH ×3 (02:35→17:19)
[2020-06-08 04:00] VITALS: BP 163/106
[2020-06-08] MEDS: normal saline 1000ml 1,000 ML IV SCH (05:23)
[2020-06-08 05:26] LABS: BASOPHILS # (AUTO) 0.1 X10'3 (0-0.2); BASOPHILS % (AUTO) 0.5 % (0-1); EOSINOPHILS % (AUTO) 0 % (0-6); HEMATOCRIT 38.9 % (35.0-45.0); HEMOGLOBIN 12.4 g/dl (12.0-16.0); LYMPHOCYTES # (AUTO) 0.6 X10'3 (1.1-4.8); LYMPHOCYTES % (AUTO) 4.8 % (21-51); MEAN CORPUSCULAR HEMOGLOBIN 27.1 PG (27.0-31.0); MEAN CORPUSCULAR HGB CONC 31.8 g/dL (33.0-36.5); MEAN CORPUSCULAR VOLUME 85.4 FL (78-98); MONOCYTES # (AUTO) 0.2 X10'3 (0-0.9); MONOCYTES % (AUTO) 1.7 % (2-12); NEUTROPHILS # (AUTO) 10.9 X10'3 (1.8-7.7); PLATELET COUNT 497 X10'3 (140-440); RED BLOOD COUNT 4.55 X10'6 (4.20-5.60); RED CELL DISTRIBUTION WIDTH 17.5 % (11.5-14.5); WHITE BLOOD COUNT 11.7 X10'3 (4.5-11.0)
[2020-06-08 05:32] LABS: ALANINE AMINOTRANSFERASE 17 U/L (12-78); ALBUMIN 2.9 G/DL (3.4-5.0); ALBUMIN/GLOBULIN RATIO 0.6 (1.1-1.5); ALKALINE PHOSPHATASE 147 IU/L (46-116); ANION GAP 7 (8-16); ASPARTATE AMINO TRANSFERASE 17 U/L (10-37); BILIRUBIN,TOTAL 0.6 MG/DL (0.1-1.0); BLOOD UREA NITROGEN 19 MG/DL (7-18); BUN/CREATININE RATIO 15.3 (6.6-38.0); CALCIUM 8.8 MG/DL (8.5-10.1); CHLORIDE 103 MMOL/L (99-107); CREATININE 1.24 MG/DL (0.40-0.90); GLUCOSE 135 MG/DL (70-104); POTASSIUM 5.6 MMOL/L (3.5-5.1); SODIUM 136 MMOL/L (135-145); TOTAL CARBON DIOXIDE 25.6 MMOL/L (24-32); TOTAL PROTEIN 7.5 G/DL (6.4-8.2); eGFR 44 ML/MIN
--- NOTE | 2020-06-08 06:29 | NUR ---
Problems reprioritized. Patient report given, questions answered & plan of care reviewed with Shayna BAY.
--- NOTE | 2020-06-08 07:34 | NUR ---
PAGER ID: [phone] MESSAGE: Micah PostB : K+ is 5.6 on morning labs...any new orders? thanks, trisha [id number]
[2020-06-08 07:35] VITALS: BP 187/102
[2020-06-08] MEDS: amiodarone 200mg tablet PO SCH (08:41)
[2020-06-08] MEDS: carvedilol 6.25mg tablet PO SCH ×2 (08:42→20:54)
[2020-06-08] MEDS: lisinopril 5mg tablet PO SCH (08:42)
[2020-06-08] MEDS: nystatin 15 GM powder TP SCH ×3 (08:49→20:51)
--- NOTE | 2020-06-08 09:08 | NUR ---
Page sent to respiratory .... Micah Post 340B : patient is requesting PRN neb for wheezing as soon as possible. thank you!
[2020-06-08 11:00] VITALS: BP 154/91
--- NOTE | 2020-06-08 17:19 | NUR ---
LINKED MED NOTE: SPOKE WITH PHARMACIST VIA TELEPHONE, EXPLAINED THAT THE 1000 DOSE WAS HUNG LATE DUE TO NO IV ACCESS. THEREFORE IT HAS JUST FINISHED INFUSING AND NOW THE 1800 DOSE IS DUE. PHARMACIST RECOMMENDED TO SKIP THIS DOSE AND START THE NEXT DOSE 1 HR EARLY. I WILL RELY THIS INFORMATION TO STATISTICS INTERN.
[2020-06-08 18:00] VITALS: BP 151/89
--- NOTE | 2020-06-08 18:14 | NUR ---
Problems reprioritized. Patient report given, questions answered & plan of care reviewed with SHANIQUE ROSADO.
--- NOTE | 2020-06-08 18:20 | NUR ---
Cleopatra Galindo in room REANNA 340. I have received report from and had the opportunity to ask questions and assume patient care.
[2020-06-08] MEDS: traZODone 50mg tablet PO SCH (20:51)
[2020-06-08] MEDS: lactobacillus rhamnosus 10,000 MMU CELLS/CAPSULE PO SCH (20:52)
[2020-06-08] MEDS: nicotine 7mg patch - 24hr TD SCH (20:56)
[2020-06-09] VITALS: BP 91/61
[2020-06-09] MEDS: piperacillin/tazo 3.375gm/50ml 50 ML IV SCH ×3 (00:53→17:25)
[2020-06-09] MEDS: morphine 4 MG/ML inj SYRINge IV PRN ×4 (01:56→14:57)
[2020-06-09 04:55] LABS: BASOPHILS # (AUTO) 0.1 X10'3 (0-0.2); BASOPHILS % (AUTO) 0.8 % (0-1); EOSINOPHILS # (AUTO) 0.1 X10'3 (0-0.9); EOSINOPHILS % (AUTO) 0.4 % (0-6); HEMATOCRIT 37.1 % (35.0-45.0); HEMOGLOBIN 11.7 g/dl (12.0-16.0); LYMPHOCYTES # (AUTO) 1.2 X10'3 (1.1-4.8); LYMPHOCYTES % (AUTO) 10.1 % (21-51); MEAN CORPUSCULAR HEMOGLOBIN 26.8 PG (27.0-31.0); MEAN CORPUSCULAR HGB CONC 31.6 g/dL (33.0-36.5); MEAN CORPUSCULAR VOLUME 84.8 FL (78-98); MEAN PLATELET VOLUME 7.9 FL (7.4-10.4); MONOCYTES % (AUTO) 8.5 % (2-12); NEUTROPHILS # (AUTO) 9.6 X10'3 (1.8-7.7); NEUTROPHILS % (AUTO) 80.2 % (42-75); PLATELET COUNT 427 X10'3 (140-440); RED BLOOD COUNT 4.37 X10'6 (4.20-5.60); RED CELL DISTRIBUTION WIDTH 17.8 % (11.5-14.5)
[2020-06-09 05:12] LABS: ALANINE AMINOTRANSFERASE 18 U/L (12-78); ALBUMIN 2.8 G/DL (3.4-5.0); ALBUMIN/GLOBULIN RATIO 0.7 (1.1-1.5); ALKALINE PHOSPHATASE 131 IU/L (46-116); ANION GAP 7 (8-16); ASPARTATE AMINO TRANSFERASE 16 U/L (10-37); BILIRUBIN,TOTAL 0.3 MG/DL (0.1-1.0); BLOOD UREA NITROGEN 19 MG/DL (7-18); BUN/CREATININE RATIO 16.1 (6.6-38.0); CALCIUM 8.6 MG/DL (8.5-10.1); CHLORIDE 106 MMOL/L (99-107); CREATININE 1.18 MG/DL (0.40-0.90); GLUCOSE 124 MG/DL (70-104); POTASSIUM 4.7 MMOL/L (3.5-5.1); SODIUM 140 MMOL/L (135-145); TOTAL CARBON DIOXIDE 26.9 MMOL/L (24-32); TOTAL PROTEIN 6.9 G/DL (6.4-8.2); eGFR 47 ML/MIN
--- NOTE | 2020-06-09 06:33 | NUR ---
Problems reprioritized. Patient report given, questions answered & plan of care reviewed with SHANIQUE Murry.
[2020-06-09 07:35] VITALS: BP 114/94
[2020-06-09] MEDS: lactobacillus rhamnosus 10,000 MMU CELLS/CAPSULE PO SCH ×2 (08:48→20:52)
[2020-06-09] MEDS: lisinopril 5mg tablet PO SCH (08:49)
[2020-06-09] MEDS: carvedilol 6.25mg tablet PO SCH ×2 (08:49→20:54)
[2020-06-09] MEDS: amiodarone 200mg tablet PO SCH (08:49)
[2020-06-09] MEDS: nystatin 15 GM powder TP SCH ×3 (08:52→20:57)
--- NOTE | 2020-06-09 11:25 | NUR ---
PAGE SENT TO Micah Ruggiero 340B : patient requesting PRN breathing treatment. thank you!
[2020-06-09 12:00] VITALS: BP 140/68
[2020-06-09] MEDS: docusate sod 100mg capsule PO SCH ×2 (12:39→20:53)
[2020-06-09] MEDS ORDERED: rivaroxaban 20mg tablet PO SCH (17:00)
--- NOTE | 2020-06-09 18:30 | NUR ---
Problems reprioritized. Patient report given, questions answered & plan of care reviewed with SHANIQUE ROSADO.
--- NOTE | 2020-06-09 19:09 | NUR ---
Patient in room REANNA 340. I have received report from SHANIQUE Galindo and had the opportunity to ask questions and assume patient care.
[2020-06-09] MEDS: oxyCODONE/APAP 5-325mg tablet PO PRN (20:53)
[2020-06-09] MEDS: traZODone 50mg tablet PO SCH (20:53)
[2020-06-09] MEDS: nicotine 7mg patch - 24hr TD SCH (20:55)
[2020-06-09 21:09] VITALS: BP 131/78
[2020-06-10 00:39] VITALS: BP 132/84
[2020-06-10] MEDS: piperacillin/tazo 3.375gm/50ml 50 ML IV SCH ×2 (03:10→10:06)
[2020-06-10] MEDS: oxyCODONE/APAP 5-325mg tablet PO PRN ×3 (03:12→15:46)
[2020-06-10 06:30] LABS: ALANINE AMINOTRANSFERASE 19 U/L (12-78); ALBUMIN 2.6 G/DL (3.4-5.0); ALBUMIN/GLOBULIN RATIO 0.7 (1.1-1.5); ALKALINE PHOSPHATASE 124 IU/L (46-116); ANION GAP 8 (8-16); ASPARTATE AMINO TRANSFERASE 13 U/L (10-37); BASOPHILS # (AUTO) 0.1 X10'3 (0-0.2); BASOPHILS % (AUTO) 1.2 % (0-1); BILIRUBIN,TOTAL 0.3 MG/DL (0.1-1.0); BLOOD UREA NITROGEN 19 MG/DL (7-18); BUN/CREATININE RATIO 17.1 (6.6-38.0); CALCIUM 8.4 MG/DL (8.5-10.1); CHLORIDE 106 MMOL/L (99-107); CREATININE 1.11 MG/DL (0.40-0.90); EOSINOPHILS # (AUTO) 0.3 X10'3 (0-0.9); EOSINOPHILS % (AUTO) 3.8 % (0-6); GLUCOSE 103 MG/DL (70-104); HEMATOCRIT 33.5 % (35.0-45.0); HEMOGLOBIN 10.7 g/dl (12.0-16.0); LYMPHOCYTES # (AUTO) 1.4 X10'3 (1.1-4.8); LYMPHOCYTES % (AUTO) 17.6 % (21-51); MEAN CORPUSCULAR HEMOGLOBIN 26.9 PG (27.0-31.0); MEAN CORPUSCULAR HGB CONC 31.8 g/dL (33.0-36.5); MEAN CORPUSCULAR VOLUME 84.5 FL (78-98); MEAN PLATELET VOLUME 7.8 FL (7.4-10.4); MONOCYTES % (AUTO) 13.4 % (2-12); NEUTROPHILS # (AUTO) 4.9 X10'3 (1.8-7.7); PLATELET COUNT 382 X10'3 (140-440); POTASSIUM 4.3 MMOL/L (3.5-5.1); RED BLOOD COUNT 3.97 X10'6 (4.20-5.60); RED CELL DISTRIBUTION WIDTH 17.7 % (11.5-14.5); SODIUM 141 MMOL/L (135-145); TOTAL CARBON DIOXIDE 26.9 MMOL/L (24-32); TOTAL PROTEIN 6.4 G/DL (6.4-8.2); WHITE BLOOD COUNT 7.7 X10'3 (4.5-11.0); eGFR 50 ML/MIN
--- NOTE | 2020-06-10 06:42 | NUR ---
Problems reprioritized. Patient report given, questions answered & plan of care reviewed with Darleen BAY.
[2020-06-10 07:00] VITALS: BP 168/86
[2020-06-10] MEDS: nystatin 15 GM powder TP SCH ×2 (08:00→13:00)
[2020-06-10] MEDS: normal saline 1000ml 1,000 ML IV SCH (09:04)
[2020-06-10] MEDS: amiodarone 200mg tablet PO SCH (10:04)
[2020-06-10] MEDS: lactobacillus rhamnosus 10,000 MMU CELLS/CAPSULE PO SCH (10:04)
[2020-06-10] MEDS: docusate sod 100mg capsule PO SCH (10:04)
[2020-06-10] MEDS: lisinopril 5mg tablet PO SCH (10:05)
[2020-06-10] MEDS: carvedilol 6.25mg tablet PO SCH (10:05)
[2020-06-10 12:06] VITALS: BP 153/97
[2020-06-10] MEDS: morphine 2 MG/ML inj. syringe IV PRN (13:41)
[2020-06-10 13:44] VITALS: BP_SYST 172; BP_SYST 190; BP_DIAS 127; BP_DIAS 135
--- NOTE | 2020-06-10 14:26 | NUR ---
PAGER ID: [phone] MESSAGE: Shannan Post 340B Pt. BP 194/112 HR 83. Retaken and assessed several times. Denis 175/98. Darleen [id number]
[2020-06-10 14:27] VITALS: BP_SYST 175; BP_SYST 194; BP_DIAS 112; BP_DIAS 98
[2020-06-10] MEDS ORDERED: hydrALAZINE 20mg/ml inj. IV ONE (14:30)
[2020-06-10] MEDS ORDERED: LISI-604 PO (14:59)
--- NOTE | 2020-06-10 15:37 | NUR ---
Per Zarina with case management patient has home health with healthy living which will restart when discharged for dressing changes.
[2020-06-10 15:39] VITALS: BP 169/90
--- NOTE | 2020-06-10 15:42 | NUR ---
PAGER ID: [phone] MESSAGE: Pt. BP 169/90 Shannan Post 340B Do you want pt. to discharge. Darleen [phone]
--- NOTE | 2020-06-10 18:50 | NUR ---
Reviewed discharge paperwork with pt. She is aware to monitor her BP and that her lisinopril has been increased. She also knows that Jalil's office called in pain prescription to her preferred pharmacy. Wound care clinic appointment made for Saturday at 1120 per Jalil's order. Wound care provided to pt, educated while performing wound care, extra bandages provided to pt. in case of emergency. Pt. know to schedule follow up appointments with Jalil and her PCP. IV DC'd, pressure bandage applied, no s/sx bleeding noted. Pt. gathered all her belongings. Was escorted in a w/c to lobby where her daughter pick her up to return home.
== END 2020-06-10 16:23 | disposition home or self-care (01) | DRG 227 ==
LOC: ER 21:30 → ED HOLD 06-07 03:04 → SUR 3N 06-07 04:05
PROVIDERS: ADMIT Internal Medicine; ATTEND Internal Medicine
PROC: 8E0W4CZ Robotic Assisted Procedure of Trunk Region, Percutaneous Endoscopic Approach (ICD-10-PCS; 2020-06-07)
PROC: 0WQF4ZZ Repair Abdominal Wall, Percutaneous Endoscopic Approach (ICD-10-PCS; principal; 2020-06-07 15:38)
DX: K31.6 Fistula of stomach and duodenum (principal); E11.9 Type 2 diabetes mellitus without complications; F17.200 Nicotine dependence, unspecified, uncomplicated; I11.0 Hypertensive heart disease with heart failure; I25.10 Atherosclerotic heart disease of native coronary artery without angina pectoris; I48.91 Unspecified atrial fibrillation; I50.9 Heart failure, unspecified; J44.9 Chronic obstructive pulmonary disease, unspecified; L02.211 Cutaneous abscess of abdominal wall; Z82.49 Family history of ischemic heart disease and other diseases of the circulatory system; Z82.5 Family history of asthma and other chronic lower respiratory diseases; Z83.3 Family history of diabetes mellitus; Z87.11 Personal history of peptic ulcer disease; Z93.1 Gastrostomy status; Z98.51 Tubal ligation status
CPT/HCPCS: 36415; 71045; 74177; 76937; 80053; 81001; 81025; 82948; 83605; 83690; 84132; 85025; 85610; 85730; 87040; 87070; 87077; 87081; 93005; 94640; 94760; 97116; 97162; 97530; 99285; A4215; A4618; A6266; A6446; A6449; C1758; G0378; J0360; J0694; J1100; J2175; J2270; J2405; J2543; J2704; J2710; J3010; J3490; J7030; J7120; Q9963; Q9967

== ENCOUNTER 2020-06-14 11:19 | Day surgery (SDC) | payer MEDICAID ==
[~2020-06-14 11:19] MED LIST changes: -METR-159 PO; -OMEP40CA13 PO
[2020-06-14] MEDS ORDERED: LIDOcaine 2% 5ml jelly ONE (12:01)
== END 2020-06-14 13:12 | disposition home or self-care (01) ==
LOC: WOUND CARE 11:19
PROVIDERS: ATTEND Nurse Practitioner
DX: T81.89XA Other complications of procedures, not elsewhere classified, initial encounter (principal); E11.622 Type 2 diabetes mellitus with other skin ulcer; L98.492 Non-pressure chronic ulcer of skin of other sites with fat layer exposed; I11.0 Hypertensive heart disease with heart failure; I50.43 Acute on chronic combined systolic (congestive) and diastolic (congestive) heart failure; E11.65 Type 2 diabetes mellitus with hyperglycemia; I25.10 Atherosclerotic heart disease of native coronary artery without angina pectoris; E86.0 Dehydration; J43.9 Emphysema, unspecified; E87.5 Hyperkalemia; K44.9 Diaphragmatic hernia without obstruction or gangrene; K57.30 Diverticulosis of large intestine without perforation or abscess without bleeding; E66.01 Morbid (severe) obesity due to excess calories; G89.29 Other chronic pain; I48.91 Unspecified atrial fibrillation; F17.210 Nicotine dependence, cigarettes, uncomplicated; F12.90 Cannabis use, unspecified, uncomplicated; F15.10 Other stimulant abuse, uncomplicated; Z79.01 Long term (current) use of anticoagulants; Z79.899 Other long term (current) drug therapy; Z68.34 Body mass index [BMI] 34.0-34.9, adult; Z98.51 Tubal ligation status; Y83.8 Other surgical procedures as the cause of abnormal reaction of the patient, or of later complication, without mention of misadventure at the time of the procedure; Y92.234 Operating room of hospital as the place of occurrence of the external cause
CPT/HCPCS: 97597

== ENCOUNTER 2020-06-27 12:55 | Day surgery (SDC) | payer MEDICAID ==
[2020-06-27] MEDS ORDERED: LIDOcaine 2% 5ml jelly ONE (14:22)
== END 2020-06-27 15:22 | disposition home or self-care (01) ==
LOC: WOUND CARE 12:55
PROVIDERS: ATTEND Nurse Practitioner Family
DX: T81.89XD Other complications of procedures, not elsewhere classified, subsequent encounter (principal); E11.622 Type 2 diabetes mellitus with other skin ulcer; L98.492 Non-pressure chronic ulcer of skin of other sites with fat layer exposed; J43.9 Emphysema, unspecified; I11.0 Hypertensive heart disease with heart failure; I50.43 Acute on chronic combined systolic (congestive) and diastolic (congestive) heart failure; E11.65 Type 2 diabetes mellitus with hyperglycemia; I25.10 Atherosclerotic heart disease of native coronary artery without angina pectoris; E86.0 Dehydration; E87.5 Hyperkalemia; K44.9 Diaphragmatic hernia without obstruction or gangrene; K57.30 Diverticulosis of large intestine without perforation or abscess without bleeding; E66.01 Morbid (severe) obesity due to excess calories; G89.29 Other chronic pain; I48.91 Unspecified atrial fibrillation; F17.210 Nicotine dependence, cigarettes, uncomplicated; F12.90 Cannabis use, unspecified, uncomplicated; F15.10 Other stimulant abuse, uncomplicated; Z79.01 Long term (current) use of anticoagulants; Z79.899 Other long term (current) drug therapy; Z68.34 Body mass index [BMI] 34.0-34.9, adult; Z98.51 Tubal ligation status; Y83.8 Other surgical procedures as the cause of abnormal reaction of the patient, or of later complication, without mention of misadventure at the time of the procedure
CPT/HCPCS: 97597

== ENCOUNTER 2020-07-04 12:30 | Day surgery (SDC) | payer MEDICAID ==
[2020-07-04] MEDS ORDERED: LIDOcaine 2% 5ml jelly ONE (13:50)
== END 2020-07-04 13:30 | disposition home or self-care (01) ==
LOC: WOUND CARE 12:30
PROVIDERS: ATTEND Nurse Practitioner
DX: T81.89XD Other complications of procedures, not elsewhere classified, subsequent encounter (principal); E11.622 Type 2 diabetes mellitus with other skin ulcer; L98.492 Non-pressure chronic ulcer of skin of other sites with fat layer exposed; J43.9 Emphysema, unspecified; I11.0 Hypertensive heart disease with heart failure; I50.43 Acute on chronic combined systolic (congestive) and diastolic (congestive) heart failure; E11.65 Type 2 diabetes mellitus with hyperglycemia; I25.10 Atherosclerotic heart disease of native coronary artery without angina pectoris; E86.0 Dehydration; E87.5 Hyperkalemia; K44.9 Diaphragmatic hernia without obstruction or gangrene; K57.30 Diverticulosis of large intestine without perforation or abscess without bleeding; E66.01 Morbid (severe) obesity due to excess calories; G89.29 Other chronic pain; I48.91 Unspecified atrial fibrillation; F17.210 Nicotine dependence, cigarettes, uncomplicated; F12.90 Cannabis use, unspecified, uncomplicated; F15.10 Other stimulant abuse, uncomplicated; Z79.01 Long term (current) use of anticoagulants; Z79.899 Other long term (current) drug therapy; Z68.34 Body mass index [BMI] 34.0-34.9, adult; Z98.51 Tubal ligation status; Y83.8 Other surgical procedures as the cause of abnormal reaction of the patient, or of later complication, without mention of misadventure at the time of the procedure
CPT/HCPCS: 97597

== ENCOUNTER 2020-07-11 12:44 | Outpatient (CLI) | payer MEDICAID ==
[2020-07-11] MEDS ORDERED: LIDOcaine 2% 5ml jelly ONE (12:57)
== END 2020-07-11 23:59 | disposition home or self-care (01) ==
LOC: WOUND CARE 12:44
PROVIDERS: ATTEND Nurse Practitioner Family
DX: T81.89XD Other complications of procedures, not elsewhere classified, subsequent encounter (principal); L98.492 Non-pressure chronic ulcer of skin of other sites with fat layer exposed; J44.9 Chronic obstructive pulmonary disease, unspecified; I11.0 Hypertensive heart disease with heart failure; I50.43 Acute on chronic combined systolic (congestive) and diastolic (congestive) heart failure; E11.65 Type 2 diabetes mellitus with hyperglycemia; I25.10 Atherosclerotic heart disease of native coronary artery without angina pectoris; E86.0 Dehydration; E87.5 Hyperkalemia; K44.9 Diaphragmatic hernia without obstruction or gangrene; K57.30 Diverticulosis of large intestine without perforation or abscess without bleeding; E66.01 Morbid (severe) obesity due to excess calories; G89.29 Other chronic pain; I48.91 Unspecified atrial fibrillation; F17.210 Nicotine dependence, cigarettes, uncomplicated; F12.90 Cannabis use, unspecified, uncomplicated; F15.10 Other stimulant abuse, uncomplicated; Z79.01 Long term (current) use of anticoagulants; Z79.899 Other long term (current) drug therapy; Z68.34 Body mass index [BMI] 34.0-34.9, adult; Z98.51 Tubal ligation status; Y83.8 Other surgical procedures as the cause of abnormal reaction of the patient, or of later complication, without mention of misadventure at the time of the procedure
CPT/HCPCS: 97597

== ENCOUNTER 2020-07-19 13:55 | Outpatient (CLI) | payer MEDICAID ==
[2020-07-19] MEDS ORDERED: LIDOcaine 2% 5ml jelly ONE (14:55)
== END 2020-07-19 23:59 | disposition home or self-care (01) ==
LOC: WOUND CARE 13:55
PROVIDERS: ATTEND Nurse Practitioner
DX: T81.89XD Other complications of procedures, not elsewhere classified, subsequent encounter (principal); L98.492 Non-pressure chronic ulcer of skin of other sites with fat layer exposed; I11.0 Hypertensive heart disease with heart failure; I50.43 Acute on chronic combined systolic (congestive) and diastolic (congestive) heart failure; E11.65 Type 2 diabetes mellitus with hyperglycemia; I25.10 Atherosclerotic heart disease of native coronary artery without angina pectoris; J43.9 Emphysema, unspecified; E86.0 Dehydration; E87.5 Hyperkalemia; K44.9 Diaphragmatic hernia without obstruction or gangrene; K57.30 Diverticulosis of large intestine without perforation or abscess without bleeding; E66.01 Morbid (severe) obesity due to excess calories; G89.29 Other chronic pain; I48.91 Unspecified atrial fibrillation; F17.210 Nicotine dependence, cigarettes, uncomplicated; F12.90 Cannabis use, unspecified, uncomplicated; F15.10 Other stimulant abuse, uncomplicated; Z79.01 Long term (current) use of anticoagulants; Z79.899 Other long term (current) drug therapy; Z68.34 Body mass index [BMI] 34.0-34.9, adult; Z98.51 Tubal ligation status; Y83.8 Other surgical procedures as the cause of abnormal reaction of the patient, or of later complication, without mention of misadventure at the time of the procedure
CPT/HCPCS: 11042

== ENCOUNTER 2020-07-24 14:41 | Emergency (ER) | payer MEDICAID ==
[~2020-07-24] VITALS: Ht 167.6 cm; Wt 100.0 kg
--- NOTE | 2020-07-24 16:31 | NUR ---
CIGAR PACKER AT BEDSIDE.
[2020-07-24 16:47] LABS: CLARITY,URINE CLOUDY (Clear); COLOR,URINE YELLOW (Yellow); GLUCOSE, URINE NEGATIVE (Neg); KETONES,URINE TRACE mg/dl (Neg); LEUKOCYTE ESTERASE ,URINE TRACE (Neg); NITRITES, URINE NEGATIVE (Neg); OCCULT BLOOD,URINE NEGATIVE (Neg); PH,URINE 5.5 (4.8-8.0); PROTEIN,URINE 100 mg/dl (Neg); UA COLLECTION TYPE VOIDED
[2020-07-24 16:50] LABS: BASOPHILS # (AUTO) 0.1 X10'3 (0-0.2); BASOPHILS % (AUTO) 0.9 % (0-1); EOSINOPHILS # (AUTO) 0.1 X10'3 (0-0.9); EOSINOPHILS % (AUTO) 1.3 % (0-6); HEMATOCRIT 39.8 % (35.0-45.0); HEMOGLOBIN 12.9 g/dl (12.0-16.0); LYMPHOCYTES # (AUTO) 1.2 X10'3 (1.1-4.8); LYMPHOCYTES % (AUTO) 10.8 % (21-51); MEAN CORPUSCULAR HGB CONC 32.3 g/dL (33.0-36.5); MEAN CORPUSCULAR VOLUME 83.5 FL (78-98); MEAN PLATELET VOLUME 8.5 FL (7.4-10.4); MONOCYTES # (AUTO) 1.1 X10'3 (0-0.9); MONOCYTES % (AUTO) 10.5 % (2-12); NEUTROPHILS # (AUTO) 8.1 X10'3 (1.8-7.7); NEUTROPHILS % (AUTO) 76.5 % (42-75); PLATELET COUNT 375 X10'3 (140-440); RED BLOOD COUNT 4.77 X10'6 (4.20-5.60); RED CELL DISTRIBUTION WIDTH 17.7 % (11.5-14.5); WHITE BLOOD COUNT 10.6 X10'3 (4.5-11.0)
[2020-07-24 16:52] LABS: AMORPHOUS URATES 4+
[2020-07-24 16:55] LABS: SQUAMOUS EPITHELIAL CELL,UR MANY /LPF (FEW)
[2020-07-24 16:57] LABS: CAL OXALATE CRYSTALS 1+ /HPF (NEGATIVE); WBC,URINE 0-4 /HPF (0-4)
[2020-07-24 16:58] LABS: BACTERIA,URINE 3+ /HPF (Neg)
[2020-07-24 16:59] LABS: RBC,URINE NONE SEEN /HPF (0-2)
[2020-07-24] MEDS ORDERED: ketorolac tromethamine 15mg/ml inj. IV ONE (17:00)
[2020-07-24 17:02] LABS: URINE AMPHETAMINE SCREEN NEGATIVE (Neg); URINE BARBITUATE SCREEN NEGATIVE (Neg); URINE BENZODIAZEPINES SCREEN NEGATIVE (Neg); URINE CANNABINOID SCREEN POSITIVE (Neg); URINE COCAINE SCREEN NEGATIVE (Neg); URINE METHADONE SCREEN NEGATIVE (Neg); URINE OPIATE SCREEN POSITIVE (Neg); URINE PHENCYCLIDINE SCREEN NEGATIVE (Neg)
[2020-07-24 17:03] LABS: ALANINE AMINOTRANSFERASE 24 U/L (12-78); ALBUMIN 3.6 G/DL (3.4-5.0); ALBUMIN/GLOBULIN RATIO 0.9 (1.1-1.5); ALKALINE PHOSPHATASE 146 IU/L (46-116); ANION GAP 12 (8-16); ASPARTATE AMINO TRANSFERASE 17 U/L (10-37); BILIRUBIN,TOTAL 0.4 MG/DL (0.1-1.0); BLOOD UREA NITROGEN 15 MG/DL (7-18); BUN/CREATININE RATIO 16.1 (6.6-38.0); CALCIUM 9.2 MG/DL (8.5-10.1); CHLORIDE 105 MMOL/L (99-107); CREATININE 0.93 MG/DL (0.40-0.90); GLUCOSE 122 MG/DL (70-104); SODIUM 140 MMOL/L (135-145); TOTAL CARBON DIOXIDE 23.2 MMOL/L (24-32); TOTAL PROTEIN 7.6 G/DL (6.4-8.2); eGFR 61 ML/MIN
[2020-07-24] MEDS ORDERED: fentaNYL/PF 50MCG/1 ML 2ML syringe IV ONE (17:05)
[2020-07-24] MEDS ORDERED: diltiazem 5mg/ml 5ml inj. IV ONE (18:10)
[2020-07-24 19:26] VITALS: BP 154/106
== END 2020-07-24 19:29 | disposition home or self-care (01) ==
LOC: ER 14:42
DX: T81.89XA Other complications of procedures, not elsewhere classified, initial encounter (principal); R41.0 Disorientation, unspecified; I48.20 Chronic atrial fibrillation, unspecified; I25.10 Atherosclerotic heart disease of native coronary artery without angina pectoris; I11.0 Hypertensive heart disease with heart failure; I50.9 Heart failure, unspecified; J44.9 Chronic obstructive pulmonary disease, unspecified; E11.9 Type 2 diabetes mellitus without complications; G89.29 Other chronic pain; F12.90 Cannabis use, unspecified, uncomplicated; Z87.11 Personal history of peptic ulcer disease; Z86.2 Personal history of diseases of the blood and blood-forming organs and certain disorders involving the immune mechanism; Z98.51 Tubal ligation status; Z79.899 Other long term (current) drug therapy; Y83.8 Other surgical procedures as the cause of abnormal reaction of the patient, or of later complication, without mention of misadventure at the time of the procedure; Y92.89 Other specified places as the place of occurrence of the external cause
CPT/HCPCS: 36415; 71045; 80053; 80305; 81001; 83880; 85025; 93005; 96374; 96375; 99285; J3010; J3490

== ENCOUNTER 2020-07-25 14:12 | Outpatient (CLI) | payer MEDICAID ==
[2020-07-25] MEDS ORDERED: LIDOcaine 2% 5ml jelly ONE (14:36)
== END 2020-07-25 23:59 | disposition home or self-care (01) ==
LOC: WOUND CARE 14:12
PROVIDERS: ATTEND Nurse Practitioner Family
DX: T81.89XD Other complications of procedures, not elsewhere classified, subsequent encounter (principal); E11.622 Type 2 diabetes mellitus with other skin ulcer; L98.492 Non-pressure chronic ulcer of skin of other sites with fat layer exposed; E11.65 Type 2 diabetes mellitus with hyperglycemia; I11.0 Hypertensive heart disease with heart failure; I50.9 Heart failure, unspecified; I50.43 Acute on chronic combined systolic (congestive) and diastolic (congestive) heart failure; I25.10 Atherosclerotic heart disease of native coronary artery without angina pectoris; J43.9 Emphysema, unspecified; E86.0 Dehydration; E87.5 Hyperkalemia; K44.9 Diaphragmatic hernia without obstruction or gangrene; K57.30 Diverticulosis of large intestine without perforation or abscess without bleeding; R41.0 Disorientation, unspecified; E66.01 Morbid (severe) obesity due to excess calories; G89.29 Other chronic pain; I48.20 Chronic atrial fibrillation, unspecified; F17.210 Nicotine dependence, cigarettes, uncomplicated; F12.90 Cannabis use, unspecified, uncomplicated; F15.10 Other stimulant abuse, uncomplicated; Z79.01 Long term (current) use of anticoagulants; Z79.899 Other long term (current) drug therapy; Z68.34 Body mass index [BMI] 34.0-34.9, adult; Z98.51 Tubal ligation status; Z90.3 Acquired absence of stomach [part of]; Z86.2 Personal history of diseases of the blood and blood-forming organs and certain disorders involving the immune mechanism; Z87.11 Personal history of peptic ulcer disease; Y83.8 Other surgical procedures as the cause of abnormal reaction of the patient, or of later complication, without mention of misadventure at the time of the procedure
CPT/HCPCS: 87070; 87075; 97597

== ENCOUNTER 2020-07-28 10:50 | Inpatient (IN) | payer MEDICAID ==
[~2020-07-28] VITALS: Ht 165.1 cm; Wt 108.1 kg
--- NOTE | 2020-07-28 11:40 | NUR ---
ASSISSTED DR. ARGUELLES WITH VIEWING ABDOMINAL WOUND SITES.
[2020-07-28 12:22] LABS: BASOPHILS # (AUTO) 0.1 X10'3 (0-0.2); BASOPHILS % (AUTO) 0.9 % (0-1); EOSINOPHILS # (AUTO) 0.3 X10'3 (0-0.9); HEMATOCRIT 37.9 % (35.0-45.0); HEMOGLOBIN 11.9 g/dl (12.0-16.0); LYMPHOCYTES # (AUTO) 1.2 X10'3 (1.1-4.8); MEAN CORPUSCULAR HEMOGLOBIN 26.4 PG (27.0-31.0); MEAN CORPUSCULAR HGB CONC 31.6 g/dL (33.0-36.5); MEAN CORPUSCULAR VOLUME 83.7 FL (78-98); MEAN PLATELET VOLUME 8.3 FL (7.4-10.4); MONOCYTES % (AUTO) 11.1 % (2-12); PLATELET COUNT 368 X10'3 (140-440); RED BLOOD COUNT 4.52 X10'6 (4.20-5.60); RED CELL DISTRIBUTION WIDTH 17.7 % (11.5-14.5); WHITE BLOOD COUNT 8.6 X10'3 (4.5-11.0)
[2020-07-28] MEDS: vancomycin/NS 1 GM ADD-VANTAGE 250 ML X 1 DOSE IV SCH ×2 (12:25→14:52)
[2020-07-28 12:44] LABS: ALANINE AMINOTRANSFERASE 18 U/L (12-78); ALBUMIN 3.2 G/DL (3.4-5.0); ALBUMIN/GLOBULIN RATIO 0.8 (1.1-1.5); ALKALINE PHOSPHATASE 139 IU/L (46-116); ASPARTATE AMINO TRANSFERASE 10 U/L (10-37); BILIRUBIN,TOTAL 0.3 MG/DL (0.1-1.0); BLOOD UREA NITROGEN 22 MG/DL (7-18); BUN/CREATININE RATIO 17.7 (6.6-38.0); CALCIUM 9.1 MG/DL (8.5-10.1); CREATININE 1.24 MG/DL (0.40-0.90); GLUCOSE 125 MG/DL (70-104); MAGNESIUM 1.9 MG/DL (1.5-2.4); TOTAL CARBON DIOXIDE 28.1 MMOL/L (24-32); TOTAL PROTEIN 7.2 G/DL (6.4-8.2); eGFR 44 ML/MIN
[2020-07-28 12:45] LABS: ANION GAP 7 (8-16); CHLORIDE 105 MMOL/L (99-107); POTASSIUM 4.5 MMOL/L (3.5-5.1); SODIUM 140 MMOL/L (135-145)
[2020-07-28] MEDS ORDERED: iohexol 300mg/ml 100ml inj. ONE (13:27)
[2020-07-28] MEDS ORDERED: ondansetron/PF 4mg/2ml inj IV PRN (15:45)
[2020-07-28] MEDS ORDERED: mag hydrox/Alum hydrox/simeth 30ml oral suspension PO PRN (15:45)
[2020-07-28] MEDS ORDERED: magnesium Cl slow-release 64mg tablet PO PRN (15:45)
[2020-07-28] MEDS ORDERED: HYDROmorphone inj. 0.5 MG/0.5 ML DISP.SYRIN IV PRN (15:45)
[2020-07-28] MEDS ORDERED: normal saline 1000ml 1,000 ML IV SCH (15:45)
[2020-07-28] MEDS ORDERED: acetaminophen 325mg tablet PO PRN (15:45)
[2020-07-28] MEDS ORDERED: magnesium 4gm in 100ml NS 100 ML IV PRN (15:45)
[2020-07-28] MEDS ORDERED: magnesium hydroxide 30ml (MOM) UD suspension PO PRN (15:45)
[2020-07-28] MEDS ORDERED: HYDROcodone/acetaminophen 5mg/325mg tablet PO PRN (15:45)
[2020-07-28] MEDS ORDERED: potassium CL 10mEq/100ml bag 100 ML IV PRN ×2 (15:45)
[2020-07-28] MEDS ORDERED: magnesium 2GM in 50ml NS 50 ML IV PRN (15:45)
[2020-07-28] MEDS ORDERED: potassium Cl 20 mEq SR tablet PO PRN ×2 (15:45)
[2020-07-28] MEDS ORDERED: OXYC-150 PO (16:15)
[2020-07-28] MEDS ORDERED: LISI-604 PO (16:15)
[2020-07-28] MEDS ORDERED: OMEP40CA13 PO (16:16)
--- NOTE | 2020-07-28 16:16 | NUR ---
Jemma hamilton in EDM - 07/28/20 at [address] NOLEN OF INCREASED RR RATE AND FIO2 UP FROM 2 TO 6 LITERS GOOD PLETH USED MULTIPLE FINGERS FOR PULSE OX AND STILL 87-88%, AND ABDOMINAL BREATHING, ORDER FOR MATHEWS CATHETER, NO OTHER ORDERS, MD TO ASSESS PT
[2020-07-28 16:28] LABS: CLARITY,URINE SLIGHTLY CLOUDY (Clear); COLOR,URINE YELLOW (Yellow); GLUCOSE, URINE NEGATIVE (Neg); KETONES,URINE NEGATIVE (Neg); LEUKOCYTE ESTERASE ,URINE NEGATIVE (Neg); NITRITES, URINE NEGATIVE (Neg); OCCULT BLOOD,URINE NEGATIVE (Neg); PROTEIN,URINE 30 mg/dl (Neg); UROBILINOGEN,URINE 0.2 E.U/dL (0.2-1.0)
[2020-07-28 16:40] LABS: UA COLLECTION TYPE VOIDED
[2020-07-28] MEDS: piperacillin/tazo 3.375gm/50ml 50 ML IV SCH (16:41)
[2020-07-28 16:46] LABS: SQUAMOUS EPITHELIAL CELL,UR MANY /LPF (FEW)
[2020-07-28 16:47] LABS: BACTERIA,URINE FEW /HPF (Neg); MUCUS STRANDS FEW /LPF (Neg); RBC,URINE 0-2 /HPF (0-2); WBC,URINE 0-4 /HPF (0-4)
--- NOTE | 2020-07-28 16:59 | NUR ---
04/01 PAIN REPORTED TO PRIMARY RN. ATTEMPTED TO MEDICATE PT, BUT SHE STATES SHE IS TOO HUNGRY TO TAKE PO MEDICATION. SANDWICH GIVEN AND WILL READDRESS PAIN AFTERWARDS.
[2020-07-28] MEDS: HYDROcodone/acetaminophen 10/325mg tab PO PRN (17:09)
[2020-07-28] MEDS: carvedilol 6.25mg tablet PO SCH (19:02)
[2020-07-28] MEDS: K and/or MAG REPLACEMENT MC SCH (19:02)
[2020-07-28] MEDS: rivaroxaban 20mg tablet PO SCH (19:02)
[2020-07-28 19:35] VITALS: BP 128/64
--- NOTE | 2020-07-28 19:35 | NUR ---
PATIENT ADMITTED TO ROOM 344B FROM ER FOR ABDOMINAL WALL CELLULITIS. PLACED COMFORTABLE IN BED. VITAL SIGNS TAKEN AND RECORDED.
[2020-07-28] MEDS: traZODone 50mg tablet PO SCH (20:29)
[2020-07-29] VITALS: BP 131/77
[2020-07-29] MEDS: piperacillin/tazo 3.375gm/50ml 50 ML IV SCH ×3 (00:51→16:13)
[2020-07-29] MEDS: vancomycin/NS 1 GM ADD-VANTAGE 250 ML IV SCH ×2 (00:52→12:45)
[2020-07-29] MEDS: HYDROcodone/acetaminophen 10/325mg tab PO PRN (04:44)
[2020-07-29 05:04] LABS: BASOPHILS # (AUTO) 0.1 X10'3 (0-0.2); BASOPHILS % (AUTO) 0.6 % (0-1); EOSINOPHILS # (AUTO) 0.3 X10'3 (0-0.9); EOSINOPHILS % (AUTO) 2.7 % (0-6); HEMOGLOBIN 11.4 g/dl (12.0-16.0); LYMPHOCYTES # (AUTO) 0.9 X10'3 (1.1-4.8); LYMPHOCYTES % (AUTO) 9.7 % (21-51); MEAN CORPUSCULAR HEMOGLOBIN 27.3 PG (27.0-31.0); MEAN CORPUSCULAR HGB CONC 32.5 g/dL (33.0-36.5); MEAN CORPUSCULAR VOLUME 84.1 FL (78-98); MEAN PLATELET VOLUME 8.4 FL (7.4-10.4); MONOCYTES # (AUTO) 1.2 X10'3 (0-0.9); NEUTROPHILS # (AUTO) 7.2 X10'3 (1.8-7.7); PLATELET COUNT 341 X10'3 (140-440); RED BLOOD COUNT 4.16 X10'6 (4.20-5.60); RED CELL DISTRIBUTION WIDTH 17.8 % (11.5-14.5); WHITE BLOOD COUNT 9.6 X10'3 (4.5-11.0)
[2020-07-29 05:16] LABS: ALANINE AMINOTRANSFERASE 18 U/L (12-78); ALBUMIN 2.8 G/DL (3.4-5.0); ALBUMIN/GLOBULIN RATIO 0.7 (1.1-1.5); ALKALINE PHOSPHATASE 128 IU/L (46-116); ANION GAP 6 (8-16); ASPARTATE AMINO TRANSFERASE 11 U/L (10-37); BILIRUBIN,TOTAL 0.5 MG/DL (0.1-1.0); BLOOD UREA NITROGEN 22 MG/DL (7-18); BUN/CREATININE RATIO 19.8 (6.6-38.0); CALCIUM 8.8 MG/DL (8.5-10.1); CHLORIDE 107 MMOL/L (99-107); CREATININE 1.11 MG/DL (0.40-0.90); GLUCOSE 106 MG/DL (70-104); MAGNESIUM 1.8 MG/DL (1.5-2.4); POTASSIUM 4.5 MMOL/L (3.5-5.1); SODIUM 140 MMOL/L (135-145); TOTAL CARBON DIOXIDE 26.9 MMOL/L (24-32); TOTAL PROTEIN 6.6 G/DL (6.4-8.2); eGFR 50 ML/MIN
--- NOTE | 2020-07-29 06:39 | NUR ---
Problems reprioritized. Patient report given, questions answered & plan of care reviewed with DARBY BAY.
[2020-07-29 07:35] VITALS: BP 114/91
[2020-07-29] MEDS: pantoprazole 40mg Tablet.DR PO SCH (07:47)
[2020-07-29] MEDS: lisinopril 5mg tablet PO SCH (07:48)
[2020-07-29] MEDS: furosemide 20MG tablet PO SCH (07:48)
[2020-07-29] MEDS: carvedilol 6.25mg tablet PO SCH ×2 (07:48→19:35)
[2020-07-29] MEDS: nicotine 14mg patch - 24hr TD SCH (07:48)
[2020-07-29] MEDS: amiodarone 200mg tablet PO SCH (07:48)
[2020-07-29] MEDS: K and/or MAG REPLACEMENT MC SCH ×2 (07:57→20:00)
[2020-07-29] MEDS ORDERED: enoxaparin 40mg/0.4ml syringe SUBCUT SCH (08:00)
[2020-07-29] MEDS ORDERED: FLU VACC QS2020-21(6MOS UP)/PF 60 MCG/0.5 ML SYRINGE IMVAC ONE (10:00)
[2020-07-29 11:00] VITALS: BP 105/63
--- NOTE | 2020-07-29 12:28 | NUR ---
Page sent to PICC RN. 344B Micah Post: patient has IV currently in breast, hard stick. needs a new PIV whenever you get a chance! no murphy. thanks.
[2020-07-29] MEDS: oxyCODONE/APAP 10/325mg tablet PO PRN ×2 (12:54→19:36)
[2020-07-29] MEDS ORDERED: ondansetron 4mg rapidly disintigrating tab PO PRN (16:00)
[2020-07-29] MEDS: rivaroxaban 20mg tablet PO SCH (16:13)
[2020-07-29 18:00] VITALS: BP 132/78
--- NOTE | 2020-07-29 18:25 | NUR ---
Problems reprioritized. Patient report given, questions answered & plan of care reviewed with SHANIQUE Sanchez.
--- NOTE | 2020-07-29 18:30 | NUR ---
Patient in room REANNA 344. I have received report from DARBY BAY and had the opportunity to ask questions and assume patient care.
[2020-07-29] MEDS: lactobacillus rhamnosus 10,000 MMU CELLS/CAPSULE PO SCH (19:34)
[2020-07-29] MEDS: traZODone 50mg tablet PO SCH (19:35)
[2020-07-29] MEDS ORDERED: VANCOMYCIN LEVEL IV ONE (23:30)
[2020-07-30] VITALS: BP 136/83
[2020-07-30] MEDS: vancomycin/NS 1 GM ADD-VANTAGE 250 ML IV SCH (00:12)
[2020-07-30] MEDS: piperacillin/tazo 3.375gm/50ml 50 ML IV SCH ×2 (00:12→08:03)
--- NOTE | 2020-07-30 00:50 | NUR ---
CALLED PHARMACIST PATRICA AND WAS INFORMED OF CRITICAL VANCO TROUGH 24 WITH INSTRUCTIONS TO STOP VANCOMYCIN DRIP THAT IS HANGING NOW AND HE WILL WRITE A NEW ORDER FOR NEXT DOSES.
--- NOTE | 2020-07-30 00:55 | NUR ---
VANCOMYCIN DOSE STOPPED ORDERED.
[2020-07-30 05:05] LABS: BASOPHILS % (AUTO) 0.5 % (0-1); EOSINOPHILS # (AUTO) 0.6 X10'3 (0-0.9); EOSINOPHILS % (AUTO) 7.3 % (0-6); HEMATOCRIT 33.8 % (35.0-45.0); HEMOGLOBIN 10.7 g/dl (12.0-16.0); LYMPHOCYTES # (AUTO) 0.9 X10'3 (1.1-4.8); LYMPHOCYTES % (AUTO) 11.8 % (21-51); MEAN CORPUSCULAR HEMOGLOBIN 26.2 PG (27.0-31.0); MEAN CORPUSCULAR HGB CONC 31.7 g/dL (33.0-36.5); MEAN CORPUSCULAR VOLUME 82.6 FL (78-98); MEAN PLATELET VOLUME 8.6 FL (7.4-10.4); MONOCYTES % (AUTO) 13.3 % (2-12); NEUTROPHILS # (AUTO) 5.3 X10'3 (1.8-7.7); NEUTROPHILS % (AUTO) 67.1 % (42-75); PLATELET COUNT 321 X10'3 (140-440); RED BLOOD COUNT 4.09 X10'6 (4.20-5.60); RED CELL DISTRIBUTION WIDTH 17.4 % (11.5-14.5); WHITE BLOOD COUNT 7.8 X10'3 (4.5-11.0)
[2020-07-30 05:20] LABS: ALANINE AMINOTRANSFERASE 18 U/L (12-78); ALBUMIN 2.7 G/DL (3.4-5.0); ALBUMIN/GLOBULIN RATIO 0.8 (1.1-1.5); ALKALINE PHOSPHATASE 121 IU/L (46-116); ANION GAP 5 (8-16); ASPARTATE AMINO TRANSFERASE 11 U/L (10-37); BILIRUBIN,TOTAL 0.4 MG/DL (0.1-1.0); BLOOD UREA NITROGEN 20 MG/DL (7-18); BUN/CREATININE RATIO 17.7 (6.6-38.0); CALCIUM 8.6 MG/DL (8.5-10.1); CHLORIDE 107 MMOL/L (99-107); CREATININE 1.13 MG/DL (0.40-0.90); GLUCOSE 130 MG/DL (70-104); MAGNESIUM 1.7 MG/DL (1.5-2.4); POTASSIUM 4.1 MMOL/L (3.5-5.1); SODIUM 139 MMOL/L (135-145); TOTAL CARBON DIOXIDE 27.3 MMOL/L (24-32); TOTAL PROTEIN 6.2 G/DL (6.4-8.2); eGFR 49 ML/MIN
--- NOTE | 2020-07-30 06:34 | NUR ---
Problems reprioritized. Patient report given, questions answered & plan of care reviewed with LISA BAY.
--- NOTE | 2020-07-30 06:40 | NUR ---
Patient in room REANNA 344. I have received report from SHANIQUE Sanchez and had the opportunity to ask questions and assume patient care.
[2020-07-30 08:00] VITALS: BP 152/81
[2020-07-30] MEDS: furosemide 20MG tablet PO SCH (08:00)
[2020-07-30] MEDS: lisinopril 5mg tablet PO SCH (08:00)
[2020-07-30] MEDS: lactobacillus rhamnosus 10,000 MMU CELLS/CAPSULE PO SCH (08:00)
[2020-07-30] MEDS: pantoprazole 40mg Tablet.DR PO SCH (08:00)
[2020-07-30] MEDS: carvedilol 6.25mg tablet PO SCH (08:00)
[2020-07-30] MEDS: amiodarone 200mg tablet PO SCH (08:01)
[2020-07-30] MEDS: nicotine 14mg patch - 24hr TD SCH (08:02)
[2020-07-30] MEDS ORDERED: SULF1TAB49 PO (11:17)
--- NOTE | 2020-07-30 14:07 | NUR ---
pt d/c flavio young in stable conditions. discharge and medication instructions given to pt. IV removed and dressing changed prior discharge. Pt was escorted to main lobby on w/c. left the hospital via private vehicle accompanied by family member.
[2020-07-31] MEDS ORDERED: vancomycin/NS 1 GM ADD-VANTAGE 250 ML IV SCH
== END 2020-07-30 12:52 | disposition home or self-care (01) | DRG 383 ==
LOC: ER 10:51 → ED HOLD 15:41 → SUR 3N 19:36
PROVIDERS: ADMIT Family Medicine; ATTEND Family Medicine
PROC: BW211ZZ Computerized Tomography (CT Scan) of Abdomen and Pelvis using Low Osmolar Contrast (ICD-10-PCS; 2020-07-28)
PROC: 3E02340 Introduction of Influenza Vaccine into Muscle, Percutaneous Approach (ICD-10-PCS; principal; 2020-07-29)
DX: L03.311 Cellulitis of abdominal wall (principal); E11.22 Type 2 diabetes mellitus with diabetic chronic kidney disease; E11.51 Type 2 diabetes mellitus with diabetic peripheral angiopathy without gangrene; I13.0 Hypertensive heart and chronic kidney disease with heart failure and stage 1 through stage 4 chronic kidney disease, or unspecified chronic kidney disease; I25.10 Atherosclerotic heart disease of native coronary artery without angina pectoris; I48.91 Unspecified atrial fibrillation; F12.90 Cannabis use, unspecified, uncomplicated; F17.210 Nicotine dependence, cigarettes, uncomplicated; G89.29 Other chronic pain; I50.32 Chronic diastolic (congestive) heart failure; J44.9 Chronic obstructive pulmonary disease, unspecified; N18.9 Chronic kidney disease, unspecified; Z79.01 Long term (current) use of anticoagulants; Z86.14 Personal history of Methicillin resistant Staphylococcus aureus infection; Z87.11 Personal history of peptic ulcer disease; Z98.51 Tubal ligation status; Z71.6 Tobacco abuse counseling; Z23 Encounter for immunization
CPT/HCPCS: 36415; 71045; 74177; 80053; 80202; 81001; 83605; 83735; 84145; 85025; 87040; 87081; 96365; 97161; 97530; 99285; G0378; J1170; J2543; J3370; J7030; Q2039; Q9967

== ENCOUNTER 2020-08-08 13:10 | Outpatient (CLI) | payer MEDICAID ==
[~2020-08-08 13:10] MED LIST changes: +OMEP40CA13 PO; +SULF1TAB49 PO
== END 2020-08-08 23:59 | disposition home or self-care (01) ==
LOC: WOUND CARE 13:10
PROVIDERS: ATTEND Nurse Practitioner Family
DX: T81.89XD Other complications of procedures, not elsewhere classified, subsequent encounter (principal); E11.622 Type 2 diabetes mellitus with other skin ulcer; L98.492 Non-pressure chronic ulcer of skin of other sites with fat layer exposed; E11.65 Type 2 diabetes mellitus with hyperglycemia; E11.22 Type 2 diabetes mellitus with diabetic chronic kidney disease; I13.0 Hypertensive heart and chronic kidney disease with heart failure and stage 1 through stage 4 chronic kidney disease, or unspecified chronic kidney disease; I50.43 Acute on chronic combined systolic (congestive) and diastolic (congestive) heart failure; N18.9 Chronic kidney disease, unspecified; E11.51 Type 2 diabetes mellitus with diabetic peripheral angiopathy without gangrene; I25.10 Atherosclerotic heart disease of native coronary artery without angina pectoris; J43.9 Emphysema, unspecified; E86.0 Dehydration; E87.5 Hyperkalemia; K44.9 Diaphragmatic hernia without obstruction or gangrene; K57.30 Diverticulosis of large intestine without perforation or abscess without bleeding; E66.01 Morbid (severe) obesity due to excess calories; G89.29 Other chronic pain; I48.20 Chronic atrial fibrillation, unspecified; F17.210 Nicotine dependence, cigarettes, uncomplicated; F12.90 Cannabis use, unspecified, uncomplicated; F15.10 Other stimulant abuse, uncomplicated; Z79.01 Long term (current) use of anticoagulants; Z79.899 Other long term (current) drug therapy; Z68.34 Body mass index [BMI] 34.0-34.9, adult; Z98.51 Tubal ligation status; Z90.3 Acquired absence of stomach [part of]; Z86.2 Personal history of diseases of the blood and blood-forming organs and certain disorders involving the immune mechanism; Z86.14 Personal history of Methicillin resistant Staphylococcus aureus infection; Z71.6 Tobacco abuse counseling; Y83.8 Other surgical procedures as the cause of abnormal reaction of the patient, or of later complication, without mention of misadventure at the time of the procedure
CPT/HCPCS: 97597

== ENCOUNTER 2020-08-15 14:00 | Outpatient (CLI) | payer MEDICAID | END 2020-08-15 23:59 | disposition home or self-care (01) | LOC: WOUND CARE 14:00 | PROVIDERS: ATTEND Nurse Practitioner Family | DX: T81.89XD Other complications of procedures, not elsewhere classified, subsequent encounter (principal); E11.622 Type 2 diabetes mellitus with other skin ulcer; L98.492 Non-pressure chronic ulcer of skin of other sites with fat layer exposed; E11.65 Type 2 diabetes mellitus with hyperglycemia; E11.22 Type 2 diabetes mellitus with diabetic chronic kidney disease; I13.0 Hypertensive heart and chronic kidney disease with heart failure and stage 1 through stage 4 chronic kidney disease, or unspecified chronic kidney disease; N18.9 Chronic kidney disease, unspecified; I50.43 Acute on chronic combined systolic (congestive) and diastolic (congestive) heart failure; E11.51 Type 2 diabetes mellitus with diabetic peripheral angiopathy without gangrene; I25.10 Atherosclerotic heart disease of native coronary artery without angina pectoris; J43.9 Emphysema, unspecified; E86.0 Dehydration; E87.5 Hyperkalemia; K44.9 Diaphragmatic hernia without obstruction or gangrene; K57.30 Diverticulosis of large intestine without perforation or abscess without bleeding; E66.01 Morbid (severe) obesity due to excess calories; G89.29 Other chronic pain; I48.20 Chronic atrial fibrillation, unspecified; F17.210 Nicotine dependence, cigarettes, uncomplicated; F12.90 Cannabis use, unspecified, uncomplicated; F15.10 Other stimulant abuse, uncomplicated; Z79.01 Long term (current) use of anticoagulants; Z79.899 Other long term (current) drug therapy; Z68.34 Body mass index [BMI] 34.0-34.9, adult; Z98.51 Tubal ligation status; Z90.3 Acquired absence of stomach [part of]; Z86.2 Personal history of diseases of the blood and blood-forming organs and certain disorders involving the immune mechanism; Z86.14 Personal history of Methicillin resistant Staphylococcus aureus infection; Z71.6 Tobacco abuse counseling; Y83.8 Other surgical procedures as the cause of abnormal reaction of the patient, or of later complication, without mention of misadventure at the time of the procedure | CPT/HCPCS: G0463 ==

== ENCOUNTER 2020-09-18 08:16 | Emergency (ER) | payer MEDICAID ==
[~2020-09-18] VITALS: Ht 165.1 cm; Wt 113.6 kg
[~2020-09-18 08:16] MED LIST changes: -SULF1TAB49 PO
[2020-09-18 09:40] LABS: BASOPHILS # (AUTO) 0.1 X10'3 (0-0.2); BASOPHILS % (AUTO) 0.9 % (0-1); EOSINOPHILS # (AUTO) 0.2 X10'3 (0-0.9); EOSINOPHILS % (AUTO) 1.6 % (0-6); HEMATOCRIT 35.6 % (35.0-45.0); HEMOGLOBIN 11.3 g/dl (12.0-16.0); LYMPHOCYTES # (AUTO) 1.3 X10'3 (1.1-4.8); MEAN CORPUSCULAR HEMOGLOBIN 25.8 PG (27.0-31.0); MEAN CORPUSCULAR HGB CONC 31.7 g/dL (33.0-36.5); MEAN CORPUSCULAR VOLUME 81.3 FL (78-98); MEAN PLATELET VOLUME 7.7 FL (7.4-10.4); MONOCYTES # (AUTO) 0.8 X10'3 (0-0.9); MONOCYTES % (AUTO) 7.1 % (2-12); NEUTROPHILS # (AUTO) 9.4 X10'3 (1.8-7.7); NEUTROPHILS % (AUTO) 79.4 % (42-75); PLATELET COUNT 474 X10'3 (140-440); RED BLOOD COUNT 4.38 X10'6 (4.20-5.60); RED CELL DISTRIBUTION WIDTH 18.3 % (11.5-14.5); WHITE BLOOD COUNT 11.8 X10'3 (4.5-11.0)
[2020-09-18 09:48] LABS: ALBUMIN 3.6 G/DL (3.4-5.0); ANION GAP 7 (8-16); BLOOD UREA NITROGEN 17 MG/DL (7-18); BUN/CREATININE RATIO 17.5 (6.6-38.0); CALCIUM 9.3 MG/DL (8.5-10.1); CHLORIDE 106 MMOL/L (99-107); CREATININE 0.97 MG/DL (0.40-0.90); GLUCOSE 124 MG/DL (70-104); POTASSIUM 4.2 MMOL/L (3.5-5.1); SODIUM 141 MMOL/L (135-145); TOTAL CARBON DIOXIDE 27.7 MMOL/L (24-32); eGFR 58 ML/MIN
[2020-09-18] MEDS ORDERED: iohexol 300mg/ml 100ml inj. ONE (10:00)
[2020-09-18 12:00] VITALS: BP 151/104
== END 2020-09-18 14:50 | disposition home or self-care (01) ==
LOC: ER 08:16
DX: R10.10 Upper abdominal pain, unspecified (principal); F41.9 Anxiety disorder, unspecified; I48.91 Unspecified atrial fibrillation; I25.10 Atherosclerotic heart disease of native coronary artery without angina pectoris; I50.9 Heart failure, unspecified; I11.0 Hypertensive heart disease with heart failure; J44.9 Chronic obstructive pulmonary disease, unspecified; G89.29 Other chronic pain; E11.9 Type 2 diabetes mellitus without complications; F12.90 Cannabis use, unspecified, uncomplicated; Z86.2 Personal history of diseases of the blood and blood-forming organs and certain disorders involving the immune mechanism; Z79.899 Other long term (current) drug therapy
CPT/HCPCS: 36415; 74177; 80048; 85025; 99285; Q9967

== ENCOUNTER 2020-09-18 21:07 | Emergency (ER) | payer MEDICAID ==
[~2020-09-18] VITALS: Ht 165.1 cm; Wt 113.0 kg
[2020-09-18 21:08] VITALS: BP 175/107
== END 2020-09-18 23:58 | disposition home or self-care (01) ==
LOC: ER 21:07
DX: R10.9 Unspecified abdominal pain (principal); R07.9 Chest pain, unspecified; I25.10 Atherosclerotic heart disease of native coronary artery without angina pectoris; I11.0 Hypertensive heart disease with heart failure; J44.9 Chronic obstructive pulmonary disease, unspecified; D64.9 Anemia, unspecified; E11.9 Type 2 diabetes mellitus without complications; G89.29 Other chronic pain; M54.9 Dorsalgia, unspecified; F12.10 Cannabis abuse, uncomplicated; Z79.899 Other long term (current) drug therapy; Z98.51 Tubal ligation status
CPT/HCPCS: 93005; 99283

== ENCOUNTER 2020-10-03 17:41 | Inpatient (IN) | payer MEDICAID ==
[~2020-10-03] VITALS: Ht 167.6 cm; Wt 109.0 kg
--- NOTE | 2020-10-03 18:13 | NUR ---
PATIENT'S DAUGHTER ANGIE UPDATED CONTACT INFO: [phone]
--- NOTE | 2020-10-03 19:05 | NUR ---
JUST RETURNED FROM CT. BP 212/153, HR 88, AFIB.
--- NOTE | 2020-10-03 19:06 | NUR ---
TELE NEURO CONSULT HAS BEEN INITIATED
--- NOTE | 2020-10-03 19:25 | NUR ---
pt difficult iv and lab draw. 2nd rn now at bedside attempting. KRYSTAL Flores aware. PT IS A&OX4 AND APPROPRIATE , BUT REPORTS THAT SHE FEELS CONFUSED STILL AND IS "FUZZY". STATES SHE WAS NOT FEELING RIGHT YESTERDAY AND HAS NOT BEEN EATING OR DRINKING ANYTHING SINCE YESTERDAY. REPORTS SHE USUALLY GETS UP REGULARLY THROUGHOUT THE DAY AND USES HER WALKER WITH NO ASSIST. TODAY SHE REPRORTS WHEN WHE WAS WALKING TO THE AMBULANCE SHE WAS LEANING TO THE LEFT. TELE NEURO CONSULT JUST BEGINNING NOW. RN'S ELICEO AT BEDSIDE FOR CONSULT.
[2020-10-03 20:10] LABS: ALANINE AMINOTRANSFERASE 24 U/L (12-78); ALBUMIN 3.9 G/DL (3.4-5.0); ALKALINE PHOSPHATASE 192 IU/L (46-116); ANION GAP 12 (8-16); ASPARTATE AMINO TRANSFERASE 25 U/L (10-37); BILIRUBIN,TOTAL 1.3 MG/DL (0.1-1.0); BLOOD UREA NITROGEN 21 MG/DL (7-18); CALCIUM 9.4 MG/DL (8.5-10.1); CHLORIDE 107 MMOL/L (99-107); CREATININE 1.05 MG/DL (0.40-0.90); GLUCOSE 81 MG/DL (70-104); POTASSIUM 4.1 MMOL/L (3.5-5.1); SODIUM 145 MMOL/L (135-145); TOTAL CARBON DIOXIDE 25.7 MMOL/L (24-32); eGFR 53 ML/MIN
[2020-10-03 20:13] LABS: TROPONIN I < 0.04 NG/ML (0.0-0.05)
[2020-10-03 20:37] LABS: BASOPHILS # (AUTO) 0.2 X10'3 (0-0.2); BASOPHILS % (AUTO) 1.6 % (0-1); EOSINOPHILS # (AUTO) 0.2 X10'3 (0-0.9); EOSINOPHILS % (AUTO) 1.5 % (0-6); HEMATOCRIT 38.6 % (35.0-45.0); HEMOGLOBIN 12.1 g/dl (12.0-16.0); LYMPHOCYTES # (AUTO) 1.4 X10'3 (1.1-4.8); LYMPHOCYTES % (AUTO) 12.2 % (21-51); MEAN CORPUSCULAR HEMOGLOBIN 25.6 PG (27.0-31.0); MEAN CORPUSCULAR HGB CONC 31.3 g/dL (33.0-36.5); MEAN CORPUSCULAR VOLUME 81.8 FL (78-98); MEAN PLATELET VOLUME 7.7 FL (7.4-10.4); MONOCYTES # (AUTO) 1.6 X10'3 (0-0.9); MONOCYTES % (AUTO) 14.8 % (2-12); NEUTROPHILS # (AUTO) 7.8 X10'3 (1.8-7.7); NEUTROPHILS % (AUTO) 69.9 % (42-75); PLATELET COUNT 423 X10'3 (140-440); RED BLOOD COUNT 4.72 X10'6 (4.20-5.60); RED CELL DISTRIBUTION WIDTH 19.1 % (11.5-14.5); WHITE BLOOD COUNT 11.1 X10'3 (4.5-11.0)
[2020-10-03] MEDS ORDERED: iohexol 350MG/ML 100ml bottle IV ONE (21:01)
[2020-10-03] MEDS: ondansetron/PF 4mg/2ml inj IV ONE ×2 (22:25→22:46)
[2020-10-03] MEDS ORDERED: morphine 4 MG/ML inj SYRINge IV ONE (22:25)
[2020-10-03 23:16] LABS: CLARITY,URINE CLEAR (Clear); COLOR,URINE YELLOW (Yellow); GLUCOSE, URINE NEGATIVE (Neg); KETONES,URINE TRACE mg/dl (Neg); LEUKOCYTE ESTERASE ,URINE NEGATIVE (Neg); NITRITES, URINE NEGATIVE (Neg); OCCULT BLOOD,URINE TRACE-INTACT (Neg); PH,URINE 5.5 (4.8-8.0); PROTEIN,URINE >=300 mg/dl (Neg)
[2020-10-03 23:17] LABS: UA COLLECTION TYPE STRAIGHT CATH
[2020-10-03 23:23] LABS: BACTERIA,URINE NONE SEEN /HPF (Neg); RBC,URINE 0-2 /HPF (0-2); SQUAMOUS EPITHELIAL CELL,UR FEW /LPF (FEW); WBC,URINE NONE SEEN /HPF (0-4)
[2020-10-03] MEDS ORDERED: ondansetron/PF 4mg/2ml inj IV PRN (23:25)
[2020-10-03] MEDS ORDERED: morphine 2 MG/ML inj. syringe IV PRN (23:25)
[2020-10-03] MEDS ORDERED: magnesium hydroxide 30ml (MOM) UD suspension PO PRN (23:25)
[2020-10-03] MEDS ORDERED: acetaminophen 325mg tablet PO PRN (23:25)
[2020-10-03] MEDS ORDERED: mag hydrox/Alum hydrox/simeth 30ml oral suspension PO PRN (23:25)
[2020-10-03] MEDS ORDERED: normal saline 1000ml 1,000 ML IV SCH (23:25)
[2020-10-03] MEDS ORDERED: albuterol 2.5 MG/3 ML nebule NEB PRN (23:35)
--- NOTE | 2020-10-04 04:34 | NUR ---
PLACED ON HOSPITAL BED.
--- NOTE | 2020-10-04 04:35 | NUR ---
MOD ASSIST TO GEET OOB TO PIVOT AND GET ONTO BSC TO VOID. PT REPORTS SHE IS NOT SPECIFICALLY WEAK, BUT SHE IS VERY PAINFUL TO THE RIGHT LOWER LEG.
[2020-10-04] MEDS: pantoprazole 40mg Tablet.DR PO SCH (08:12)
[2020-10-04] MEDS: aspirin 81mg tablet.DR PO SCH (08:12)
[2020-10-04] MEDS: lisinopril 5mg tablet PO SCH (08:13)
[2020-10-04] MEDS: amiodarone 200mg tablet PO SCH (08:13)
[2020-10-04] MEDS: carvedilol 6.25mg tablet PO SCH ×2 (08:14→19:31)
[2020-10-04] MEDS: furosemide 20MG tablet PO SCH (08:14)
[2020-10-04 09:06] LABS: BASOPHILS # (AUTO) 0.1 X10'3 (0-0.2); BASOPHILS % (AUTO) 1.1 % (0-1); EOSINOPHILS # (AUTO) 0.2 X10'3 (0-0.9); HEMATOCRIT 39.5 % (35.0-45.0); HEMOGLOBIN 12.3 g/dl (12.0-16.0); LYMPHOCYTES # (AUTO) 1.2 X10'3 (1.1-4.8); LYMPHOCYTES % (AUTO) 11.2 % (21-51); MEAN CORPUSCULAR HEMOGLOBIN 25.7 PG (27.0-31.0); MEAN CORPUSCULAR HGB CONC 31.2 g/dL (33.0-36.5); MEAN CORPUSCULAR VOLUME 82.6 FL (78-98); MEAN PLATELET VOLUME 7.8 FL (7.4-10.4); MONOCYTES # (AUTO) 1.4 X10'3 (0-0.9); MONOCYTES % (AUTO) 12.7 % (2-12); NEUTROPHILS # (AUTO) 7.9 X10'3 (1.8-7.7); PLATELET COUNT 439 X10'3 (140-440); RED BLOOD COUNT 4.79 X10'6 (4.20-5.60); WHITE BLOOD COUNT 10.8 X10'3 (4.5-11.0)
[2020-10-04 09:17] LABS: ALANINE AMINOTRANSFERASE 26 U/L (12-78); ALBUMIN 3.7 G/DL (3.4-5.0); ALBUMIN/GLOBULIN RATIO 0.9 (1.1-1.5); ALKALINE PHOSPHATASE 182 IU/L (46-116); ANION GAP 9 (8-16); ASPARTATE AMINO TRANSFERASE 33 U/L (10-37); BILIRUBIN,TOTAL 1.4 MG/DL (0.1-1.0); CHLORIDE 108 MMOL/L (99-107); CHOL/HDL RATIO 2.5 (0.00-4.99); CHOLESTEROL 156 MG/DL (0-200); HDL CHOLESTEROL 63 MG/DL (35-60); LDL CHOLESTEROL 73 MG/DL (50-100); POTASSIUM 4.7 MMOL/L (3.5-5.1); SODIUM 144 MMOL/L (135-145); TOTAL CARBON DIOXIDE 27.1 MMOL/L (24-32); TOTAL PROTEIN 7.6 G/DL (6.4-8.2); TRIGLYCERIDES 86 MG/DL (20-135)
[2020-10-04 09:25] LABS: BLOOD UREA NITROGEN 18 MG/DL (7-18); BUN/CREATININE RATIO 16.7 (6.6-38.0); CALCIUM 9.3 MG/DL (8.5-10.1); CREATININE 1.08 MG/DL (0.40-0.90); GLUCOSE 124 MG/DL (70-104); eGFR 52 ML/MIN
--- NOTE | 2020-10-04 09:38 | NUR ---
PT IS OFF THE UNIT
--- NOTE | 2020-10-04 10:00 | NUR ---
PT IS BACK FROM MRI
[2020-10-04 10:23] LABS: PLATELET ESTIMATE NORMAL
[2020-10-04 10:24] LABS: ANISOCYTOSIS 2+; LARGE PLATELETS FEW; POLYCHROMASIA FEW
--- NOTE | 2020-10-04 11:13 | NUR ---
echo in progress, RT attempting to obtain ABG
[2020-10-04 11:40] LABS: ABG BASE EXCESS -1.3 mmol/L (-2.0-2.0); ABG HCO3 25.8 mmol/L (22.0-26.0); ABG OXYGEN SATURATION 88.1 % (94-97); ABG PCO2 (T) 54.1 mmHg (32.0-45.0); ABG PO2 (T) 53.6 mmHg (75.0-100.0); ALLEN'S TEST POSITIVE; FCOHb 1.7 % (0.0-3.9); FLOW 2 L/min; FMetHb 0.1 % (0.0-1.5); FO2Hb 86.5 % (94-97); TOTAL HEMOGLOBIN 12.1 G/dl (12.0-16.0)
--- NOTE | 2020-10-04 13:29 | NUR ---
Jemma hamilton in [facility] - 10/04/20 at 1330 by GEOFFREY P
--- NOTE | 2020-10-04 13:30 | NUR ---
patient has slurred speech but think it is not new,she has no teeth in her mouth.
--- NOTE | 2020-10-04 13:31 | NUR ---
pt is eating her lunch
[2020-10-04] MEDS ORDERED: ondansetron 4mg rapidly disintigrating tab PO PRN (15:00)
--- NOTE | 2020-10-04 15:53 | NUR ---
Patient in room ED 9. I have received report from LUZ BAY and had the opportunity to ask questions and assume patient care.
[2020-10-04 16:15] VITALS: BP 122/68
--- NOTE | 2020-10-04 16:39 | NUR ---
PAGED DR NEERAJ MARSH PAGER ID: [phone] MESSAGE: ISABELLA CHADWICK. + BLOOD CULTURES . IV START. GRAM + COCCI PAIRS & CHAINS. Griselda CARSON [phone]
[2020-10-04] MEDS: rivaroxaban 20mg tablet PO SCH (17:26)
[2020-10-04 18:00] VITALS: BP 120/80
--- NOTE | 2020-10-04 18:33 | NUR ---
Problems reprioritized. Patient report given, questions answered & plan of care reviewed with xiang lee.
--- NOTE | 2020-10-04 18:35 | NUR ---
Patient in room PCU 3019. I have received report from SHANIQUE Barakat and had the opportunity to ask questions and assume patient care.
[2020-10-04] MEDS: traZODone 50mg tablet PO SCH (20:25)
[2020-10-04 22:00] VITALS: BP 119/83
[2020-10-05] MEDS ORDERED: vancomycin/NS 1 GM ADD-VANTAGE 250 ML IV SCH (05:15)
[2020-10-05 06:00] VITALS: BP 120/74
--- NOTE | 2020-10-05 06:00 | NUR ---
report received by xiang lee. pt alert x3 laying on bed. pt has iv to r wrist. adjust iv and flushed properly. pt tolerating well. assume care at this time.
--- NOTE | 2020-10-05 06:33 | NUR ---
Problems reprioritized. Patient report given, questions answered & plan of care reviewed with SHANIQUE Arango. Medications administered as ordered. Care plan followed, safety measures in place. Bed in low and locked position. Call light and personal items within reach. Will continue to monitor for remainder of shift.
[2020-10-05 06:50] LABS: BASOPHILS # (AUTO) 0.1 X10'3 (0-0.2); BASOPHILS % (AUTO) 1.1 % (0-1); EOSINOPHILS # (AUTO) 0.3 X10'3 (0-0.9); EOSINOPHILS % (AUTO) 2.8 % (0-6); HEMOGLOBIN 11.5 g/dl (12.0-16.0); LYMPHOCYTES # (AUTO) 1.4 X10'3 (1.1-4.8); LYMPHOCYTES % (AUTO) 15.3 % (21-51); MEAN CORPUSCULAR HEMOGLOBIN 25.5 PG (27.0-31.0); MEAN CORPUSCULAR VOLUME 82.3 FL (78-98); MEAN PLATELET VOLUME 7.8 FL (7.4-10.4); MONOCYTES # (AUTO) 1.4 X10'3 (0-0.9); MONOCYTES % (AUTO) 15.7 % (2-12); NEUTROPHILS # (AUTO) 5.9 X10'3 (1.8-7.7); NEUTROPHILS % (AUTO) 65.1 % (42-75); PLATELET COUNT 402 X10'3 (140-440); RED BLOOD COUNT 4.49 X10'6 (4.20-5.60); RED CELL DISTRIBUTION WIDTH 18.9 % (11.5-14.5); WHITE BLOOD COUNT 9.1 X10'3 (4.5-11.0)
[2020-10-05 07:21] LABS: ALANINE AMINOTRANSFERASE 23 U/L (12-78); ALBUMIN 3.3 G/DL (3.4-5.0); ALBUMIN/GLOBULIN RATIO 0.8 (1.1-1.5); ALKALINE PHOSPHATASE 163 IU/L (46-116); ANION GAP 10 (8-16); ASPARTATE AMINO TRANSFERASE 16 U/L (10-37); BILIRUBIN,TOTAL 0.6 MG/DL (0.1-1.0); BLOOD UREA NITROGEN 24 MG/DL (7-18); BUN/CREATININE RATIO 20.3 (6.6-38.0); CALCIUM 8.9 MG/DL (8.5-10.1); CHLORIDE 105 MMOL/L (99-107); CREATININE 1.18 MG/DL (0.40-0.90); GLUCOSE 107 MG/DL (70-104); POTASSIUM 3.9 MMOL/L (3.5-5.1); SODIUM 142 MMOL/L (135-145); TOTAL CARBON DIOXIDE 27.1 MMOL/L (24-32); TOTAL PROTEIN 7.2 G/DL (6.4-8.2); eGFR 47 ML/MIN
[2020-10-05 07:46] LABS: ANISOCYTOSIS 2+; LARGE PLATELETS FEW; PLATELET ESTIMATE NORMAL; TOTAL CELLS COUNTED 100
[2020-10-05] MEDS: furosemide 20MG tablet PO SCH (08:29)
[2020-10-05] MEDS: aspirin 81mg tablet.DR PO SCH (08:29)
[2020-10-05] MEDS: amiodarone 200mg tablet PO SCH (08:29)
[2020-10-05] MEDS: lisinopril 5mg tablet PO SCH (08:30)
[2020-10-05] MEDS: pantoprazole 40mg Tablet.DR PO SCH (08:30)
[2020-10-05] MEDS: carvedilol 6.25mg tablet PO SCH ×2 (08:30→19:37)
[2020-10-05 11:00] VITALS: BP 121/82
[2020-10-05 15:00] VITALS: BP 136/79
[2020-10-05] MEDS: vancomycin/NS 1 GM ADD-VANTAGE 250 ML IV SCH (16:12)
[2020-10-05] MEDS: rivaroxaban 20mg tablet PO SCH (16:12)
[2020-10-05 18:00] VITALS: BP_SYST 147; BP_SYST 153; BP_DIAS 81; BP_DIAS 94
--- NOTE | 2020-10-05 18:30 | NUR ---
Patient in room PCU 3019. I have received report from SHANIQUE Whitley and had the opportunity to ask questions and assume patient care.
--- NOTE | 2020-10-05 18:36 | NUR ---
report given to xiang lee. all questions answered. pt denies any acute distress. pt eating dinner. transfer care
[2020-10-05] MEDS: lactobacillus rhamnosus 10,000 MMU CELLS/CAPSULE PO SCH (19:37)
[2020-10-05] MEDS ORDERED: VANCOmycin 1250MG/NS 250ml Bag 250 ML IV SCH (20:00)
[2020-10-05] MEDS: traZODone 50mg tablet PO SCH (22:06)
[2020-10-06 02:00] VITALS: BP 138/87
[2020-10-06] MEDS: vancomycin/NS 1 GM ADD-VANTAGE 250 ML IV SCH (05:50)
--- NOTE | 2020-10-06 06:30 | NUR ---
Patient in room PCU 3019. I have received report from MELISA BAY and had the opportunity to ask questions and assume patient care. PT UP TO [facility]. BM. CALL LIGHT IN REACH. PT NO DISTRESS. Addendum: 10/06/20 at 0720 by Sera Enriquez RN Amended: Links added.
--- NOTE | 2020-10-06 06:47 | NUR ---
Problems reprioritized. Patient report given, questions answered & plan of care reviewed with SHANIQUE James.
[2020-10-06 07:10] LABS: BASOPHILS # (AUTO) 0.1 X10'3 (0-0.2); BASOPHILS % (AUTO) 0.8 % (0-1); EOSINOPHILS # (AUTO) 0.3 X10'3 (0-0.9); EOSINOPHILS % (AUTO) 3.1 % (0-6); HEMATOCRIT 35.2 % (35.0-45.0); HEMOGLOBIN 11.1 g/dl (12.0-16.0); LYMPHOCYTES % (AUTO) 12.3 % (21-51); MEAN CORPUSCULAR HEMOGLOBIN 25.7 PG (27.0-31.0); MEAN CORPUSCULAR HGB CONC 31.6 g/dL (33.0-36.5); MEAN CORPUSCULAR VOLUME 81.5 FL (78-98); MEAN PLATELET VOLUME 8.1 FL (7.4-10.4); MONOCYTES # (AUTO) 1.2 X10'3 (0-0.9); MONOCYTES % (AUTO) 13.9 % (2-12); NEUTROPHILS # (AUTO) 5.9 X10'3 (1.8-7.7); NEUTROPHILS % (AUTO) 69.9 % (42-75); PLATELET COUNT 375 X10'3 (140-440); RED BLOOD COUNT 4.32 X10'6 (4.20-5.60); RED CELL DISTRIBUTION WIDTH 18.7 % (11.5-14.5); WHITE BLOOD COUNT 8.5 X10'3 (4.5-11.0)
[2020-10-06 07:18] VITALS: BP 163/96
[2020-10-06 07:43] LABS: ALANINE AMINOTRANSFERASE 24 U/L (12-78); ALBUMIN 3.2 G/DL (3.4-5.0); ALBUMIN/GLOBULIN RATIO 0.8 (1.1-1.5); ALKALINE PHOSPHATASE 152 IU/L (46-116); ANION GAP 10 (8-16); ASPARTATE AMINO TRANSFERASE 18 U/L (10-37); BILIRUBIN,TOTAL 0.6 MG/DL (0.1-1.0); BLOOD UREA NITROGEN 22 MG/DL (7-18); BUN/CREATININE RATIO 22.2 (6.6-38.0); CALCIUM 9.2 MG/DL (8.5-10.1); CHLORIDE 107 MMOL/L (99-107); CREATININE 0.99 MG/DL (0.40-0.90); GLUCOSE 101 MG/DL (70-104); SODIUM 143 MMOL/L (135-145); TOTAL CARBON DIOXIDE 26.1 MMOL/L (24-32); eGFR 57 ML/MIN
[2020-10-06] MEDS: aspirin 81mg tablet.DR PO SCH (07:45)
[2020-10-06] MEDS: lactobacillus rhamnosus 10,000 MMU CELLS/CAPSULE PO SCH (07:45)
[2020-10-06] MEDS: pantoprazole 40mg Tablet.DR PO SCH (07:45)
[2020-10-06] MEDS: lisinopril 5mg tablet PO SCH (07:45)
[2020-10-06] MEDS: amiodarone 200mg tablet PO SCH (07:46)
[2020-10-06] MEDS: furosemide 20MG tablet PO SCH (07:46)
[2020-10-06] MEDS: carvedilol 6.25mg tablet PO SCH (07:46)
[2020-10-06 07:54] LABS: ANISOCYTOSIS 2+; ELLIPTOCYTES FEW; PLATELET ESTIMATE NORMAL
[2020-10-06 07:55] LABS: POLYCHROMASIA FEW
[2020-10-06 11:00] VITALS: BP 134/77
[2020-10-06] MEDS ORDERED: DOXY100C2 PO (11:33)
--- NOTE | 2020-10-06 13:45 | NUR ---
ALL WRITTEN AND VERBAL ORDERS FOR D/C GIVEN. ALL QUESTIONS ANSWERED. REMOVED PIV. SCANT BLEEDING, CANULA INTACT. Addendum: 10/06/20 at 1523 by Sera Enriquez RN Amended: Links added.
[2020-10-06] MEDS ORDERED: LEVO500T89 PO (16:04)
[2020-10-06] MEDS ORDERED: VANCOMYCIN LEVEL IV ONE (16:30)
[2020-10-07] MEDS ORDERED: FLU VACC QS2020-21(6MOS UP)/PF 60 MCG/0.5 ML SYRINGE IMVAC ONE (10:00)
== END 2020-10-06 13:45 | disposition home or self-care (01) | DRG 133 ==
LOC: ER 17:42 → ED HOLD 23:21 → PCU 3S 10-04 15:57
PROVIDERS: ADMIT Internal Medicine; ATTEND Internal Medicine
PROC: B32T1ZZ Computerized Tomography (CT Scan) of Left Pulmonary Artery using Low Osmolar Contrast (ICD-10-PCS; 2020-10-04)
PROC: B3201ZZ Computerized Tomography (CT Scan) of Thoracic Aorta using Low Osmolar Contrast (ICD-10-PCS; 2020-10-04)
PROC: B32S1ZZ Computerized Tomography (CT Scan) of Right Pulmonary Artery using Low Osmolar Contrast (ICD-10-PCS; 2020-10-04)
PROC: 3E02340 Introduction of Influenza Vaccine into Muscle, Percutaneous Approach (ICD-10-PCS; principal; 2020-10-06)
DX: J96.21 Acute and chronic respiratory failure with hypoxia (principal); E11.51 Type 2 diabetes mellitus with diabetic peripheral angiopathy without gangrene; F17.200 Nicotine dependence, unspecified, uncomplicated; G47.00 Insomnia, unspecified; I11.0 Hypertensive heart disease with heart failure; I25.10 Atherosclerotic heart disease of native coronary artery without angina pectoris; I50.20 Unspecified systolic (congestive) heart failure; J44.9 Chronic obstructive pulmonary disease, unspecified; J96.22 Acute and chronic respiratory failure with hypercapnia; E66.01 Morbid (severe) obesity due to excess calories; F12.90 Cannabis use, unspecified, uncomplicated; G89.29 Other chronic pain; L03.116 Cellulitis of left lower limb; L03.115 Cellulitis of right lower limb; B95.4 Other streptococcus as the cause of diseases classified elsewhere; K21.9 Gastro-esophageal reflux disease without esophagitis; G93.40 Encephalopathy, unspecified; I48.0 Paroxysmal atrial fibrillation; Z79.01 Long term (current) use of anticoagulants; Z79.899 Other long term (current) drug therapy; Z82.49 Family history of ischemic heart disease and other diseases of the circulatory system; Z82.5 Family history of asthma and other chronic lower respiratory diseases; Z83.3 Family history of diabetes mellitus; Z87.11 Personal history of peptic ulcer disease; Z93.1 Gastrostomy status; Z98.51 Tubal ligation status; Z68.38 Body mass index [BMI] 38.0-38.9, adult; Z23 Encounter for immunization
CPT/HCPCS: 36415; 36600; 70450; 70496; 70498; 70551; 71045; 76937; 80053; 80061; 81001; 82803; 82948; 83605; 83880; 84145; 84484; 84550; 85007; 85008; 85018; 85025; 87040; 87077; 87081; 87186; 93005; 93306; 93308; 93922; 93925; 93971; 94760; 97110; 97161; 97530; 99285; G0378; J2270; J3370; J7030; Q2039; Q9967

== ENCOUNTER → 2020-10-12 | Emergency (ER) | payer MEDICAID ==
[~2020-10-12] VITALS: Ht 167.6 cm; Wt 113.6 kg
[~2020-10-12] MED LIST changes: -DIPH25CA46 PO; +DOXY100T56 PO; +LEVO500T89 PO; +ONDA4TAB6 PO; -OXYC-150 PO; +levoFLOXACIN-Levaquin 500mg/D5 100 ML IV ONE
[2020-10-12 23:34] LABS: BASOPHILS # (AUTO) 0.1 X10'3 (0-0.2); BASOPHILS % (AUTO) 0.7 % (0-1); EOSINOPHILS # (AUTO) 0.2 X10'3 (0-0.9); EOSINOPHILS % (AUTO) 1.3 % (0-6); HEMOGLOBIN 11.3 g/dl (12.0-16.0); LYMPHOCYTES # (AUTO) 1.1 X10'3 (1.1-4.8); LYMPHOCYTES % (AUTO) 9.4 % (21-51); MEAN CORPUSCULAR HEMOGLOBIN 25.1 PG (27.0-31.0); MEAN CORPUSCULAR HGB CONC 31.3 g/dL (33.0-36.5); MEAN CORPUSCULAR VOLUME 80.2 FL (78-98); MEAN PLATELET VOLUME 7.7 FL (7.4-10.4); MONOCYTES # (AUTO) 1.6 X10'3 (0-0.9); MONOCYTES % (AUTO) 13.2 % (2-12); NEUTROPHILS % (AUTO) 75.4 % (42-75); PLATELET COUNT 467 X10'3 (140-440); RED BLOOD COUNT 4.49 X10'6 (4.20-5.60); RED CELL DISTRIBUTION WIDTH 18.7 % (11.5-14.5)
[2020-10-12 23:45] LABS: ALANINE AMINOTRANSFERASE 23 U/L (12-78); ALBUMIN 3.6 G/DL (3.4-5.0); ALBUMIN/GLOBULIN RATIO 0.9 (1.1-1.5); ALKALINE PHOSPHATASE 170 IU/L (46-116); ANION GAP 6 (8-16); ASPARTATE AMINO TRANSFERASE 17 U/L (10-37); BILIRUBIN,TOTAL 1.1 MG/DL (0.1-1.0); BLOOD UREA NITROGEN 21 MG/DL (7-18); BUN/CREATININE RATIO 18.9 (6.6-38.0); CALCIUM 9.3 MG/DL (8.5-10.1); CHLORIDE 105 MMOL/L (99-107); CREATININE 1.11 MG/DL (0.40-0.90); GLUCOSE 113 MG/DL (70-104); POTASSIUM 4.9 MMOL/L (3.5-5.1); SODIUM 143 MMOL/L (135-145); TOTAL CARBON DIOXIDE 31.7 MMOL/L (24-32); TOTAL PROTEIN 7.5 G/DL (6.4-8.2); eGFR 50 ML/MIN
--- NOTE | 2020-10-13 | NUR ---
MD Sue at bedside.
[2020-10-13 00:24] LABS: CLARITY,URINE CLEAR (Clear); COLOR,URINE YELLOW (Yellow); GLUCOSE, URINE NEGATIVE (Neg); KETONES,URINE NEGATIVE (Neg); LEUKOCYTE ESTERASE ,URINE NEGATIVE (Neg); NITRITES, URINE NEGATIVE (Neg); OCCULT BLOOD,URINE TRACE-INTACT (Neg); PROTEIN,URINE >=300 mg/dl (Neg); UA COLLECTION TYPE STRAIGHT CATH; UROBILINOGEN,URINE 0.2 E.U/dL (0.2-1.0)
--- NOTE | 2020-10-13 01:01 | NUR ---
PATIENT USING PHONE SPEAKING WITH DAUGHTER RR EVEN UN LABORED NO OBSERVABLE S/S OF ACUTE STRESS AT THIS TIME WILL CONTINUE TO MONITOR
[2020-10-13 01:10] LABS: BACTERIA,URINE FEW /HPF (Neg); RBC,URINE 0-2 /HPF (0-2); SQUAMOUS EPITHELIAL CELL,UR MODERATE /LPF (FEW); WBC,URINE 0-4 /HPF (0-4)
--- NOTE | 2020-10-13 02:21 | NUR ---
Message left for daughter Laila that patient is ready for pharmacy picking tech. Called from hospital phone at [phone] and patient's phone at [phone], both calls went to voicemail. LAILA: [phone]
--- NOTE | 2020-10-13 03:27 | NUR ---
Another voicemail message left for daughter Laila requesting she call/come to ER to pick remover patient.
[2020-10-13 03:47] VITALS: BP 167/97
--- NOTE | 2020-10-13 05:09 | NUR ---
Communicated with daughter Laila by phone. Laila updated on POC, rx and home care. Laila states she is just waking up and will come to get her mom shortly. Daughter Chantel also called after that and after obtaining permission from patient, Chantel was updated on POC also.
== END | disposition home or self-care (01) ==
LOC: ER 22:36
DX: J18.1 Lobar pneumonia, unspecified organism (principal); L03.115 Cellulitis of right lower limb; R41.82 Altered mental status, unspecified; I48.91 Unspecified atrial fibrillation; I25.10 Atherosclerotic heart disease of native coronary artery without angina pectoris; I11.0 Hypertensive heart disease with heart failure; I50.9 Heart failure, unspecified; J44.9 Chronic obstructive pulmonary disease, unspecified; E11.9 Type 2 diabetes mellitus without complications; G89.29 Other chronic pain; F12.90 Cannabis use, unspecified, uncomplicated; Z87.11 Personal history of peptic ulcer disease; Z86.2 Personal history of diseases of the blood and blood-forming organs and certain disorders involving the immune mechanism; Z98.51 Tubal ligation status; Z79.2 Long term (current) use of antibiotics; Z79.899 Other long term (current) drug therapy
CPT/HCPCS: 36415; 71045; 80053; 81001; 83605; 84145; 85025; 87040; 93005; 96365; 99285; J1956

== ENCOUNTER 2020-10-29 21:33 | Emergency (ER) | payer MEDICAID ==
[~2020-10-29] VITALS: Ht 167.6 cm; Wt 113.6 kg
[~2020-10-29 21:33] MED LIST changes: -DOXY100T56 PO; -LEVO500T89 PO; -levoFLOXACIN-Levaquin 500mg/D5 100 ML IV ONE
[2020-10-29 22:22] LABS: BASOPHILS # (AUTO) 0.1 X10'3 (0-0.2); BASOPHILS % (AUTO) 0.6 % (0-1); EOSINOPHILS # (AUTO) 0.3 X10'3 (0-0.9); EOSINOPHILS % (AUTO) 2.8 % (0-6); LYMPHOCYTES # (AUTO) 1.4 X10'3 (1.1-4.8); LYMPHOCYTES % (AUTO) 11.7 % (21-51); MEAN PLATELET VOLUME 7.6 FL (7.4-10.4); MONOCYTES # (AUTO) 1.6 X10'3 (0-0.9); MONOCYTES % (AUTO) 13.4 % (2-12); NEUTROPHILS # (AUTO) 8.7 X10'3 (1.8-7.7); NEUTROPHILS % (AUTO) 71.5 % (42-75); PLATELET COUNT 440 X10'3 (140-440); WHITE BLOOD COUNT 12.2 X10'3 (4.5-11.0)
[2020-10-29 22:45] LABS: ALANINE AMINOTRANSFERASE 27 U/L (12-78); ALKALINE PHOSPHATASE 182 IU/L (46-116); ANION GAP 12 (8-16); ASPARTATE AMINO TRANSFERASE 16 U/L (10-37); BILIRUBIN,TOTAL 0.5 MG/DL (0.1-1.0); BLOOD UREA NITROGEN 1 MG/DL (7-18); CHLORIDE 108 MMOL/L (99-107); GLUCOSE 119 MG/DL (70-104); POTASSIUM 4.5 MMOL/L (3.5-5.1); SODIUM 146 MMOL/L (135-145); TOTAL CARBON DIOXIDE 26.2 MMOL/L (24-32); TOTAL PROTEIN 7.2 G/DL (6.4-8.2)
[2020-10-29] MEDS ORDERED: furosemide 10 MG/1 ML 10ml inj IV ONE (22:50)
[2020-10-29 22:53] LABS: ALBUMIN 3.1 G/DL (3.4-5.0); ALBUMIN/GLOBULIN RATIO 0.8 (1.1-1.5); BUN/CREATININE RATIO 0.8 (6.6-38.0); CALCIUM 8.7 MG/DL (8.5-10.1); CREATININE 1.21 MG/DL (0.40-0.90); eGFR 45 ML/MIN
[2020-10-29 22:54] LABS: HEMATOCRIT 36.3 % (35.0-45.0); HEMOGLOBIN 11.6 g/dl (12.0-16.0); MEAN CORPUSCULAR HGB CONC 31.9 g/dL (33.0-36.5); MEAN CORPUSCULAR VOLUME 78.3 FL (78-98); RED BLOOD COUNT 4.64 X10'6 (4.20-5.60)
[2020-10-29 22:55] LABS: RED CELL DISTRIBUTION WIDTH 18.5 % (11.5-14.5)
--- NOTE | 2020-10-29 23:21 | NUR ---
K= 4.5 when lasiz administered
--- NOTE | 2020-10-29 23:38 | NUR ---
called pt's home to ask daughter to come pick pt up. the phone was not answered and I was not able to leave a message
--- NOTE | 2020-10-29 23:49 | NUR ---
Significant other/roommate Jabier's # [phone] Unable to leave voicemail
--- NOTE | 2020-10-30 00:50 | NUR ---
called daughter nu and left message for her to return my call.
--- NOTE | 2020-10-30 00:52 | NUR ---
Shannan reports we can call her daughter Chantel for Laila's new number daughter Chantel can be reached at [phone]
[2020-10-30 02:09] VITALS: BP 127/87
--- NOTE | 2020-10-30 05:07 | NUR ---
ATTEMPTED TO CALL ANGIE AT [phone] - THE VOICE MAIL BOX IS NOW FULL AND I WAS UNABLE TO LEAVE A MESSAGE.
== END 2020-10-30 09:01 | disposition home or self-care (01) ==
LOC: ER 21:33
DX: I11.0 Hypertensive heart disease with heart failure (principal); I50.9 Heart failure, unspecified; I25.10 Atherosclerotic heart disease of native coronary artery without angina pectoris; I48.91 Unspecified atrial fibrillation; J44.9 Chronic obstructive pulmonary disease, unspecified; E11.9 Type 2 diabetes mellitus without complications; F12.90 Cannabis use, unspecified, uncomplicated; G89.29 Other chronic pain; Z86.2 Personal history of diseases of the blood and blood-forming organs and certain disorders involving the immune mechanism; Z98.51 Tubal ligation status; Z79.899 Other long term (current) drug therapy
CPT/HCPCS: 71045; 80053; 83880; 84484; 85025; 93005; 96374; 99285; J1940